=== PATIENT | female | born 1955 | race Caucasian/White ===

== ENCOUNTER → 2016-06-04 09:55 | Outpatient (CLI) | payer MEDICARE ==
[~2016-06-04 09:55] MED LIST: BROVANA15 MCG/2 M INH; CYMBALTA30 MG PO; DULERA 100 MCG8.8 GM INH; ELIQUIS5 MG PO; K-DUR20 MEQ PO; METOPROLOL-HCTZ1 TA3 PO; NEXIUM20 MG PO; NITROQUICK0.4 MG SL; PLAVIX75 MG PO; SYNTHROID125 MCG PO; VYTORIN 10-20 M1 TAB PO; XANAX1 MG PO
== END | disposition home or self-care (01) ==
LOC: D.CATH 09:55
DX: I48.91 Unspecified atrial fibrillation (principal); Z01.810 Encounter for preprocedural cardiovascular examination; Z01.811 Encounter for preprocedural respiratory examination; Z01.812 Encounter for preprocedural laboratory examination; Z53.9 Procedure and treatment not carried out, unspecified reason

== ENCOUNTER → 2016-11-18 18:52 | Outpatient (CLI) | payer MEDICARE | END | disposition home or self-care (01) | LOC: D.MAMMO 13:30 | DX: Z12.31 Encounter for screening mammogram for malignant neoplasm of breast (principal) ==

== ENCOUNTER 2017-07-10 09:06 | Emergency (ER) | payer MEDICARE ==
[2017-07-10 09:38] LABS: APPEARANCE HAZY (CLEAR); COLOR YELLOW (YELLOW)
[2017-07-10 09:39] LABS: BILIRUBIN NEGATIVE (NEGATIVE); GLUCOSE NEGATIVE (NEGATIVE); KETONE NEGATIVE (NEGATIVE); NITRITE NEGATIVE (NEGATIVE); PROTEIN NEGATIVE (NEGATIVE); UROBILINOGEN NORMAL (NORMAL)
[2017-07-10 09:43] LABS: BASOPHILS 0.6 % (0-2); EOSINOPHILS 1.2 % (0-7); HEMATOCRIT 49.1 % (36.0-48.0); HEMOGLOBIN 16.9 g/dL (12-16); IMMATURE GRANULOCYTES 0.2 % (0-5); MCH 31.2 pg (26.0-34.0); MCHC 34.4 g/dL (31.0-37.0); MCV 90.8 fL (80.0-100.0); MEAN PLATELET VOLUME 9.7 fL (7.4-10.4); MONOCYTES 8.6 % (2-11); NEUTROPHILS 64.4 % (40-80); PLATELET COUNT 282 10x3/uL (130-400); RBC 5.41 10x6/uL (4.00-5.40); RDW 13.4 % (11.5-14.5); WBC 6.6 10x3/uL (4.8-10.8)
[2017-07-10 09:56] LABS: ALBUMIN 3.2 g/dL (3.4-5.0); ANION GAP 14.2 mmol/L (8-16); BILIRUBIN - TOTAL 0.83 mg/dL (0.2-1.3); CALCIUM 9.2 mg/dL (8.5-10.1); CARBON DIOXIDE 25.9 mmol/L (21.0-32.0); CREATININE - SERUM 0.9 mg/dL (0.6-1.3); POTASSIUM - SERUM 4.1 mmol/L (3.5-5.1); PROTEIN - SERUM 7.1 g/dL (6.4-8.2)
== END 2017-07-10 13:50 | disposition home or self-care (01) ==
LOC: D.ER 09:06
PROVIDERS: Emergency Medicine
DX: R10.9 Unspecified abdominal pain (principal); N39.0 Urinary tract infection, site not specified; K43.9 Ventral hernia without obstruction or gangrene; I10 Essential (primary) hypertension

== ENCOUNTER → 2017-11-11 16:19 | Outpatient (CLI) | payer MEDICARE | END | disposition home or self-care (01) | LOC: D.MAMMO 09:00 | DX: Z12.31 Encounter for screening mammogram for malignant neoplasm of breast (principal) ==

== ENCOUNTER 2018-06-03 09:49 | Outpatient (CLI) | payer MEDICARE ==
[2018-06-03] MEDS ORDERED: LINZESS145 MCG PO (10:08)
[2018-06-03] MEDS ORDERED: BETAPACE 120 M120 MG PO (10:09)
[2018-06-03] MEDS ORDERED: PROTONIX40 MG PO (10:11)
[2018-06-03] MEDS ORDERED: LISINOPRIL20 MG PO (10:12)
[2018-06-03] MEDS ORDERED: DETROL LA4 MG PO (10:13)
[2018-06-03] MEDS ORDERED: KLONOPIN0.5 MG PO (10:14)
[2018-06-03] MEDS ORDERED: ZOFRAN ODT4 MG/UDTAB PO (10:15)
[2018-06-03] MEDS ORDERED: DOXEPIN HCL10 MG PO (10:16)
[2018-06-03] MEDS ORDERED: NEURONTIN 300300 MG PO (10:18)
--- NOTE | 2018-06-03 10:44 | NUR ---
PT ARRIVES FOR SCHEDULED CARDIOVERSION. EKG DONE AND PT WAS IN [facility]. DR JIMENEZ NOTIFIED AND DISCHARGE ORDERS GIVEN.
--- NOTE | 2018-06-03 10:44 | NUR ---
PROCEDURE CANCELLED DUE TO NORMAL EKG. PT LEFT AMBULATORY.
== END 2018-06-03 10:30 | disposition home or self-care (01) ==
LOC: D.CATH 09:49
PROVIDERS: ATTEND Internal Medicine Interventional Cardiology
DX: I48.91 Unspecified atrial fibrillation (principal); Z53.8 Procedure and treatment not carried out for other reasons

== ENCOUNTER → 2018-11-25 09:00 | Outpatient (CLI) | payer MEDICARE ==
[~2018-11-25 09:00] MED LIST changes: +BETAPACE 120 M120 MG PO; +DETROL LA4 MG PO; +DOXEPIN HCL10 MG PO; +KLONOPIN0.5 MG PO; +LINZESS145 MCG PO; +LISINOPRIL20 MG PO; +NEURONTIN 300300 MG PO; +PROTONIX40 MG PO; +ZOFRAN ODT4 MG/UDTAB PO
== END | disposition home or self-care (01) ==
LOC: D.MAMMO 10-28 13:00
PROVIDERS: ATTEND Family Medicine
DX: Z12.31 Encounter for screening mammogram for malignant neoplasm of breast (principal)

== ENCOUNTER → 2019-08-04 08:49 | Outpatient (CLI) | payer MEDICARE | END | disposition home or self-care (01) | LOC: D.HCCARDIO 08:49 | PROVIDERS: ATTEND Internal Medicine Cardiovascular Disease | DX: I25.10 Atherosclerotic heart disease of native coronary artery without angina pectoris (principal) ==

== ENCOUNTER 2019-08-17 11:29 | Outpatient (CLI) | payer MEDICARE ==
[~2019-08-17] VITALS: Ht 157.5 cm; Wt 131.8 kg
--- NOTE | ~2019-08-17 | HEMODYNAMI ---
PATIENT:KAYLEE MORRISSEY MEDICAL RECORD: [id number] : 51 LOCATION:[facility] ADMISSION DATE: 08/17/19 Generatedon:08/17/201914:23 Patient name: KAYLEE MORRISSEY Patient #: [id number] SSN: [id number] : 1955 Date of study: 08/17/2019 Page: Of Hemodynamic Procedure Report Patient Data Patient Demographics Procedure consent was obtained First Name: KAYLEE Gender: Female Last Name: YUNI : 1955 Middle Initial: VANDANA Age: 63 year(s) Patient #: [id number] Race: SSN: [id number] Additional ID: [id number] Contact details [address]: [address] [place] [address] State: [place] City: [place] Zip code: [address] Past Medical History Allergies Allergen Reaction Date Comments Reported Other allergy 08/17/2019 SEE CHART Admission Admission Data Admission Date: 08/17/2019 Admission Time: 11:29 Arrival Date: 08/17/2019 Arrival Time: 0:00 Admit Source: Other Insurance Payor: Medicare [facility] #: [id number] Height (in.): 63 BSA: 2.23 (m2) Height (cm.): 160.02 BMI: 49.6 (kg/m2) Weight (lbs.): 280 Weight (kg.): 127.01 Lab Results Lab Result Date: 08/17/2019 Lab Result Time: 0:00 Biochemistry Name Units Result Min Max BUN mg/dl 14 --(--*-)-- 7 18 Creatinine mg/dl 0.9 --(-*--)-- 0.6 1.3 eGFR ml/min 67.09499 *-(----)-- 90 120 NONAFRICAN CBC Name Units Result Min Max Hemoglobin g/dl 12.6 -*(----)-- 13.5 17.5 Procedure Procedure Types Cath Procedure Diagnostic Procedure [facility] w/Coronaries Sedation Charges Moderate Sedation up to 15 minutes Procedure Description Procedure Date Procedure Date: 08/17/2019 Procedure Start Time: 14:03 Procedure End Time: 14:20 Procedure Staff Name Function Zak Brown MD Performing Physician Alexa Ortega RT Monitor Gabriele Todd RN Nurse Aimee Syed RT Scrub Indication Abnormal stress perfusion Procedure Data Cath Procedure Fluoroscopy Diagnostic fluoroscopy Total fluoroscopy Time: 2 time: 2 min min Diagnostic fluoroscopy Total fluoroscopy dose: dose: 1125 mGy 1125 mGy Contrast Material Contrast Material Type Amount (ml) Isovue 300 98 Entry Location Entry Primary Successful Side Size Upsize Upsize Entry Closure Succes sful Closure Location (Fr) 1 (Fr) 2 (Fr) Remarks Device Remarks Femoral Right 5 Fr Exoseal artery Estimated blood loss: 10 ml Diagnostic catheters Device Type Used For End Catheter Placement MULTIPACK JL 4.0 5Fr Procedure catheter MULTIPACK 3DRC 5Fr Procedure catheter MULTIPACK Pigtail 5 Fr Ventriculography catheter Procedure Complications No complications Procedure Medications Medication Administration Route Dosage Oxygen etCO2 Nasal cannula 4 l/min Lidocaine 2% 20 Heparin Flush Bag added to field 2 bags (1000units/500ml NS) 0.9% NaCl I.V. 100 ml/hr Versed I.V. 1 mg Fentanyl I.V. 50 mcg Versed I.V. 1 mg Fentanyl I.V. 50 mcg Versed I.V. 1 mg Versed I.V. 1 mg Hemodynamics Rest BSA: 2.23 (m2) O2 Consumption: Estimated: 199.6 (ml/min) O2 Consumption indexed: Estimated:89.51 (ml/min/m) Heart Rate: 60 (bpm) Pressure Samples Time Site Value (mmHg) Purpose Heart Use Rate(bpm) 14:13 LV 175/9,25 Snapshot 60 14:13 AO 172/32(80) Pullback 58 14:14 AO 175/74(111) Pullback 47 Gradients Valve Time Site Site 2 Mean SEP/DFP Peak To Heart Use 1 (mmHg) (sec/min) Peak Rate (mmHg) (bpm) Aortic 14:13 LV AO 6 30 58 172/32(80) Aortic 14:14 LV AO 23 34 47 175/74(111) Calculations Valve P-P Mean Valve Index Valve Source Name Gradient Area Flow (cm2) Aortic 23 23 Snapshots Pre Cath Intra NCS Post Cath Vital Signs Time Heart Resp SPO2 etCO2 NIBP (mmHg) Rhythm Pain Sedation Rate (ipm) (%) (mmHg) Status Level (bpm) 13:50:04 52 14 98 1.4 163/86(146) NSR 0 (11) 10(A) , No pain 13:56:08 49 21 93 0 157/78(118) NSR 0 (11) 10(A) , No pain 14:01:50 53 25 92 0 138/75(111) NSR 0 (11) 10(A) , No pain 14:07:22 54 32 94 33.6 160/67(116) NSR 0 (11) 9(A) , No pain 14:11:57 56 23 93 32.8 150/79(113) NSR 0 (11) 9(A) , No pain 14:16:27 58 23 92 48.5 151/77(106) NSR 0 (11) 9(A) , No pain 14:21:03 57 28 94 43.3 159/71(106) NSR 0 (11) 10(A) , No pain Medications Time Medication Route Dose Verified Delivered Reason Notes Ef fectiveness by by 13:50:49 Oxygen etCO2 4l/min Zak Buffie used for Nasal Kevin Todd RN procedure cannula 13:50:56 Lidocaine 2% 20ml Zak Zak for local vial Kevin Brown MD anesthetic 13:51:02 Heparin Flush added 2 bags Zak Zak used for Bag to Kevin Brown MD procedure (1000units/500ml field NS) 13:51:12 0.9% NaCl I.V. 100 Zak Buffie Per ml/hr Kevin Todd RN physician 13:53:05 Versed I.V. 1 mg Zak Buffie for Kevin Todd RN sedation 13:53:11 Fentanyl I.V. 50 mcg Zak Buffie for Kevin Todd RN sedation 14:04:32 Versed I.V. 1 mg Zak Buffie for Kevin Todd RN sedation 14:04:35 Fentanyl I.V. 50 mcg Zak Buffie for Kevin Todd RN sedation 14:08:39 Versed I.V. 1 mg Zak Buffie for Kevin Todd RN sedation 14:12:51 Versed I.V. 1 mg Zak Buffie for Brown MD Todd RN sedation Procedure Log Time Note 13:28:32 Informed consent obtained and on chart 13:33:20 Admit Source: Other 13:33:22 Arrival Date: 08/17/2019 12:00:00 AM 13:33:43 Insurance Payor : Medicare 13:33:56 Patient Height : 63 inches 13:34:00 Patient Weight : 280 lbs 13:34:43 Lab Result : BUN 14 mg/dl 13:34:43 Lab Result : eGFR NONAFRICAN 67.19015 ml/min 13:34:43 Lab Result : Hemoglobin 12.6 g/dl 13:34:43 Lab Result : Creatinine 0.9 mg/dl 13:34:48 Diagnostic Cath Status : Elective 13:35:14 Indication : Abnormal stress perfusion 13:35:26 Procedure Status Elective Heart Cath (OP). 13:35:28 Aimee Syed RT(R) sent for patient. Start room use. 13:35:36 Time tracking: Regular hours (M-F 7:00 - 5:00) 13:35:42 Plan of Care:Hemodynamics will remain stable., Cardiac rhythm will remain stable., Comfort level will be maintained., Respiratory function will remain adequate., Patient/ family verbilizes understanding of procedure., Procedure tolerated without complication., Recovers from procedure without complications.. 13:35:48 Patient received from Pre/Post Procedure Room to CCL 1 Alert and oriented. Tansferred to table in Supine position. 13:35:52 Warm blankets applied, and jaren hugger turned on for patient comfort. 13:35:54 Correct patient and procedure confirmed by team. 13:36:04 H&P Date Dictated: 07/27/2019 Within 30 days and on chart., H&P Addendum completed by physician on day of procedure. (MUST COMPLETE FOR ALL OUTPATIENTS). 13:36:06 Pre-procedure instructions explained to patient. 13:36:11 Family in patients room. 13:36:13 Patient NPO since Midnight. 13:36:28 Patient allergic to Other allergySEE CHART 13:36:36 Is the patient allergic to Iodine/contrast media? Yes. 13:36:44 Was the patient premedicated? Yes 13:36:46 Is patient on blood thinner?Yes 13:36:51 ACC The patient was administered the following blood thiners within the last 24 hours: ACCPlavix 13:36:54 Patient diabetic? No. 13:37:02 Snore? Yes 13:37:15 Sleep apnea? Yes 13:37:22 Patient pain scale 0/10 ?. 13:37:27 IV patent on arrival in left forearm with 0.9% NaCl at [facility]. 13:37:31 Lab results completed and on chart. 13:47:30 Stress Test: yes; abnormal ? 13:47:34 Right groin area was prepped with chlora-prep and draped in sterile fashion 13:47:36 Alarms reviewed by R. N. 13:47:36 Sharps counted by scrub and verified by R.N. 13:47:37 Physician paged 13:47:49 Use device set Femoral Dx 13:47:51 ACIST Syringe (67151) opened to sterile field. 13:47:51 Bag Decanter (2002S) opened to sterile field. 13:47:52 Medline Cath Pack ([id number]) opened to sterile field. 13:47:53 ACIST Hand Control (04463) opened to sterile field. 13:47:53 ACIST Manifold (04072) opened to sterile field. 13:47:54 DIAGNOSTIC Multipack 5Fr catheter set (SI8710) opened to sterile field. 13:47:54 Tegaderm 4 x 4 (1626W) opened to sterile field. 13:47:57 SHEATH 5FR Bastian (CUB058) opened to sterile field. 13:47:57 EMERALD Guide Wire (121-141) opened to sterile field. 13:50:38 Vital chart was started 13:50:49 Oxygen 4l/min etCO2 Nasal cannula was administered by Gabriele Todd RN; used for procedure; Verbal order read back and verified. 13:50:56 Lidocaine 2% 20ml vial was administered by Zak Brown MD; for local anesthetic; Verbal order read back and verified. 13:51:02 Heparin Flush Bag (1000units/500ml NS) 2 bags added to field was administered by Zak Brown MD; used for procedure; Verbal order read back and verified. 13:51:12 0.9% NaCl 100 ml/hr I.V. was administered by Gabriele Todd RN; Per physician; Verbal order read back and verified. 13:51:55 Physician arrived 13:51:56 --------ALL STOP TIME OUT------ 13:51:57 Final Timeout: patient, procedure, and site verified with staff and physician. All members of the team are in agreement. 13:51:58 Right groin site verified by team. 13:52:02 Fire Safety Assessment: A--An alcohol-based skin anteseptic being used preoperatively., C--Open oxygen or nitrous oxide is being used., D--An ESU, laser, or fiber-optic light is being used. 13:52:13 Physical assessment completed. ASA score P 2 - A patient with mild systemic disease as per Zak Brown MD. 13:52:16 2) 60-89 Mildly reduced kidney function, and other findings (as for stage 1) point to kidney disease. 13:52:20 Maximum allowable contrast dose (3.7 X eGFR X 0.75)186 ml. 13:52:24 Sedation plan: IV Moderate Sedation Medication:Versed, Fentanyl 13:53:05 Versed 1 mg I.V. was administered by Gabriele Todd RN; for sedation; Verbal order read back and verified. 13:53:11 Fentanyl 50 mcg I.V. was administered by Gabriele Todd RN; for sedation; Verbal order read back and verified. 13:56:57 Zero performed for pressure channel P1 14:02:55 Procedure started. 14:02:55 Full Disclosure recording started 14:03:26 Local anesthetic to right femoral artery with Lidocaine 2% by Zak Brown MD.INITIAL ACCESS ONLY 14:04:32 Versed 1 mg I.V. was administered by Gabriele Todd RN; for sedation; Verbal order read back and verified. 14:04:35 Fentanyl 50 mcg I.V. was administered by Gabriele Todd RN; for sedation; Verbal order read back and verified. 14:07:20 A 5 Fr sheath was inserted into the Right Femoral artery 14:07:31 A MULTIPACK JL 4.0 5Fr catheter was advanced over the wire and used for Procedure. 14:07:44 LCA angiography performed. 14:08:39 Versed 1 mg I.V. was administered by Gabriele Todd RN; for sedation; Verbal order read back and verified. 14:09:28 Catheter removed. 14:09:35 A MULTIPACK 3DRC 5Fr catheter was advanced over the wire and used for Procedure. 14:09:41 RCA angiography performed. 14:11:21 Catheter removed. 14:11:32 A MULTIPACK Pigtail 5 Fr catheter was advanced over the wire and used for Ventriculography. 14:11:43 LV gram done using HARTMAN 14:12:51 Versed 1 mg I.V. was administered by Gabriele Todd RN; for sedation; Verbal order read back and verified. 14:13:39 EF : 50 % 14:17:04 EXOSEAL 5Fr (EX500) opened to sterile field. 14:17:39 Catheter removed. 14:17:50 Sheath removed intact; hemostasis achieved with Exoseal to the Right Femoral artery. 14:18:20 Procedure ended.(Physican Out) 14:18:30 Fluoroscopy time 02.00 minutes. 14:18:36 Flurop Dose total: 1125 14:18:36 Fluoroscopy dose: 1125 mGy 14:18:42 Dose Area Product 02210 mGy/cm. 14:18:53 Contrast amount:Isovue 300 98ml. 14:18:55 Maximum allowable dose exceeded? No. 14:19:00 Insertion/operative site no bleeding no hematoma. 14:19:35 Post-op/insertion site Right Femoral artery dressed using a 4 x 4 and Tegaderm. 14:19:44 Post-procedure physical assessment completed. ASA score P 2 - A patient with mild systemic disease as per Zak Brown MD. 14:19:56 Post procedure rhythm: sinus rhythm , atrial fibrillation 14:20:00 Estimated blood loss: 10 ml 14:20:01 Post procedure instruction explained to patient.Patient verbalizes understanding. 14:20:14 Procedure type changed to Cath procedure, Diagnostic procedure, LHC, [facility] w/Coronaries, Sedation Charges, Moderate Sedation up to 15 minutes 14:20:15 Procedure and supply charges have been captured, reviewed, submitted and are correct. 14:20:40 Procedure Complication : No complications 14:20:43 Vital chart was stopped 14:20:45 [facility] Findings: MVD- CABG consult 14:20:52 See physician's report for complete and final results. 14:20:54 Report given to Pre/Post Procedure Room. 14:20:56 Patient transfered to Pre/Post Procedure Room with Stretcher. 14:20:58 Procedure ended. 14:20:58 Full Disclosure recording stopped 14:21:02 End room use (Document Last) 14:22:17 End room use (Document Last) 14:22:44 End room use (Document Last) Device Usage Item Name Manufacture Quantity Catalog Hospital Part Current Minimal L ot# / Number Charge Number Stock Stock Serial# Code ACIST Acist 1 46642 [id number] 239814 204708 20 Syringe Medical (62025) Systems Inc Bag Microtek 1 2001S 746753 81972 054678 5 Decanter Medical Inc. () Medline Medline 1 [id number] 543213 69989 722400 5 Cath Pack ([id number]) ACIST Hand Acist 1 49865 386622 859099 003683 5 Control Medical (31987) Systems Inc ACIST Acist 1 38236 021291 468212 224412 5 Manifold Medical (27701) Systems Inc DIAGNOSTIC Cardinal 1 [id number] 175335 46211 434425 30 Multipack Health 5Fr catheter set (KE0186) Tegaderm 4 3M 1 1626W 758146 931510 798458 5 x 4 (1626W) SHEATH 5FR Terumo 1 AHG902 840920 327900 767718 5 Bastian (NRK023) EMERALD Cardinal 1 502-455 489500 972722 002639 5 Guide Wire Health (502-455) MULTIPACK Cardinal 1 191781 5 JL 4.0 5Fr Health catheter MULTIPACK Cardinal 1 900689 5 3DRC 5Fr Health catheter MULTIPACK Cardinal 1 247953 5 Pigtail 5 Health Fr catheter EXOSEAL 5Fr Cardinal 1 EX500 123777 082327 860809 10 (EX500) Health Signature Audit Cuthbert Stage Time Signature Unsigned Intra-Procedure 08/17/2019 Alexa Ortega 2:22:17 PM RT(R) Intra-Procedure 08/17/2019 Gabriele Todd RN 2:22:44 PM Intra-Procedure 08/17/2019 Zak Brown MD 2:23:[address] [address]
[2019-08-17] MEDS ORDERED: AMBIEN5 MG PO (12:03)
[2019-08-17] MEDS ORDERED: PROVENTIL/2.5 MG/3 M INH (12:03)
[2019-08-17 12:13] VITALS: BP 148/71; Ht 157.5 cm; Wt 131.8 kg
[2019-08-17 12:32] LABS: CALCIUM 8.6 mg/dL (8.5-10.1); CARBON DIOXIDE 35.7 mmol/L (21.0-32.0); CHOL - HDL RATIO 3.4 ratio (2.3-4.1); CREATININE - SERUM 0.9 mg/dL (0.6-1.3); POTASSIUM - SERUM 4.7 mmol/L (3.5-5.1)
[2019-08-17 12:35] LABS: BASOPHILS 0.1 % (0-2); EOSINOPHILS 0.1 % (0-7); HEMATOCRIT 41.8 % (36.0-48.0); HEMOGLOBIN 12.6 g/dL (12-16); IMMATURE GRANULOCYTES 0.2 % (0-5); LYMPHOCYTES 13.7 % (15-50); MCH 26.7 pg (26.0-34.0); MCHC 30.1 g/dL (31.0-37.0); MCV 88.6 fL (80.0-100.0); MEAN PLATELET VOLUME 9.1 fL (7.4-10.4); MONOCYTES 8.4 % (2-11); NEUTROPHILS 77.5 % (40-80); RBC 4.72 10x6/uL (4.00-5.40); RDW 17.2 % (11.5-14.5); WBC 11.4 10x3/uL (4.8-10.8)
[2019-08-17 12:55] LABS: PLATELET COUNT 389 10x3/uL (130-400)
--- NOTE | 2019-08-17 14:25 | NUR ---
PT RECEIVED VIA STRETCHER FROM WRITER PRODUCER FOR RECOVERY. PT DROWSY, VERBALLY AROUSABLE. PT DENIES PAIN OR DISCOMFORT. IV PATENT INFUSING VIA ORDERS. R GROIN W 5FR EXOCELE, DRESSING CDI NO S/S HEMATOMA NOTED. LEG PINK AND WARM, PEDAL PULSES PALPABLE. PT PLACED ON CARDIAC MONITORS, HR 53, BP 140/63, RR 9, SAT 91 ON ROOM AIR. PT INSTRUCTED TO KEEP HEAD ON PILLOW AND R LEG STRAIGHT SHE VERBALIZED UNDERSTANDING. CALL LIGHT IN REACH, BROTHER AT BS
--- NOTE | 2019-08-17 14:45 | NUR ---
PT RESTING COMFORTABLY. GROIN SOFT, NO S/S HEMATOMA NOTED. VSS. CALL LIGHT IN REACH
--- NOTE | 2019-08-17 15:30 | NUR ---
R GROIN SOFT, DRESSING REMAINS CDI. HOB ELEVATED SLIGHTLY. VSS. CALL LIGHT IN REACH, BROTHER REMAINS AT BS
--- NOTE | 2019-08-17 15:56 | NUR ---
DR. BIRD AT , NO NEW ORDERS. HE DISCUSSED THE PROCEDURE RESULTS AND PLAN OF CARE. R GROIN SOFT, NO S/S HEMATOMA. DRESSING CDI. PT TOLERATED LUNCH W/O DIFFICULITY. VSS. CALL LIGHT IN REACH
--- NOTE | 2019-08-17 16:16 | NUR ---
DISCHARGE INSTRUCTIONS REVIEWED W PT, SHE VERBALIZED UNDERSTANDING. IV REMOVED W CATH INTACT, MONITORS AND O2 REMOVED. R GROIN SOFT, DRESSING CDI NO S/S HEMATOMA. PT UP TO DRESS FOR DISCHARGE
--- NOTE | 2019-08-17 16:33 | NUR ---
PT AMBULATED TO BR, VOIDING W/O DIFFICULITY. PT THEN DISCHARGED VIA WC TO BROTHER WAITING IN PRIVATE VEHICLE. PT HAD ALL BELONGINGS AND DISCHARGE PAPERWORK
== END 2019-08-17 16:30 | disposition home or self-care (01) ==
LOC: D.CATH 11:29
PROVIDERS: ATTEND Internal Medicine Cardiovascular Disease
DX: I25.119 Atherosclerotic heart disease of native coronary artery with unspecified angina pectoris (principal); R94.39 Abnormal result of other cardiovascular function study; E78.5 Hyperlipidemia, unspecified; I10 Essential (primary) hypertension; K21.9 Gastro-esophageal reflux disease without esophagitis

== ENCOUNTER 2019-09-07 11:08 | Inpatient (IN) | payer MEDICARE ==
[~2019-09-07] VITALS: Ht 157.5 cm; Wt 143.3 kg
[2019-09-07] VITALS (31 sets, daily range): BP systolic 58–156; BP diastolic 31–613; BMI 52.8
--- NOTE | ~2019-09-07 | HEMODYNAMI ---
PATIENT:KAYLEE MORRISSEY MEDICAL RECORD: [id number] : 51 LOCATION:[facility] ADMISSION DATE: 09/07/19 Generatedon:09/07/201913:48 Patient name: KAYLEE MORRISSEY Patient #: [id number] SSN: [id number] : 1955 Date of study: 09/07/2019 Page: Of Hemodynamic Procedure Report Patient Data Patient Demographics Procedure consent was obtained First Name: KAYLEE Gender: Female Last Name: YUNI : 1955 [facility] Initial: VANDANA Age: 63 year(s) Patient #: [id number] Race: SSN: [id number] Additional ID: [id number] Contact details [address]: [address] [place] [address] State: [place] City: [place] Zip code: [address] Past Medical History Allergies Allergen Reaction Date Comments Reported Other allergy 08/17/2019 SEE CHART Admission Admission Data Admission Date: 09/07/2019 Admission Time: 11:08 Height (in.): 62 BSA: 2.25 (m2) Height (cm.): 157.48 BMI: 53.41 (kg/m2) Weight (lbs.): 292 Weight (kg.): 132.45 Lab Results Lab Result Date: 09/07/2019 Lab Result Time: 0:00 Biochemistry Name Units Result Min Max BUN mg/dl 12 --(-*--)-- 7 18 Creatinine mg/dl 0.9 --(-*--)-- 0.6 1.3 eGFR ml/min 67.71738 *-(----)-- 90 120 NONAFRICAN CBC Name Units Result Min Max Hemoglobin g/dl 12.9 -*(----)-- 13.5 17.5 Procedure Procedure Types Cath Procedure Diagnostic Procedure Sedation Charges Moderate Sedation up to 15 minutes Moderate Sedation up to 45 minutes PCI Procedure Coronary Stent Coronary Stent Initial x2 Hemochron ACT Test Procedure Description Procedure Date Procedure Date: 09/07/2019 Procedure Start Time: 13:00 Procedure End Time: 13:44 Procedure Staff Name Function Zak Iverson MD Performing Physician Sada Henriquez RT Monitor Gabriele Todd RN Nurse Russ Kaba RT Scrub Procedure Data Cath Procedure Fluoroscopy Diagnostic fluoroscopy Total fluoroscopy Time: 7.2 time: 7.2 min min Diagnostic fluoroscopy Total fluoroscopy dose: dose: 1951 mGy 1951 mGy Contrast Material Contrast Material Type Amount (ml) Isovue 300 109 Entry Location Entry Primary Successful Side Size Upsize Upsize Entry Closure Succes sful Closure Location (Fr) 1 (Fr) 2 (Fr) Remarks Device Remarks Femoral Right 5 Fr vein Femoral Right 6 Fr Exoseal artery Short Estimated blood loss: 5 ml Procedure Complications No complications Procedure Medications Medication Administration Route Dosage Oxygen etCO2 Nasal cannula 2 l/min Lidocaine 2% added to field 20 Heparin Flush Bag added to field 2 bags (1000units/500ml NS) 0.9% NaCl I.V. 100 ml/hr Versed I.V. 1 mg Fentanyl I.V. 50 mcg Versed I.V. 1 mg Fentanyl I.V. 50 mcg Versed I.V. 1 mg Heparin Bolus I.V. 61259 units Versed I.V. 1 mg Hemodynamics Rest BSA: 2.25 (m2) HGB: 12.9 (g/dl) O2 Consumption: Estimated: 226.24 (ml/min) O2 Co nsumption indexed: Estimated:100.55 (ml/min/m) Heart Rate: 89 (bpm) Snapshots Pre Cath Intra NCS Post Cath Vital Signs Time Heart Resp SPO2 etCO2 NIBP (mmHg) Rhythm Pain Sedation Rate (ipm) (%) (mmHg) Status Level (bpm) 12:51:09 99 11 95 0 156/83(136) A-Fib 0 (11) 10(A) , No pain 12:55:29 88 12 100 0 153/115(140) A-Fib 0 (11) 10(A) , No pain 13:00:57 105 27 92 0 160/101(138) A-Fib 0 (11) 10(A) , No pain 13:05:19 115 31 96 0 154/103(123) A-Fib 0 (11) 9(A) , No pain 13:10:46 117 26 93 0 158/102(129) A-Fib 0 (11) 9(A) , No pain 13:15:09 107 37 94 0 161/100(135) A-Fib 0 (11) 9(A) , No pain 13:19:35 123 26 94 0 164/93(138) A-Fib 0 (11) 9(A) , No pain 13:23:59 103 33 94 0 153/92(132) A-Fib 0 (11) 9(A) , No pain 13:29:20 96 28 93 0 146/94(128) A-Fib 0 (11) 9(A) , No pain 13:34:34 104 20 95 0 168/102(125) A-Fib 0 (11) 10(A) , No pain 13:40:08 103 36 98 0 171/92(120) A-Fib 0 (11) 10(A) , No pain 13:44:18 85 13 96 0 Aborted A-Fib 0 (11) 10(A) , No pain Medications Time Medication Route Dose Verified Delivered Reason Note s Effectiveness by by 12:53:55 Oxygen etCO2 2 Zak Buffie used for Nasal l/min Kevin Todd pole climber cannula 12:54:03 Lidocaine 2% added 20ml Zak Zak for local to vial Kevin Iverson MD anesthetic field 12:54:10 Heparin Flush added 2 bags Zak Zak used for Bag to Kevin Iverson MD procedure (1000units/500ml field NS) 12:54:19 0.9% NaCl I.V. 100 Zak Buffie Per physician ml/hr Kevin Todd RN 12:54:35 Versed I.V. 1 mg Zka Buffie for sedation Kevin Todd RN 12:54:41 Fentanyl I.V. 50 mcg Zak Buffie for sedation Kevin Todd RN 13:02:49 Versed I.V. 1 mg Zak Buffie for sedation Kevin Todd RN 13:02:52 Fentanyl I.V. 50 mcg Zak Buffie for sedation Kevin Todd RN 13:12:50 Versed I.V. 1 mg Zak Buffie for sedation Kevin Todd RN 13:15:04 Heparin Bolus I.V. 10,000 Zak Buffie for veri fied units Kevin Todd RN anticoagulation with dr iverson 13:21:02 Versed I.V. 1 mg Zak Buffie for sedation Kevin Todd RN Procedure Log Time Note 12:40:04 Gabriele Todd RN sent for patient. Start room use. 12:40:47 Informed consent obtained and on chart 12:40:56 PCI Cath Status : Elective 12:41:34 Patient Height : 62 inches 12:42:16 Patient Weight : 292 lbs 12:49:52 Vital chart was started 12:51:02 Procedure Status PCI. 12:51:11 Time tracking: Regular hours (M-F 7:00 - 5:00) 12:51:16 Plan of Care:Hemodynamics will remain stable., Cardiac rhythm will remain stable., Comfort level will be maintained., Respiratory function will remain adequate., Patient/ family verbilizes understanding of procedure., Procedure tolerated without complication., Recovers from procedure without complications.. 12:51:21 Patient received from Pre/Post Procedure Room to CCL 2 Alert and oriented. Tansferred to table in Supine position. 12:51:22 Warm blankets applied, and jaren hugger turned on for patient comfort. 12:51:23 Correct patient and procedure confirmed by team. 12:51:23 ECG and BP/O2 sat monitors applied to patient. 12:51:24 Baseline sample Acquired. 12:51:29 Rhythm: atrial fibrillation 12:51:31 Full Disclosure recording started 12:51:35 H&P Date Dictated: 09/07/2019 Within 30 days and on chart., H&P Addendum completed by physician on day of procedure. (MUST COMPLETE FOR ALL OUTPATIENTS). 12:51:37 Pre-procedure instructions explained to patient. 12:51:39 Pre-op teaching completed and patient verbalized understanding. 12:51:40 Family in patients room. 12:51:42 Patient NPO since Midnight. 12:51:44 Is the patient allergic to Iodine/contrast media? Yes. 12:51:45 Was the patient premedicated? Yes 12:51:46 Is patient on blood thinner?Yes 12:51:48 ACC The patient was administered the following blood thiners within the last 24 hours: ACCPlavix 12:52:25 Patient diabetic? No. 12:52:27 Previous problem with sedation/anesthesia? No ? 12:52:29 Snore? Yes 12:52:31 Sleep apnea? Yes 12:52:45 Deviated septum? No 12:52:46 Opens mouth fully? Yes 12:52:47 Sticks out tongue? Yes 12:52:52 Airway obstruction? No ? 12:52:56 Dentures? No ? 12:52:59 Pre procedure: right dorsailis pedis pulse 1+ Palpable, but thready & weak; easily obliterated 12:53:01 Pre procedure: left dorsailis pedis pulse 1+ Palpable, but thready & weak; easily obliterated 12:53:03 Patient pain scale 0/10 ?. 12:53:09 IV patent on arrival in left forearm with 0.9% NaCl at [facility]. 12:53:17 Lab results completed and on chart. 12:53:22 Right groin area was prepped with chlora-prep and draped in sterile fashion 12:53:23 Alarms reviewed by R. N. 12:53:23 Sharps counted by scrub and verified by R.N. 12:53:25 Physician arrived 12:53:25 --------ALL STOP TIME OUT------ 12:53:26 Final Timeout: patient, procedure, and site verified with staff and physician. All members of the team are in agreement. 12:53:28 Right groin site verified by team. 12:53:32 Fire Safety Assessment: A--An alcohol-based skin anteseptic being used preoperatively., C--Open oxygen or nitrous oxide is being used., D--An ESU, laser, or fiber-optic light is being used. 12:53:35 Physical assessment completed. ASA score P 2 - A patient with mild systemic disease as per Zak Iverson MD. 12:53:41 Sedation plan: IV Moderate Sedation Medication:Versed, Fentanyl 12:53:55 Oxygen 2 l/min etCO2 Nasal cannula was administered by Gabriele Todd RN; used for procedure; Verbal order read back and verified. 12:54:03 Lidocaine 2% 20ml vial added to field was administered by Zak Iverson MD; for local anesthetic; Verbal order read back and verified. 12:54:10 Heparin Flush Bag (1000units/500ml NS) 2 bags added to field was administered by Zak Iverson MD; used for procedure; Verbal order read back and verified. 12:54:19 0.9% NaCl 100 ml/hr I.V. was administered by Gabriele Todd RN; Per physician; Verbal order read back and verified. 12:54:35 Versed 1 mg I.V. was administered by Gabriele Todd RN; for sedation; Verbal order read back and verified. 12:54:41 Fentanyl 50 mcg I.V. was administered by Gabriele Todd RN; for sedation; Verbal order read back and verified. 12:58:16 Use device set CATH PACK 12:58:18 ACIST Syringe (25964) opened to sterile field. 12:58:18 ACIST Hand Control (98833) opened to sterile field. 12:58:19 ACIST Manifold (45721) opened to sterile field. 12:58:19 Medline Cath Pack ([id number]) opened to sterile field. 12:58:19 Bag Decanter (2002S) opened to sterile field. 12:58:20 EMERALD Guide Wire (502-979) opened to sterile field. 12:58:36 SHEATH 6FR Congress (HBJ665) opened to sterile field. 12:58:39 BMW 300cm Norris 2 J wire ([id number]) opened to sterile field. 12:58:40 INFLATOR Merit BasixCompak (ZO7944) opened to sterile field. 13:00:42 Procedure started. 13:00:49 Local anesthetic to right femoral artery with Lidocaine 2% by Zak Iverson MD.INITIAL ACCESS ONLY 13:02:11 Zero performed for pressure channel P1 13:02:42 GUIDE 6FR XBLAD 3.5 catheter ([id number]) opened to sterile field. 13:02:49 Versed 1 mg I.V. was administered by Gabriele Todd RN; for sedation; Verbal order read back and verified. 13:02:52 Fentanyl 50 mcg I.V. was administered by Gabriele Todd RN; for sedation; Verbal order read back and verified. 13:05:44 A 5 Fr sheath was inserted into the Right Femoral vein 13:09:34 NEEDLE Merit 18G 9cm Percutaneous Entry ([id number]) opened to sterile field. 13:12:43 A 6 Fr Short sheath was inserted into the Right Femoral artery 13:12:50 Versed 1 mg I.V. was administered by Gabriele Todd RN; for sedation; Verbal order read back and verified. 13:14:00 GUIDE 6FR XBLAD 3.5 catheter ([id number]) opened to sterile field. 13:14:44 6 Fr xblad 3.5 guide catheter was inserted over the wire 13:14:46 ACC Pre-intervention EARL Flow is 3. 13:15:04 Heparin Bolus 10,000 units I.V. was administered by Gabriele Todd RN; for anticoagulation; verified with dr iverson Verbal order read back and verified. 13:20:53 bmw wire advanced. 13:21:02 Versed 1 mg I.V. was administered by Gabriele Todd RN; for sedation; Verbal order read back and verified. 13:24:01 Place stent Inflation Number: 1 A PAULO OTW 3.0 x 12 stent ([id number]) was prepped and advanced across the Prox LAD 80. The stent was deployed at 12 [place] for 0:10 (min:sec) 0. 13:25:54 Wire redirected to LCX. 13:26:35 Stent catheter was removed intact over wire. 13:33:01 Place stent Inflation Number: 1 A PAULO OTW 3.0 x 22 stent ([id number]) was prepped and advanced across the Prox CX 80. The stent was deployed at 12 [place] for 0:10 (min:sec) 0. 13:33:26 Stent catheter was removed intact over wire. 13:33:26 Wire removed. 13:33:27 Guide catheter removed. 13:33:33 EXOSEAL 6Fr (EX600) opened to sterile field. 13:33:43 Sheath removed intact; hemostasis achieved with Exoseal to the Right Femoral artery. 13:33:45 Procedure ended.(Physican Out) 13:34:06 Fluoroscopy time 07.20 minutes. 13:34:11 Flurop Dose total: 1950 13:34:11 Fluoroscopy dose: 1951 mGy 13:34:17 Dose Area Product 78248 mGy/cm. 13:34:21 Contrast amount:Isovue 300 109ml. 13:37:09 Maximum allowable dose exceeded? No. 13:37:10 Sharps counted by scrub and verified by R.N. 13:37:12 Insertion/operative site no bleeding no hematoma. 13:37:14 Post-op/insertion site Right Femoral artery dressed using a 4 x 4 and Tegaderm. 13:41:55 Femstop placed over the right femoral artery at 150 mmHg. Hemostasis achieved. 13:41:56 Post Procedure Pulses reassessed and unchanged 13:41:59 Post procedure rhythm: unchanged. 13:42:01 Estimated blood loss: 5 ml 13:42:02 Post procedure instruction explained to patient.Patient verbalizes understanding. 13:42:03 Patient needs reinforcement of post procedure teaching. 13:42:19 Procedure type changed to Cath procedure, Diagnostic procedure, Sedation Charges, Moderate Sedation up to 15 minutes, Moderate Sedation up to 45 minutes, PCI procedure, Coronary Stent, Coronary Stent Initial x2, Hemochron ACT Test 13:43:09 ACT drawn and resulted at 275 seconds. (normal therapeutic range 180-240 seconds). 13:43:33 Procedure and supply charges have been captured, reviewed, submitted and are correct. 13:43:37 Procedure Complication : No complications 13:43:59 SHEATH 5FR Congress (LPY964) opened to sterile field. 13:44:19 2) 60-89 Mildly reduced kidney function, and other findings (as for stage 1) point to kidney disease. 13:44:22 Maximum allowable contrast dose (3.7 X eGFR X 0.75)187 ml. 13:44:32 Operative report dictated upon procedure completion. 13:44:33 See physician's report for complete and final results. 13:44:34 Report given to Pre/Post Procedure Room. 13:44:37 Procedure ended. 13:44:37 Full Disclosure recording stopped 13:44:45 ACC-PCI Only Patient was given prescriptions, or instructed by Zak Iverson MD to start/continue the following medications upon discharge: Plavix 13:44:47 End room use (Document Last) 13:45:38 TUBING High Pressure Extension Tubing (Kevin) ([id number]) opened to sterile field. 13:47:12 Lab Result : BUN 12 mg/dl 13:47:12 Lab Result : Creatinine 0.9 mg/dl 13:47:12 Lab Result : eGFR NONAFRICAN 67.42214 ml/min 13:47:12 Lab Result : Hemoglobin 12.9 g/dl 13:48:21 Vital chart was stopped Intervention Summary Intervention Notes Time ActionType Lesion and Equipment Action# Pressure Duration Attributes Used 13:24:01 Place stent Prox LAD PAULO OTW 3.0 1 12 00:10 x 12 stent ([id number]) 13:33:01 Place stent Prox CX PAULO OTW 3.0 1 12 00:10 x 22 stent ([id number]) Device Usage Item Name Manufacture Quantity Catalog Hospital Part Current Mini mal Lot# / Number Charge Number Stock Stock Serial# Code ACIST Syringe Acist 1 45785 057302 899379 256460 20 (98882) Medical Systems Inc ACIST Hand Acist 1 09424 480298 139788 378096 5 Control Medical (78413) Systems Inc ACIST Acist 1 56902 561822 283503 851193 5 Manifold Medical (97954) Systems Inc Medline Cath Medline 1 [id number] 985206 33771 470051 5 Pack ([id number]) Bag Decanter Microtek 1 2001S 499203 71899 870160 5 (2001S) Medical Inc. EMERALD Guide Cardinal 1 502-455 412269 766617 953197 5 Wire Health (502-455) SHEATH 6FR Terumo 1 NHL654 343617 859476 402174 40 Congress (LHF220) BMW 300cm Biswas 1 [id number] 583551 458661 705207 5 Norris 2 J Vascular wire (2083916I) INFLATOR Merit 1 QV7263 782569 326922 529786 15 [facility] Medical BasixCompak (OF9861) GUIDE 6FR Cardinal 2 61003300 681691 261402 973408 10 XBLAD 3.5 Health catheter (30781858) NEEDLE Merit Merit 1 [id number] 126557 929141 137694 5 18G 9cm Medical Percutaneous Entry (YS71R79Q) PAULO OTW 3.0 Medtronic 1 [id number] 044235 5922184 172880 5 [id number] x 12 stent ([id number]) PAULO OTW 3.0 Medtronic 1 [id number] 764152 7373656 753132 5 [id number] x 22 stent ([id number]) EXOSEAL 6Fr Cardinal 1 EX600 792363 104190 122167 10 (EX600) Health SHEATH 5FR Terumo 1 NYF305 940690 101592 617445 5 Congress (OLY265) TUBING High Merit 1 [id number] 326315 32058 280350 10 Pressure Medical Extension Tubing (Kevin) (DS0100O) Signature Audit [place]elle Stage Time Signature Unsigned Intra-Procedure 09/07/2019 Sada Henriquez 1:46:32 PM RT(R) Intra-Procedure 09/07/2019 Gabriele Todd RN 1:47:30 PM Intra-Procedure 09/07/2019 Zka Iverson MD 1:48:19 PM Signatures Performing Physician : Signature : Zak Iverosn MD Date : Time : Monitor : Sada Henriquez RT Signature : Date : Time : Nurse : Gabriele Todd RN Signature : Date : Time : [address] [address]
[~2019-09-07 11:08] MED LIST changes: +AMBIEN5 MG PO; +PROVENTIL/2.5 MG/3 M INH
[2019-09-07 12:49] LABS: BASOPHILS 0.1 % (0-2); EOSINOPHILS 0 % (0-7); HEMATOCRIT 43.4 % (36.0-48.0); HEMOGLOBIN 12.9 g/dL (12-16); IMMATURE GRANULOCYTES 0.2 % (0-5); LYMPHOCYTES 9.3 % (15-50); MCHC 29.7 g/dL (31.0-37.0); MCV 90.8 fL (80.0-100.0); MEAN PLATELET VOLUME 9.3 fL (7.4-10.4); MONOCYTES 6.7 % (2-11); NEUTROPHILS 83.7 % (40-80); PLATELET COUNT 340 10x3/uL (130-400); RBC 4.78 10x6/uL (4.00-5.40); RDW 17.4 % (11.5-14.5); WBC 8.6 10x3/uL (4.8-10.8)
[2019-09-07 13:02] LABS: CALCIUM 9.2 mg/dL (8.5-10.1); CARBON DIOXIDE 34.5 mmol/L (21.0-32.0); CHOL - HDL RATIO 3.5 ratio (2.3-4.1); CREATININE - SERUM 0.9 mg/dL (0.6-1.3); LDL-HDL RATIO 2.1 ratio (1.5-3.5); POTASSIUM - SERUM 4.5 mmol/L (3.5-5.1)
--- NOTE | 2019-09-07 14:00 | NUR ---
PT ARRIVED BY STRETCHER. PLACED ON MONITORS. ASSESSMENT COMPLETED. FAMILY AT BEDSIDE. CALL LIGHT WITHIN REACH.
--- NOTE | 2019-09-07 14:15 | NUR ---
PT RESTING COMFORTABLY. VSS. RIGHT GROIN WITH FEMSTOP IN PLACE. HEMATOMA STABLE AND HAS NOT INCREASED IN SIZE. CALL LIGHT WITHIN REACH. RIGHT PEDAL PULSE PALPABLE.
--- NOTE | 2019-09-07 14:50 | NUR ---
PT REPORTS THAT HER PAIN IS IMPROVED. RATES IT A 6/10 AT THIS TIME. FEMSTOP STABLE AT THIS TIME. VSS. CALL LIGHT WITHIN REACH. FAMILY AT BEDSIDE.
--- NOTE | 2019-09-07 15:26 | NUR ---
RIGHT GROIN HEMATOMA STABLE. FEMSTOP WEANED TO 110mmHg. TOLERATING WELL. VSS. RIGHT PEDAL PULSE PALPABLE. CALL LIGHT WITHIN REACH. FAMILY AT BEDSIDE.
--- NOTE | 2019-09-07 15:40 | NUR ---
PT C/O INC PAIN. RAN VALADEZ AND SADIA SANDS AT BEDSIDE. FEMSTOP REMOVED AND MANUAL PRESSURE HELD. HEMATOMA IS SLIGHTLY LARGER AT THIS TIME.
--- NOTE | 2019-09-07 15:50 | NUR ---
FEMSTOP REPOSITIONED AT THIS TIME. PRESSURE INC TO 66mmGh. PT'S BP DROPPED TO 82/49. PT REPORTS FEELING "NOT GOOD". PALE. PT PLACED IN [place]. IV FLUIDS OPENED. DR. BIRD CALLED.
--- NOTE | 2019-09-07 15:55 | NUR ---
DR. BIRD AT BEDSIDE. PT STILL ALERT AND ORIENTED. RIGHT PEDAL PULSE WITH DOPPLER. DR. BIRD WILL SPEAK WITH DR. MOSQUEDA TO ASSESS GROIN. PRESSURE TO RIGHT GROIN STILL BEING HELD.
--- NOTE | 2019-09-07 16:05 | NUR ---
BP 87/48. PT ALERT AND ORIENTED. STILL COMPLAINING OF PAIN TO RIGHT GROIN. FEMSTOP IN PLACE. MONITORING GROIN SITE. RIGHT PEDAL PULSE WITH DOPPLER.
--- NOTE | 2019-09-07 16:07 | NUR ---
BP 93/58. HR 82. O2 SAT 94% ON 2LNC.
--- NOTE | 2019-09-07 16:15 | NUR ---
DR. MOSQUEDA AT BEDSIDE AND ORDERS RECEIVED. JAYLIN REMOVED FEMSTOP AT THIS TIME. BP 107/59. HR 95. O2 SAT 97% ON 2LNC. PT ALERT AND ORIENTED. RIGHT POST TIB PULSE FOUND WITH DOPPLER. RIGHT LEG WARM TO TOUCH AND PINK. HEMATOMA TO RIGHT GROIN HAS ENLARGED. WILL KEEP FEMSTOP OFF AT THIS TIME. ULTRASOUND CALLED FOR STAT BEDSIDE PER JAYLIN.
--- NOTE | 2019-09-07 16:30 | NUR ---
JAYLIN AT BEDSIDE WITH BRANCH OR DEPARTMENT CHIEF LIBRARIAN. PT GIVEN MORPHINE 4MG IV PER PAIN TO RIGHT LEG. SHE REPORTS 10/10 PAIN AND BURNING. MORPHINE 4MG IV GIVEN PER MD ORDER.
--- NOTE | 2019-09-07 16:50 | NUR ---
DR. MOSQUEDA SPOKE WITH PT'S BROTHER AND UPDATED HIM ON PT'S STATUS AND PLAN OF CARE. PT'S BP 101/62. HR 92. PT STILL C/O PAIN. CT ORDERED STAT.
--- NOTE | 2019-09-07 16:57 | NUR ---
PT TO CT BY STRETCHER.
--- NOTE | 2019-09-07 17:10 | NUR ---
REPORT GIVEN TO ILIA GRAHAM IN CVICU.
[2019-09-07 18:02] LABS: BASOPHILS 0 % (0-2); EOSINOPHILS 0 % (0-7); HEMATOCRIT 35.5 % (36.0-48.0); HEMOGLOBIN 10.5 g/dL (12-16); IMMATURE GRANULOCYTES 0.1 % (0-5); LYMPHOCYTES 8.3 % (15-50); MCH 27.1 pg (26.0-34.0); MCHC 29.6 g/dL (31.0-37.0); MCV 91.7 fL (80.0-100.0); MEAN PLATELET VOLUME 9.4 fL (7.4-10.4); MONOCYTES 2.2 % (2-11); NEUTROPHILS 89.4 % (40-80); PLATELET COUNT 316 10x3/uL (130-400); RBC 3.87 10x6/uL (4.00-5.40); RDW 17.6 % (11.5-14.5); WBC 8.7 10x3/uL (4.8-10.8)
[2019-09-07 18:06] LABS: INR 1.27 (0.85-1.17); PROTIME 15.8 SECONDS (11.6-15.0)
[2019-09-07 18:07] LABS: APTT 47.6 SECONDS (22.8-39.4)
--- NOTE | 2019-09-07 18:10 | NUR ---
PT TAKEN TO OR AT THIS TIME BY DR MOSQUEDA, AND STAFF NURSES
[2019-09-07 18:22] LABS: ALBUMIN 2.1 g/dL (3.4-5.0); ALKALINE PHOSPHATASE 55 U/L (30-120); ALT (SGPT) 14 U/L (10-68); BILIRUBIN - TOTAL 0.61 mg/dL (0.2-1.3); CALC OSMOLALITY 278 mosm/kg (275-300); CALCIUM 7.8 mg/dL (8.5-10.1); CARBON DIOXIDE 28.7 mmol/L (21.0-32.0); CHLORIDE - SERUM 105 mmol/L (98-107); CREATININE - SERUM 0.8 mg/dL (0.6-1.3); GLUCOSE 189 mg/dL (74-106); POTASSIUM - SERUM 5.1 mmol/L (3.5-5.1); PROTEIN - SERUM 4.7 g/dL (6.4-8.2); SODIUM 137 mmol/L (136-145); UREA NITROGEN 13 mg/dL (7-18); eGFR NON AFRICAN AMERICAN 76 mL/min (90-120)
--- NOTE | 2019-09-07 20:34 | NUR ---
PT RECEIVED FROM OR INTUBATED. PT CONNECTED TO MONITORS AND PLACED ON VENT SUPPORT
--- NOTE | 2019-09-07 20:34 | NUR ---
PT HAS DRESSINGS TO RIGHT UPPER THIGH AND GROIN, TWO J/P DRAINS, F/C INPLACE
--- NOTE | 2019-09-07 21:37 | NUR ---
ATTEMPTED TO CALL DR. MOSQUEDA ABOUT ELEVATED GLUCOSE, NO ANSWER
--- NOTE | 2019-09-07 22:44 | NUR ---
ATTEMPTED TO CALL DR. MOSQUEDA ABOUT PATIENTS ELEVATED GLUCOSE LEVELS, NO ANSWER
[2019-09-07 22:56] LABS: PLT FUNCT.(P2Y12) PLAVIX 258 PRU (194-418)
--- NOTE | 2019-09-07 23:00 | NUR ---
PT REASSESSMENT COMPLETED AT THIS TIME, PT SEDATED ON VENT SUPPORT, TITRATING MEDS TO MAINTAIN B/P. PT WILL OPEN EYES TO VOICE, WILL MONITOR FOR CHANGES
[2019-09-08] VITALS (97 sets, daily range): BP systolic 65–137; BP diastolic 43–71; Ht 157.5 cm; Wt 143.3 kg
--- NOTE | 2019-09-08 01:00 | NUR ---
REPORT REC'D FROM ILIA GRAHAM. CONT TO MONITOR.
--- NOTE | 2019-09-08 02:00 | NUR ---
TITRATED LEVOPHED TO 0.04MCG FOR SBP> 90, MAP >65. CONT TO MONITOR.
--- NOTE | 2019-09-08 03:00 | NUR ---
REASSESSMENT COMPLETED. SEE FLOWSHEET FOR ALL FINDINGS. NO ACUTE CHANGES NOTED IN PT'S CONDITION. CONT TO MONITOR,
[2019-09-08 06:48] LABS: ALBUMIN 2.2 g/dL (3.4-5.0); BILIRUBIN - TOTAL 0.67 mg/dL (0.2-1.3); CALCIUM 7.9 mg/dL (8.5-10.1); CARBON DIOXIDE 29.5 mmol/L (21.0-32.0); CREATININE - SERUM 0.9 mg/dL (0.6-1.3); PROTEIN - SERUM 4.9 g/dL (6.4-8.2)
[2019-09-08 06:52] LABS: ANION GAP 8.8 mmol/L (8-16); POTASSIUM - SERUM 4.3 mmol/L (3.5-5.1)
[2019-09-08 07:01] LABS: HEMATOCRIT 30.8 % (36.0-48.0); HEMOGLOBIN 9.7 g/dL (12-16); MCH 27.9 pg (26.0-34.0); MCHC 31.5 g/dL (31.0-37.0); MCV 88.5 fL (80.0-100.0); MEAN PLATELET VOLUME 10.2 fL (7.4-10.4); PLATELET COUNT 457 10x3/uL (130-400); RBC 3.48 10x6/uL (4.00-5.40); RDW 16.7 % (11.5-14.5); WBC 25.7 10x3/uL (4.8-10.8)
[2019-09-08 07:23] LABS: LYMPHOCYTES 8 % (15-50); MONOCYTES 3 % (2-11); NEUTROPHILS 85 % (40-80)
[2019-09-08 07:24] LABS: PLATELET ESTIMATE INCREASED
--- NOTE | 2019-09-08 07:50 | NUR ---
DR MOSQUEDA ROUNDED ON PT. ORDERS RECIECED TO GIVE 500ML NS BOLUS AND 1 U PRBC. PT WAKES UP ON VENT, FOLLOWS COMMANDS. RT GROIN SITE NOTED WITH BRUISING, NO BLEEDING TO SITE, YADIEL DRAINS X 2 WITH BLOODY DRAINAGE, SEE IV FLOWSHEET. VSS. PT NOTED TO HAVE BLOOD PRESSURE DROP AT TIMES TO STIMULATION, DR MOSQUEDA NOTIFIED OF THIS. ALSO PHYSICIAN ORDERED PULMONARY CONSULT. WILL CONTNIUE PLAN OF CARE.
--- NOTE | 2019-09-08 08:35 | NUR ---
1 U PRBC INITIATED AT THIS TIME. VSS. NO ACUTE DISTRESS NOTED. ALSO PT RECIEPT OF 500ML BOLUS COMPLETE. SEE IV FLOWSHEET
--- NOTE | 2019-09-08 12:13 | NUR ---
SPOKE WITH PTS DAUGHTER WHO REQUESTS FOR PT TO HAVE INPATIENT REHAB BEFORE SHE IS DISCHARGED HOME. WILL NOTIFY CASE MANAGEMENT OF THIS AND WILL NOTIFY PHYSICIAN.
--- NOTE | 2019-09-08 12:46 | OP ---
PATIENT NAME: KAYLEE MORRISSEY MEDICAL RECORD: [id number] :51 LOCATION:D.CVI D.CV07 ADMISSION DATE:09/07/19 SURGEON: GUILLERMINA MOSQUEDA MD DATE OF OPERATION: 09/07/2019 SURGEON: Guillermina Mosqueda MD PROCEDURE PERFORMED: Emergency repair of right femoral pseudoaneurysm and evacuation of hematoma. PREOPERATIVE DIAGNOSIS: Right femoral pseudoaneurysm and hematoma status post cardiac catheterization with anticoagulation, hypovolemic shock. POSTOPERATIVE DIAGNOSIS: Right femoral pseudoaneurysm and hematoma status post cardiac catheterization with anticoagulation. ANESTHESIA: General endotracheal anesthesia. ESTIMATED BLOOD LOSS: 200 cc active blood loss and there was another 1 liter of partially clotted hematoma. COMPLICATIONS: None. SPECIMENS: None. CONDITION: Critical. DISPOSITION: ICU. OPERATIVE FINDINGS: Large hematoma extending laterally under arterial pressure with pseudoaneurysm at the medial base. There was dense scar tissue above the arteries. The femoral cannulation site was mid common femoral, slightly medial, repaired primarily. Good distal flow after repair. Drains placed. Retention sutures used due to the large amount of subcutaneous destruction by the hematoma formation. INDICATION: Pseudoaneurysm bleeding with hypovolemic shock. DESCRIPTION OF PROCEDURE: The patient was brought emergently to the operating suite. General anesthesia was obtained. Groin was prepped and incised over the hematoma, which was drained and direct pressure was held over the common femoral artery. The common femoral artery was dissected out. The site of cannulation was identified. The profunda and superficial femoral were dissected out, encircled with vessel loops. Inflow was controlled with direct pressure. The arterial stick site was repaired primarily. Pressure was relieved. There was no bleeding. An additional suture over this was placed as well as one thin site which was oversewn with a pursestring type suture. Thorough antibiotic irrigation was undertaken. Drains were placed, one in the hematoma cavity and one over the artery. The subcutaneous tissue was extensively destroyed. The old laminated thrombus was removed. Interrupted subcutaneous tissues were closed. Large nylon horizontal mattress retention sutures were used and skin clips were placed. There is a possibility this wound will later require a wound VAC. The patient critical to ICU. TRANSINT:[id number] Voice Confirmation ID: [id number] DOCUMENT ID: [id number] OPERATIVE REPORT [id number] KAYLEE MORRISSEY GUILLERMINA MOSQUEDA MD at 1246 CC: NATALEE BIRD M.D. [id number] DICTATION DATE: 09/07/192011 PLATFORM POWER TECHNICIAN: 09/08/19 0507 ADM IN [facility] [address] [id number]
[2019-09-08 13:59] LABS: BASOPHILS 0.2 % (0-2); EOSINOPHILS 0 % (0-7); HEMATOCRIT 32.5 % (36.0-48.0); HEMOGLOBIN 10.4 g/dL (12-16); IMMATURE GRANULOCYTES 0.6 % (0-5); LYMPHOCYTES 13.2 % (15-50); MCH 28.2 pg (26.0-34.0); MCV 88.1 fL (80.0-100.0); MEAN PLATELET VOLUME 9.5 fL (7.4-10.4); MONOCYTES 15.1 % (2-11); NEUTROPHILS 70.9 % (40-80); PLATELET COUNT 336 10x3/uL (130-400); RBC 3.69 10x6/uL (4.00-5.40); RDW 16.3 % (11.5-14.5); WBC 19.7 10x3/uL (4.8-10.8)
[2019-09-08 17:38] LABS: HEMATOCRIT 32.1 % (36.0-48.0); HEMOGLOBIN 10.2 g/dL (12-16); MCH 27.9 pg (26.0-34.0); MCHC 31.8 g/dL (31.0-37.0); MCV 87.9 fL (80.0-100.0); MEAN PLATELET VOLUME 9.4 fL (7.4-10.4); RBC 3.65 10x6/uL (4.00-5.40); RDW 16.2 % (11.5-14.5)
--- NOTE | 2019-09-08 19:00 | NUR ---
REPORT RECEIVED. RECEIVED PATIENT IN BED. SEDATED/INTUBATED. ETT INTACT/SECURE PATENT CONNECTED TO MECHANICAL VENT AT ORDERED SETTINGS. ASSESSMENT COMPLETED PER FLOW SHEET WITH NO ACUTE DISTRESS OBSERVED. MONITORS CONNECTED TO PATIENT WITH ALARMS SET. VSS. YADIEL X 2 TO RT THIGH/DRSG INTACT. YADIEL 1 AND 2 COMPRESSED WITH SMALL AMOUNT OF SEROSANG FLUID IN BULBS. WILL CONTINUE CURRENT POC
--- NOTE | 2019-09-08 21:00 | NUR ---
SON AT BEDSIDE. UPDATE GIVEN. VSS
--- NOTE | 2019-09-08 23:00 | NUR ---
REASSESSMENT COMPLETED PER FLOW SHEET WITH NO ACUTE DISTRESS OBSERVED. VSS. WILL CONTINUE CURRENT POC
[2019-09-09] VITALS (96 sets, daily range): BP systolic 82–119; BP diastolic 41–81
--- NOTE | 2019-09-09 01:00 | NUR ---
SEDATED/INTUBATED. VSS. 0300 REASSESSMENT COMPLETED PER FLOW SHEET WITH NO ACUTE DISTRESS OBSERVED 0500 CHG BATH GIVEN. LETICIA WELL.VSS
[2019-09-09 06:25] LABS: HEMATOCRIT 29.2 % (36.0-48.0); HEMOGLOBIN 9.3 g/dL (12-16); MCH 28.4 pg (26.0-34.0); MCHC 31.8 g/dL (31.0-37.0); MEAN PLATELET VOLUME 9.6 fL (7.4-10.4); RBC 3.28 10x6/uL (4.00-5.40); RDW 16.6 % (11.5-14.5); WBC 16.9 10x3/uL (4.8-10.8)
[2019-09-09 06:43] LABS: CALC OSMOLALITY 284 mosm/kg (275-300); CALCIUM 7.4 mg/dL (8.5-10.1); CARBON DIOXIDE 31.7 mmol/L (21.0-32.0); CHLORIDE - SERUM 107 mmol/L (98-107); CREATININE - SERUM 0.7 mg/dL (0.6-1.3); GLUCOSE 147 mg/dL (74-106); POTASSIUM - SERUM 3.8 mmol/L (3.5-5.1); SODIUM 141 mmol/L (136-145); UREA NITROGEN 14 mg/dL (7-18); eGFR NON AFRICAN AMERICAN 89 mL/min (90-120)
--- NOTE | 2019-09-09 07:10 | NUR ---
SPOKE WITH . INFORMED OF PATIENT'S RHYTHM CHANGE TO AFIB RVR INSTRUCTED TO CALL CARDIOLOGY
--- NOTE | 2019-09-09 07:20 | NUR ---
DR. BIRD PAGED PER ANSWERING SERVICE
--- NOTE | 2019-09-09 07:50 | NUR ---
SPOKE WITH DR. BIRD. UPDATED ON PATIENT. NEW ORDERS RECEIEVED FOR AMIODARONE GTT. INSTRUCTED TO USE LEVOPHED GTT TO AID IN DOPAMINE REMOVAL. PASSED ON INSTRUCTION TO JACK MORRISSEY
--- NOTE | 2019-09-09 11:06 | NUR ---
OKAY TO WEAN OFF VENT PER DR. KAPADIA.
--- NOTE | 2019-09-09 12:01 | NUR ---
PRESSURE SUPPORT TRIAL STARTED AT 1200HR 11/[address] GARCÍA
--- NOTE | 2019-09-09 13:18 | NUR ---
EXTUBATE TO BIPAP PER DR. GARCÍA.
--- NOTE | 2019-09-09 13:52 | NUR ---
EXTUBATED AT [address] GARCÍA'S ORDER. PLACED ON BIPAP 14/5 AT 35% FIO2.
--- NOTE | 2019-09-09 17:00 | NUR ---
AMIODARONE INCREASED BACK TO 1MG/HR PER DR. BIRD. WANTS AMIODARONED AT 1MG/HR UNTIL PT CONVERTS TO SINUS RHYTHM. ONCE IN SINUS RHYTHM DECREASE TO 0.5MG/HR.
--- NOTE | 2019-09-09 19:00 | NUR ---
REPORT RECEIVED. RECEIVED PATIENT IN BED. AWAKE ALERT AND ORIENTED X 4. ON BIPAP. ASSESSMENT COMPLETED PER FLOW SHEET WITH NO ACUTE DISTRESS OBSERVED. MONITORS CONNECTED TO PATIENT WITH ALARMS SET. VSS. CONTINUES AFIB WITH CONTROLLED RATE ON MONITOR. YADIEL X 2 TO RT THIGH INTACT/SECURE/PATENT AND COMPRESSED WITH SMALL AMOUNT OF SEROSANG FLUID IN BULBS. DRSG TO RT THIGH CDI. WILL CONTINUE CURRENT POC
--- NOTE | 2019-09-09 20:00 | NUR ---
BIPAP REMOVED. PT PLACED ON 02@3.5L/MIN PER NC. GIVEN ICE CHIPS. SWALLOWING WELL WITH NO COUGHING OBSERVED. RESP EVEN AND UNLABORED. WILL CONTINUE TO MONITOR
--- NOTE | 2019-09-09 23:00 | NUR ---
REASSESSMENT COMPLETED PER FLOW SHEET WITH NO ACUTE DISTRESS OBSERVED. VSS. CALL LIGHT IN REACH AND ABLE TO UTILIZE TO MAKE NEEDS KNOWN. BIPAP POSITIONED ON PATIENT AND SECURED.
[2019-09-10] VITALS (70 sets, daily range): BP systolic 93–155; BP diastolic 45–74
--- NOTE | 2019-09-10 01:00 | NUR ---
AWAKE AND ALERT. VSS. CALL LIGHT IN REACH. 0300 AWAKE AND ALERT. BIPAP PLACED ON PATIENT AND SECURED. REASESSMENT COMPLETED PER FLOW SHEET WITH NO ACUTE DISTRESS OBSERVED. VSS . WILL CONTINUE CURRENT POC 0500 RESTING WITH EYES CLOSED, EASILY ROUSED AND ALERT. VSS. REQUESTS BIPAP BE REMOVED. REMOVED AT THIS TIME AND PLACED ON NC 3.5L/MIN. LETICIA WELL
--- NOTE | 2019-09-10 07:10 | NUR ---
SHIFT REPORT RECEIVED. PT AA&OX 4. ON 3L O2 VIA NC. DENIES PAIN AT THIS TIME. DRESSING TO RIGHT GROIN INTACT. YADIEL X [address] WITH SEROSANG DRAINAGE NOTED. RIGHT PEDAL PULSE AUDIBLE WITH DOPPLER. MIRANDA CATH IN PLACE WITH ABOUT 20ML OF CONCENTRATED YELLOW URINE. LEFT IJ WITH PLASMOLYTE INFUSING AT 30ML/HR AND SANDEEP AT 0.8MCG/KG/MIN. WILL CONTINUE TO WEAN OFF TOLERATED. SCD TO LEFT LE IN PLACE. LEFT RADIAL SHAKIRA SECURED WITH WRIST PROTECTOR. SAFETY MEASURES IN PLACE. WILL CONTINUE TO MONITOR.
[2019-09-10 07:28] LABS: HEMATOCRIT 25.3 % (36.0-48.0); HEMOGLOBIN 7.9 g/dL (12-16); MCH 28.2 pg (26.0-34.0); MCHC 31.2 g/dL (31.0-37.0); MCV 90.4 fL (80.0-100.0); MEAN PLATELET VOLUME 9.8 fL (7.4-10.4); RBC 2.8 10x6/uL (4.00-5.40); RDW 16.9 % (11.5-14.5)
[2019-09-10 07:30] LABS: WBC 12.5 10x3/uL (4.8-10.8)
[2019-09-10 07:43] LABS: CALC OSMOLALITY 276 mosm/kg (275-300); CALCIUM 7.5 mg/dL (8.5-10.1); CARBON DIOXIDE 31.6 mmol/L (21.0-32.0); CHLORIDE - SERUM 105 mmol/L (98-107); CREATININE - SERUM 0.6 mg/dL (0.6-1.3); GLUCOSE 106 mg/dL (74-106); POTASSIUM - SERUM 3.6 mmol/L (3.5-5.1); SODIUM 139 mmol/L (136-145); UREA NITROGEN 11 mg/dL (7-18); eGFR NON AFRICAN AMERICAN > 90 mL/min (90-120)
--- NOTE | 2019-09-10 13:35 | NUR ---
ST [facility] IN UNIT. ORDERED 200MG AMIODARONE PO BID.
--- NOTE | 2019-09-10 13:45 | NUR ---
DANGLED ON SIDE BED WITH PHYSICAL THERAPY. TOLERATED WELL. WILL CONTINUE TO MONITOR.
[2019-09-11] VITALS (14 sets, daily range): BP systolic 100–162; BP diastolic 45–67
[2019-09-11 06:41] LABS: HEMATOCRIT 25.8 % (36.0-48.0); HEMOGLOBIN 7.9 g/dL (12-16); MCH 27.5 pg (26.0-34.0); MCHC 30.6 g/dL (31.0-37.0); MCV 89.9 fL (80.0-100.0); MEAN PLATELET VOLUME 9.4 fL (7.4-10.4); RBC 2.87 10x6/uL (4.00-5.40); RDW 16.6 % (11.5-14.5); WBC 9.8 10x3/uL (4.8-10.8)
[2019-09-11 07:04] LABS: CALC OSMOLALITY 279 mosm/kg (275-300); CALCIUM 7.7 mg/dL (8.5-10.1); CARBON DIOXIDE 32.8 mmol/L (21.0-32.0); CHLORIDE - SERUM 105 mmol/L (98-107); CREATININE - SERUM 0.6 mg/dL (0.6-1.3); GLUCOSE 108 mg/dL (74-106); POTASSIUM - SERUM 3.3 mmol/L (3.5-5.1); SODIUM 140 mmol/L (136-145); UREA NITROGEN 12 mg/dL (7-18); eGFR NON AFRICAN AMERICAN > 90 mL/min (90-120)
--- NOTE | 2019-09-11 08:14 | NUR ---
PT POSITIONED IN BED FOR BREAKFAST. PT FEEDING SELF AFTER MEAL TRAY SET UP.
--- NOTE | 2019-09-11 10:25 | NUR ---
PT INTUBATED BY ANESTHESIA 7.5ETT AT 0958. DR IVY. PHELAN TITRATING FOR SEDATION.VENT SETTING BY RT. PT AWARE.
--- NOTE | 2019-09-11 13:49 | NUR ---
back to bed with pt.
--- NOTE | 2019-09-11 15:08 | NUR ---
DCD F/C PURWICK PLACED.
--- NOTE | 2019-09-11 20:15 | NUR ---
REC'D AWAKE, ALERT, WATCHING TV AFTER RECEIVING REPORT FROM OFF-GOING NURSE. INITIAL ASSESSMENT COMPLETED AND RECORDED PER FLOW SHEET. L JUGULAR CVL PATENT, SALINE LOCKED, SITE CLEAR OF REDNESS OR EDEMA. LUNGS RELATIVELY CLEAR BUT S/W DIMINISHED. GROIN DSG C/D/I WITH YADIEL DRAINS X 2, BULBS COMPRESSED. PUREWICK IN PLACE, TO SUCTION, NO URINE NOTED OF YET. WILL MONITOR
--- NOTE | 2019-09-11 22:45 | NUR ---
PLACED ON BIPAP @ 35% BY RT. LYING QUIETLY, O2 SATS UPPER 90S. WILL CONT TO MONITOR.. NO SIGNS OF DISTRESS.
[2019-09-12] VITALS (21 sets, daily range): BP systolic 98–152; BP diastolic 35–82
--- NOTE | 2019-09-12 02:30 | NUR ---
LYING QUIETLY ON BIPAP, O2 SATS UPPER 90S. HR CURRENTLY 90 BUT OCCASIONALLY JUMPS UP TO 130S. WILL CONT WITH CURRENT PLAN OF CARE
[2019-09-12 07:46] LABS: BASOPHILS 0.3 % (0-2); EOSINOPHILS 2.8 % (0-7); HEMATOCRIT 25.5 % (36.0-48.0); HEMOGLOBIN 7.8 g/dL (12-16); IMMATURE GRANULOCYTES 0.8 % (0-5); LYMPHOCYTES 15.2 % (15-50); MCH 27.5 pg (26.0-34.0); MCHC 30.6 g/dL (31.0-37.0); MCV 89.8 fL (80.0-100.0); MONOCYTES 13.7 % (2-11); NEUTROPHILS 67.2 % (40-80); RBC 2.84 10x6/uL (4.00-5.40); RDW 16.5 % (11.5-14.5); WBC 9.5 10x3/uL (4.8-10.8)
[2019-09-12 07:48] LABS: PLATELET COUNT 281 10x3/uL (130-400)
[2019-09-12 07:56] LABS: CALC OSMOLALITY 268 mosm/kg (275-300); CALCIUM 7.9 mg/dL (8.5-10.1); CARBON DIOXIDE 30.5 mmol/L (21.0-32.0); CHLORIDE - SERUM 102 mmol/L (98-107); CREATININE - SERUM 0.7 mg/dL (0.6-1.3); GLUCOSE 105 mg/dL (74-106); POTASSIUM - SERUM 3.1 mmol/L (3.5-5.1); SODIUM 135 mmol/L (136-145); UREA NITROGEN 11 mg/dL (7-18); eGFR NON AFRICAN AMERICAN 89 mL/min (90-120)
[2019-09-12 08:02] LABS: ALKALINE PHOSPHATASE 52 U/L (30-120); ALT (SGPT) 14 U/L (10-68); BILIRUBIN - TOTAL 1.37 mg/dL (0.2-1.3); PROTEIN - SERUM 5.1 g/dL (6.4-8.2)
--- NOTE | 2019-09-12 09:41 | NUR ---
0700 PT RECIEVED ALERT AND ORIENTED VSS DENIES PAIN AND ALL NEEDS, L IJ CVLDRESSING CDI, IN AFIB, R GROIN BRUISING, DRESSING CDI, YADIEL DRAINX2 COMPRESSED, SEE SHIFT ASSESSMENT FOR DETAILS 0900 TOOK AM MEDS AND ATE BREAKFAST WITHOUT DIFFICULTY
--- NOTE | 2019-09-12 10:01 | NUR ---
Rehab Note- Acute Inpatient Rehab prescreen order received. The patient has [employer] insurance and will require a PreAuth- has an OT & ST order from 09/08. Currently we have no bed avaliable @ [facility] Acute Inpatient Rehab, will follow at this time and submit PreAuth when bed avaliable and Evals avaliable. Thank you for this referral! Tracy Heard RN Clinical Liaison, [facility] Rehab
--- NOTE | 2019-09-12 12:16 | NUR ---
Nutrition Follow-up: Extubated 09/08. Pt reports good appetite but does not want to eat 2/2 not wanting to have a BM in bed. Diet: Regular Wt: 315.2# (09/08) Last BM: 09/10 Labs noted: K+ 3.3, Glu 108, Ca 7.7 Meds noted: Pepcid -Encourage PO intake and honor food preferences within diet restrictions. -Monitor wt. -RD following.
--- NOTE | 2019-09-12 15:45 | NUR ---
OT NOTE: PT COMPLETED BED MOB TASKS WITH MAX A X 2. PT COMPLETED SIT TO STAND WITH MIN A X2. PT COMPLETED BED TO CHAIR TSF WITH MIN A. PT COMPLETED EOB SITTING BALANCE WITH CGA/SBA. PT REQUIRED SET UP FOR UB HYGIENE TASKS. [phone] THANK YOU,CORNELIO ORELLANA
--- NOTE | 2019-09-12 17:02 | NUR ---
1200 ATE 1000% LUNCH TRAY 1300 ASSISTED OOB WITH THERAPY 1500 ASSISTED BACK TO BED WITH THERAPY 1700 DINNER TRAY SERVED
--- NOTE | 2019-09-12 19:00 | NUR ---
SHIFT ASSESSMENT COMPLETED. PT CARE ASSUMED,MONITORS ON AND WORKING, VSS. CALL LIGHT WITHIN REACH, SEE FLOW SHEET FOR FURTHER DETAILS. WILL CONTINUE TO OBSERVE.
--- NOTE | 2019-09-12 21:00 | NUR ---
PT TURNED AND REPOSITIONED FOR COMFORT. LINEN CHANGE AND PUREWICK REPLACED AT THIS TIME, CALL LIGHT WITHIN REACH. WILL CONTINUE TO OBSERVE.
--- NOTE | 2019-09-12 23:00 | NUR ---
NO CHANGES, SEE FLOW SHEET FOR FURTHER DETAILS CALL LIGHT WITHIN REACH. WILL CONTINUE TO OBSERVE.
[2019-09-13] VITALS (19 sets, daily range): BP systolic 84–134; BP diastolic 45–73
--- NOTE | 2019-09-13 01:00 | NUR ---
PT TURNED AND REPOSITIONED AT THIS TIME. LINEN CHANGE AND CHG BATH DONE WELLL. MONITORS ON AND WORKING, VSS. CALL LIGHT WITHIN REACH, WILL CONTINUE TO OBSERVE.
--- NOTE | 2019-09-13 03:00 | NUR ---
PT TURNED AND REPOSTIONED FOR COMFORT. MONITORS ON AND WORKING, VSS. SEE FLOW SHEET FOR FURTHER DETAILS. WILL CONTINUE TO OBSERVE.
--- NOTE | 2019-09-13 05:00 | NUR ---
LINEN CHANGE DONE AT THIS TIME, MONITORS ON AND WORKING VSS. CALL LIGHT WITHIN REACH, WILL CONINTUE TO OBSERVE.
[2019-09-13 05:56] LABS: BASOPHILS 0.3 % (0-2); EOSINOPHILS 3.1 % (0-7); HEMATOCRIT 29.4 % (36.0-48.0); IMMATURE GRANULOCYTES 1.1 % (0-5); LYMPHOCYTES 13.8 % (15-50); MCH 27.4 pg (26.0-34.0); MCHC 30.6 g/dL (31.0-37.0); MCV 89.4 fL (80.0-100.0); NEUTROPHILS 64.7 % (40-80); PLATELET COUNT 323 10x3/uL (130-400); RBC 3.29 10x6/uL (4.00-5.40); RDW 16.4 % (11.5-14.5); WBC 10.5 10x3/uL (4.8-10.8)
[2019-09-13 06:22] LABS: ALBUMIN 2.2 g/dL (3.4-5.0); ALKALINE PHOSPHATASE 56 U/L (30-120); BILIRUBIN - TOTAL 1.22 mg/dL (0.2-1.3); CALC OSMOLALITY 275 mosm/kg (275-300); CALCIUM 8.2 mg/dL (8.5-10.1); CARBON DIOXIDE 33.7 mmol/L (21.0-32.0); CHLORIDE - SERUM 100 mmol/L (98-107); CREATININE - SERUM 0.8 mg/dL (0.6-1.3); GLUCOSE 113 mg/dL (74-106); MAGNESIUM - SERUM 1.8 mg/dL (1.8-2.4); PHOSPHOROUS 2.8 mg/dL (2.5-4.9); POTASSIUM - SERUM 3.5 mmol/L (3.5-5.1); PROTEIN - SERUM 5.7 g/dL (6.4-8.2); SODIUM 138 mmol/L (136-145); UREA NITROGEN 9 mg/dL (7-18); eGFR NON AFRICAN AMERICAN 76 mL/min (90-120)
[2019-09-13 06:23] LABS: ALT (SGPT) 19 U/L (10-68)
--- NOTE | 2019-09-13 10:55 | NUR ---
0700 REPORT RECCIEVED AND CARE ASSUMED OF THE PATIENT.. SEE FOW SHEET FOR SHIFT ASSESMENT FINDINGS.. 0800 PT IS VERY VOCAL ABOUT HER DISLIKE OF THE PUREWICK STATES THAT IT DOESNT WORK AND SHE IS GETTING LASIX THAT IS CAUSING HER TO VOID ALL THE TIME.. STATES SHE IS UNABLE TO AMBULATE TO THE BSC OR BATHROOM 0830 BREAKFAST SERVED HOB ELEVATED AND PATIENT IS FEEDING SELF.. 0900 MEDS GIVEN.. 1030 PHYSICAL THERAPY IN TO ASSIST PATIENT TO CHAIR AT THE BEDSIDE.. PUREWICK REMOVED AND PARIAL BATH DOWN PATIENTS BACKSIDE BUTT BALM IS APPLIED FOR C/O BURNING IN PERINEAL AREA.. ASSISTED TO CHAIR AND A NEW PUREWICK IS POSITIONED AND PLACED TO SUCTION..
--- NOTE | 2019-09-13 12:26 | NUR ---
OT NOTE: PT UPSET THIS AM. REPORTS THAT SHE HAS NOT SLEPT ALL NIGHT AND THAT SHE HAS BEEN WET ALL NIGHT DUE TO PUREWICK NOT WORKING CORRECTLY. ATTEMPTED TO REDIRECT PT AND EXPLAINED THAT WE WOULD GET HER CLEANED UP.. NURSING ASSISTED WITH THIS. BED MOB WITH MAX ASSIST; EOB SITTING WITH GOOD BALANCE. PT ABLE TO WASH FACE, HANDS, AND UPPER BODY WITH CLOTH. MAX ASSIST WITH BACK AND PERINEAL AREA.. NURSING APPLIED MOISTURE BARRIER CREAM TO BUTTOCKS. PT ABLE TO STAND FOR APPROX 1 MIN WITH USE OF WALKER; AMB A FEW FT WITH ASSIST OF OT, PT, AND WALKER. TRANSFER TO CHAIR WITH MIN/MOD ASSIST; MAX ASSIST TO REPOSITION IN CHAIR. PT AGREEABLE TO SIT UP FOR AT LEAST 4 HRS JIMBO LEE, OTR/L [phone]
--- NOTE | 2019-09-13 14:04 | NUR ---
1200 CONTINUES OOB IN THE CHAIR.. C/O PAIN IN HER BACK .. CHAIR IS LAID FLAT TO HELP ALLEVIATE THE PAIN 1330 PHYSICAL THERAPY CALLED TO ASSIST PATIENT BACK INTO THE BED.. 1345 PHYSICAL THERAPY HERE AND PT ASSISTED BACK INTO THE BED.. PERINEAL CLEANING DONE.. AND BUTT PASTE APPLIED.. FRESH PUREWICK PUT TO PATIENT TO SUCTION.. 1415 DR GUZMAN IN TO SEE PATIENT..
--- NOTE | 2019-09-13 16:00 | NUR ---
Rehab Note- Spoke daksha/ Nallely @[phone] with [facility] and stated that the patient has a "Private Fee for service insurance plan', therefore she will not require a PreAuth prior to an acute inpatient rehab stay. When medically stable and bed avaliable if the patient is in agreeance, will accept the patient to [facility] Acute Inpatient REhab. Thank you for this referral! Tracy Heard RN CLinical Liaison, [facility] Rehab
--- NOTE | 2019-09-13 17:50 | NUR ---
OT NOTE: PT COMPLETED CHAIR TO BED TSF WITH MIN A. PT COMPLETED SIT TO SUPINE WITH MOD A. PT COMPLETED UE AXS WITH FUNCTIONAL RW MANAGEMENT. [id number] THANK YOU,CORNELIO ORELLANA
--- NOTE | 2019-09-13 19:00 | NUR ---
SHIFT ASSESSMENT COMPLETED. PT CARE ASSUMED, MONITORS ON AND WORKING. VSS, PT AWAKE AND ALERT, CALL LIGHT WITHIN REACH, SEE FLOW SHEET FOR FURTHER DETIALS. WILL CONTINUE TO OBSERVE.
--- NOTE | 2019-09-13 21:00 | NUR ---
PT LYING IN BED RESTING. MONITORS ON AND WORKING, VSS, CALL LIGHT WITHIN REACH, PT DENIES ANY COMPLAINT OF PAIN OR DISCOMFORT AT THIS TIME, TAKES MEDS PO WITHOUT DIFFICULTY, CALL LIGHT WITHIN REACH, WILL CONTINUE TO OBSERVE.
--- NOTE | 2019-09-13 22:43 | MORECARE ---
CASE MANAGEMENT DISCHARGE SUMMARY PATIENT: KAYLEE MORRISSEY UNIT: [id number] ADM DATE: 09/07/19 AGE: 63 : 51 SEX: F ROOM/BED: [facility] AUTHOR: WANDA POND PHYSICIAN: REFERRING PHYSICIAN: NATALEE BIRD M.D. DATE OF SERVICE: 09/13/19 Discharge Plan Patient Name: KAYLEE MORRISSEY Facility: [facility]:[place] : 1955 Planned Disposition: Inpatient Rehab Anticipated Discharge Date: Discharge Date: Expected LOS: Initial Reviewer: [email or web address] Initial Review Date: 09/08/2019 Generated: 09/13/19 11:43 pm DCPIA - Discharge Planning Initial Assessment Updated by [email or web address]: Frances Aguila on 09/13/19 10:41 pm * Is the patient Alert and Oriented? Yes * How many steps to enter\exit or inside your home? * PCP ARIZMENDI * Pharmacy [facility] [address] * Preadmission Environment Home Alone * ADLs Independent * Equipment Oxygen * Other Equipment HOME 02 CONCENTRATOR - [facility] * List name and contact numbers for known caregivers / representatives who currently or will assist patient after discharge: ELDA CALDERÓN [facility] [phone] * Verbal permission to speak to the caregivers and representatives has been obtained from the patient. Yes * Community resources currently utilized None * Additional services required to return to the preadmission environment? No * Can the patient safely return to the preadmission environment? Yes * Has this patient been hospitalized within the prior 30 days at any hospital? No Patient Name: KAYLEE MORRISSEY Page [phone] at 2243 All edits/amendments must be made on the electronic document DICTATION DATE: 09/13/192242 ESOL TEACHER ASSISTANT: WILLIAM 09/13/192242 RPT#: [id number] DC DATE: STATUS: ADM IN [facility] [address] [place] [address] END OF REPORT
--- NOTE | 2019-09-13 22:56 | MORECARE ---
CASE MANAGEMENT DISCHARGE SUMMARY PATIENT: KAYLEE MORRISSEY UNIT: [id number] ADM DATE: 09/07/19 AGE: 63 : [birth year] SEX: F ROOM/BED: [facility] AUTHOR: SALTY,DOC PHYSICIAN: REFERRING PHYSICIAN: NATALEE BIRD M.D. DATE OF SERVICE: 09/13/19 Discharge Plan Patient Name: KAYLEE MORRISSEY Facility: [facility]:[place] : 1955 Planned Disposition: Inpatient Rehab Anticipated Discharge Date: Discharge Date: Expected LOS: Initial Reviewer: [email or web address] Initial Review Date: 09/08/2019 Generated: 09/13/19 11:55 pm Comments DCP- Discharge Planning Updated by [email or web address]: Frances Aguila on 09/13/19 9:[address] Patient Name: KAYLEE MORRISSEY Admission Status: Elective Accout number: [id number] Admission Date: 09-07-2019 : 1955 Admission Diagnosis:ATHSCL HEART DISEASE OF [place] COR ART W UNSP ANG PCTRS Attending: NATALEE BIRD Current LOS: 6 Anticipated DC Date: Planned Disposition: Inpatient Rehab Primary Insurance: [employer] [facility] Discharge Planning Comments: CM met with patient to complete initial dc planning assessment. CM educated patient on the CM role and verbal consent given by patient to complete assessment. Patient lives at home alone. Patient is independent. At discharge patient plans to return home and feels this is a safe discharge. CM discussed availability of home health, rehab services, and medical equipment. Patient has home 02 concentrator with [facility]. Patient has agreed to Inpatient Rehab@ [facility]. DIONICIO signed Patient will have family to transport home. Patient denied known discharge needs at this time. CM will continue to follow and will assist as needed with dc plans/needs. Professional Organizer: Frances Aguila DCPIA - Discharge Planning Initial Assessment Updated by [email or web address]: Frances Aguila on 09/13/19 10:41 pm * Is the patient Alert and Oriented? Yes * How many steps to enter\exit or inside your home? * PCP ARIZMENDI * Pharmacy [facility] [address] * Preadmission Environment Home Alone * ADLs Independent * Equipment Oxygen * Other Equipment HOME 02 CONCENTRATOR - [facility] * List name and contact numbers for known caregivers / representatives who currently or will assist patient after discharge: ELDA CALDERÓN - - [phone] * Verbal permission to speak to the caregivers and representatives has been obtained from the patient. Yes * Community resources currently utilized None * Additional services required to return to the preadmission environment? No * Can the patient safely return to the preadmission environment? Yes * Has this patient been hospitalized within the prior 30 days at any hospital? No Last DP export: 09/13/19 9:44 pm Patient Name: KAYLEE MORRISSEY Page [phone] at 2952 All edits/amendments must be made on the electronic document DICTATION DATE: 09/13/192255 [employer]OR [employer]: WLILIAM 09/13/192255 RPT#: [id number] DC DATE: STATUS: ADM IN [facility] [address] [place] [address] END OF REPORT
--- NOTE | 2019-09-13 23:00 | NUR ---
NO CHANGES, SEE FLOW SHEET FOR FURTHER DETIALS. WILL CONTINUE TO OBSERVE. CALL LIGHT WITHIN REACH.
[2019-09-14] VITALS (7 sets, daily range): BP systolic 80–112; BP diastolic 42–74
--- NOTE | 2019-09-14 01:00 | NUR ---
PT LYING IN BED RESTING MONITORS ON AND WORKING, VSS. CALL LIGHT WITHIN REACH, WILL CONTINUE TO OBSERVE.
--- NOTE | 2019-09-14 03:00 | NUR ---
NO CHANGES, MONITORS ON AND WORKING, VSS. CALL LIGHT WITHIN REACH, SEE FLOW SHEET FOR FURTHER DETAILS. WILL CONTINUE TO OBSERVE.
--- NOTE | 2019-09-14 05:00 | NUR ---
PT RESTING, MONITORS ON AND WORKING, VSS. CALL LIGHT WITHIN REACH, WILL CONTINUE TO OBSERVE.
--- NOTE | 2019-09-14 07:50 | NUR ---
SHIFT ASSESSMENT COMPLETED. NO C/O AT THIS TIME.
--- NOTE | 2019-09-14 09:25 | NUR ---
UP TO WALK WITH ASSISTANCE OF PT. WALKED THE LENGTH OF THE BARNETT AND REQUIRED CHAIR TRANSPORT BACK TO ROOM. REMAINS UP IN CHAIR.
--- NOTE | 2019-09-14 11:00 | NUR ---
DR. MOSQUEDA HERE. STATES PATIENT MAY TRANSFER TO REHAB TODAY. PATIENT C/O SEVERE BACK PAIN AND RIGHT GROIN PAIN FROM LYING IN RECLINER CHAIR. PT ASSISTS BACK TO BED. RIGHT GROIN EXAMINED BY DR. MOSQUEDA. DRESSING CHANGED TO ADAPTIC WITH 4X4 COVERING. TAPED IN PLACE. YAIDEL DRAIN #2 REMOVED BY NURSE. STERILE 4X4 AND TEGADERM DRESSING APPLIED. BLOOD DRAWN FOR LAB FROM CVL. FLUSHES EASILY.
[2019-09-14 11:58] LABS: HEMATOCRIT 29.5 % (36.0-48.0); MCH 27.4 pg (26.0-34.0); MCHC 30.5 g/dL (31.0-37.0); MCV 89.7 fL (80.0-100.0); MEAN PLATELET VOLUME 9.3 fL (7.4-10.4); RBC 3.29 10x6/uL (4.00-5.40); RDW 16.4 % (11.5-14.5); WBC 11.4 10x3/uL (4.8-10.8)
[2019-09-14 12:13] LABS: CALC OSMOLALITY 272 mosm/kg (275-300); CALCIUM 8.5 mg/dL (8.5-10.1); CHLORIDE - SERUM 99 mmol/L (98-107); CREATININE - SERUM 0.8 mg/dL (0.6-1.3); GLUCOSE 105 mg/dL (74-106); POTASSIUM - SERUM 3.6 mmol/L (3.5-5.1); SODIUM 137 mmol/L (136-145); UREA NITROGEN 11 mg/dL (7-18); eGFR NON AFRICAN AMERICAN 76 mL/min (90-120)
--- NOTE | 2019-09-14 12:26 | NUR ---
Nutrition Follow-up: Pt reports not eating this AM 2/2 typically feeling sick with ambulation. ST signed off. Possible d/c to rehab. Diet: Regular PO intake: 80-100% yesterday No new wt; last wt: 315.2# (09/08) Last BM: 09/10 Labs reviewed Meds noted: Protonix, Lasix, KDur -Encourage PO intake and honor food preferences. -Monitor wt. -RD following.
--- NOTE | 2019-09-14 12:52 | NUR ---
TYLENOL 650MG GIVEN FOR CONTINUED LOWER BACK PAIN.
--- NOTE | 2019-09-14 13:17 | NUR ---
OT NOTES: PT SEEN BY OT AND PT.. PT EXHIBITING INCREASED ACTIVE MOVEMENT IN R LE. PT WAS ABLE TO BRING BOTH LEGS OFF OF EOB WITHOUT ASSIST, BUT REQUIRED MAX ASSIST FOR REMAINDER OF SUPINE TO SIT. EOB SITTING WITH GOOD BALANCE. DONNED GOWN WITH MIN ASSIST; MAX ASSIST WITH SOCKS AND ANYTHING THAT REQUIRES FORWARD TRUNK FLEX. SIT TO STAND WITH MOD ASSIST X 2; ABLE TO AMB WITH MIN ASSIST X 2, 02, IV, RW, AND GAIT BELT X 100 FT. FOLLOWED BEHIND WITH CHAIR AND PT WAS VERY FATIGUED FOLLOWING AMBULAITON. CONTINUED C/O PAIN IN BOTTOM AND BACK (BACK PAIN REPORTED MOSTLY ON R SIDE AROUND HEMATOMA)..EXTENSIVE ASSIST TO GET PT COMFORATABLE IN CHAIR. PT TOLERATED SITTING UP IN CHAIR CLOSE TO 2 HRS..THERAPY PAIGED TO ASSIST PT BACK TO BED DUE TO PAIN IN BACK AND BOTTOM. SIT TO STAND WITH MOD ASSIST X 2; AMB A FEW FT WITH WALKER AND MIN ASSIST; TRANSFERRED BACK TO BED WITH MAX ASSIST X 2.. EDUCATED PT ON USE OF L LE TO PUSH DOWN ON BED IN ORDER TO LIFT BOTTOM AND SCOOT TOWARDS THE R SIDE OF BED. EXPLAINED THAT SHE WAS ABLE TO DO THIS AND SHOULD DO THIS TO PREVENT LIEING IMMOBILE IN ONE POSITION ALL DAY. JIMBO LEE, OTR/L [phone]; [phone]
--- NOTE | 2019-09-14 14:15 | NUR ---
DR. GUZMAN HERE. 02 OFF AT THIS TIME. SATS 92 TO 95. LEAVE OFF O2 PER DR. GUZMAN.
--- NOTE | 2019-09-14 14:30 | NUR ---
CHG BATH GIVEN. LINENS CHANGED. WET WITH URINE. FOUND SUCTION TO PURWICK TURNED OFF. RESUMED AND FUNCTIONING WELL.
--- NOTE | 2019-09-14 15:30 | NUR ---
PIV SITED TO LEFT HAND WITH 20GA CATHETER X 1 ATTEMPT. SALINE LOCKED. CVL REMOVED USING STANDARD PROTOCOL. HEMOSTASIS ACHIEVED AFTER 5 MINS OF PRESSURE. STERILE 4X4 AND TEGADERM OCCLUSIVE DRESSING APPLIED.
--- NOTE | 2019-09-14 16:00 | NUR ---
BED ASSIGNMENT MADE FOR REHAB. DR. MOSQUEDA'S NURSE NORA HERE. STATES TO CONTACT DR. ARIZMENDI'S GROUP FOR TRANSFER ORDER.
--- NOTE | 2019-09-14 16:40 | NUR ---
HARI PORTILLO APRN, [facility] CALLED. TELEPHONE ORDER RECEIVED TO DISCHARGE TO REHAB.
--- NOTE | 2019-09-14 17:50 | NUR ---
REPORT GIVEN TO DESMOND, REHAB UNIT.
--- NOTE | 2019-09-14 18:10 | NUR ---
TRANSFERRED TO REHAB UNIT VIA BED.
--- NOTE | 2019-09-16 17:42 | MORECARE ---
CASE MANAGEMENT DISCHARGE SUMMARY PATIENT: KAYLEE MORRISSEY UNIT: [id number] ADM DATE: 09/07/19 AGE: 63 : 51 SEX: F [facility] AUTHOR: SALTY,DOC PHYSICIAN: REFERRING PHYSICIAN: NATALEE BIRD M.D. 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 CM educated patient on the CM role and verbal consent given by patient to complete assessment. Patient lives at home alone. Patient is independent. At discharge patient plans to return home and feels this is a safe discharge. CM discussed availability of home health, rehab services, and medical equipment. Patient has home 02 concentrator with [facility]. Patient has agreed to Inpatient Rehab@ [facility]. DIONICIO signed Patient will have family to transport home. Patient denied known discharge needs at this time. CM will continue to follow and will assist as needed with dc plans/needs. Bufferer: Frances Aguila DCPIA - Discharge Planning Initial Assessment Updated by [email or web address]: Frances Aguila on 09/13/19 10:41 pm * Is the patient Alert and Oriented? Yes * How many steps to enter\exit or inside your home? * PCP ARIZMENDI * Pharmacy [facility] - [address] * Preadmission Environment Home Alone * ADLs Independent * Equipment Oxygen * Other Equipment HOME 02 CONCENTRATOR - [facility] * List name and contact numbers for known caregivers / representatives who currently or will assist patient after discharge: ELDA DURANT - [phone] * Verbal permission to speak to the caregivers and representatives has been obtained from the patient. Yes * Community resources currently utilized None * Additional services required to return to the preadmission environment? No * Can the patient safely return to the preadmission environment? Yes * Has this patient been hospitalized within the prior 30 days at any hospital? No Coverage Notice Reviewer: [email or web address] Denia Aguila Notice Issued Date-Time: 09/13/2019 19:00 Notice Type: Patient Choice Letter Notice Delivered To: Patient Relationship to Patient: Food Runner Name: Delivery Method: HAND - Hand Delivered Melanie Days: Prior Verbal Notification: Recipient Understood Notice: Yes Recipient Signature: Yes Med Rec Note Co-signed by Attending: Coverage Notice Comment: [facility] INPT REHAB Reviewer: [id number] Denia Brandon Notice Issued Date-Time: 09/14/2019 17:31 Notice Type: IM Discharge Notice Notice Delivered To: Patient Relationship to Patient: Self Food Runner Name: Delivery Method: HAND - Hand Delivered Melanie Days: Prior Verbal Notification: Recipient Understood Notice: Yes Recipient Signature: Yes Med Rec Note Co-signed by Attending: Coverage Notice Comment: DISCHARGE IMM EXPLAINED. PATIENT HAD NO QUESTIONS OR CONCERNS. DISCHARGE IMM SERVED Last DP export: 09/13/19 9:56 pm Patient Name: KAYLEE MORRISSEY Page 23615 at 1742 All edits/amendments must be made on the electronic document DICTATION DATE: 09/16/191740 COMMUNICATION AND OUTREACH MANAGER: WILLIAM 09/16/191740 RPT#: [id number] DC DATE:09/14/19 STATUS: DIS IN [facility] [address] [place] [address] END OF REPORT
== END 2019-09-14 20:06 | DRG 246 ==
LOC: D.CATH 11:08 → D.CVICU 17:10 → D.CATH 17:14 → D.CVICU 09-14 20:06
PROVIDERS: Internal Medicine Pulmonary Disease; Thoracic Surgery (Cardiothoracic Vascular Surgery); ADMIT Internal Medicine Cardiovascular Disease; ATTEND Internal Medicine Cardiovascular Disease
PROC: 027135Z Dilation of Coronary Artery, Two Arteries with Two Drug-eluting Intraluminal Devices, Percutaneous Approach (ICD-10-PCS; principal; 2019-09-07 13:00)
PROC: 04QK0ZZ Repair Right Femoral Artery, Open Approach (ICD-10-PCS; 2019-09-07 18:21)
DX: T81.718A Complication of other artery following a procedure, not elsewhere classified, initial encounter (principal); J95.821 Acute postprocedural respiratory failure; R57.1 Hypovolemic shock; Z68.43 Body mass index [BMI] 50.0-59.9, adult; J96.10 Chronic respiratory failure, unspecified whether with hypoxia or hypercapnia; D62 Acute posthemorrhagic anemia; I25.118 Atherosclerotic heart disease of native coronary artery with other forms of angina pectoris; E66.01 Morbid (severe) obesity due to excess calories; I10 Essential (primary) hypertension; K21.9 Gastro-esophageal reflux disease without esophagitis; G47.33 Obstructive sleep apnea (adult) (pediatric); Z91.19 Patient's noncompliance with other medical treatment and regimen; I25.119 Atherosclerotic heart disease of native coronary artery with unspecified angina pectoris

== ENCOUNTER 2019-09-14 18:51 | Inpatient (IN) | payer BC ==
[~2019-09-14] VITALS: Ht 157.5 cm; Wt 143.3 kg
--- NOTE | ~2019-09-14 | RHP ---
PATIENT: KAYLEE MORRISSEY MEDICAL RECORD: [id number] ACCOUNT: [id number] [facility] [place] : [birth year] ADMISSION DATE: 09/14/19 REHABILITATION HISTORY AND PHYSICAL EXAMINATION POST ADMISSION PHYSICIAN EXAMINATION ADMITTING DIAGNOSIS: Critical illness myopathy. HISTORY OF PRESENT ILLNESS: The patient is a 63-year-old female patient who was admitted to the CV ICU status post cardiac catheterization for complications due to a femoral artery pseudoaneurysm. She underwent a cardiac catheterization on 09/05 with no complications, returned on 09/06 for further stenting of LAD and circumflex. The patient had some bleeding complications to right femoral area after this. Dr. Medina was consulted for a right femoral pseudoaneurysm and hematoma status post cardiac catheterization with anticoagulation. She had blood loss anemia, required 4 units of packed red blood cells. Postop, she did require some mechanical ventilation, was extubated on 09/08 on 35% BiPAP. She remained in CV ICU during her acute stay and had been followed by CV surgery. She has been participating in physical and occupational therapy during her stay. Continues to have YADIEL drains to her groin. She has got supplemental O2 needs, she has been monitored for pain control, watching her I's and O's. She is on electrolyte protocol. She has got proximal muscle weakness, balance deficits, decreased activity tolerance, impaired mobility. She is at risk for falls. She fatigues easily. Lives at home alone and was independent with ADLs and mobility prior to this. Currently she is set up for max assist for ADLs and mod to max assist for her mobility. She would like to return home at her prior level of function. COMORBIDITIES: In this patient include weakness, morbid obesity, hypovolemic shock, femoral artery pseudoaneurysm, acute cough, hypothyroidism, edema, asthma, allergic rhinitis, leukocytosis, status post need for packed red blood cells, atrial fib, and debility. PAST MEDICAL HISTORY: Significant for thyroid problems, stents and angioplasty, atrial fib, coronary artery disease, pneumonia, home O2 use, hernia, acid reflux, chronic back pain, menopause, depression, anxiety, urinary frequency, UTI. PAST SURGICAL HISTORY: Includes gallbladder and hernia repair. ALLERGIES: SULFA, TRAMADOL, IODINE, ASPIRIN, ACETAMINOPHEN, LEVAQUIN, AND IBUPROFEN. CURRENT MEDICATIONS: Include Synthroid 175 mcg 4 times a week, simvastatin 20 mg daily, Zetia 10 mg daily, Detrol 4 mg daily, potassium 20 mEq daily, Plavix 75 mg daily, Synthroid 87.5 mcg on Tuesdays, and Thursday. She is on Protonix 40 mg b.i.d., acetaminophen 650 mg q.4 hours, zolpidem 5 mg daily, clonazepam 0.5 mg daily, sotalol 120 b.i.d., gabapentin 300 mg b.i.d., Eliquis 5 mg b.i.d., Nitrostat p.r.n., and [facility]. HABITS: No alcohol or tobacco use. FAMILY HISTORY: Noncontributory. SOCIAL HISTORY: The patient hopes to return back home and get back to her prior HISTORY AND PHYSICAL [id number] KAYLEE MORRISSEY level of functioning. REVIEW OF SYSTEMS: GENERAL: Does complain of weakness and fatigue. HEENT: Denies cold, cough, or congestion. CARDIOVASCULAR: Denies any chest pain. PHYSICAL EXAMINATION: VITAL SIGNS: Stable, afebrile. GENERAL: A severely morbidly obese female, in no distress upon exam. HEENT: Normocephalic and atraumatic. Mucosa moist. NECK: Supple. No lymphadenopathy. LUNGS: Clear in upper wong, but good breath sounds are delineated in the bases secondary to physical habitus. CARDIOVASCULAR: Irregular rate and rhythm. ABDOMEN: Soft, benign, and nondistended. Positive bowel sounds times 4. EXTREMITIES: No clubbing, cyanosis or edema. NEUROLOGIC: She does have proximal muscle weakness. LABORATORY DATA: Her white count is 12.9, H&H 8.7 and 28.2, platelet count is 428. Sodium 135, potassium 3.5, BUN and creatinine of 13 and 0.8. Blood sugar is noted to be 107. ASSESSMENT: A 63-year-old female patient admitted to rehab with a working diagnosis of critical illness myopathy complicated by morbid obesity. The patient has potential to make improvement. We instituted the following multiple disciplinary therapies including, but not limited to physical, occupational, respiratory, speech, nutritional services, prosthetics and orthotics. Given her complex medical condition and risk for more complications, rehabilitation services cannot be provided at a low level of care such as skilled nurse facility. PLAN: 1. Admit to [place] [facility] for intensive inpatient therapy to include the following disciplines: A. Physical therapy to improve gait, all transfer skills and bed mobility to a modified independent level. B. Occupational therapy to improve activities of daily living. C. Case management to help with discharge planning and placement options. D. Nutrition to assist with nutritional needs. E. Rehabilitation nursing to assist in monitoring the patient's underlying medical conditions and to assist with any type of bowel or bladder management. 2. The patient's current medication and medical care will be continued. 3. The patient will be placed on standard fall precautions. 4. I am going the to follow up her blood work in the a.m. and watch for any signs of blood loss. We will continue on home medications and watch her blood pressure closely. Continue on Eliquis for prophylaxis of her AFib and I will see her again in the morning. TRANSINT:[id number] Voice Confirmation ID: [id number] DOCUMENT ID: [id number] JIM notes whether there has been none or any medical/functional change since admission: - No change since prescreen. HISTORY AND PHYSICAL [id number] KAYLEE MORRISSEY attests patient continues to be appropriate for IRF: - Continues to be appropriate. GLADYS CORDERO MD CC: [id number] DICTATION DATE: 09/15/19 0739 SHAGGER: 09/15/19 1031 ADM IN [facility] [address] [place] [place] [id number]
--- NOTE | 2019-09-14 19:46 | NUR ---
ADMITTED FOR PHYSICAL REHAB AND SERVICES OF DR CORDERO. AWAKE AND ALERT. RESTING IN BED WITH RESPRIAITONS UNLABORED. DRESSING TO RIGHT GROIN DRY AND INTACT. NOTED LARGE AMOUNT OF BRUISING ARUND UPPER THIGH AND GROIN. RIGHT ARM SALINE LOCK INTACT WITH NO SIGNS OF INFILTRATION. YADIEL DRAIN INTACT WITH SEROUS DRAINAGE NOTED IN BULB. ON TELEMETRT IN CONTROLLED ATRIAL FIBRILLATION. NO DISTRESS NOTED. SEE ADMISSION ASSESSMENT.
[2019-09-14 21:15] VITALS: BP 106/50
[2019-09-14 23:01] VITALS: BP 106/50; BMI 57.9
--- NOTE | 2019-09-15 01:30 | NUR ---
RESTING QUIETLY. NO DISTRESS NOTED.
[2019-09-15 06:47] LABS: BASOPHILS 0.2 % (0-2); HEMATOCRIT 28.2 % (36.0-48.0); HEMOGLOBIN 8.7 g/dL (12-16); IMMATURE GRANULOCYTES 0.9 % (0-5); LYMPHOCYTES 9.5 % (15-50); MCH 27.9 pg (26.0-34.0); MCHC 30.9 g/dL (31.0-37.0); MCV 90.4 fL (80.0-100.0); MEAN PLATELET VOLUME 9.3 fL (7.4-10.4); MONOCYTES 14.1 % (2-11); NEUTROPHILS 74.3 % (40-80); PLATELET COUNT 428 10x3/uL (130-400); RBC 3.12 10x6/uL (4.00-5.40); RDW 16.7 % (11.5-14.5); WBC 12.9 10x3/uL (4.8-10.8)
--- NOTE | 2019-09-15 07:01 | NUR ---
QUIET HOURS. NO ACUTE CHANGES IN CONDITION THIS SHIFT. RESTING IN BED WITH NO DISTRESS NOTED.
[2019-09-15 07:11] LABS: CALC OSMOLALITY 269 mosm/kg (275-300); CHLORIDE - SERUM 95 mmol/L (98-107); CREATININE - SERUM 0.8 mg/dL (0.6-1.3); GLUCOSE 107 mg/dL (74-106); POTASSIUM - SERUM 3.5 mmol/L (3.5-5.1); SODIUM 135 mmol/L (136-145); UREA NITROGEN 13 mg/dL (7-18); eGFR NON AFRICAN AMERICAN 76 mL/min (90-120)
[2019-09-15 08:00] VITALS: BP 137/50
--- NOTE | 2019-09-15 12:13 | NUR ---
PATIENT ADMITTED TO REHAB FROM ACUTE FLOOR. HER PCP IS DR. ARIZMENDI. HE HAS HOME O2 FROM [facility]. PATIENT DC PLANS ARE TO RETURN TO HIS HOME. WILL CONTINUE TO FOLLOW WITH PATIENT.
--- NOTE | 2019-09-15 17:31 | NUR ---
PT RESTING IN BED WITH EYES OPEN CALL LIGHT IN REACH WILL MONITER
--- NOTE | 2019-09-15 17:35 | NUR ---
PT RESTING IN BED WITH EYES OPEN CALL LIGHT IN REACH WILL MONITER
[2019-09-15 17:52] VITALS: Ht 157.5 cm; Wt 143.3 kg
--- NOTE | 2019-09-15 20:02 | NUR ---
AWAKE AND ALERT. RESTING IN BED WITH RESPIRATIONS UNLABORED. DRESSING INTACT TO RIGHT GROIN/THIGH AREA. SIGNIFICANT BRUISING NOTED TO AREA. BP WAS 82/31 PER BP MACHINE. HEAD LOWERED AND LEGS ELEVATED. RECHECKED BLOOD PRESSURE MANNUALY AFTER 15 MINUTES AND BP IS NOW 98/50. DENIES PAIN OR SHORTNESS OF BREATH, OR DIZZINESS. WILL MONITOR CLOSELY.
[2019-09-15 21:07] VITALS: BP 98/50
[2019-09-16 00:17] VITALS: BP 124/60
--- NOTE | 2019-09-16 00:17 | NUR ---
BLOOD PRESSURE NOW 124/60. NO C/O DISCOMFORTS. NO DISTRESS NOTED.
--- NOTE | 2019-09-16 01:15 | NUR ---
YADIEL DRAIN SITE TO RIGHT LEG LEAKING SEROUSANQUINOUS FLUID THROUGH BANDAGE. OLD BANDAGE REMOVED AND SITE CLEANED AND NEW BANDAGE APPLIED. YADIEL BULB COMPRESSED. SMALL CLOT NOTED IN BULB.
--- NOTE | 2019-09-16 05:33 | NUR ---
HAD NOT VOIDED ALL NIGHT, ASSISTED TO BATHROOM AND VOIDED WITHOUT DIFFICULTY. YADIEL DRAIN INTACT WITH NO DRAINAGE NOTED THROUGH DRESSING AT THIS TIME. 110ML OF SEROUS DRAINAGE FROM YADIEL DRAIN THIS SHIFT. ASSISTED BACK TO BED. REPSOTITIONED FOR COMFORT.
[2019-09-16 06:27] LABS: ANION GAP 10.5 mmol/L (8-16); CALCIUM 7.8 mg/dL (8.5-10.1); CARBON DIOXIDE 36.8 mmol/L (21.0-32.0); POTASSIUM - SERUM 3.3 mmol/L (3.5-5.1)
[2019-09-16 07:21] LABS: BASOPHILS 0.1 % (0-2); EOSINOPHILS 0.2 % (0-7); HEMATOCRIT 28.4 % (36.0-48.0); HEMOGLOBIN 8.7 g/dL (12-16); IMMATURE GRANULOCYTES 0.8 % (0-5); LYMPHOCYTES 8.2 % (15-50); MCH 28.2 pg (26.0-34.0); MCHC 30.6 g/dL (31.0-37.0); MCV 92.2 fL (80.0-100.0); MEAN PLATELET VOLUME 9.5 fL (7.4-10.4); MONOCYTES 13.1 % (2-11); NEUTROPHILS 77.6 % (40-80); PLATELET COUNT 460 10x3/uL (130-400); RBC 3.08 10x6/uL (4.00-5.40); RDW 16.9 % (11.5-14.5)
[2019-09-16 07:23] LABS: WBC 18.4 10x3/uL (4.8-10.8)
[2019-09-16 08:28] VITALS: BP 123/53
--- NOTE | 2019-09-16 09:23 | NUR ---
PT RESTING IN BED WITH EYES OPEN CALL LIGHT IN REACH NO PROBLEMS WILL MONITER
--- NOTE | 2019-09-16 17:10 | NUR ---
PT RESTING IN BED WITH EYES OPEN CALL LIGHT IN REACH WILL MONITER
--- NOTE | 2019-09-17 01:38 | NUR ---
SLEEPING WITH RESPRIATIONS UNLABORED. NO DISTRESS NOTED.
--- NOTE | 2019-09-17 04:58 | NUR ---
QUIET HOURS. NO ACUTE DISTRESS NOTED. NO CHANGE IN CONDITION.
[2019-09-17 07:15] LABS: BASOPHILS 0.1 % (0-2); EOSINOPHILS 0.8 % (0-7); HEMATOCRIT 32.5 % (36.0-48.0); HEMOGLOBIN 9.9 g/dL (12-16); IMMATURE GRANULOCYTES 0.7 % (0-5); LYMPHOCYTES 7.6 % (15-50); MCH 29.4 pg (26.0-34.0); MCHC 30.5 g/dL (31.0-37.0); MCV 96.4 fL (80.0-100.0); MEAN PLATELET VOLUME 9.2 fL (7.4-10.4); MONOCYTES 12.9 % (2-11); NEUTROPHILS 77.9 % (40-80); PLATELET COUNT 419 10x3/uL (130-400); RBC 3.37 10x6/uL (4.00-5.40); RDW 17.2 % (11.5-14.5); WBC 17.5 10x3/uL (4.8-10.8)
[2019-09-17 07:16] LABS: ANION GAP 5.8 mmol/L (8-16); CALCIUM 7.4 mg/dL (8.5-10.1); CARBON DIOXIDE 37.8 mmol/L (21.0-32.0)
[2019-09-17 07:24] LABS: CREATININE - SERUM 2.3 mg/dL (0.6-1.3); POTASSIUM - SERUM 4.6 mmol/L (3.5-5.1)
--- NOTE | 2019-09-17 08:35 | NUR ---
RAPID RESPONSE CALLED AT 7:53AM, PATIENT B/P AT 76/31, PULSE AT 54
--- NOTE | 2019-09-17 08:45 | NUR ---
DC'D TO ICU/BED.TAKEN TO ROOM 2302
[2019-09-17] MEDS ORDERED: K-DUR20 MEQ PO (09:07)
[2019-09-17] MEDS ORDERED: SYNTHROID88 MCG PO (09:12)
[2019-09-17] MEDS ORDERED: SYNTHROID175 MCG PO (09:13)
[2019-09-17] MEDS ORDERED: ACETAMINOPHEN325 MG PO (09:15)
[2019-09-17] MEDS ORDERED: HEMOCYTE PLUS C1 CAP PO (09:17)
[2019-09-17] MEDS ORDERED: LASIX80 MG PO (09:18)
--- NOTE | 2019-09-21 10:57 | NUR ---
PATIENT DISCHARGED BACK TO THE ACUTE FLOOR ON 09/17/19 DUE TO CHANGE IN MEDICAL CONDITION.
== END 2019-09-17 08:54 | disposition short-term general hospital (02) | DRG 91 ==
LOC: UNDOADMIN 18:51 → D.REHAB 18:51 → D.ICU 09-17 08:40 → D.REHAB 09-17 08:40 → D.ICU 09-17 08:54
PROVIDERS: ADMIT Emergency Medicine; ATTEND Emergency Medicine
DX: G72.81 Critical illness myopathy (principal); R57.1 Hypovolemic shock; J96.11 Chronic respiratory failure with hypoxia; D62 Acute posthemorrhagic anemia; R53.1 Weakness; E66.01 Morbid (severe) obesity due to excess calories; E03.9 Hypothyroidism, unspecified; J45.909 Unspecified asthma, uncomplicated; I48.91 Unspecified atrial fibrillation; R53.81 Other malaise; D72.829 Elevated white blood cell count, unspecified; I72.4 Aneurysm of artery of lower extremity; R60.9 Edema, unspecified; R05 Cough; J30.9 Allergic rhinitis, unspecified; I25.10 Atherosclerotic heart disease of native coronary artery without angina pectoris; K21.9 Gastro-esophageal reflux disease without esophagitis; G47.33 Obstructive sleep apnea (adult) (pediatric)

== ENCOUNTER 2019-09-17 08:45 | Inpatient (IN) | payer MEDICARE ==
[~2019-09-17] VITALS: Ht 157.5 cm; Wt 132.4 kg
[2019-09-17] VITALS (61 sets, daily range): BP systolic 67–123; BP diastolic 21–86; BMI 53.5
--- NOTE | 2019-09-17 08:50 | NUR ---
RECEIVED PT FROM REHAB VIA BED TO ROOM 2304. PT A&OX4. PT VERY HYPOTENSIVE, BEDSIDE. NEW ORDERS RECEIVED. WILL CONT TO MONITOR.
[2019-09-17] MEDS ORDERED: K-DUR20 MEQ PO (09:07)
[2019-09-17] MEDS ORDERED: SYNTHROID88 MCG PO (09:12)
[2019-09-17] MEDS ORDERED: SYNTHROID175 MCG PO (09:13)
[2019-09-17] MEDS ORDERED: ACETAMINOPHEN325 MG PO (09:15)
[2019-09-17] MEDS ORDERED: HEMOCYTE PLUS C1 CAP PO (09:17)
[2019-09-17] MEDS ORDERED: LASIX80 MG PO (09:18)
--- NOTE | 2019-09-17 11:36 | NUR ---
PT VERBALIZED TO ME AND BOAZ MORILLO THAT SHE WANTS TO BE A DNR, THEN PT IS ON THE PHONE YELLING TO DAUGHTER ABOUT CODE STATUS. PT IS NOW SAYING SHE WANTS TO BE A FULL CODE JUST NOT DO THE COMPRESSIONS SO HARD. EXPLAINED TO PT THAT WE HAVE TO BREAK RIBS TO GET THE HEART STARTED AGAIN. PT THEN STARTS YELLING AT DAUGHTER ON THE PHONE ABOUT HER CODE STATUS. WILL CONT TO MONITOR.
[2019-09-17 12:15] LABS: BILIRUBIN 2+ (NEGATIVE); GLUCOSE NEGATIVE (NEGATIVE); KETONE NEGATIVE (NEGATIVE); NITRITE NEGATIVE (NEGATIVE); UROBILINOGEN 4 mg/dL (NORMAL)
[2019-09-17 12:16] LABS: BACTERIA MANY /hpf (NEGATIVE); RED CELLS - URINE 0-5 /hpf (0-5)
[2019-09-18] VITALS (89 sets, daily range): BP systolic 87–155; BP diastolic 43–96
[2019-09-18 07:31] LABS: BASOPHILS 0.2 % (0-2); EOSINOPHILS 1.5 % (0-7); HEMATOCRIT 29.1 % (36.0-48.0); HEMOGLOBIN 8.5 g/dL (12-16); IMMATURE GRANULOCYTES 0.7 % (0-5); LYMPHOCYTES 6.1 % (15-50); MCH 27.6 pg (26.0-34.0); MCHC 29.2 g/dL (31.0-37.0); MCV 94.5 fL (80.0-100.0); MEAN PLATELET VOLUME 9.1 fL (7.4-10.4); MONOCYTES 13.1 % (2-11); NEUTROPHILS 78.4 % (40-80); RBC 3.08 10x6/uL (4.00-5.40); RDW 16.9 % (11.5-14.5); WBC 17.1 10x3/uL (4.8-10.8)
[2019-09-18 07:34] LABS: PLATELET COUNT 505 10x3/uL (130-400)
[2019-09-18 07:45] LABS: ALBUMIN 1.8 g/dL (3.4-5.0); ANION GAP 4.4 mmol/L (8-16); BILIRUBIN - TOTAL 0.86 mg/dL (0.2-1.3); CARBON DIOXIDE 37.5 mmol/L (21.0-32.0); MAGNESIUM - SERUM 1.9 mg/dL (1.8-2.4); PHOSPHOROUS 3.3 mg/dL (2.5-4.9); PROTEIN - SERUM 5.8 g/dL (6.4-8.2)
[2019-09-18 07:51] LABS: CREATININE - SERUM 1.2 mg/dL (0.6-1.3); POTASSIUM - SERUM 3.9 mmol/L (3.5-5.1)
--- NOTE | 2019-09-18 12:15 | NUR ---
DR THOMAS JAIME ON PT. TYLENOL ORDERED FOR PAIN. PT ALLERGIC TO MOST PAIN MEDICATIONS.
--- NOTE | 2019-09-18 18:31 | NUR ---
DR BIRD UPDATED ON PT'S STATUS/HR. STATED WE COULD RESTART PT'S BETAPACE BID.
--- NOTE | 2019-09-18 21:04 | NUR ---
patient requested ice chips. stated after she ate some we had to put bipap on because of orders. she said she did not like my attitude and she was not going to put it on right now and would do it at 10. educated on why she has to wear bipap when sleeping. stated she was well aware.
--- NOTE | 2019-09-18 22:32 | NUR ---
PATIENT REPORT GIVEN TO SUNITHA MORILLO.
[2019-09-19] VITALS (46 sets, daily range): BP systolic 89–128; BP diastolic 43–82; Ht 157.5 cm; Wt 132.4 kg
--- NOTE | 2019-09-19 07:25 | NUR ---
PT RESTING IN BED. O2 @ 2L NC IN PLACE. DENIES PAIN AT THIS TIME. IV TO RIGHT AC WITH NS @ 50ML/HR INFUSING VIA PUMP. SITE WITHOUT REDNESS OR EDEMA. F/C PATENT TO GRAVITY. DENIES FURTHER NEEDS AT THIS TIME. CL WITHIN REACH. ENCOURAGED TO CALL WITH NEEDS. CONTINUE POC
--- NOTE | 2019-09-19 10:50 | NUR ---
DRESSING CHANGE TO RIGHT GROIN PERFORMED. DRESSING THAT IS INTACT TO AREA IS SATURATED WITH SEROSANGUINEOUS DRAINAGE AND MOIST TO SKIN. GERARD INTACT TO INCISION, DRAINAGE NOTED TO BE COMING FROM MIDDLE PORTION OF INCISION. BRUISING AND REDNESS NOTED TO RIGHT GROIN AREA. ALLOWED AREA TO DRAIN, THEN CLEANSED AREA WITH SALINE, APPLIED 4X4'S AND COVERED WITH ABD PAD AND TAPED IN PLACE. PT LETICIA WELL
[2019-09-19 16:09] LABS: BASOPHILS 0.3 % (0-2); EOSINOPHILS 1.1 % (0-7); HEMATOCRIT 29.3 % (36.0-48.0); HEMOGLOBIN 8.7 g/dL (12-16); IMMATURE GRANULOCYTES 0.6 % (0-5); LYMPHOCYTES 9.1 % (15-50); MCH 27.9 pg (26.0-34.0); MCHC 29.7 g/dL (31.0-37.0); MCV 93.9 fL (80.0-100.0); MEAN PLATELET VOLUME 9.4 fL (7.4-10.4); MONOCYTES 12.5 % (2-11); NEUTROPHILS 76.4 % (40-80); PLATELET COUNT 433 10x3/uL (130-400); RBC 3.12 10x6/uL (4.00-5.40); RDW 17.3 % (11.5-14.5)
--- NOTE | 2019-09-19 16:20 | NUR ---
REPORT CALLED TO GERARDO ON MED 2 FOR TRANSFER TO FLOOR.
--- NOTE | 2019-09-19 18:20 | NUR ---
TALKED WITH IRA PALACIO REGARDING PT'S IODINE ALLERGY AND CT WITH CONTRAST ORDER. GOING TO GIVE TWO DOSES OF PREDNISONE [address] IN MORNING AT 0800. TALKED WITH JOSEPHINE MORILLO IN CT WITH PLANS.
--- NOTE | 2019-09-19 22:45 | NUR ---
OT NOTE: PT COMPLETED FACE/HAND HYGIENE WITH SETUP. PT COMPLETED UE AROM TOLERATED WITH FUNCTIONAL TASKS. PT STATED SHE IS SORE. [id number] SHELTON FERNANDO COTA
[2019-09-20] VITALS: BP 107/60
--- NOTE | 2019-09-20 02:08 | NUR ---
I have reviewed this patient and I concur with the Shift Assessment completed by the Licensed Practical Nurse today this shift.
[2019-09-20 04:00] VITALS: BP 135/76
--- NOTE | 2019-09-20 04:57 | NUR ---
PT VOICES NO C/O OR CONCERNS DURING THE NIGHT. RESTING QUIETLY. WILL CTM.
[2019-09-20 06:21] LABS: CALC OSMOLALITY 274 mosm/kg (275-300); CALCIUM 7.7 mg/dL (8.5-10.1); CARBON DIOXIDE 30.7 mmol/L (21.0-32.0); CHLORIDE - SERUM 99 mmol/L (98-107); CREATININE - SERUM 0.8 mg/dL (0.6-1.3); GLUCOSE 143 mg/dL (74-106); POTASSIUM - SERUM 4.3 mmol/L (3.5-5.1); SODIUM 136 mmol/L (136-145); eGFR NON AFRICAN AMERICAN 76 mL/min (90-120)
[2019-09-20 06:27] LABS: UREA NITROGEN 15 mg/dL (7-18)
[2019-09-20 06:33] LABS: BASOPHILS 0.2 % (0-2); EOSINOPHILS 0.1 % (0-7); HEMATOCRIT 29.7 % (36.0-48.0); HEMOGLOBIN 9.2 g/dL (12-16); LYMPHOCYTES 4.1 % (15-50); MCH 28.8 pg (26.0-34.0); MCV 93.1 fL (80.0-100.0); MEAN PLATELET VOLUME 9.2 fL (7.4-10.4); MONOCYTES 4.7 % (2-11); NEUTROPHILS 89.9 % (40-80); PLATELET COUNT 446 10x3/uL (130-400); RBC 3.19 10x6/uL (4.00-5.40); RDW 17.3 % (11.5-14.5); WBC 12.5 10x3/uL (4.8-10.8)
--- NOTE | 2019-09-20 08:08 | NUR ---
PT OFF UNIT FOR CT.
[2019-09-20 12:00] VITALS: BP 126/68
--- NOTE | 2019-09-20 12:14 | NUR ---
OT NOTE: PT REQUESTING TO USE TOILET.. STATED THAT SHE COULD NOT USE BED PISANO AND HASNT HAD A BM IN OVER 4 DAYS. MOD ASSIST X 2 FOR BED MOB AND SUPINE TO SIT.. SEVERE PAIN REPORTED IN GROIN AREA. SITTING BALANCE ON EOB WAS GOOD. PT TRANSFERRED FROM BED TO BS COMMODE WITH WALKER AND MIN/MOD ASSIST. INCREASED ASSIST REQUIRED FOR MANAGEMENT OF TUBES,DRAINS, O2, ETC.. PT REQUIRED MAX ASSIST FOR TOILET HYGIENE DUE TO PAIN REPORTED WITH ATTEMPTS TO WIPE HERSELF. TRANSFERRED BACK TO EOB. PT ABLE TO WASH FACE, HANDS, CHEST, AND ARMS WITH SET UP; DONNED CLEAN GOWN WITH MIN ASSIST. BACK TO BED WITH MOD ASSIST; REPOSITIONED BACK TO BED WITH MOD ASSIST X 2. INFORMED NURSING THAT PTS BANDAGE FOR DRAIN TUBE WAS SOAKED. JIMBO LEE, OTR/L [phone]
--- NOTE | 2019-09-20 15:40 | NUR ---
Rehab Note- Acute Inpatient Rehab prescreen order received. The patient was recently in our acute inpatient rehab unit prior to being transferred to ICU. Discussed with GEETA Gomez. WIll follow the patient at this time. She does have BC insurance but [place] not require a PreAuth prior to an acute inpatient rehab stay. She is currently receiving OT, ST, & PT. Thank you for this referral! Tracy Heard RN Clinical Liaison, [facility] Re[facility]
[2019-09-20 16:00] VITALS: BP 130/77
--- NOTE | 2019-09-20 16:30 | NUR ---
OT NOTE: PT COMPLETED BED MOB TASKS WITH MIN/MOD A. PT COMPLETED UB HYGIENE TASKS WITH SETUP. PT EXHIBITED INCREASED AX TOLERANCE. [phone] THANK YOU,CORNELIO ORELLANA
[2019-09-20 20:00] VITALS: BP 122/60
[2019-09-21] VITALS: BP 140/61
[2019-09-21 04:00] VITALS: BP 114/67
[2019-09-21 06:59] LABS: BASOPHILS 0.1 % (0-2); EOSINOPHILS 0 % (0-7); HEMATOCRIT 30.3 % (36.0-48.0); HEMOGLOBIN 8.8 g/dL (12-16); IMMATURE GRANULOCYTES 0.9 % (0-5); LYMPHOCYTES 11.7 % (15-50); MCH 27.9 pg (26.0-34.0); MEAN PLATELET VOLUME 9.2 fL (7.4-10.4); MONOCYTES 12.6 % (2-11); NEUTROPHILS 74.7 % (40-80); RBC 3.15 10x6/uL (4.00-5.40); RDW 17.4 % (11.5-14.5); WBC 12.2 10x3/uL (4.8-10.8)
[2019-09-21 07:07] LABS: MCV 96.2 fL (80.0-100.0); PLATELET COUNT 559 10x3/uL (130-400)
[2019-09-21 07:28] LABS: CALC OSMOLALITY 286 mosm/kg (275-300); CALCIUM 7.9 mg/dL (8.5-10.1); CARBON DIOXIDE 36.1 mmol/L (21.0-32.0); CHLORIDE - SERUM 104 mmol/L (98-107); CREATININE - SERUM 0.7 mg/dL (0.6-1.3); GLUCOSE 106 mg/dL (74-106); POTASSIUM - SERUM 4.8 mmol/L (3.5-5.1); SODIUM 143 mmol/L (136-145); UREA NITROGEN 17 mg/dL (7-18); eGFR NON AFRICAN AMERICAN 89 mL/min (90-120)
[2019-09-21 08:50] VITALS: BP 122/65
--- NOTE | 2019-09-21 09:02 | NUR ---
28ML OF SEROSANGENOUS DRAINAGE EMPTIED FROM YADIEL DRAIN. PT ALERT AND ORIENTED. LAYING IN BED. TALKING ON THE PHONE. BED LOW. CL IN REACH. WILL CONTINUE WITH POC.
--- NOTE | 2019-09-21 11:20 | NUR ---
CEFEPIME ANTIBIOTIC WAS CHARTED GIVEN YESTERDAY BUT ANTIBITOIC IS STILL HANGING IN ROOM AND DID NOT INFUSED D/T TUBING BEING LOCKED OFF. CALLED AND SPOKE WITH PHARMACIST AND SHE STATES THIS NURSE NOR PHAMRACY CAN CHANGE IT AND TO LET MY NURSE BOILING HOUSE OILER KNOW TO HAVE THOMAS COOPER CHANGE IT IN THE COMPUTER THE NEXT TIME SHE IS HERE. I VERBALIZED UNDERSTANDING. STATED MY CONVERSATION WITH TO VAIBHAV NURSE BOILING HOUSE OILER AND SHE VERBALIZED UNDERSTANDING.
[2019-09-21 11:27] VITALS: BP 117/51
--- NOTE | 2019-09-21 11:27 | NUR ---
SPOKE WITH MICHAEL MOSQUEDA'S NURSE AND SHE STATES DON'T HOLD LOVENOX AND THEY ARE AWARE OF DRESSINGS GETTING SATURATED FROM GROIN DRAINAGE. SHE ALSO STATES IS OK FOR PT TO DC TO REHAB. I VERBALIZED UNDERSTANDING.
--- NOTE | 2019-09-21 13:25 | MORECARE ---
CASE MANAGEMENT DISCHARGE SUMMARY PATIENT: KAYLEE MORRISSEY UNIT: [id number] ADM DATE: 09/17/19 AGE: 63 : 51 SEX: F ROOM/BED: D.4507 AUTHOR: WANDA POND PHYSICIAN: REFERRING PHYSICIAN: FRANCK HANEY MD DATE OF SERVICE: 09/21/19 Discharge Plan Patient Name: KAYLEE MORRISSEY Facility: [facility]:[place] : 1955 Planned Disposition: Anticipated Discharge Date: Discharge Date: Expected LOS: Initial Reviewer: [email or web address] Initial Review Date: 09/17/2019 Generated: 09/21/19 2:25 pm Comments DCP- Discharge Planning Updated by [email or web address]: Betsy Angulo on 09/21/19 12:[address] Patient Name: KAYLEE MORRISSEY Admission Status: Elective Accout number: [id number] Admission Date: 09-17-2019 : 1955 Admission Diagnosis:HYPOTENSION, UNSPECIFIED Attending: GOLDEN Current LOS: 4 Anticipated DC Date: Planned Disposition: Primary Insurance: [employer] [facility] Discharge Planning Comments: CM met with patient to complete initial dc planning assessment. CM educated patient on the CM role and verbal consent given by patient to complete assessment. CM verified patient's address, phone number, and emergency contact phone numbers. Patient lives at home alone, Pt reports she has been independent with her needs prior to admission She reports she has a shower chair, nebulizer, and home oxygen. The oxygen is supplied with [facility], and pt wishes to resume services with [facility]. Pt states she would like to return to IP rehab at [facility]. DIONICIO signed for IP rehab. Patient denies other known discharge needs at this time. Transportation provider at discharge will be her Brother Anderson at [phone]. CM spoke with Tracy at IP rehab at [facility] who has agreed to accept her. CM called IP rehab for bed assignment. Pt will admit into be 1114 A. Construction Consultant: Betsy Angulo Patient Name: KAYLEE MORRISSEY Page [phone] at 1325 All edits/amendments must be made on the electronic document DICTATION DATE: 09/21/19 1325 PLANT CONTROLLER: WILLIAM 09/21/19 1325 RPT#: [id number] DC DATE: STATUS: ADM IN [facility] [address] [place] [address] END OF REPORT
--- NOTE | 2019-09-21 13:59 | NUR ---
OT NOTE: PT VERY LETHARGIC THIS PM. STATES THAT HER SLEEP MED WAS GIVEN TOO LATE AND ITS BEEN LASTING ALL DAY. BED MOB WITH MOD ASSIST; SITTING BALANCE ON EOB WITH SPV; UE AROM EXS WITH FREQ CUES TO STAY AWAKE. SIT TO STAND WITH MIN ASSIST WITH USE OF WALKER; ABLE TO TAKE A FEW SIDE STEPS WITH MIN ASSIST; ABLE TO WASH FACE WITH SET UP; MAX ASSIST WITH TOILET HYGIENE. CONTINUES TO C/O PAIN OF 8/10 IN GROIN AREA. JIMBO LEE, OTR/L [phone]
--- NOTE | 2019-09-21 16:06 | NUR ---
SPOKE WITH ANN-MARIE FAIR AND HE STATES CONTINUE CEFEPIME IV DOWN IN REHAB FOR PT TO GET 7 DAYS TOTAL AND TO ADD IT TO THE DISCHARGE MEDS. I VERBALIZED UNDERSTANDING.
[2019-09-21] MEDS ORDERED: MAXIPIME 1 GM/D51 G1 IV (16:10)
--- NOTE | 2019-09-21 16:18 | NUR ---
SPOKE WITH ANN-MARIE FAIR AND HE STATES TO LEAVE IN MIRANDA CATHETER. I VERBALIZED UNDERSTANDING.
--- NOTE | 2019-09-21 16:25 | NUR ---
CALLED REPORT TO JENNY MORILLO IN REHAB.
--- NOTE | 2019-09-21 16:43 | NUR ---
I have reviewed this patient and I concur with the Shift Assessment completed by the Licensed Practical Nurse today this shift.
--- NOTE | 2019-09-21 16:47 | NUR ---
DISCHARGE INSTRUCTIONS GIVEN AND EXPLAINED TO PT. CHART COPY SIGNED.
--- NOTE | 2019-09-21 17:00 | NUR ---
PT TAKEN DOWN REHAB VIA BED.
--- NOTE | 2019-09-21 21:18 | MORECARE ---
CASE MANAGEMENT DISCHARGE SUMMARY PATIENT: KAYLEE MORRISSEY UNIT: [id number] ADM DATE: 09/17/19 AGE: 63 : 53 SEX: F ROOM/BED: D.3149 AUTHOR: SALTY,DOC PHYSICIAN: REFERRING PHYSICIAN: FARNCK HANEY MD DATE OF SERVICE: 09/21/19 Discharge Plan Patient Name: KAYLEE MORRISSEY Facility: [facility]:[place] : 1955 Planned Disposition: Anticipated Discharge Date: Discharge Date: 09/21/2019 Expected LOS: Initial Reviewer: [email or web address] Initial Review Date: 09/17/2019 Generated: 09/21/19 10:17 pm Comments DCP- Discharge Planning Updated by [email or web address]: Betsy Angulo on 09/21/19 12:[address] Patient Name: KAYLEE MORRISSEY Admission Status: Elective Accout number: [id number] Admission Date: 09-17-2019 : 1955 Admission Diagnosis:HYPOTENSION, UNSPECIFIED Attending: GOLDEN Current LOS: 4 Anticipated DC Date: Planned Disposition: Primary Insurance: [employer] [facility] Discharge Planning Comments: CM met with patient to complete initial dc planning assessment. CM educated patient on the CM role and verbal consent given by patient to complete assessment. CM verified patient's address, phone number, and emergency contact phone numbers. Patient lives at home alone, Pt reports she has been independent with her needs prior to admission She reports she has a shower chair, nebulizer, and home oxygen. The oxygen is supplied with [facility], and pt wishes to resume services with [facility]. Pt states she would like to return to IP rehab at [facility]. DIONICIO signed for IP rehab. Patient denies other known discharge needs at this time. Transportation provider at discharge will be her Brother Anderson at [phone]. CM spoke with Tracy at IP rehab at [facility] who has agreed to accept her. CM called IP rehab for bed assignment. Pt will admit into be 1114 A. Bun Icer: Betsy Angulo Last DP export: 09/21/19 12:25 p Patient Name: KAYLEE MORRISSEY Page [phone] at 2118 All edits/amendments must be made on the electronic document DICTATION DATE: 09/21/192116 [employer] SALES: WILLIAM 09/21/192116 RPT#: [id number] DC DATE:09/21/19 STATUS: DIS IN [facility] [address] [place] [address] END OF REPORT
== END 2019-09-21 17:03 | DRG 871 ==
LOC: D.ICU 08:45 → D.M2 08:45
PROVIDERS: Family Medicine; Internal Medicine Pulmonary Disease; Thoracic Surgery (Cardiothoracic Vascular Surgery); ADMIT Family Medicine; ATTEND Family Medicine
DX: A41.9 Sepsis, unspecified organism (principal); I50.23 Acute on chronic systolic (congestive) heart failure; N39.0 Urinary tract infection, site not specified; N17.9 Acute kidney failure, unspecified; J96.11 Chronic respiratory failure with hypoxia; Z68.43 Body mass index [BMI] 50.0-59.9, adult; I95.9 Hypotension, unspecified; R00.1 Bradycardia, unspecified; M62.50 Muscle wasting and atrophy, not elsewhere classified, unspecified site; E66.01 Morbid (severe) obesity due to excess calories; E03.9 Hypothyroidism, unspecified; K21.9 Gastro-esophageal reflux disease without esophagitis; I48.91 Unspecified atrial fibrillation; I25.10 Atherosclerotic heart disease of native coronary artery without angina pectoris; G47.33 Obstructive sleep apnea (adult) (pediatric)

== ENCOUNTER 2019-09-21 17:00 | Inpatient (IN) | payer MEDICARE ==
[~2019-09-21] VITALS: Ht 157.5 cm; Wt 131.1 kg
[~2019-09-21 17:00] MED LIST changes: +ACETAMINOPHEN325 MG PO; +HEMOCYTE PLUS C1 CAP PO; +LASIX80 MG PO; +MAXIPIME 1 GM/D51 G1 IV; +SYNTHROID175 MCG PO; +SYNTHROID88 MCG PO
[2019-09-21 18:31] VITALS: BP 111/62
--- NOTE | 2019-09-21 20:50 | NUR ---
PT IN BED, FALL PRECAUTIONS IN PLACE, RESPIRATIONS EASY AND EVEN, BED IN LOWEST POSITION, FLUIDS/CALL LIGHT WITHIN REACH, PT NEEDS: ICE PACK, YADIEL DRAIN DRAINED, PILLOW FOR LEFT SIDE, CONSENT PAPERS SIGNED, CHART COMPLETED, MISSING ORDERS PUT IN FOR PHARMACY.
--- NOTE | 2019-09-21 22:20 | NUR ---
EMPTIED YADIEL DRAIN, PT INST ON AND VERBALIZES UNDERSTANDING OF DRAIN NEEDING TO BE COMPRESSED, YADIEL DRAIN COMPRESSED
--- NOTE | 2019-09-22 01:35 | NUR ---
WHILE IN ROOM WITH ROOMMATE, PT REQUESTED AND PROVIDED ICE PACK, DENIES FURTHER NEEDS
--- NOTE | 2019-09-22 06:00 | NUR ---
PT DRSG TO RT GROIN SATURATED, ORDERS TO CHANGE DAILY/PRN, OVERALL INCISION LOOKS GOOD EXCEPT FOR AREA AT TOP OF THE THIGH WHICH LIES UNDER ABDOMINAL FOLD, OPEN AREA WITH SEROSANGINEOUS FLUIDS DRAINING RATE GIVES CONCERN, DR. CORDERO AND DR. MOSQUEDA NOTIFIED AND WILL CONSULT ON THIS ISSUE, VS ARE T-98.5, BP-117/52, P-91, R-18, O2-97% RA, RBC-3.23HGB-9.1, HCT-31.0, PLT-484, BUN-19, CA-7.8,GFR-76
[2019-09-22 07:10] LABS: HEMOGLOBIN 9.1 g/dL (12-16); LYMPHOCYTES 15.1 % (15-50); MCH 28.2 pg (26.0-34.0); MCHC 29.4 g/dL (31.0-37.0); MEAN PLATELET VOLUME 8.6 fL (7.4-10.4); NEUTROPHILS 72.1 % (40-80); PLATELET COUNT 484 10x3/uL (130-400); RBC 3.23 10x6/uL (4.00-5.40); RDW 16.7 % (11.5-14.5)
[2019-09-22 07:13] LABS: WBC 8.5 10x3/uL (4.8-10.8)
[2019-09-22 07:22] LABS: CALC OSMOLALITY 282 mosm/kg (275-300); CALCIUM 7.8 mg/dL (8.5-10.1); CARBON DIOXIDE 32.4 mmol/L (21.0-32.0); CHLORIDE - SERUM 104 mmol/L (98-107); CREATININE - SERUM 0.8 mg/dL (0.6-1.3); GLUCOSE 105 mg/dL (74-106); POTASSIUM - SERUM 4.6 mmol/L (3.5-5.1); SODIUM 141 mmol/L (136-145); UREA NITROGEN 19 mg/dL (7-18); eGFR NON AFRICAN AMERICAN 76 mL/min (90-120)
[2019-09-22 08:00] VITALS: BP 117/52
--- NOTE | 2019-09-22 08:00 | NUR ---
PT IS HAVING EXCESSIVE BLOODY DRAINAGE FROM OPENING IN INCISION IN RT GROIN AREA. WHEN ABD FOLD IS LIFTED UP AND DSG LIFTED UP, AREA STARTS GUSHING BLOODY DRAINAGE. LONG PRESSURE IS APPLIED (ABD FOLD), DRAINAGE IS LESS. DR. MOSQUEDA'S NURSE CAME BY TO SEE PT. PER MICHAEL, RN- PT WILL NEED TO GO TO ER FOR WOUND VAC PLACEMENT. F/C IS DRAINING STRAW COLORED URINE. RT THIGH YADIEL DRAIN HAS MOSTLY YELLOWISH DRAINAGE (75 MLS). SHE IS STILL ON OXYGEN 3LNC.
--- NOTE | 2019-09-22 12:00 | NUR ---
STILL NPO. SHE IS NOT HAPPY ABOUT NOT HAVING ANYTHING TO EAT OR DRINK. MEDS HELD. SCD PLACED ON BLE. SHE HAS NOT TRIED TO MOVE SELF AT ALL TO CHANGE POSITIONS OR SIT UP MORE IN BED.
[2019-09-22 13:04] VITALS: Ht 157.5 cm; Wt 131.1 kg
--- NOTE | 2019-09-22 15:23 | NUR ---
BLAKE QUIETLY IN BED. STILL WAITING ON INSTRUCTIONS FROM DR MOSQUEDA OR HIS NURSE. NO ROOM HAS BEEN ASSIGNED SO FAR.
[2019-09-22 19:32] VITALS: BP 126/43
--- NOTE | 2019-09-22 21:24 | NUR ---
TAKING OVER PATIENT CARE. REPORT RECEIVED AND ROUNDING COMPLETE. PATIENT LAYING IN BED IN LOW FOWLERS, OTHER RN JUST REPOSITIONED. NO NEEDS VOICED AT THIS TIME. NO DISTRESS NOTED. PATIENT HAS A YADIEL DRAIN TO RIGHT THIGH AND DRESSING INTACT. RIGHT AC PIV THAT IS SALINE LOCKED. MIRANDA IN PLACE AND SCANT AMOUNT OF CLEAR YELLOW URINE IN MIRANDA BAG. SCD'S ON AND WORKING AT THIS TIME. CALL LIGHT WITHIN REACH AND BED IN LOWEST LOCKED POSITION.
--- NOTE | 2019-09-22 23:35 | NUR ---
CHANGED DRESSING TO RIGHT GROIN AREA. DRESSING C/D/I.
== END 2019-09-22 23:38 | disposition short-term general hospital (02) | DRG 92 ==
LOC: D.REHAB 17:00
PROVIDERS: ADMIT Emergency Medicine; ATTEND Emergency Medicine
DX: G72.81 Critical illness myopathy (principal); N39.0 Urinary tract infection, site not specified; N17.9 Acute kidney failure, unspecified; J96.11 Chronic respiratory failure with hypoxia; Z68.43 Body mass index [BMI] 50.0-59.9, adult; I95.9 Hypotension, unspecified; R00.1 Bradycardia, unspecified; M62.81 Muscle weakness (generalized); I48.91 Unspecified atrial fibrillation; I25.10 Atherosclerotic heart disease of native coronary artery without angina pectoris; G47.33 Obstructive sleep apnea (adult) (pediatric); Z91.19 Patient's noncompliance with other medical treatment and regimen; J45.909 Unspecified asthma, uncomplicated; E03.9 Hypothyroidism, unspecified; E66.01 Morbid (severe) obesity due to excess calories; K21.9 Gastro-esophageal reflux disease without esophagitis; I50.9 Heart failure, unspecified; E11.9 Type 2 diabetes mellitus without complications; J30.9 Allergic rhinitis, unspecified; I72.9 Aneurysm of unspecified site

== ENCOUNTER 2019-09-22 22:06 | Inpatient (IN) | payer MEDICARE ==
[~2019-09-22] VITALS: Ht 157.5 cm; Wt 157.7 kg
--- NOTE | ~2019-09-22 | EC ---
PATIENT:KAYLEE MORRISSEY DATE OF SERVICE: 09/22/19 SEX: F MEDICAL RECORD: [id number] DATE OF : [birth year] LOCATION:D.M2 D.212 AGE OF PATIENT: 63 ADMISSION DATE: 09/22/19 REFERRING PHYSICIAN: INTERPRETING PHYSICIAN: ELOISE WILSON MD ECHOCARDIOGRAM REPORT ECHO CHARGES 4 ECHO COMPLETE Date: 10/01/19 CLINICAL DIAGNOSIS: LVH ECHOCARDIOGRAPHIC MEASUREMENTS (adult normal given) AC root (d.<3.7cm) 2.6 cm LV Septum d (<1.2 cm> 2.0 cm Valve Excursion 1.3 cm LV Septum (systole) 2.3 cm Left Atria (s.<4.0cm> 3.9 cm LVPW d(<1.2cm) 1.2 cm RV (d.<2.3cm) 3.4 cm LVPW (sytole) 1.7 cm LV diastole(<5.6CM) 6.0 cm MV E-F(>70mm/sec) cm LV systole 4.6 cm LVOT Diameter 1.4 cm MV exc.(>10mm) cm Est.ejection fraction (50-75%) % DOPPLER: LVIT cm/sec A 46 cm/sec E 111 cm/sec LA cm/sec RVSP 25.2 mmHg LVOT 146 cm/sec AOP1/2T m/s Asc. Ao 335 cm/sec RVOT 62 cm/sec RA cm/sec PA 145 cm/sec AV Gradient Peak 44.8 mmHg AV Mean 19.2 mmHg AV Area 0.7 cm MV Gradient Peak 7.1 mmHg MV Mean 1.8 mmHg MV Area cm COMMENTS: Latin American Studies Director: Chet MORAN Ornamental Iron Erector: Alejandra Wilson TAPE# PACS Pericardial Effusion N DATE OF SERVICE: PROCEDURE: Transthoracic echocardiogram. FINDINGS: 1. The left ventricle shows mild left ventricular hypertrophy with diastolic dysfunction. The patient has ejection fraction of 55% to 60%. 2. Left atrium is normal size, shape, structure, and function. 3. The aortic valve has moderate calcification in the leaflets with a peak gradient across the valve of 44 mmHg, although by planimetry, the valve area is ECHOCARDIOGRAM REPORT [id number] KAYLEE MORRISSEY fairly well preserved. 4. The mitral valve has mild mitral annular calcification. Normal valvular function. Trace to mild mitral regurgitation. 5. Tricuspid valve has normal tricuspid structure and function. 6. The right ventricle was mildly enlarged. 7. Right atrium is normal size; shape, structure, and function. 8. Pulmonic valve is normal. 9. There is no pericardial effusion. IMPRESSION: The patient has at least mild aortic stenosis. By pressure gradient, it was more severe and depending on clinical situation, a transesophageal echocardiogram may be helpful. As the pressure gradient across that may have been a mixed signal, direct planimetry would give us an ideal measured valve area. TRANSINT:[id number] Voice Confirmation ID: [id number] DOCUMENT ID: [id number] ELOISE WILSON MD CC: [id number] DICTATION DATE: 10/02/19 105 GENERATOR MECHANIC: 10/02/19 1503 [facility] IN [place] [id number] [place] [address]
[2019-09-23 00:25] VITALS: BP 119/76
--- NOTE | 2019-09-23 00:25 | NUR ---
PT ARIVES VIA BED FROM REHAB NURSE GIVES ME REPORT AT THIS TIME BY BEDSIDE CLAIMS PT IS LETHARGIC PT HAS HAD AYESHA PA LCTA 95% ON 2 LITERS PT ANSWERS QUESTIONS BUT SLOWLY MIRANDA NOTED YADIEL DRAIN CHARGED AND DRSG TO RT THIGH GROIN AREA WITH HEMOTOMIA ABOVE NURSE GIVING ME REPORT HAS CALLED ICU RAPID NURSE OVER TO EXAMINE PT AND SHE OBTAINS A EKG....GLUCOSE IS 155 PT IS SLIGHTLY DIAPHORETIC....SINUS RYTHME WITH FIRST DEGREE AV BLOCK
[2019-09-23 01:00] VITALS: BP 109/69
--- NOTE | 2019-09-23 01:29 | NUR ---
PT AROUSABLE AND SQUEEZES MY HANDS ON COMAND
--- NOTE | 2019-09-23 01:51 | NUR ---
ENTERED HT AND WT AND WAITING ON PHARMACY VERIFICATION OF ORDERS TO START ANTIBIOTIC
--- NOTE | 2019-09-23 02:35 | NUR ---
MAXIPIME NOT VERIFIED BY PHARMACY
--- NOTE | 2019-09-23 08:03 | NUR ---
REPORT RECEIVED. WILL CONTINUE WITH POC. PT CURRENTLY LYING SEMI FOWLERS. CALL LIGHT W/I REACH. PT RESPONDS TO DEEP STIMULI. PT CURRENTLY ON BIPAP. RR EVEN AND TACHYPNIC. PT ON BIPAP AT 35% AND MAINTAINING SPO2 OF 96% ON BIPAP AND 91% OFF BIPAP. AM MEDS HELD R/T PT DECOMPENSATING WHEN OFF BIPAP AND R/T NPO STATUS. WILL CTM.
[2019-09-23 08:49] VITALS: BP 124/74
[2019-09-23 12:00] VITALS: BP 96/40
--- NOTE | 2019-09-23 12:45 | NUR ---
OT NOTE: ATTEMPTED TO EVAL PT THIS AM. PT IS ON BIPAP; BARELY AROUSES TO VOICE; KEEPS EYES OPEN FOR SECONDS AND RETURNS TO SLEEP. NURSING REPORTS PT IS SCHEDULED FOR PROCEDURE THIS AFTERNOON. WILL RE ATTEMPT EVAL. JIMBO LEE, OTR/L
[2019-09-23 13:13] VITALS: BMI 52.9
[2019-09-23 14:56] LABS: BILIRUBIN NEGATIVE (NEGATIVE); KETONE NEGATIVE (NEGATIVE); NITRITE NEGATIVE (NEGATIVE); UROBILINOGEN NORMAL (NORMAL)
[2019-09-23 15:06] LABS: BASOPHILS 0.1 % (0-2); EOSINOPHILS 1.7 % (0-7); HEMATOCRIT 30.5 % (36.0-48.0); HEMOGLOBIN 8.7 g/dL (12-16); IMMATURE GRANULOCYTES 0.6 % (0-5); LYMPHOCYTES 16.8 % (15-50); MCH 27.6 pg (26.0-34.0); MCHC 28.5 g/dL (31.0-37.0); MCV 96.8 fL (80.0-100.0); MEAN PLATELET VOLUME 8.8 fL (7.4-10.4); MONOCYTES 13.2 % (2-11); NEUTROPHILS 67.6 % (40-80); PLATELET COUNT 445 10x3/uL (130-400); RBC 3.15 10x6/uL (4.00-5.40); RDW 17.4 % (11.5-14.5); WBC 6.9 10x3/uL (4.8-10.8)
[2019-09-23 15:25] LABS: APTT 30.6 SECONDS (22.8-39.4); INR 1.11 (0.85-1.17); PROTIME 14.3 SECONDS (11.6-15.0)
[2019-09-23 15:29] LABS: CALC OSMOLALITY 282 mosm/kg (275-300); CALCIUM 8.2 mg/dL (8.5-10.1); CARBON DIOXIDE 37.3 mmol/L (21.0-32.0); CHLORIDE - SERUM 105 mmol/L (98-107); CREATININE - SERUM 0.6 mg/dL (0.6-1.3); GLUCOSE 91 mg/dL (74-106); MAGNESIUM - SERUM 1.8 mg/dL (1.8-2.4); PHOSPHOROUS 3.2 mg/dL (2.5-4.9); POTASSIUM - SERUM 4.5 mmol/L (3.5-5.1); SODIUM 142 mmol/L (136-145); eGFR NON AFRICAN AMERICAN > 90 mL/min (90-120)
[2019-09-23 15:32] LABS: UREA NITROGEN 12 mg/dL (7-18)
--- NOTE | 2019-09-23 15:58 | NUR ---
PREOP MEDICATIONS SCANNED AND SENT WITH PT TO OR. WILL CTM.
--- NOTE | 2019-09-23 17:14 | NUR ---
YADIEL REMOVED FROM RIGHT GROIN/THIGH, GERARD REMOVED BY DR MOSQUEDA
--- NOTE | 2019-09-23 17:36 | NUR ---
PT RETURN TO ROOM. VSS AND WNL. PT IS AAO. WOUNDVAC TO THE RIGHT GROIN IN PLACE AND WORKING PROPERLY. NO S/S OF DISTRESS NOTED. WILL CTM.
[2019-09-23 17:40] VITALS: BP 119/71
--- NOTE | 2019-09-23 20:00 | NUR ---
RECEIVED UP IN BED WITH EYES CLOSED. AROUSES TO VERBAL STIMULI. VERY LETHARGIC AT THIS TIME. DOES NOT ANSWER QUESTIONS AND FALLS BACK TO SLEEP. IV TO RT AC SL. WOUND VAC TO RT GROIN. FUNCTIONING PROPERLY. REMAINS ON BIPAP. F/C INTACT WITH STRAW COLOR URINE TO BEDSIDE DRAINAGE BAG. TELEMETRY IN PLACE. NO S/S OF DISTRESS OBSERVED.
[2019-09-23 20:45] VITALS: BP 111/69
[2019-09-24 01:23] VITALS: BP 118/55
[2019-09-24 01:38] VITALS: BP 118/55
[2019-09-24 05:44] VITALS: BP 139/62
--- NOTE | 2019-09-24 07:00 | NUR ---
RECEIVED REPORT. ASSUMED CARE OF PATIENT. CALL LIGHT WITHIN REACH. PATIENT BIPAP PATENT. EASILY AROUSED. WOUND VAC TO RIGHT GROIN. BEDSIDE SHIFT REPORT COMPLETE. WHITE BOARD UPDATED. DENIES NEEDS. NO DISTRESS.
[2019-09-24 07:40] LABS: BASOPHILS 0.3 % (0-2); EOSINOPHILS 1.7 % (0-7); HEMATOCRIT 28.7 % (36.0-48.0); HEMOGLOBIN 8.4 g/dL (12-16); IMMATURE GRANULOCYTES 0.7 % (0-5); LYMPHOCYTES 16.5 % (15-50); MCH 28.1 pg (26.0-34.0); MCHC 29.3 g/dL (31.0-37.0); MONOCYTES 12.3 % (2-11); NEUTROPHILS 68.5 % (40-80); PLATELET COUNT 423 10x3/uL (130-400); RBC 2.99 10x6/uL (4.00-5.40); RDW 17.7 % (11.5-14.5); WBC 7.5 10x3/uL (4.8-10.8)
[2019-09-24 08:11] LABS: CALC OSMOLALITY 273 mosm/kg (275-300); CALCIUM 8.1 mg/dL (8.5-10.1); CARBON DIOXIDE 33.6 mmol/L (21.0-32.0); CHLORIDE - SERUM 101 mmol/L (98-107); CREATININE - SERUM 0.7 mg/dL (0.6-1.3); GLUCOSE 92 mg/dL (74-106); MAGNESIUM - SERUM 1.8 mg/dL (1.8-2.4); PHOSPHOROUS 3.3 mg/dL (2.5-4.9); POTASSIUM - SERUM 4.2 mmol/L (3.5-5.1); SODIUM 137 mmol/L (136-145); UREA NITROGEN 12 mg/dL (7-18); eGFR NON AFRICAN AMERICAN 89 mL/min (90-120)
--- NOTE | 2019-09-24 08:45 | NUR ---
PER DR.MC HERNANDEZ NURSE, NEW ORDERS RECEIVED FOR VASCULAR NURSE TO PLACE PICC LINE TODAY. CALLED [employer] [facility] AND THERE IS NO VASCULAR NURSE TO CALL IN TO PLACE A PICC LINE, PER POWER [employer]OD SAWYER A CENTRAL LINE WILL HAVE TO BE PLACED. WILL NOTIFY DR YO AND SEE IF HE WANTS CENTRAL LINE PLACED.
--- NOTE | 2019-09-24 08:53 | NUR ---
CALLED EXT [phone] AND SPOKE TO /JEREMIAH, NOTIFED OF NO VASCUALR NURSE TO PLACE A STAT PICC LINE AND PER THE CALCINE FURNACE TENDER, THE PATIENT WOULD HAVE TO HAVE A CENTRAL LINE PLACED. DR. DANIELS STATED HE WOULD LET DR.MC WATSON KNOW AND SEE WHAT HE WANTS DONE. THANKED .
[2019-09-24 09:00] VITALS: BP 125/64
--- NOTE | 2019-09-24 11:04 | NUR ---
HERE FOR ROUNDS. IF PT NEEDS IV ACCESS, PRIMARY CAN MAKE THE DECISION IN ORDER TO PLACE A CENTRAL LINE, HE HAS ASKED THAT ALL MEDS BE ADMINISTERED PO. WOUND VAC CLARIFIED WITH DR.MC WATSON, THE SUCTION OF THE WOUND VAC IS NOT SITTING ON RAW SKIN, WHITE FOAM IS IN THE WOUND BED.
--- NOTE | 2019-09-24 11:26 | OP ---
PATIENT NAME: KAYLEE MORRISSEY MEDICAL RECORD: [id number] :51 LOCATION:D.M2 D.2124 ADMISSION DATE:09/22/19 SURGEON: DEMETRIS MOSQUEDA MD DATE OF OPERATION: 09/23/2019 SURGEON: Demetris Mosqueda MD PROCEDURE PERFORMED: Wound debridement and Pulsavac with placement of wound VAC. ANESTHESIA: General and local 1% Xylocaine, 20 cc. COMPLICATIONS: None. SPECIMENS REMOVED: Debrided tissue. FINDINGS: Necrotic skin between the retention sutures, but no abscess cavity or purulence. The old hematoma cavity remained laterally, but the skin over this area was viable. The debrided skin resulted in an area of approximately 12 x 3 x 5 and thorough Pulsavac was performed prior to placing the wound VAC . INDICATION: Necrotic skin and drainage. DESCRIPTION OF PROCEDURE: The patient was taken to the operating suite. IV access was difficult but placed by anesthesia. The area was debrided of the necrotic skin, and the retention sutures and nini were removed. No subcutaneous sutures were identified. The old hematoma cavity was irrigated, but no purulent debris was noted. The soft tissue was closed over the femoral vessels, which were not exposed. The fat necrosis was debrided. There was no purulence. Pulsavac was performed. Wound VAC was cut to the appropriate size, but due to the patient's multiple layers and rolls of fat, it was difficult to get good seal in the edges, so a portion of Ioban was also used. The patient is stable to recovery. TRANSINT:[id number] Voice Confirmation ID: [id number] DOCUMENT ID: [id number] DEMETRIS MOSQUEDA MD at 1126 CC: NATALEE BIRD M.D. [id number] DICTATION DATE: 09/23/19 1800 CRM DYNAMICS DEVELOPER: 09/24/19 0156 ADM IN [facility] [id number] [place] [address]
--- NOTE | 2019-09-24 11:41 | NUR ---
ANESTHESIA AT BEDSIDE TO PLACE SECOND PERIPHERAL LINE SINCE NO VASCULAR ACCESS NURSE IS AVAILABLE.
--- NOTE | 2019-09-24 13:00 | NUR ---
LEONEL PLACED CATHETER TO LEFT UPPER ARM VIA ULTRASOUND. ABLE TO DRAW LABS FROM CATHETER PER DR.HASS LEONEL.
--- NOTE | 2019-09-24 16:00 | NUR ---
PATIENT IS BEING LYNETTE TO 2122 DUE TO NON WORKING CALL LIGHT SYSTEM IN 2123.
--- NOTE | 2019-09-24 19:40 | NUR ---
RECIEVED UP IN BED WIT EYES OPEN. ALERT AND ORIENTED X4. REMAINS BEDFAST. WOUND VAC IN PLACE AND FUNCTIONING PROPERLY. DSG TO MID THIGH CDI. O2@ 3 LITERS PER N/C.
[2019-09-24 22:30] VITALS: BP 103/61
[2019-09-25 02:00] VITALS: BP 137/75
[2019-09-25 05:34] LABS: BASOPHILS 0.4 % (0-2); EOSINOPHILS 1.3 % (0-7); HEMATOCRIT 29.9 % (36.0-48.0); HEMOGLOBIN 8.7 g/dL (12-16); IMMATURE GRANULOCYTES 1.1 % (0-5); LYMPHOCYTES 13.8 % (15-50); MCH 27.4 pg (26.0-34.0); MCHC 29.1 g/dL (31.0-37.0); MCV 94.3 fL (80.0-100.0); MEAN PLATELET VOLUME 8.9 fL (7.4-10.4); MONOCYTES 13.2 % (2-11); NEUTROPHILS 70.2 % (40-80); PLATELET COUNT 375 10x3/uL (130-400); RBC 3.17 10x6/uL (4.00-5.40); RDW 17.8 % (11.5-14.5); WBC 8.5 10x3/uL (4.8-10.8)
[2019-09-25 06:02] LABS: CALC OSMOLALITY 283 mosm/kg (275-300); CALCIUM 7.8 mg/dL (8.5-10.1); CHLORIDE - SERUM 104 mmol/L (98-107); CREATININE - SERUM 0.8 mg/dL (0.6-1.3); GLUCOSE 119 mg/dL (74-106); MAGNESIUM - SERUM 1.8 mg/dL (1.8-2.4); PHOSPHOROUS 3.6 mg/dL (2.5-4.9); POTASSIUM - SERUM 3.8 mmol/L (3.5-5.1); SODIUM 142 mmol/L (136-145); UREA NITROGEN 13 mg/dL (7-18); eGFR NON AFRICAN AMERICAN 76 mL/min (90-120)
[2019-09-25 09:00] VITALS: BP 109/74
[2019-09-25 16:00] VITALS: BP 132/70
--- NOTE | 2019-09-25 19:46 | NUR ---
RECIEVED UP IN BED WITH EYES OPENALERT AND ORIENTED X4. REMAINS BEDFAST. O2@ 3 LITERS PER N/C. F/C INTACT WITH STRAW COLOR URINE DRAINING TO BEDSIDE DRAINAGE BAG. WOUND VAC TO RT GROIN. IV TO LT BREAST SL. MIDLINE TO LT AC. DENIES ANY NEEDS AT THIS TIME. REMAINS ON SPECIALITY MATTRESS.
[2019-09-25 20:30] VITALS: BP 128/59
[2019-09-26 00:30] VITALS: BP 134/65
[2019-09-26 04:30] VITALS: BP 142/67
[2019-09-26 07:58] LABS: CALC OSMOLALITY 281 mosm/kg (275-300); CARBON DIOXIDE 37.6 mmol/L (21.0-32.0); CHLORIDE - SERUM 102 mmol/L (98-107); CREATININE - SERUM 0.6 mg/dL (0.6-1.3); GLUCOSE 114 mg/dL (74-106); MAGNESIUM - SERUM 1.9 mg/dL (1.8-2.4); PHOSPHOROUS 3.8 mg/dL (2.5-4.9); POTASSIUM - SERUM 3.7 mmol/L (3.5-5.1); SODIUM 142 mmol/L (136-145); eGFR NON AFRICAN AMERICAN > 90 mL/min (90-120)
[2019-09-26 08:02] LABS: BASOPHILS 0.2 % (0-2); EOSINOPHILS 2.5 % (0-7); HEMATOCRIT 31.2 % (36.0-48.0); HEMOGLOBIN 9.1 g/dL (12-16); LYMPHOCYTES 12.9 % (15-50); MCH 28.2 pg (26.0-34.0); MCHC 29.2 g/dL (31.0-37.0); MONOCYTES 13.1 % (2-11); NEUTROPHILS 70.3 % (40-80); PLATELET COUNT 331 10x3/uL (130-400); RBC 3.23 10x6/uL (4.00-5.40); RDW 18.4 % (11.5-14.5); UREA NITROGEN 8 mg/dL (7-18); WBC 8.4 10x3/uL (4.8-10.8)
[2019-09-26 08:09] LABS: MCV 96.6 fL (80.0-100.0)
[2019-09-26 10:22] VITALS: BP 110/62
--- NOTE | 2019-09-26 12:45 | NUR ---
OT NOTE: PT DOING BETTER TODAY. PERFORMED BED MOB IWTH MIN/MOD ASSIST WITH EXT TIME TO ALLOW PT TO PERFORM INDEP POSSIBLE. MOD ASSIST WITH SUPINE TO SIT; SITTING BALANCE ON EOB WITH GOOD BALANCE. SIT TO STAND WITH MOD ASSIST X 2 AND USE OF WALKER. ATTEMPTED TO SIDE STEP AND PTS LEGS BECAME VERY WEAK AND HAD TO SIT DOWN. PT ABLE TO WASH FACE AND HANDS WITH CLOTH, MIN ASSIST TO TANVIR GOWN, MAX ASSIST FOR LE BATHING. EDUCATED ON UE EXS WHILE IN BED. JIMBO LEE, OTR/L [phone]
--- NOTE | 2019-09-26 13:05 | NUR ---
Nutrition Follow-up: Good appetite/PO intake. Pt stated that she would be going back to rehab. Diet: Cardiac PO intake: 75-100% Wt: 289# (09/22) Last BM: 09/21 Labs noted: Ca 8.0 Meds noted: Protonix, electrolyte protocol -Monitor wt; noted daily wts ordered. -RD following.
[2019-09-26 13:06] VITALS: BP 121/86
--- NOTE | 2019-09-26 14:49 | NUR ---
Rehab Prescreening Consult recieved and the chart has been reviewed. She has been to the ARU twice and both times within 24 to 48 hours she had to be returned back to the ICU. She continues to be unstable, in and out of UCAF with rates varing from 130 to 45. She has not been able to participate with therapy and is max assist to sit on the side of the bed. She will need to be medically stable, and able and willing to participate in 3 hrs of therapy 5 days a week to be considered for readmission to the acute rehab unit. Martha Myrick RN Clinical Liaison, Rehab
[2019-09-26 18:28] VITALS: BP 108/53
--- NOTE | 2019-09-26 19:34 | NUR ---
REPORT RECEIVED AND ROUNDING COMPLETE. PATIENT LAYING IN BED IN HIGH FOWLERS WEARING BIPAP AND RECEIVING A BREATHING TREATMENT. THERE IS A RIGHT GROIN WOUND VAC IN PLACE, LEFT BREAST PIV THAT IS SALINE LOCKED AND ALSO LEFT AC MIDLINE THAT WE HAVE PERMISSION TO DRAW FROM ACCORDING TO THE DAY NURSE. PATIENT IS ON BED REST AT THIS TIME. NO DISTRESS NOTED AND NO NEEDS VOICED AT THIS TIME. CALL LIGHT WITHIN REACH AND BED IN LOWEST LOCKED POSITION.
[2019-09-26 20:00] VITALS: BP 134/62
--- NOTE | 2019-09-26 20:15 | NUR ---
WOUND VAC DRSG CHANGE DONE PER ORDERS WOUND BED RED BEEFY TISSUE NO ESCAR NOTED PINK TINGED DRAINAGE NOTED WOUND CULTURE OBTAINED DURING PROCESS PT TOLERATED WELL
[2019-09-27] VITALS: BP 127/68
[2019-09-27 04:00] VITALS: BP 105/64
[2019-09-27 06:11] LABS: BASOPHILS 0.2 % (0-2); EOSINOPHILS 2.7 % (0-7); HEMATOCRIT 29.2 % (36.0-48.0); HEMOGLOBIN 8.6 g/dL (12-16); IMMATURE GRANULOCYTES 0.6 % (0-5); LYMPHOCYTES 11.8 % (15-50); MCH 28.5 pg (26.0-34.0); MCHC 29.5 g/dL (31.0-37.0); MCV 96.7 fL (80.0-100.0); MEAN PLATELET VOLUME 9.4 fL (7.4-10.4); MONOCYTES 13.1 % (2-11); NEUTROPHILS 71.6 % (40-80); PLATELET COUNT 293 10x3/uL (130-400); RBC 3.02 10x6/uL (4.00-5.40); RDW 18.3 % (11.5-14.5); WBC 9.8 10x3/uL (4.8-10.8)
[2019-09-27 06:39] LABS: CALC OSMOLALITY 278 mosm/kg (275-300); CARBON DIOXIDE 38.6 mmol/L (21.0-32.0); CHLORIDE - SERUM 100 mmol/L (98-107); CREATININE - SERUM 0.7 mg/dL (0.6-1.3); GLUCOSE 138 mg/dL (74-106); MAGNESIUM - SERUM 2.1 mg/dL (1.8-2.4); PHOSPHOROUS 3.2 mg/dL (2.5-4.9); SODIUM 139 mmol/L (136-145); UREA NITROGEN 9 mg/dL (7-18); eGFR NON AFRICAN AMERICAN 89 mL/min (90-120)
--- NOTE | 2019-09-27 07:00 | NUR ---
RECEIVED REPORT. ASSUMED CARE OF PATIENT. CALL LIGHT WITHIN REACH. PATIENT RESTING WITH EYES CLOSED. PATIENT ON BIPAP AT THIS TIME. BEDSIDE SHIFT REPORT COMPLETE. WHITE BOARD UPDATED. NO DISTRESS.
[2019-09-27 09:04] VITALS: BP 114/59
--- NOTE | 2019-09-27 10:35 | NUR ---
OT NOTE: (DOS 09/26/19) PT COMPLETED BED MOB TASKS WITH MAX A. PT COMPLETED UB HYGIENE TASKS WITH SETUP. [phone] THANK YOU,CORNELIO ORELLANA
[2019-09-27 11:02] VITALS: BP 109/48
--- NOTE | 2019-09-27 14:25 | MORECARE ---
CASE MANAGEMENT DISCHARGE SUMMARY PATIENT: KAYLEE MORRISSEY UNIT: [id number] ADM DATE: 09/22/19 AGE: 63 : 53 SEX: F ROOM/BED: D.2123 AUTHOR: WANDA POND PHYSICIAN: REFERRING PHYSICIAN: MEETA HURTADO MD DATE OF SERVICE: 09/27/19 Discharge Plan Patient Name: KAYLEE MORRISSEY Facility: [facility]:[place] : 1955 Planned Disposition: Care Home Facility Anticipated Discharge Date: Discharge Date: Expected LOS: Initial Reviewer: [email or web address] Initial Review Date: 09/22/2019 Generated: 09/27/19 3:25 pm External Providers [facility] Next Contact Date: Service Request Date: Service Type: Resolution: Reviewer: Comments: Patient Name: KAYLEE MORRISSEY Page [phone] at 1425 All edits/amendments must be made on the electronic document DICTATION DATE: 09/27/19 1425 TRAIN ATTENDANT: WILLIAM 09/27/19 1425 RPT#: [id number] OK DATE: STATUS: ADM IN [facility] [address] [place] [address] END OF REPORT
--- NOTE | 2019-09-27 15:04 | NUR ---
Rehab Note- Spoke with Patricia Angulo CM concerning patient. Discussed at length the patient with Dr. Mckeon, Pocket Maker, the patient is not appropriate for [facility] Acute Inpatient Rehab. Thank you for this referral! Tracy Heard RN Clinical Liaison, [facility] Rehab
[2019-09-27 16:08] VITALS: BP 105/72
--- NOTE | 2019-09-27 16:28 | NUR ---
OT NOTE: PT SEEN IN AM. READY TO SIT UP ON EOB. EDUCATED IN SIDE LIEING TECH FOR SUPINE TO SIT; PT REQUIRED MOD ASSIST; GOOD SITTING BALANCE ON EOB; PERFORMED SIT TO STAND X 2 TRIALS WITH MOD ASSIST... PERFORMED BETTER THAN YESTERDAY. PT REQUIRED APPROX 3-5 FOLLOWING INITIAL RECORDS MANAGEMENT MANAGER ORDER TO RECOUP. PT WAS DIZZY FOR SEVERAL MIN , BUT IMPROVED AFTER REST. INCREASED DIZZINESS FOLLOWING SECOND ATTEMPT TO STAND. MAX ASSIST FOR SIT TO SUPINE. ONCE IN SUPINE PT FEELING BETTER. PT DEMONSTRATED UE/LE EXS THAT SHE HAS BEEN DOING. PERFORMING SIMPLE GROOMING ACT WITH SETUP.. WANTS TO IMPROVE IN ORDER TO RETURN HOME. PT VERY MOTIVATED. RECOMMEND IP REHAB JIMBO LEE, OTR/L [phone]
--- NOTE | 2019-09-27 18:05 | MORECARE ---
CASE MANAGEMENT DISCHARGE SUMMARY PATIENT: KAYLEE MORRISSEY UNIT: [id number] ADM DATE: 09/22/19 AGE: 63 : 51 SEX: F ROOM/BED: D.2123 AUTHOR: WANDA POND PHYSICIAN: REFERRING PHYSICIAN: MEETA HURTADO MD DATE OF SERVICE: 09/27/19 Discharge Plan Patient Name: KAYLEE MORRISSEY Facility: [facility]:[place] : 1955 Planned Disposition: Intermediate Facility Anticipated Discharge Date: Discharge Date: Expected LOS: Initial Reviewer: [email or web address] Initial Review Date: 09/22/2019 Generated: 09/27/19 7:04 pm External Providers External Provider: OTHER-OTHER Next Contact Date: Service Request Date: Service Type: Resolution: Reviewer: Comments: Last DP export: 09/27/19 1:25 p Patient Name: KAYLEE MORRISSEY Page [phone] at 1805 All edits/amendments must be made on the electronic document DICTATION DATE: 09/27/191804 MUSHROOM SPAWN MAKER: WILLIAM 09/27/191804 RPT#: [id number] [place] DATE: STATUS: ADM IN [facility] [address] [place] [address] END OF REPORT
--- NOTE | 2019-09-27 18:12 | MORECARE ---
CASE MANAGEMENT DISCHARGE SUMMARY PATIENT: KAYLEE MORRISSEY UNIT: [id number] ADM DATE: 09/22/19 AGE: 63 : 53 SEX: F ROOM/BED: D.2123 AUTHOR: WANDA POND PHYSICIAN: REFERRING PHYSICIAN: MEETA HURTADO MD DATE OF SERVICE: 09/27/19 Discharge Plan Patient Name: KAYLEE MORRISSEY [facility] [facility] 1955 Planned Disposition: Long Term Facility Anticipated Discharge Date: Discharge Date: Expected LOS: Initial Reviewer: [email or web address] Initial Review Date: 09/22/2019 Generated: 09/27/19 7:11 pm DCPIA - Discharge Planning Initial Assessment Updated by [email or web address]: Betsy Angulo on 09/27/19 6:10 pm * Is the patient Alert and Oriented? Yes * How many steps to enter\exit or inside your home? 0/0 * PCP Lyndsay * [facility] * Preadmission Environment Acute Inpatient Rehab * Facility Name [facility] IP Rehab * ADLs Partial Dependent * Partial ADLs (Assistance needed) Ambulation Bathing Dressing Medication Management Toileting Transfers * Equipment Oxygen * Other Equipment has 02 and concentrator from [facility] * List name and contact numbers for known caregivers / representatives who currently or will assist patient after discharge: Anderson Castellanos [phone] DTR Piterbulmaro [phone] * Verbal permission to speak to the caregivers and representatives has been obtained from the patient. Yes * Community resources currently utilized None * Additional services required to return to the preadmission environment? Yes * Can the patient safely return to the preadmission environment? Yes * Has this patient been hospitalized within the prior 30 days at any hospital? Yes Last DP export: 09/27/19 5:05 p Patient Name: KAYLEE MORRISSEY Page [phone] at 1812 All edits/amendments must be made on the electronic document DICTATION DATE: 09/27/191810 STAMPING MACHINE OPERATOR: WILLIAM 09/27/191810 RPT#: [id number] DC DATE: STATUS: ADM IN [facility] [address] [place] [address] END OF REPORT
--- NOTE | 2019-09-27 18:39 | MORECARE ---
CASE MANAGEMENT DISCHARGE SUMMARY PATIENT: KAYLEE MORRISSEY UNIT: [id number] ADM DATE: 09/22/19 AGE: 63 : 53 SEX: F ROOM/BED: D.1873 AUTHOR: SALTY,DOC PHYSICIAN: REFERRING PHYSICIAN: MEETA HURTADO MD DATE OF SERVICE: 09/27/19 Discharge Plan Patient Name: KAYLEE MORRISSEY Facility: [facility]:[place] : 1955 Planned Disposition: Intermediate Facility Anticipated Discharge Date: Discharge Date: Expected LOS: Initial Reviewer: [email or web address] Initial Review Date: 09/22/2019 Generated: 09/27/19 7:39 pm Comments DCP- Discharge Planning Updated by [email or web address]: Betsy Angulo on 09/27/19 5:[address] Patient Name: KAYLEE MORRISSEY Admission Status: Elective Accout number: [id number] Admission Date: 09-22-2019 : 1955 Admission Diagnosis:DISRUPTION OF WOUND, UNSPECIFIED, INITIAL ENCOUNTER Attending: BRYANT, Current LOS: 5 Anticipated DC Date: Planned Disposition: Intermediate Facility Primary Insurance: [employer] [facility] Discharge Planning Comments: CM met with patient to complete initial dc planning assessment. CM educated patient on the CM role and verbal consent given by patient to complete assessment. CM verified patient's address, phone number, and emergency contact phone numbers. Prior to admission she was at [facility] IP rehab. Since admissions pt states she is weak and unable to stand without assistance. CM spoke with [facility] and states they are unable to meet her needs. Cm spoke with the patient who became tearful. States she would like to go to rehab, but she will go to a SNF if that is her only option. DIONICIO verbalized for [facility] rehab, and [facility]. CM faxed referrals to Imani at [facility] rehab, and Dominique at [place]. CM will continue to follow and will assist as needed with dc plans/needs. Welt Edge Rounder: Betsy Angulo DCPIA - Discharge Planning Initial Assessment Updated by [email or web address]: Betsy Angulo on 09/27/19 6:10 pm * Is the patient Alert and Oriented? Yes * How many steps to enter\exit or inside your home? 0/0 * PCP Lyndsay * [facility] * Preadmission Environment Acute Inpatient Rehab * Facility Name [facility] IP Rehab * ADLs Partial Dependent * Partial ADLs (Assistance needed) Ambulation Bathing Dressing Medication Management Toileting Transfers * Equipment Oxygen * Other Equipment has 02 and concentrator from [facility] * List name and contact numbers for known caregivers / representatives who currently or will assist patient after discharge: Anderson Castellanos [phone] DTR Nandini [phone] * Verbal permission to speak to the caregivers and representatives has been obtained from the patient. Yes * Community resources currently utilized None * Additional services required to return to the preadmission environment? Yes * Can the patient safely return to the preadmission environment? Yes * Has this patient been hospitalized within the prior 30 days at any hospital? Yes Last DP export: 09/27/19 5:11 p Patient Name: KAYLEE MORRISSEY Page [phone] at 1839 All edits/amendments must be made on the electronic document DICTATION DATE: 09/27/191838 MELT HOUSE DRAG OPERATOR: WILLIAM 09/27/191838 RPT#: [id number] DC DATE: STATUS: ADM IN [facility] [address] [place] [address] END OF REPORT
[2019-09-27 20:00] VITALS: BP 111/58
[2019-09-28] VITALS: BP 106/61
[2019-09-28 04:00] VITALS: BP 115/53
[2019-09-28 06:09] LABS: BASOPHILS 0.2 % (0-2); EOSINOPHILS 3.1 % (0-7); HEMATOCRIT 28.1 % (36.0-48.0); HEMOGLOBIN 8.1 g/dL (12-16); LYMPHOCYTES 12.6 % (15-50); MCH 27.8 pg (26.0-34.0); MCHC 28.8 g/dL (31.0-37.0); MCV 96.6 fL (80.0-100.0); MEAN PLATELET VOLUME 9.4 fL (7.4-10.4); MONOCYTES 12.5 % (2-11); NEUTROPHILS 70.6 % (40-80); PLATELET COUNT 283 10x3/uL (130-400); RBC 2.91 10x6/uL (4.00-5.40); RDW 18.4 % (11.5-14.5); WBC 9.8 10x3/uL (4.8-10.8)
[2019-09-28 06:50] LABS: ALBUMIN 1.5 g/dL (3.4-5.0); ALKALINE PHOSPHATASE 66 U/L (30-120); ALT (SGPT) 30 U/L (10-68); BILIRUBIN - TOTAL 0.46 mg/dL (0.2-1.3); CALC OSMOLALITY 268 mosm/kg (275-300); CALCIUM 7.8 mg/dL (8.5-10.1); CARBON DIOXIDE 37.1 mmol/L (21.0-32.0); CHLORIDE - SERUM 98 mmol/L (98-107); CREATININE - SERUM 0.6 mg/dL (0.6-1.3); GLUCOSE 115 mg/dL (74-106); POTASSIUM - SERUM 4.1 mmol/L (3.5-5.1); PROTEIN - SERUM 5.4 g/dL (6.4-8.2); SODIUM 135 mmol/L (136-145); UREA NITROGEN 8 mg/dL (7-18); eGFR NON AFRICAN AMERICAN > 90 mL/min (90-120)
[2019-09-28 09:00] VITALS: BP 103/52
[2019-09-28 13:36] VITALS: BP 111/64
--- NOTE | 2019-09-28 14:01 | NUR ---
DENIES NEEDS AT THIS TIME WITH NURSE TO NURSE HANDOFF. RIGHT GROIN WOUND VAC INTACT WITH NO LEAKS NOTED. ON 3L PER NC. FAMILY MEMBER AT BEDSIDE. ASHUTOSH MARTINEZ PATENT. CALL LIGHT IN USE. WILL CHANGE WOUND VAC PER PROTOCOL.
--- NOTE | 2019-09-28 15:28 | MORECARE ---
CASE MANAGEMENT DISCHARGE SUMMARY PATIENT: KAYLEE MORRISSEY UNIT: [id number] ADM DATE: 09/22/19 AGE: 63 : 51 SEX: F ROOM/BED: D.2123 AUTHOR: SALTY,DOC PHYSICIAN: REFERRING PHYSICIAN: MEETA HURTADO MD DATE OF SERVICE: 09/28/19 Discharge Plan Patient Name: KAYLEE MORRISSEY Facility: [facility]:[place] : 1955 Planned Disposition: Fci Facility Anticipated Discharge Date: Discharge Date: Expected LOS: Initial Reviewer: [email or web address] Initial Review Date: 09/22/2019 Generated: 09/28/19 4:27 pm Comments DCP- Discharge Planning Updated by [email or web address]: Betsy Angulo on 09/27/19 5:[address] Patient Name: KAYLEE MORRISSEY Admission Status: Elective Accout number: [id number] Admission Date: 09-22-2019 : 1955 Admission Diagnosis:DISRUPTION OF WOUND, UNSPECIFIED, INITIAL ENCOUNTER Attending: BRYANT, Current LOS: 5 Anticipated DC Date: Planned Disposition: Fci Facility Primary Insurance: [employer] [facility] Discharge Planning Comments: CM met with patient to complete initial dc planning assessment. CM educated patient on the CM role and verbal consent given by patient to complete assessment. CM verified patient's address, phone number, and emergency contact phone numbers. Prior to admission she was at [facility] IP rehab. Since admissions pt states she is weak and unable to stand without assistance. CM spoke with [facility] and states they are unable to meet her needs. Cm spoke with the patient who became tearful. States she would like to go to rehab, but she will go to a SNF if that is her only option. DIONICIO verbalized for [facility] rehab, and [facility]. CM faxed referrals to Imani at [facility] rehab, and Dominique at [place]. CM will continue to follow and will assist as needed with dc plans/needs. Heavy Machinery Assembler: Betsy Angulo DCPIA - Discharge Planning Initial Assessment Updated by [email or web address]: Betsy Angulo on 09/27/19 6:10 pm * Is the patient Alert and Oriented? Yes * How many steps to enter\exit or inside your home? 0/0 * PCP Lyndsay * [facility] * Preadmission Environment Acute Inpatient Rehab * Facility Name [facility] IP Rehab * ADLs Partial Dependent * Partial ADLs (Assistance needed) Ambulation Bathing Dressing Medication Management Toileting Transfers * Equipment Oxygen * Other Equipment has 02 and concentrator from [facility] * List name and contact numbers for known caregivers / representatives who currently or will assist patient after discharge: Anderson Castellanos [phone] DTR Piterforresttitoanjali [phone] * Verbal permission to speak to the caregivers and representatives has been obtained from the patient. Yes * Community resources currently utilized None * Additional services required to return to the preadmission environment? Yes * Can the patient safely return to the preadmission environment? Yes * Has this patient been hospitalized within the prior 30 days at any hospital? Yes External Providers External Provider: OTHER-OTHER Next Contact Date: Service Request Date: Service Type: Resolution: Reviewer: Comments: Last DP export: 09/27/19 5:39 p Patient Name: KAYLEE MORRISSEY Page [phone] at 1528 All edits/amendments must be made on the electronic document DICTATION DATE: 09/28/191526 TOOL AND DIE ASSEMBLER: WILLIAM 09/28/191526 RPT#: [id number] DC DATE: STATUS: ADM IN [facility] [address] [place] [address] END OF REPORT
--- NOTE | 2019-09-28 15:37 | MORECARE ---
CASE MANAGEMENT DISCHARGE SUMMARY PATIENT: KAYLEE MORRISSEY UNIT: [id number] ADM DATE: 09/22/19 AGE: 63 : 53 SEX: F ROOM/BED: D.2123 AUTHOR: SALTY,DOC PHYSICIAN: REFERRING PHYSICIAN: MEETA HURTADO MD DATE OF SERVICE: 09/28/19 Discharge Plan Patient Name: KAYLEE MORRISSEY Facility: [facility]:[place] : 1955 Planned Disposition: Residential Facility Anticipated Discharge Date: Discharge Date: Expected LOS: Initial Reviewer: [email or web address] Initial Review Date: 09/22/2019 Generated: 09/28/19 4:36 pm Comments DCP- Discharge Planning Updated by [email or web address]: Adeola Hummel on 09/28/19 2:[address] CM faxed requested information for [facility] along with the order. DCP- Discharge Planning Updated by [email or web address]: Betsy Angulo on 09/27/19 5:[address] Patient Name: KAYLEE MORRISSEY Admission Status: Elective Accout number: [id number] Admission Date: 09-22-2019 : 1955 Admission Diagnosis:DISRUPTION OF WOUND, UNSPECIFIED, INITIAL ENCOUNTER Attending: BRYANT, Current LOS: 5 Anticipated DC Date: Planned Disposition: Residential Facility Primary Insurance: [email or web address] [facility] Discharge Planning Comments: CM met with patient to complete initial dc planning assessment. CM educated patient on the CM role and verbal consent given by patient to complete assessment. CM verified patient's address, phone number, and emergency contact phone numbers. Prior to admission she was at [facility] IP rehab. Since admissions pt states she is weak and unable to stand without assistance. CM spoke with [facility] and states they are unable to meet her needs. Cm spoke with the patient who became tearful. States she would like to go to rehab, but she will go to a SNF if that is her only option. DIONICIO verbalized for [facility] IP rehab, and [place]. CM faxed referrals to Imani at [facility] rehab, and Dominique at [place]. CM will continue to follow and will assist as needed with dc plans/needs. Street Sprinkler: Betsy Angulo DCPIA - Discharge Planning Initial Assessment Updated by [email or web address]: Betsy Angulo on 09/27/19 6:10 pm * Is the patient Alert and Oriented? Yes * How many steps to enter\exit or inside your home? 0/0 * PCP Lyndsay * [facility] * Preadmission Environment Acute Inpatient Rehab * Facility Name [facility] IP Rehab * ADLs Partial Dependent * Partial ADLs (Assistance needed) Ambulation Bathing Dressing Medication Management Toileting Transfers * Equipment Oxygen * Other Equipment has 02 and concentrator from [facility] * List name and contact numbers for known caregivers / representatives who currently or will assist patient after discharge: Anderson Castellanos [phone] DTR Nandini [phone] * Verbal permission to speak to the caregivers and representatives has been obtained from the patient. Yes * Community resources currently utilized None * Additional services required to return to the preadmission environment? Yes * Can the patient safely return to the preadmission environment? Yes * Has this patient been hospitalized within the prior 30 days at any hospital? Yes Last DP export: 09/28/19 2:28 p Patient Name: KAYLEE MORRISSEY Page 35723 at 1537 All edits/amendments must be made on the electronic document DICTATION DATE: 09/28/191535 WELDER MANUFACTURE: WILLIAM 09/28/191535 RPT#: [id number] DC DATE: STATUS: ADM IN [facility] [address] [place] [address] END OF REPORT
--- NOTE | 2019-09-28 18:42 | NUR ---
WOUND VAC TO RIGHT GROIN CHANGED PER PROTOCOL. WOUND BED IS RED AND BEEFY WITH SERIOSANGIOUS DRAINAGE. 3 PC OF WHITE FOAM PLACED INTO WOUND BED. SET AT 125 ON WOUND VAC. NO LEAKS NOTED. DATED. WOUND IS 12 CM X 5 CM X2 CM WITH TUNNELING NOTED AT 9 O'CLOCK POSTION AND 7 CM DEPTH.
[2019-09-28 19:11] VITALS: BP 127/63
[2019-09-28 20:00] VITALS: BP 113/44
--- NOTE | 2019-09-28 21:44 | NUR ---
OT NOTE: PT COMPLETED SUPINE TO SIT WITH MOD A. PT COMPLETED EOB SITTING WITH SBA. PT COMPLETED SIT TO STAND WITH MOD/MAX A. PT REQUIRED TOTAL A WITH LB HYGIENE TASKS. [phone] THANK YOU,CORNELIO ORELLANA
[2019-09-29 04:00] VITALS: BP 101/65
[2019-09-29 04:27] LABS: BASOPHILS 0.2 % (0-2); EOSINOPHILS 2.4 % (0-7); HEMATOCRIT 28.5 % (36.0-48.0); HEMOGLOBIN 8.4 g/dL (12-16); IMMATURE GRANULOCYTES 1.3 % (0-5); LYMPHOCYTES 13.2 % (15-50); MCH 28.1 pg (26.0-34.0); MCHC 29.5 g/dL (31.0-37.0); MCV 95.3 fL (80.0-100.0); MEAN PLATELET VOLUME 8.8 fL (7.4-10.4); MONOCYTES 13.1 % (2-11); NEUTROPHILS 69.8 % (40-80); PLATELET COUNT 253 10x3/uL (130-400); RBC 2.99 10x6/uL (4.00-5.40); RDW 18.7 % (11.5-14.5); WBC 10.3 10x3/uL (4.8-10.8)
[2019-09-29 04:59] LABS: ALBUMIN 1.5 g/dL (3.4-5.0); ALKALINE PHOSPHATASE 65 U/L (30-120); ALT (SGPT) 31 U/L (10-68); BILIRUBIN - TOTAL 0.54 mg/dL (0.2-1.3); CALCIUM 7.9 mg/dL (8.5-10.1); CARBON DIOXIDE 37.1 mmol/L (21.0-32.0); CHLORIDE - SERUM 100 mmol/L (98-107); GLUCOSE 124 mg/dL (74-106); POTASSIUM - SERUM 4.5 mmol/L (3.5-5.1); PROTEIN - SERUM 5.4 g/dL (6.4-8.2); SODIUM 135 mmol/L (136-145); eGFR NON AFRICAN AMERICAN 76 mL/min (90-120)
[2019-09-29 05:11] LABS: CALC OSMOLALITY 269 mosm/kg (275-300); CREATININE - SERUM 0.8 mg/dL (0.6-1.3); UREA NITROGEN 11 mg/dL (7-18)
--- NOTE | 2019-09-29 13:55 | NUR ---
OT NOTE: PT APPEARED TIRED AND SAD.. PT STATED THAT SHE JUST WANTED TO GO HOME.. PT FRUSTRATED WITH SITUATION. ASSISTED PT TO EOB WTIH MAX ASSIST. INCREASED EDEMA NOTED IN L LEG TODAY. TOLERATED SITTING ON EOB AND WAS ABLE TO PERFORM SEVERAL LE EXS. SIT TO STAND WITH MOD ASSIST X 2.. PT WAS ABLE TO TAKE SEVERAL SIDE STEPS TODAY AND ALSO ABLE TO TAKE SEVERAL STEPS BACKWARDS TODAY.. DID NOT REQUIRE REST BREAK BETWEEN TASKS. PT DID HAVE TO IMMEDIATELY LIE BACK DOWN ONCE SHE RETURNED TO SITTING POSITION...MAX ASSIST WITH LE MGMT FOR SIT TO SUPINE. PT ABLE TO DEMONSTRATED UE/LE EXS THAT SHE HAS BEEN DOING IN BED. INSTRUCTED TO CONTINUE OFTEN POSSIBLE. JIMBO LEE, OTR/L [phone]
--- NOTE | 2019-09-29 13:58 | MORECARE ---
CASE MANAGEMENT DISCHARGE SUMMARY PATIENT: KAYLEE MORRISSEY UNIT: [id number] ADM DATE: 09/22/19 AGE: 63 : 53 SEX: F ROOM/BED: D.2123 AUTHOR: SALTY,DOC PHYSICIAN: REFERRING PHYSICIAN: MEETA HURTADO MD DATE OF SERVICE: 09/29/19 Discharge Plan Patient Name: KAYLEE MORRISSEY Facility: [facility]:[place] : 1955 Planned Disposition: Halfway Facility Anticipated Discharge Date: Discharge Date: Expected LOS: Initial Reviewer: [email or web address] Initial Review Date: 09/22/2019 Generated: 09/29/19 2:57 pm Comments DCP- Discharge Planning Updated by [email or web address]: Adeola Hummel on 09/28/19 2:[address] CM faxed requested information for [facility] along with the order. DCP- Discharge Planning Updated by [email or web address]: Betsy Angulo on 09/27/19 5:[address] Patient Name: KAYLEE MORRISSEY Admission Status: Elective Accout number: [id number] Admission Date: 09-22-2019 : 1955 Admission Diagnosis:DISRUPTION OF WOUND, UNSPECIFIED, INITIAL ENCOUNTER Attending: BRYANT, Current LOS: 5 Anticipated DC Date: Planned Disposition: Halfway Facility Primary Insurance: [employer] [facility] Discharge Planning Comments: CM met with patient to complete initial dc planning assessment. CM educated patient on the CM role and verbal consent given by patient to complete assessment. CM verified patient's address, phone number, and emergency contact phone numbers. Prior to admission she was at [facility] IP rehab. Since admissions pt states she is weak and unable to stand without assistance. CM spoke with [facility] and states they are unable to meet her needs. Cm spoke with the patient who became tearful. States she would like to go to rehab, but she will go to a SNF if that is her only option. DIONICIO verbalized for [facility] IP rehab, and [place]. CM faxed referrals to Imani at [facility] rehab, and Dominique at [place]. CM will continue to follow and will assist as needed with dc plans/needs. Party Supply Specialist: Betsy Angulo DCPIA - Discharge Planning Initial Assessment Updated by [email or web address]: Betsy Angulo on 09/27/19 6:10 pm * Is the patient Alert and Oriented? Yes * How many steps to enter\exit or inside your home? 0/0 * PCP Lyndsay * [facility] * Preadmission Environment Acute Inpatient Rehab * Facility Name [facility] IP Rehab * ADLs Partial Dependent * Partial ADLs (Assistance needed) Ambulation Bathing Dressing Medication Management Toileting Transfers * Equipment Oxygen * Other Equipment has 02 and concentrator from [facility] * List name and contact numbers for known caregivers / representatives who currently or will assist patient after discharge: Anderson Castellanos [phone] DTR Nandini [phone] * Verbal permission to speak to the caregivers and representatives has been obtained from the patient. Yes * Community resources currently utilized None * Additional services required to return to the preadmission environment? Yes * Can the patient safely return to the preadmission environment? Yes * Has this patient been hospitalized within the prior 30 days at any hospital? Yes Last DP export: 09/28/19 2:37 p Patient Name: KAYLEE MORRISSEY Page 24356 at 1358 All edits/amendments must be made on the electronic document DICTATION DATE: 09/29/19 135 DETECTIVE [place]: WILLIAM 09/29/19 1357 RPT#: [id number] DC DATE: STATUS: ADM IN [facility] [address] [place] [address] END OF REPORT
[2019-09-29 18:20] VITALS: BP 110/65
--- NOTE | 2019-09-29 19:15 | NUR ---
ASSESSMENT COMPLETE, PT A&O. RESPERATIONS NON LABORED. PT DENIES PAIN OR NEEDS, BED LOW, CL IN REACH.
[2019-09-29 20:00] VITALS: BP 98/41
[2019-09-30] VITALS: BP 111/47
[2019-09-30 04:00] VITALS: BP 110/44
[2019-09-30 06:49] LABS: ALBUMIN 1.6 g/dL (3.4-5.0); ALKALINE PHOSPHATASE 74 U/L (30-120); BILIRUBIN - TOTAL 0.64 mg/dL (0.2-1.3); CALC OSMOLALITY 266 mosm/kg (275-300); CARBON DIOXIDE 35.8 mmol/L (21.0-32.0); CHLORIDE - SERUM 98 mmol/L (98-107); CREATININE - SERUM 0.7 mg/dL (0.6-1.3); GLUCOSE 123 mg/dL (74-106); POTASSIUM - SERUM 4.6 mmol/L (3.5-5.1); PROTEIN - SERUM 5.8 g/dL (6.4-8.2); SODIUM 133 mmol/L (136-145); UREA NITROGEN 13 mg/dL (7-18); eGFR NON AFRICAN AMERICAN 89 mL/min (90-120)
[2019-09-30 06:52] LABS: ALT (SGPT) 41 U/L (10-68)
[2019-09-30 07:49] LABS: BASOPHILS 0.4 % (0-2); EOSINOPHILS 2.1 % (0-7); HEMATOCRIT 28.6 % (36.0-48.0); HEMOGLOBIN 8.4 g/dL (12-16); IMMATURE GRANULOCYTES 1.4 % (0-5); MCH 28.5 pg (26.0-34.0); MCHC 29.4 g/dL (31.0-37.0); MCV 96.9 fL (80.0-100.0); MEAN PLATELET VOLUME 9.5 fL (7.4-10.4); MONOCYTES 12.3 % (2-11); NEUTROPHILS 72.8 % (40-80); RBC 2.95 10x6/uL (4.00-5.40); WBC 12.6 10x3/uL (4.8-10.8)
[2019-09-30 07:50] LABS: PLATELET COUNT 321 10x3/uL (130-400)
[2019-09-30 08:01] VITALS: BP 108/44
--- NOTE | 2019-09-30 10:28 | MORECARE ---
CASE MANAGEMENT DISCHARGE SUMMARY PATIENT: KAYLEE MORRISSEY UNIT: [id number] ADM DATE: 09/22/19 AGE: 63 : 51 SEX: F ROOM/BED: D.2123 AUTHOR: SALTY,DOC PHYSICIAN: REFERRING PHYSICIAN: MEETA HURTADO MD DATE OF SERVICE: 09/30/19 Discharge Plan Patient Name: KAYLEE MORRISSEY Facility: [facility]:[place] : 1955 Planned Disposition: Fdc Facility Anticipated Discharge Date: Discharge Date: Expected LOS: Initial Reviewer: [email or web address] Initial Review Date: 09/22/2019 Generated: 09/30/19 11:27 am Comments DCP- Discharge Planning Updated by [email or web address]: Adeola Hummle on 09/28/19 2:[address] CM faxed requested information for [facility] along with the order. DCP- Discharge Planning Updated by [email or web address]: Betsy Angulo on 09/27/19 5:[address] Patient Name: KAYLEE MORRISSEY Admission Status: Elective Accout number: [id number] Admission Date: 09-22-2019 : 1955 Admission Diagnosis:DISRUPTION OF WOUND, UNSPECIFIED, INITIAL ENCOUNTER Attending: BRYANT, Current LOS: 5 Anticipated DC Date: Planned Disposition: Fdc Facility Primary Insurance: [employer] [facility] Discharge Planning Comments: CM met with patient to complete initial dc planning assessment. CM educated patient on the CM role and verbal consent given by patient to complete assessment. CM verified patient's address, phone number, and emergency contact phone numbers. Prior to admission she was at [facility] IP rehab. Since admissions pt states she is weak and unable to stand without assistance. CM spoke with [facility] and states they are unable to meet her needs. Cm spoke with the patient who became tearful. States she would like to go to rehab, but she will go to a SNF if that is her only option. DIONICIO verbalized for [facility] IP rehab, and [place]. CM faxed referrals to Imani at [facility] rehab, and Dominique at [place]. CM will continue to follow and will assist as needed with dc plans/needs. Welding Operator: Betsy Angulo DCPIA - Discharge Planning Initial Assessment Updated by [email or web address]: Betsy Angulo on 09/27/19 6:10 pm * Is the patient Alert and Oriented? Yes * How many steps to enter\exit or inside your home? 0/0 * PCP Lyndsay * [facility] * Preadmission Environment Acute Inpatient Rehab * Facility Name [facility] IP Rehab * ADLs Partial Dependent * Partial ADLs (Assistance needed) Ambulation Bathing Dressing Medication Management Toileting Transfers * Equipment Oxygen * Other Equipment has 02 and concentrator from [facility] * List name and contact numbers for known caregivers / representatives who currently or will assist patient after discharge: Anderson Castellanos [phone] DTR Nandini [phone] * Verbal permission to speak to the caregivers and representatives has been obtained from the patient. Yes * Community resources currently utilized None * Additional services required to return to the preadmission environment? Yes * Can the patient safely return to the preadmission environment? Yes * Has this patient been hospitalized within the prior 30 days at any hospital? Yes External Providers External Provider: [facility] [employer] Next Contact Date: Service Request Date: Service Type: Resolution: Reviewer: Comments: Last DP export: 09/29/19 12:58 p Patient Name: KAYLEE MORRISSEY Page 27160 at 1028 All edits/amendments must be made on the electronic document DICTATION DATE: 09/30/19 1027 CERTIFIED HYPERBARIC TECHNICIAN: WILLIAM 09/30/19 1027 RPT#: [id number] DC DATE: STATUS: ADM IN [facility] [address] [place] [address] END OF REPORT
--- NOTE | 2019-09-30 11:39 | NUR ---
Nutrition Follow-up: Incision to right groin with wound VAC. Diet: Cardiac PO intake: 100% x 3 meals recorded 09/27/19. Patient ate 50% of breakfast meal. She states that her appetite "comes and goes." Wt: 289# (09/23/19) Meds reviewed. Labs noted: Na 133(L), Glu 123(H) Recommend continue current diet. RD following.
[2019-09-30 12:30] VITALS: BP 122/29
[2019-09-30 16:05] VITALS: BP 110/43
--- NOTE | 2019-09-30 19:00 | NUR ---
REPORT RECEIVED, PT CARE ASSUMED. PT LYING IN BED WITH EYES CLOSED, RR EVEN AND NONLABORED, NO S/S OF DISTRESS, AROUSES EASILY TO VOICE, ORIENTED X4. INTRODUCED SELF AND WROTE NAME ON BOARD. DENIES ANY NEEDS AT THIS TIME. BED IN LOWEST, SRX2, CALL LIGHT WITHIN REACH. WILL CTM.
[2019-09-30 19:49] LABS: BILIRUBIN NEGATIVE (NEGATIVE); KETONE NEGATIVE (NEGATIVE); NITRITE NEGATIVE (NEGATIVE); UROBILINOGEN NORMAL (NORMAL)
[2019-09-30 20:00] VITALS: BP 116/46
[2019-10-01 04:00] VITALS: BP 105/49
[2019-10-01 06:46] LABS: BASOPHILS 0.4 % (0-2); EOSINOPHILS 1.1 % (0-7); HEMATOCRIT 28.2 % (36.0-48.0); LYMPHOCYTES 9.8 % (15-50); MCH 27.6 pg (26.0-34.0); MCHC 28.4 g/dL (31.0-37.0); MCV 97.2 fL (80.0-100.0); MEAN PLATELET VOLUME 9.3 fL (7.4-10.4); MONOCYTES 11.5 % (2-11); NEUTROPHILS 76.2 % (40-80); RDW 19.1 % (11.5-14.5); WBC 11.3 10x3/uL (4.8-10.8)
[2019-10-01 06:51] LABS: PLATELET COUNT 253 10x3/uL (130-400)
--- NOTE | 2019-10-01 07:43 | NUR ---
SLEEPING AT PRESENT. WILL CONTINUE TO MONITOR.
[2019-10-01 08:13] VITALS: BP 139/43
[2019-10-01 09:17] LABS: ALBUMIN 1.6 g/dL (3.4-5.0); ANION GAP 9.3 mmol/L (8-16); BILIRUBIN - TOTAL 0.72 mg/dL (0.2-1.3); CARBON DIOXIDE 31.9 mmol/L (21.0-32.0); POTASSIUM - SERUM 5.2 mmol/L (3.5-5.1); PROTEIN - SERUM 5.6 g/dL (6.4-8.2)
[2019-10-01 09:18] LABS: CREATININE - SERUM 0.9 mg/dL (0.6-1.3)
[2019-10-01 12:00] VITALS: BP 131/51
--- NOTE | 2019-10-01 12:31 | NUR ---
MIRANDA CARE GIVEN . WOUND VAC FUNCTIONING WELL . EXTREMTIES ARE EDEMATEOUS. NO DISTRESS. WILL CONTINUE TO MONITOR.
--- NOTE | 2019-10-01 13:27 | NUR ---
UP ON SIDE OF BED BY PTNeelima FREGOSO. STAND BUT VERY WEAK AND QUICKLY FATIGUED.
[2019-10-01 16:00] VITALS: BP 111/40
[2019-10-01 20:00] VITALS: BP 103/41
[2019-10-02] VITALS: BP 110/44
[2019-10-02 04:00] VITALS: BP 108/51
[2019-10-02 06:41] LABS: BASOPHILS 0.2 % (0-2); EOSINOPHILS 1.7 % (0-7); HEMOGLOBIN 7.8 g/dL (12-16); IMMATURE GRANULOCYTES 1.2 % (0-5); LYMPHOCYTES 10.8 % (15-50); MCH 28.2 pg (26.0-34.0); MCHC 28.9 g/dL (31.0-37.0); MCV 97.5 fL (80.0-100.0); MEAN PLATELET VOLUME 9.5 fL (7.4-10.4); MONOCYTES 12.3 % (2-11); NEUTROPHILS 73.8 % (40-80); RBC 2.77 10x6/uL (4.00-5.40); RDW 19.1 % (11.5-14.5); WBC 11.2 10x3/uL (4.8-10.8)
[2019-10-02 06:46] LABS: PLATELET COUNT 310 10x3/uL (130-400)
[2019-10-02 06:59] LABS: ALBUMIN 1.4 g/dL (3.4-5.0); ANION GAP 6.2 mmol/L (8-16); BILIRUBIN - TOTAL 0.66 mg/dL (0.2-1.3); CALCIUM 8.1 mg/dL (8.5-10.1); CARBON DIOXIDE 37.1 mmol/L (21.0-32.0); POTASSIUM - SERUM 4.3 mmol/L (3.5-5.1); PROTEIN - SERUM 5.5 g/dL (6.4-8.2)
--- NOTE | 2019-10-02 07:20 | NUR ---
RECIEVE PE[place]. RESTING IN BED WITH EYES CLOSED. WOUND VAC TO RT GROIN C/D/I FREE FROM AIR LEAKS. NO SIGNS OF DISTRESS. CONTINUE PLAN OF CARE AND SAFETY PRECAUTIONS.
[2019-10-02 08:00] VITALS: BP 119/39
[2019-10-02 16:00] VITALS: BP 97/44
--- NOTE | 2019-10-02 16:51 | NUR ---
ALERT AND ORIENTED X4. BED BATH AND LINEN CHANGE COMPLETE. RED EDEMATOUS, WARM TO TOUCH RT HIP. ELDA AREA. DAUGHTER AT BEDSIDE. REPOSITION IN BED WITH WEDGES. DENIES ANY NEEDS AT THIS TIME. CONTINUE PLAN OF CARE AND SAFETY PRECAUTIONS.
--- NOTE | 2019-10-02 19:00 | NUR ---
REPORT RECEIVED, PT CARE ASSUMED. WROTE NAME ON BOARD. PT SITTING UP IN BED, WATCHING TV, AAOX4. REQUESTING CUP OF ICE, PROVIDED. DENIES ANY OTHER NEEDS AT THIS TIME. BED IN LOWEST, SRX2, CALL LIGHT WITHIN REACH. WILL CTM.
[2019-10-02 20:00] VITALS: BP 107/51
[2019-10-03] VITALS: BP 98/50
[2019-10-03 04:00] VITALS: BP 105/53
--- NOTE | 2019-10-03 07:20 | NUR ---
RECIEVE REPORT. ALERT AND ORIENTED X4. SITTING UP IN BED. UNCONTROLLED AFIB 120 ON TELEMETRY. MIRANDA DRAINING BY GRAVITY. DENIES ANY NEEDS. CONTINUE PLAN OF CARE AND SAFETY PRECAUTIONS.
[2019-10-03 08:00] LABS: BASOPHILS 0.2 % (0-2); EOSINOPHILS 1.5 % (0-7); HEMATOCRIT 27.5 % (36.0-48.0); IMMATURE GRANULOCYTES 0.8 % (0-5); LYMPHOCYTES 7.7 % (15-50); MCH 27.9 pg (26.0-34.0); MCHC 29.1 g/dL (31.0-37.0); MCV 95.8 fL (80.0-100.0); MEAN PLATELET VOLUME 9.3 fL (7.4-10.4); MONOCYTES 12.1 % (2-11); NEUTROPHILS 77.7 % (40-80); PLATELET COUNT 336 10x3/uL (130-400); RBC 2.87 10x6/uL (4.00-5.40); RDW 18.8 % (11.5-14.5); WBC 12.4 10x3/uL (4.8-10.8)
[2019-10-03 09:00] VITALS: BP 140/70
[2019-10-03 09:03] LABS: ALBUMIN 1.4 g/dL (3.4-5.0); ANION GAP 5.3 mmol/L (8-16); BILIRUBIN - TOTAL 0.65 mg/dL (0.2-1.3); CALCIUM 7.5 mg/dL (8.5-10.1); CARBON DIOXIDE 36.4 mmol/L (21.0-32.0); CREATININE - SERUM 0.9 mg/dL (0.6-1.3); POTASSIUM - SERUM 3.7 mmol/L (3.5-5.1); PROTEIN - SERUM 5.5 g/dL (6.4-8.2)
--- NOTE | 2019-10-03 11:29 | MORECARE ---
CASE MANAGEMENT DISCHARGE SUMMARY PATIENT: KAYLEE MORRISSEY UNIT: [id number] ADM DATE: 09/22/19 AGE: 63 : 53 SEX: F ROOM/BED: D.4893 AUTHOR: SALTY,DOC PHYSICIAN: REFERRING PHYSICIAN: MEETA HURTADO MD DATE OF SERVICE: 10/03/19 Discharge Plan Patient Name: KAYLEE MORRISSEY Facility: [facility]:[place] : 1955 Planned Disposition: Long Term Facility Anticipated Discharge Date: Discharge Date: Expected LOS: Initial Reviewer: [email or web address] Initial Review Date: 09/22/2019 Generated: 10/03/19 12:29 pm Comments DCP- Discharge Planning Updated by [email or web address]: Betsy Angulo on 10/03/19 10:[address] Pt daughter called CM to inquire about status of placement. CM provided update of SNF unable to accept. Received verbal permission to reach out to [facility]. CM called [facility] at [phone] about referral. CM faxed referral with a request of acceptance or denial within 24 hours. CM will continue assisting in DC planning. Betsy Angulo MSN,RN,CM DCP- Discharge Planning Updated by [email or web address]: Adeola Hummel on 09/28/19 2:[address] CM faxed requested information for [facility] along with the order. DCP- Discharge Planning Updated by [id number]: Betsy Angulo on 09/27/19 5:[address] Patient Name: KAYLEE MORRISSEY Admission Status: Elective Accout number: [id number] Admission Date: 09-22-2019 : 1955 Admission Diagnosis:DISRUPTION OF WOUND, UNSPECIFIED, INITIAL ENCOUNTER Attending: BRYANT, Current LOS: 5 Anticipated DC Date: Planned Disposition: Long Term Facility Primary Insurance: [employer] [facility] Discharge Planning Comments: CM met with patient to complete initial dc planning assessment. CM educated patient on the CM role and verbal consent given by patient to complete assessment. CM verified patient's address, phone number, and emergency contact phone numbers. Prior to admission she was at [facility] IP rehab. Since admissions pt states she is weak and unable to stand without assistance. CM spoke with [facility] and states they are unable to meet her needs. Cm spoke with the patient who became tearful. States she would like to go to rehab, but she will go to a SNF if that is her only option. DIONICIO verbalized for [facility] IP rehab, and [place]. CM faxed referrals to Imani at [facility] rehab, and Dominique at [place]. CM will continue to follow and will assist as needed with dc plans/needs. Mysql Dba: Betsy Angulo DCPIA - Discharge Planning Initial Assessment Updated by [email or web address]: Betsy Angulo on 09/27/19 6:10 pm * Is the patient Alert and Oriented? Yes * How many steps to enter\exit or inside your home? 0/0 * PCP Lyndsay * [facility] * Preadmission Environment Acute Inpatient Rehab * Facility Name [facility] IP Rehab * ADLs Partial Dependent * Partial ADLs (Assistance needed) Ambulation Bathing Dressing Medication Management Toileting Transfers * Equipment Oxygen * Other Equipment has 02 and concentrator from [facility] * List name and contact numbers for known caregivers / representatives who currently or will assist patient after discharge: Anderson Castellanos [phone] DTR Nandini [phone] * Verbal permission to speak to the caregivers and representatives has been obtained from the patient. Yes * Community resources currently utilized None * Additional services required to return to the preadmission environment? Yes * Can the patient safely return to the preadmission environment? Yes * Has this patient been hospitalized within the prior 30 days at any hospital? Yes Last DP export: 09/30/19 9:28 a Patient Name: KAYLEE MORRISSEY Page [phone] at 1129 All edits/amendments must be made on the electronic document DICTATION DATE: 10/03/191128 DATA ENTRY ANALYST: WILLIAM 10/03/191128 RPT#: [id number] DC DATE: STATUS: ADM IN [facility] [address] [place] [address] END OF REPORT
--- NOTE | 2019-10-03 11:36 | MORECARE ---
CASE MANAGEMENT DISCHARGE SUMMARY PATIENT: KAYLEE MORRISSEY UNIT: [id number] ADM DATE: 09/22/19 AGE: 63 : 53 SEX: F ROOM/BED: D.2143 AUTHOR: SALTY,DOC PHYSICIAN: REFERRING PHYSICIAN: MEETA HURTADO MD DATE OF SERVICE: 10/03/19 Discharge Plan Patient Name: KAYLEE MORRISSEY Facility: [facility]:[place] : 1955 Planned Disposition: Longterm Facility Anticipated Discharge Date: Discharge Date: Expected LOS: Initial Reviewer: [email or web address] Initial Review Date: 09/22/2019 Generated: 10/03/19 12:36 pm Comments DCP- Discharge Planning Updated by [email or web address]: Betsy Angulo on 10/03/19 10:[address] Pt daughter called CM to inquire about status of placement. CM provided update of SNF unable to accept. Received verbal permission to reach out to [facility]. CM called [facility] at [phone] about referral. CM faxed referral with a request of acceptance or denial within 24 hours. CM will continue assisting in DC planning. Betsy Angulo MSN,RN,CM DCP- Discharge Planning Updated by [id number]: Adeola Hummel on 09/28/19 2:[address] CM faxed requested information for [facility] along with the order. DCP- Discharge Planning Updated by [email or web address]: Betsy Angulo on 09/27/19 5:[address] Patient Name: KAYLEE MORRISSEY Admission Status: Elective Accout number: [id number] Admission Date: 09-22-2019 : 1955 Admission Diagnosis:DISRUPTION OF WOUND, UNSPECIFIED, INITIAL ENCOUNTER Attending: BRYANT, Current LOS: 5 Anticipated DC Date: Planned Disposition: Longterm Facility Primary Insurance: [employer] [facility] Discharge Planning Comments: CM met with patient to complete initial dc planning assessment. CM educated patient on the CM role and verbal consent given by patient to complete assessment. CM verified patient's address, phone number, and emergency contact phone numbers. Prior to admission she was at [facility] IP rehab. Since admissions pt states she is weak and unable to stand without assistance. CM spoke with [facility] and states they are unable to meet her needs. Cm spoke with the patient who became tearful. States she would like to go to rehab, but she will go to a SNF if that is her only option. DIONICIO verbalized for [facility] IP rehab, and [facility]. CM faxed referrals to Imani at [facility] rehab, and Dominique at [place]. CM will continue to follow and will assist as needed with dc plans/needs. Failure Analysis Engineer: Betsy Angulo DCPIA - Discharge Planning Initial Assessment Updated by [email or web address]: Betsy Angulo on 09/27/19 6:10 pm * Is the patient Alert and Oriented? Yes * How many steps to enter\exit or inside your home? 0/0 * PCP Lyndsay * [facility] * Preadmission Environment Acute Inpatient Rehab * Facility Name [facility] IP Rehab * ADLs Partial Dependent * Partial ADLs (Assistance needed) Ambulation Bathing Dressing Medication Management Toileting Transfers * Equipment Oxygen * Other Equipment has 02 and concentrator from [facility] * List name and contact numbers for known caregivers / representatives who currently or will assist patient after discharge: Anderson Castellanos [phone] DTR Piterforrestjonelle [phone] * Verbal permission to speak to the caregivers and representatives has been obtained from the patient. Yes * Community resources currently utilized None * Additional services required to return to the preadmission environment? Yes * Can the patient safely return to the preadmission environment? Yes * Has this patient been hospitalized within the prior 30 days at any hospital? Yes External Providers External Provider: Dylan Sarmiento [facility] Next Contact Date: Service Request Date: Service Type: Resolution: Reviewer: Comments: Last DP export: 10/03/19 10:29 a Patient Name: KAYLEE MORRISSEY Page [phone] at 1136 All edits/amendments must be made on the electronic document DICTATION DATE: 10/03/19 1136 AUTOMOTIVE PRODUCTION WORKER: WILLIAM 10/03/19 1136 RPT#: [id number] DC DATE: STATUS: ADM IN [facility] [address] [place] [address] END OF REPORT
[2019-10-03 12:49] VITALS: BP 107/57
--- NOTE | 2019-10-03 13:24 | NUR ---
ALERT AND ORIENTED X4. RESTING IN BED. COVID TEST COLLECTED AND TAKEN TO LAB. REQUESTING TO SEE . NOTIFY TATIANNA JACOBSEN OF PATIENT REQUEST.
--- NOTE | 2019-10-03 14:40 | NUR ---
WOUND VAC CHANGE INITIATED TO RIGHT GROIN. BEGINS BLEEDING. ILIA MARION APPLIES PRESSURE TO RIGHT GROIN. [facility]PONSE CALLED. 'S NURSE NOTIFIED. PATIENT VITALS STABLE. ALERT AND ORIENTED. REFER TO [facility]APID RESPONSE PAPERS ON CHART.
--- NOTE | 2019-10-03 15:50 | NUR ---
TAKEN TO PROCEDURE FOR BLEED DURING WOUND VAC CHANGE.
--- NOTE | 2019-10-03 16:23 | NUR ---
ALERT AND ORIENTED X4. SITTING UP IN BED. DISCHARGE INSTRUCTIONS GIVEN VERBALLY AND WRITTEN. DISCHARGE PAPERS SIGNED ON CHART. DC LT UPPER ARM IV TIP INTACT. ESCORT TO RIDE VIA WHEELCHAIR. REMAINS FREE FROM INJURY.
[2019-10-03 16:53] VITALS: BP 112/63
--- NOTE | 2019-10-03 17:00 | NUR ---
ARRIVE BACK TO ROOM VIA BED FROM PROCEDURE. ALERT AND ORIENTED X4 RT GROIN PRESSURE DRESSING C/D/I. PATIENT INFORMS FAMILY OF UPDATE PER PATIENT REQUEST. BP-112/63, HR-128 UNCONTROLLED AFIB, O2-96% WITH 3L NC. CONTINUE PLAN OF CARE AND SAFETY PRECAUTIONS.
[2019-10-03 20:00] VITALS: BP 108/63
[2019-10-04] VITALS: BP 109/61
[2019-10-04 04:00] VITALS: BP 104/64
--- NOTE | 2019-10-04 07:20 | NUR ---
RECIEVE REPORT. ALERT AND ORIENTED X4. RESTING IN BED. 106 UNCONTROLLED AFIB ON TELEMETRY. DENIES ANY NEEDS. CONTINUE PLAN OF CARE AND SAFETY PRECAUTIONS.
--- NOTE | 2019-10-04 08:59 | NUR ---
OT NOTE: (DOS 10/03/19) PT COMPLETED BED MOB TASKS WITH MAX A X2. PT COMPLETED EOB SITTING BALANCE WITH CGA. PT COMPLETED SIT TO STAND WITH MOD A. PT COMPLETED UB HYGIENE TASKS WITH SETUP. [phone] THANK YOU,CORNELIO ORELLANA
--- NOTE | 2019-10-04 09:15 | MORECARE ---
CASE MANAGEMENT DISCHARGE SUMMARY PATIENT: KAYLEE MORRISSEY UNIT: [id number] ADM DATE: 09/22/19 AGE: 63 : 53 SEX: F ROOM/BED: D.4183 AUTHOR: SALTY,DOC PHYSICIAN: REFERRING PHYSICIAN: MEETA HURTADO MD DATE OF SERVICE: 10/04/19 Discharge Plan Patient Name: KAYLEE MORRISSEY Facility: [facility]:[place] : 1955 Planned Disposition: Supervisor Nurse Acute Care Facility Anticipated Discharge Date: Discharge Date: Expected LOS: Initial Reviewer: [email or web address] Initial Review Date: 09/22/2019 Generated: 10/04/19 10:14 am Comments DCP- Discharge Planning Updated by [email or web address]: Betsy Angulo on 10/03/19 10:[address] Pt daughter called CM to inquire about status of placement. CM provided update of SNF unable to accept. Received verbal permission to reach out to [facility]. CM called [facility] at [phone] about referral. CM faxed referral with a request of acceptance or denial within 24 hours. CM will continue assisting in DC planning. Betsy Angulo MSN,RN, DCP- Discharge Planning Updated by [email or web address]: Adeola Hummel on 09/28/19 2:[address] CM faxed requested information for [facility] along with the order. DCP- Discharge Planning Updated by [email or web address]: Betsy Angulo on 09/27/19 5:[address] Patient Name: KAYLEE MORRISSEY Admission Status: Elective Accout number: [id number] Admission Date: 09-22-2019 : 1955 Admission Diagnosis:DISRUPTION OF WOUND, UNSPECIFIED, INITIAL ENCOUNTER Attending: BRYANT, Current LOS: 5 Anticipated DC Date: Planned Disposition: Prison Facility Primary Insurance: [facility] Discharge Planning Comments: CM met with patient to complete initial dc planning assessment. CM educated patient on the CM role and verbal consent given by patient to complete assessment. CM verified patient's address, phone number, and emergency contact phone numbers. Prior to admission she was at [facility] IP rehab. Since admissions pt states she is weak and unable to stand without assistance. CM spoke with [facility] and states they are unable to meet her needs. Cm spoke with the patient who became tearful. States she would like to go to rehab, but she will go to a SNF if that is her only option. DIONICIO verbalized for IP rehab, and [place]. CM faxed referrals to Imani at [facility] rehab, and Dominique at [place]. CM will continue to follow and will assist as needed with dc plans/needs. Personal Insurance Advisor: Betsy Angulo DCPIA - Discharge Planning Initial Assessment Updated by [email or web address]: Betsy Angulo on 09/27/19 6:10 pm * Is the patient Alert and Oriented? Yes * How many steps to enter\exit or inside your home? 0/0 * PCP Lyndsay * [facility] * Preadmission Environment Acute Inpatient Rehab * Facility Name [facility] IP Rehab * ADLs Partial Dependent * Partial ADLs (Assistance needed) Ambulation Bathing Dressing Medication Management Toileting Transfers * Equipment Oxygen * Other Equipment has 02 and concentrator from [facility] * List name and contact numbers for known caregivers / representatives who currently or will assist patient after discharge: Anderson Castellanos [phone] DTR Nandini [phone] * Verbal permission to speak to the caregivers and representatives has been obtained from the patient. Yes * Community resources currently utilized None * Additional services required to return to the preadmission environment? Yes * Can the patient safely return to the preadmission environment? Yes * Has this patient been hospitalized within the prior 30 days at any hospital? Yes Last DP export: 10/03/19 10:36 a Patient Name: KAYLEE MORRISSEY Page 53385 at 0915 All edits/amendments must be made on the electronic document DICTATION DATE: 10/04/19913 VOCATIONAL PLACEMENT SPECIALIST: WILLIAM 10/04/19913 RPT#: [id number] DC DATE: STATUS: ADM IN [facility] [address] [place] [address] END OF REPORT
[2019-10-04 09:36] VITALS: BP 134/47
--- NOTE | 2019-10-04 09:56 | NUR ---
MARY GRACE FROM LAB TO CALL ASKING ABOUT GROIN CULTURE. I TOLD HER THIS SHOULD OF BEEN COLLECTED FROM THE OR YESTERDAY. THERE IS NO ORDER FOR A CBC THIS AM TO CHECK ON COUNTS. THIS IS ORDERED THE ONE FROM YESTERDAY DID NOT GET ORDERED DURING THE RAPID. BLOOD WAS DRAWN BUT NO ORDER.
--- NOTE | 2019-10-04 11:11 | OP ---
PATIENT NAME: KAYLEE MORRISSEY MEDICAL RECORD: [id number] :51 LOCATION:D.M2 D.2123 ADMISSION DATE:09/22/19 SURGEON: GUILLERMINA MOSQUEDA MD DATE OF OPERATION: 10/03/2019 SURGEON: Guillermina Mosqueda MD PROCEDURE PERFORMED: Right groin wound exploration and packing. PREOPERATIVE DIAGNOSIS: Venous oozing and open right groin wound with wound VAC change. POSTOPERATIVE DIAGNOSIS: venous oozing and open right groin wound with wound VAC change. ANESTHESIA: MAC. COMPLICATIONS: None. SPECIMENS: Debrided subcutaneous necrotic fat for culture. FINDINGS: There were a few venous bleeders along the right lateral edge. The hematoma cavity had shrunk significantly after several days of wound VAC packing and the removal of the packing from this area earlier by the nurse may well have been the location of oozing as the patient is on full Plavix anticoagulation. The wound was irrigated. Hemostasis made with electrocautery and Surgicel was used along the edges of the wound and the wound was packed with Kerlix, ABD on top and bandage intact with plans for wound change tomorrow. PROCEDURE IN DETAIL: The patient was brought to the operating suite, remainder of the packing removed, irrigation performed, lightly debrided. Most of the granulation tissue looked quite healthy and there was clearly no arterial bleeding as the arterial structures were completely covered at the previous operation. Hematoma cavity had shrunk, area was packed. Hemostasis was ensured. Surgicel was used. Packing was placed with Kerlix and ABD. The patient to recovery stable. TRANSINT:[id number] Voice Confirmation ID: [id number] DOCUMENT ID: [id number] GUILLERMINA MOSQUEDA MD at 1111 CC: [id number] DICTATION DATE: 10/03/19 1641 AUTO AIR CONDITIONING INSTALLER: 10/04/19 0126 ADM IN [id number] [place] [address]
--- NOTE | 2019-10-04 11:42 | NUR ---
OT NOTE: (LATE ENTRY FROM 10/02) PT NOT FEELING WELL; SON AT BEDSIDE; PT REPORTS THAT HER SODIUM IS LOW AND MAYBE THATS WHY SHE ISNT FEELING WELL. BED MOB INCLUDING ROLLING AND SUPINE TO SIT WITH MAX ASSIST X 2; ABLE TO STAND ONLY ONCE TIME WITH MAX ASSIST X 2 AND ONLY FOR A FEW SECONDS..PT CONTINUED TO REPORT THAT SHE JUST FELT REALLY BAD. PT NORMALLY PARTICIPATES VERY WELL. ABLE TO PERFORM UE TASKS WITH SET UP. JIMBO LEE, OTR/L [phone]
--- NOTE | 2019-10-04 12:51 | NUR ---
Nutrition Follow-up: Pt reports eating well. Ate 100% of breakfast this AM. C/o constipation. Noted pt had wound exploration and packing yesterday. Awaiting placement. Diet: Cardiac No new wt; last wt: 289# (09/22) Labs reviewed Meds noted: Lasix, Miralax, Protonix, electrolyte protocol -Need new wt; noted daily wts ordered. -RD following.
[2019-10-04 14:21] LABS: BASOPHILS 0.4 % (0-2); EOSINOPHILS 2.7 % (0-7); HEMOGLOBIN 8.7 g/dL (12-16); IMMATURE GRANULOCYTES 0.6 % (0-5); LYMPHOCYTES 10.4 % (15-50); MCH 27.7 pg (26.0-34.0); MCV 95.5 fL (80.0-100.0); MONOCYTES 10.1 % (2-11); NEUTROPHILS 75.8 % (40-80); PLATELET COUNT 377 10x3/uL (130-400); RBC 3.14 10x6/uL (4.00-5.40); RDW 18.6 % (11.5-14.5); WBC 9.4 10x3/uL (4.8-10.8)
--- NOTE | 2019-10-04 16:20 | MORECARE ---
CASE MANAGEMENT DISCHARGE SUMMARY PATIENT: KAYLEE MORRISSEY UNIT: [id number] ADM DATE: 09/22/19 AGE: 63 : 51 SEX: F ROOM/BED: D.2673 AUTHOR: SALTY,DOC PHYSICIAN: REFERRING PHYSICIAN: MEETA HURTADO MD DATE OF SERVICE: 10/04/19 Discharge Plan Patient Name: KAYLEE MORRISSEY Facility: [facility]:[place] : 1955 Planned Disposition: [facility] Acute Care Facility Anticipated Discharge Date: Discharge Date: Expected LOS: Initial Reviewer: [email or web address] Initial Review Date: 09/22/2019 Generated: 10/04/19 5:19 pm Comments DCP- Discharge Planning Updated by [email or web address]: Betsy Angulo on 10/03/19 10:[address] Pt daughter called CM to inquire about status of placement. CM provided update of SNF unable to accept. Received verbal permission to reach out to [facility]. CM called Iram at [phone] about referral. CM faxed referral with a request of acceptance or denial within 24 hours. CM will continue assisting in DC planning. Betsy Angulo MSN,RN, DCP- Discharge Planning Updated by [email or web address]: Adeola Hummel on 09/28/19 2:[address] CM faxed requested information for [facility] along with the order. DCP- Discharge Planning Updated by [email or web address]: Betsy Angulo on 09/27/19 5:[address] Patient Name: KAYLEE MORRISSEY Admission Status: Elective Accout number: [id number] Admission Date: 09-22-2019 : 1955 Admission Diagnosis:DISRUPTION OF WOUND, UNSPECIFIED, INITIAL ENCOUNTER Attending: BRYANT, Current LOS: 5 Anticipated DC Date: Planned Disposition: [facility] Facility Primary Insurance: [facility] Discharge Planning Comments: CM met with patient to complete initial dc planning assessment. CM educated patient on the CM role and verbal consent given by patient to complete assessment. CM verified patient's address, phone number, and emergency contact phone numbers. Prior to admission she was at [facility] rehab. Since admissions pt states she is weak and unable to stand without assistance. CM spoke with [facility] and states they are unable to meet her needs. Cm spoke with the patient who became tearful. States she would like to go to rehab, but she will go to a SNF if that is her only option. DIONICIO verbalized for [facility] rehab, and [facility]. CM faxed referrals to Imani at [facility], and Dominique at [facility]. CM will continue to follow and will assist as needed with dc plans/needs. Miller Head Assistant Wet Process: Betsy Angulo DCPIA - Discharge Planning Initial Assessment Updated by [email or web address]: Betsy Angulo on 09/27/19 6:10 pm * Is the patient Alert and Oriented? Yes * How many steps to enter\exit or inside your home? 0/0 * PCP Lyndsay * [facility] * Preadmission Environment Acute Inpatient Rehab * Facility Name [facility] * ADLs Partial Dependent * Partial ADLs (Assistance needed) Ambulation Bathing Dressing Medication Management Toileting Transfers * Equipment Oxygen * Other Equipment has 02 and concentrator from [facility] * List name and contact numbers for known caregivers / representatives who currently or will assist patient after discharge: Anderson Castellanos [phone] DTR Nandini [phone] * Verbal permission to speak to the caregivers and representatives has been obtained from the patient. Yes * Community resources currently utilized None * Additional services required to return to the preadmission environment? Yes * Can the patient safely return to the preadmission environment? Yes * Has this patient been hospitalized within the prior 30 days at any hospital? Yes Last DP export: 10/04/19 8:15 a Patient Name: KAYLEE MORRISSEY Page [id number] at 1620 All edits/amendments must be made on the electronic document DICTATION DATE: 10/04/191619 VARNISH REMOVER: WILLIAM 10/04/191619 RPT#: [id number] DC DATE: STATUS: ADM IN [facility] [address] [place] [address] END OF REPORT
--- NOTE | 2019-10-04 18:24 | NUR ---
ALERT AND ORIENTED X4. SITTING UP IN BED. SON AT BEDSIDE. CONSENTS FOR PROCEDURE SIGNED ON CHART. DENIES ANY NEEDS AT THIS TIME. CONTINUE PLAN OF CARE AND SAFETY PRECAUTIONS.
[2019-10-04 20:00] VITALS: BP 103/47
--- NOTE | 2019-10-04 22:15 | NUR ---
REPOSITIONED IN BED FOR COMFORT, ASSISTED PT WITH PLACING TRILOGY, PT DENIES OTHER NEEDS.
[2019-10-05] VITALS: BP 92/57
[2019-10-05 04:00] VITALS: BP 102/59
[2019-10-05 08:12] VITALS: BP 112/57
--- NOTE | 2019-10-05 09:35 | NUR ---
REPORT RECEIVED. WILL CONTINUE WITH POC. PT CURRENTLY LYING SEMI FOWLERS. CALL LIGHT W/I REACH. FALL PRECAUTIONS IN PLACE. PT IS AAO AND BEDFAST. RR EVEN AND UNLABORED ON 3L 02. L.AC PIV SALINE LOCKED. MIRANDA IN PLACE AND DRAINING URINE. PT NPO FOR SURGERY. 12 LEAD EKG PERFORMED. PREOP MEDS ADMININSTERED. PT DENIES ANY NEEDS AT THIS TIME. NO S/S OF DISTRESS NOTED. WILL CTM.
--- NOTE | 2019-10-05 14:18 | MORECARE ---
CASE MANAGEMENT DISCHARGE SUMMARY PATIENT: KAYLEE MORRISSEY UNIT: [id number] ADM DATE: 09/22/19 AGE: 63 : 51 SEX: F ROOM/BED: D.6043 AUTHOR: SALTY,DOC PHYSICIAN: REFERRING PHYSICIAN: MEETA HURTADO MD DATE OF SERVICE: 10/05/19 Discharge Plan Patient Name: KAYLEE MORRISSEY Facility: [facility]:[place] : 1955 Planned Disposition: Resident Care Associate Acute Care Facility Anticipated Discharge Date: Discharge Date: Expected LOS: Initial Reviewer: [email or web address] Initial Review Date: 09/22/2019 Generated: 10/05/19 3:17 pm Comments DCP- Discharge Planning Updated by [email or web address]: Adeola Hummel on 10/05/19 1:[address] CM contacted Iram with [facility], regarding a delay in transferring patient today. The patient is going to surgery for an exploration of the groin hematoma area. If the patient requires a wound vac, per Iram, the VAC dressings have to be changed by a nurse, as the MD at [facility] will not accept the patient, if the dressing has to be changed by the MD. CM will contact again 10/05 for update. DCP- Discharge Planning Updated by [email or web address]: Betsy Angulo on 10/03/19 10:[address] Pt daughter called CM to inquire about status of placement. CM provided update of SNF unable to accept. Received verbal permission to reach out to [facility]. CM called Iram at [phone] about referral. CM faxed referral with a request of acceptance or denial within 24 hours. CM will continue assisting in DC planning. Betsy Angulo MSN,RN,CM DCP- Discharge Planning Updated by [email or web address]: Adeola Hummel on 09/28/19 2:[address] CM faxed requested information for [facility] along with the order. DCP- Discharge Planning Updated by [email or web address]: Betsy Angulo on 09/27/19 5:[address] Patient Name: KAYLEE MORRISSEY Admission Status: Elective Accout number: [id number] Admission Date: 09-22-2019 : 1955 Admission Diagnosis:DISRUPTION OF WOUND, UNSPECIFIED, INITIAL ENCOUNTER Attending: BRYANT, Current LOS: 5 Anticipated DC Date: Planned Disposition: Fdc Facility Primary Insurance: [facility] Discharge Planning Comments: CM met with patient to complete initial dc planning assessment. CM educated patient on the CM role and verbal consent given by patient to complete assessment. CM verified patient's address, phone number, and emergency contact phone numbers. Prior to admission she was at [facility] IP rehab. Since admissions pt states she is weak and unable to stand without assistance. CM spoke with [facility] re[facility] and states they are unable to meet her needs. Cm spoke with the patient who became tearful. States she would like to go to rehab, but she will go to a SNF if that is her only option. DIONICIO verbalized for [facility] rehab, and [facility]. CM faxed referrals to Imani at [facility], and Dominique at [facility]. CM will continue to follow and will assist as needed with dc plans/needs. Latin Professor: Betsy Angulo DCPIA - Discharge Planning Initial Assessment Updated by [id number]: Betsy Angulo on 09/27/19 6:10 pm * Is the patient Alert and Oriented? Yes * How many steps to enter\exit or inside your home? 0/0 * PCP Lyndsay * [facility] * Preadmission Environment Acute Inpatient Rehab * Facility Name [facility] Rehab * ADLs Partial Dependent * Partial ADLs (Assistance needed) Ambulation Bathing Dressing Medication Management Toileting Transfers * Equipment Oxygen * Other Equipment has 02 and concentrator from [facility] * List name and contact numbers for known caregivers / representatives who currently or will assist patient after discharge: Anderson Castellanos [phone] DTR Nandini [phone] * Verbal permission to speak to the caregivers and representatives has been obtained from the patient. Yes * Community resources currently utilized None * Additional services required to return to the preadmission environment? Yes * Can the patient safely return to the preadmission environment? Yes * Has this patient been hospitalized within the prior 30 days at any hospital? Yes Last DP export: 10/04/19 3:20 p Patient Name: KAYLEE MORRISSEY Page [id number] at 1418 All edits/amendments must be made on the electronic document DICTATION DATE: 10/05/191416 PIPE PROCESSOR: WILLIAM 10/05/191416 RPT#: [id number] DC DATE: STATUS: ADM IN [facility] [address] [place] [address] END OF REPORT
[2019-10-05 14:31] VITALS: BP 118/59
[2019-10-05 16:51] VITALS: BP 112/57
[2019-10-05 23:20] VITALS: BP 114/53
[2019-10-06] VITALS (14 sets, daily range): BP systolic 90–116; BP diastolic 53–86
[2019-10-06 06:03] LABS: BASOPHILS 0.3 % (0-2); EOSINOPHILS 1.9 % (0-7); HEMOGLOBIN 8.8 g/dL (12-16); IMMATURE GRANULOCYTES 0.9 % (0-5); LYMPHOCYTES 14.6 % (15-50); MCH 27.8 pg (26.0-34.0); MCHC 29.3 g/dL (31.0-37.0); MCV 94.6 fL (80.0-100.0); MEAN PLATELET VOLUME 8.9 fL (7.4-10.4); MONOCYTES 13.3 % (2-11); PLATELET COUNT 399 10x3/uL (130-400); RBC 3.17 10x6/uL (4.00-5.40); RDW 18.5 % (11.5-14.5); WBC 8.6 10x3/uL (4.8-10.8)
[2019-10-06 06:35] LABS: CALC OSMOLALITY 271 mosm/kg (275-300); CALCIUM 7.5 mg/dL (8.5-10.1); CHLORIDE - SERUM 94 mmol/L (98-107); CREATININE - SERUM 0.8 mg/dL (0.6-1.3); GLUCOSE 103 mg/dL (74-106); MAGNESIUM - SERUM 1.8 mg/dL (1.8-2.4); PHOSPHOROUS 3.6 mg/dL (2.5-4.9); POTASSIUM - SERUM 3.6 mmol/L (3.5-5.1); SODIUM 136 mmol/L (136-145); UREA NITROGEN 12 mg/dL (7-18); eGFR NON AFRICAN AMERICAN 76 mL/min (90-120)
[2019-10-07] VITALS (28 sets, daily range): BP systolic 93–128; BP diastolic 52–78
[2019-10-07 05:15] LABS: CALC OSMOLALITY 266 mosm/kg (275-300); CALCIUM 7.5 mg/dL (8.5-10.1); CARBON DIOXIDE 38.8 mmol/L (21.0-32.0); CHLORIDE - SERUM 93 mmol/L (98-107); CREATININE - SERUM 0.8 mg/dL (0.6-1.3); GLUCOSE 109 mg/dL (74-106); MAGNESIUM - SERUM 1.9 mg/dL (1.8-2.4); PHOSPHOROUS 3.7 mg/dL (2.5-4.9); POTASSIUM - SERUM 3.1 mmol/L (3.5-5.1); SODIUM 133 mmol/L (136-145); UREA NITROGEN 13 mg/dL (7-18); eGFR NON AFRICAN AMERICAN 76 mL/min (90-120)
[2019-10-07 05:59] LABS: BASOPHILS 0.2 % (0-2); EOSINOPHILS 0.9 % (0-7); HEMATOCRIT 31.6 % (36.0-48.0); HEMOGLOBIN 9.7 g/dL (12-16); IMMATURE GRANULOCYTES 1.3 % (0-5); LYMPHOCYTES 9.2 % (15-50); MCHC 30.7 g/dL (31.0-37.0); MCV 94.3 fL (80.0-100.0); MONOCYTES 11.4 % (2-11); PLATELET COUNT 365 10x3/uL (130-400); RBC 3.35 10x6/uL (4.00-5.40); RDW 17.7 % (11.5-14.5); WBC 11.4 10x3/uL (4.8-10.8)
--- NOTE | 2019-10-07 08:16 | NUR ---
PT STATES HER LEFT BACK LEG ITCHES. CL IN REACH. STATES PAIN IS A 3 OUT OF 10 ON THE PAIN SCALE. NO FURTHER NEEDS AT THIS TIME. WCTM
--- NOTE | 2019-10-07 10:10 | NUR ---
EKG COMPLETED AND SCANNED INTO DOCUMENTATION. PT REQUESTED A BREAK FROM THE SCD'S SINCE IT IS CAUSING HER LEFT LEG TO ITCH. CL IN REACH. REQUESTED LIGHT TURNED OFF. NO FURTHER NEEDS AT THIS TIME. WCTM
--- NOTE | 2019-10-07 10:45 | OP ---
PATIENT NAME: KAYLEE MORRISSEY MEDICAL RECORD: [id number] :[birth year] LOCATION:.[facility] D.2301 ADMISSION DATE:09/22/19 SURGEON: GUILLERMINA MOSQUEDA MD DATE OF OPERATION: 10/06/2019 SURGEON: Guillermina Mosqueda MD PROCEDURE PERFORMED: Right groin excisional debridement and placement of wound VAC. PREOPERATIVE DIAGNOSIS: Right groin wound, status post emergent repair of arterial bleed following cardiac catheterization and evacuation of hematoma. POSTOPERATIVE DIAGNOSIS: Right groin wound, status post emergent repair of arterial bleed following cardiac catheterization and evacuation of hematoma. ANESTHESIA: General endotracheal anesthesia. ESTIMATED BLOOD LOSS: 100 cc. TRANSFUSION: 2 packed red blood cell, 1 platelet. COMPLICATIONS: None. SPECIMENS: Debrided tissue. CONDITION: Stable. DISPOSITION: ICU. OPERATIVE FINDINGS: Coagulopathy consistent with Plavix anticoagulation required electrocautery. The area to the right where the hematoma had undermined the skin continued to have a pocket that would contain fluid, although there was no active bleeding and it was unroofed so that it could be carefully packed with a wound VAC after Pulsavac 3 liters with vancomycin. Indication is continued oozing from the open wound. PROCEDURE IN DETAIL: The patient was brought to the operative suite. General anesthesia was obtained. The patient was prepped. The wound was then unroofed. Pulsavac was performed. The hemostasis was ensured. Wound VAC was placed. The patient to ICU, stable. TRANSINT:[id number] Voice Confirmation ID: [id number] DOCUMENT ID: [id number] GUILLERMINA MOSQUEDA MD at 1045 CC: [id number] DICTATION DATE: 10/06/191707 TRUCKMAN: 10/06/192053 ADM IN [id number] [place] [address]
--- NOTE | 2019-10-07 12:21 | NUR ---
Nutrition Follow-up: Diet: (Cardiac) NPO for exploratory surgery of hematoma site today. Had wound debridement and wound VAC placed as well. PO intake: ~67% x last 9 meals Last BM: 09/15/19 per I/Os flowsheet. Patient previously complained of constipation to RD. Wt: 289# (09/23/19), no new weight Meds noted: reglan, lasix, miralax, pulmicort Labs noted: Na 133(L), K 3.1(L), Glu 109(H) Consider increase in bowel regimen to promote BM regularity if patient is still constipated to prevent decreased appetite. Recommend resume PO diet as soon as medically feasible. Needs new weight. RD following.
--- NOTE | 2019-10-07 12:25 | NUR ---
PT BACK FROM SURGERY. NEW WOUND VAC TO RIGHT GROIN AREA. ICE CHIPS PROVIDED. ORANGE SHERBERT PROVIDED. NO FURTHER NEEDS AT THIS TIME. CL IN REACH. BED REMOTE IN REACH. BED ALARM ON. WCTM
--- NOTE | 2019-10-07 16:25 | NUR ---
PT CO OF GAS PAINS. PROVIDED PER EMAR. CL IN REACH. NO FURTHER NEEDS AT THIS TIME. WCTM
[2019-10-08] VITALS (22 sets, daily range): BP systolic 105–133; BP diastolic 54–81
[2019-10-08 06:17] LABS: CALC OSMOLALITY 273 mosm/kg (275-300); CALCIUM 8.3 mg/dL (8.5-10.1); CARBON DIOXIDE 39.2 mmol/L (21.0-32.0); CHLORIDE - SERUM 94 mmol/L (98-107); CREATININE - SERUM 0.8 mg/dL (0.6-1.3); GLUCOSE 139 mg/dL (74-106); MAGNESIUM - SERUM 2.1 mg/dL (1.8-2.4); POTASSIUM - SERUM 3.9 mmol/L (3.5-5.1); SODIUM 135 mmol/L (136-145); eGFR NON AFRICAN AMERICAN 76 mL/min (90-120)
[2019-10-08 06:21] LABS: UREA NITROGEN 17 mg/dL (7-18)
[2019-10-08 06:26] LABS: BASOPHILS 0.1 % (0-2); EOSINOPHILS 0 % (0-7); HEMATOCRIT 31.7 % (36.0-48.0); HEMOGLOBIN 9.7 g/dL (12-16); IMMATURE GRANULOCYTES 1.2 % (0-5); LYMPHOCYTES 8.4 % (15-50); MCH 28.9 pg (26.0-34.0); MCHC 30.6 g/dL (31.0-37.0); MCV 94.3 fL (80.0-100.0); MEAN PLATELET VOLUME 9.3 fL (7.4-10.4); MONOCYTES 11.7 % (2-11); NEUTROPHILS 78.6 % (40-80); PLATELET COUNT 465 10x3/uL (130-400); RBC 3.36 10x6/uL (4.00-5.40); RDW 17.3 % (11.5-14.5)
--- NOTE | 2019-10-08 07:10 | NUR ---
REPORT RECEIVED FROMOFF GOING NURSE AND PATIENT CARE ASSUMED. PAIENT LAYING IN BED WITH HOB ELEVATED 20 DEGREES.PATIENT IS AWAKE , ALERT AND ORIENTED X 4. PATIENT IS STABLE AND VSS.PATIENT DENIES ANY NEEDS OR PAIN. WILL CONTINUE TO MONITOR. SR UP X 2 BED IN LOW POSITION AND CALL LIGHT IN REACH.
--- NOTE | 2019-10-08 09:50 | OP ---
PATIENT NAME: KAYLEE MORRISSEY MEDICAL RECORD: [id number] :[birth year] LOCATION:D.[facility] D.2301 ADMISSION DATE:09/22/19 SURGEON: GUILLERMINA MOSQUEDA MD DATE OF OPERATION: 10/07/2019 SURGEON: Guillermina Mosqueda MD PROCEDURE: Pulsavac and change of wound VAC. POSTOPERATIVE DIAGNOSIS: Open groin wound after hematoma following cardiac catheterization. DESCRIPTION OF PROCEDURE: With the patient in the operating suite, general anesthesia, the wound VAC was removed. It was cleaned. There was no evidence of bleeding. Pulsavac was performed. The wound VAC was changed. The patient returned to the ICU. TRANSINT:[id number] Voice Confirmation ID: [id number] DOCUMENT ID: [id number] GUILLERMINA MOSQUEDA MD at 0950 CC: [id number] DICTATION DATE: 10/07/19 1236 SLIP COVER SEWER: 10/07/19 2157 ADM IN [id number] [place] [address]
--- NOTE | 2019-10-08 19:00 | NUR ---
REPORT RECEIVED. PT REFUSES TELEMETRY AND REFUSING VITAL SIGNS JUST WANTS TO BE LEFT ALONE.
--- NOTE | 2019-10-08 19:30 | NUR ---
REPORT RECEIVED.INITIAL ASSESSMENT COMPLETE. PT READY FOR PAIN MED C/O PAIN IN BACK AND INCISIONAL. BED LOW POSITION CL IN REACH OTHER THAN BEDTIME MEDS PT DENIES NEEDS AT THIS TIME WILL MONITOR
--- NOTE | 2019-10-08 20:20 | NUR ---
PT REFUSING BATH TONIGHT JUST WANTS TO SLEEP SINCE SHE DIDNT REST WELL LAST PM. CL IN REACH PT DENIES NEEDS AT THIS TIME WILL CONTINUE TO MONITOR
[2019-10-09] VITALS (9 sets, daily range): BP systolic 109–138; BP diastolic 58–81
--- NOTE | 2019-10-09 | NUR ---
PT PLACED ON HOME TRILOGY.
--- NOTE | 2019-10-09 03:00 | NUR ---
ANSWERED PTS CALL LIGHT SHE IS READY TO REMOVE HOME TRILOGY. CATE RT PLACED ON NC WILL CONTINUE TO MONITOR
--- NOTE | 2019-10-09 05:50 | NUR ---
ANSWERED PTS CALL LIGHT ASSISTED WITH REPOSITIONING AND MEDICATED FOR PAIN PER EMAR
[2019-10-09 06:32] LABS: BASOPHILS 0.2 % (0-2); HEMATOCRIT 30.6 % (36.0-48.0); HEMOGLOBIN 9.2 g/dL (12-16); IMMATURE GRANULOCYTES 1.9 % (0-5); LYMPHOCYTES 15.1 % (15-50); MCHC 30.1 g/dL (31.0-37.0); MEAN PLATELET VOLUME 8.8 fL (7.4-10.4); MONOCYTES 12.7 % (2-11); NEUTROPHILS 69.1 % (40-80); PLATELET COUNT 451 10x3/uL (130-400); RBC 3.17 10x6/uL (4.00-5.40); RDW 17.4 % (11.5-14.5); WBC 10.3 10x3/uL (4.8-10.8)
[2019-10-09 06:41] LABS: MCV 96.5 fL (80.0-100.0)
[2019-10-09 06:43] LABS: CALC OSMOLALITY 272 mosm/kg (275-300); CALCIUM 8.2 mg/dL (8.5-10.1); CHLORIDE - SERUM 97 mmol/L (98-107); CREATININE - SERUM 0.8 mg/dL (0.6-1.3); GLUCOSE 94 mg/dL (74-106); PHOSPHOROUS 3.5 mg/dL (2.5-4.9); POTASSIUM - SERUM 3.7 mmol/L (3.5-5.1); SODIUM 136 mmol/L (136-145); UREA NITROGEN 14 mg/dL (7-18); eGFR NON AFRICAN AMERICAN 76 mL/min (90-120)
[2019-10-09 06:48] LABS: CARBON DIOXIDE 42.9 mmol/L (21.0-32.0)
--- NOTE | 2019-10-09 07:10 | NUR ---
REPORT RECEIVED FROM OFF GOING NURSE AND PATIENT CARE ASSUMED. PATIENT LAYING IN BED ON BACK WITH HOB ELEVATED 20 DEGREES. RESP EVEN AND NON LABORED. PATIENT IS AWAKE, ALERT AND ORIENTED X 4. MIRANDA CATHETER DRAINING CLEAR YELLOW URINE. WOUND VAC TO RT GROIN INTACT WORKING TO SUCTION. IV TO LSC INFUSING CARDIAZEM 10. PATIENT REMAINS IN NSR. WILL ATTEMPT TO TITRATE DOWN. TURNED DOWN TO 8. PATIENT CONVERTED TO AFIB. WILL ATTEMPT LATER. PATIENT DENIES ANY NEEDS OR PAIN. OFFERED BATH PATIENT STATES WANTS TO WAIT UNTIL LATER. SR UP X 2 BED IN LOW POSITION AND CALL LIGHT IN REACH.
--- NOTE | 2019-10-09 19:00 | NUR ---
REPORT RECEIVED INITIAL ASSESSMENT COMPLETE. PT ALERT AND ORIENTED. PT HAS TRANSFER ORDERS AWAITING BED ASSIGNMENT. RESP EVEN NONLABORED BUT DOES GET SOB WITH EXERTION. WOUND VAC IN PLACE INTACT. BED LOW POSITION CL IN REACH WILL CONTTNUE TO MONITOR
--- NOTE | 2019-10-09 22:00 | NUR ---
PARTIAL BED BATH AND COMPLETE LINEN CHANGE. PT READY FOR BED ASSISTED WITH HOME CPAP. WILL CONTINUE TO MONITOR
[2019-10-10] VITALS (14 sets, daily range): BP systolic 109–141; BP diastolic 52–94
--- NOTE | 2019-10-10 03:05 | NUR ---
LAB HERE FOR AM LABS
[2019-10-10 04:43] LABS: BASOPHILS 0.3 % (0-2); EOSINOPHILS 1.4 % (0-7); HEMATOCRIT 32.3 % (36.0-48.0); HEMOGLOBIN 9.6 g/dL (12-16); IMMATURE GRANULOCYTES 1.7 % (0-5); LYMPHOCYTES 15.3 % (15-50); MCH 28.7 pg (26.0-34.0); MCHC 29.7 g/dL (31.0-37.0); MCV 96.4 fL (80.0-100.0); MEAN PLATELET VOLUME 8.8 fL (7.4-10.4); MONOCYTES 13.7 % (2-11); NEUTROPHILS 67.6 % (40-80); PLATELET COUNT 463 10x3/uL (130-400); RBC 3.35 10x6/uL (4.00-5.40); RDW 17.5 % (11.5-14.5); WBC 9.4 10x3/uL (4.8-10.8)
[2019-10-10 05:18] LABS: CALC OSMOLALITY 275 mosm/kg (275-300); CALCIUM 7.7 mg/dL (8.5-10.1); CHLORIDE - SERUM 97 mmol/L (98-107); CREATININE - SERUM 0.8 mg/dL (0.6-1.3); GLUCOSE 94 mg/dL (74-106); MAGNESIUM - SERUM 1.8 mg/dL (1.8-2.4); PHOSPHOROUS 3.5 mg/dL (2.5-4.9); POTASSIUM - SERUM 3.2 mmol/L (3.5-5.1); SODIUM 138 mmol/L (136-145); UREA NITROGEN 13 mg/dL (7-18); eGFR NON AFRICAN AMERICAN 76 mL/min (90-120)
--- NOTE | 2019-10-10 10:49 | NUR ---
Nutrition follow-up: Pt receiving a low sodium diet with po intake 100% of last 6 meals. Pt SOB on exertion Labs reviewed Wt: 347# PO intake is good at this time RDN following.
--- NOTE | 2019-10-10 13:57 | NUR ---
MICHAEL AT BEDSIDE, RIGHT GROIN WV CHANGE, PT TOLERATED WELL
[2019-10-11 03:00] VITALS: BP 110/65
[2019-10-11 04:32] LABS: BASOPHILS 0.3 % (0-2); EOSINOPHILS 1.4 % (0-7); HEMATOCRIT 33.3 % (36.0-48.0); HEMOGLOBIN 9.8 g/dL (12-16); IMMATURE GRANULOCYTES 1.3 % (0-5); LYMPHOCYTES 13.3 % (15-50); MCH 28.3 pg (26.0-34.0); MCHC 29.4 g/dL (31.0-37.0); MCV 96.2 fL (80.0-100.0); MEAN PLATELET VOLUME 8.7 fL (7.4-10.4); NEUTROPHILS 72.7 % (40-80); PLATELET COUNT 509 10x3/uL (130-400); RBC 3.46 10x6/uL (4.00-5.40); RDW 17.7 % (11.5-14.5); WBC 10.2 10x3/uL (4.8-10.8)
[2019-10-11 05:14] LABS: CALC OSMOLALITY 274 mosm/kg (275-300); CALCIUM 8.1 mg/dL (8.5-10.1); CHLORIDE - SERUM 97 mmol/L (98-107); CREATININE - SERUM 0.8 mg/dL (0.6-1.3); GLUCOSE 105 mg/dL (74-106); POTASSIUM - SERUM 3.2 mmol/L (3.5-5.1); SODIUM 138 mmol/L (136-145); UREA NITROGEN 11 mg/dL (7-18); eGFR NON AFRICAN AMERICAN 76 mL/min (90-120)
[2019-10-11 05:19] LABS: CARBON DIOXIDE 43.4 mmol/L (21.0-32.0)
[2019-10-11 07:00] VITALS: BP 124/86
--- NOTE | 2019-10-11 07:45 | NUR ---
BEDSIDE SHIFT REPORTING REC'D. INTRODUCED MYSELF TO PT PRIMARY RN FOR TODAYS SHIFT. PT IS A&O SITTING UP IN BED RESTING QUIETLY. SHIFT ASSESSMENT COMPLETED. PT STATES SHE SLEPT "OKAY". WILL REVIEW CHART AND ORDERS AND BEGIN PLAN OF CARE.
--- NOTE | 2019-10-11 10:12 | NUR ---
CHANGED OUT PTS WOUND VAC DRAIN. 900CC OF DARK BLOODY DRAINAGE NOTED. UNSURE OVER AMOUNT OF TIME THIS HAS ACCRUED NOBODY HAS CHARTED THE OUTPUT. NOTIFIED AND HE CAME TO BEDSIDE AND ASSESSED SITE WITH ME. NEW CANISTER IN PLACE. WILL CTM. PT STATES SHE FEELS FINE AND IS NOT HYPOTENSIVE WILL JUST CONTINUE TO MONITER.
--- NOTE | 2019-10-11 10:56 | NUR ---
REPOSITIONED PT UP IN BED AND ELEVATED HER R.LEG INWARDS TO PROMOTE COMFORT. PT VOICED THANKS. PT TEARY EYED AND STATES SHES JUST GETTING DOWN FROM BEING IN HERE FOR SO LONG. HAD ABOUT A 10MIN TALK WITH HER AND UPDATED HER AND INCLUDED HER IN HER PLAN OF CARE. SHE IS MOTIVATED TO GET THERAPY AND HASNT GOTTEN OOB IN OVER A WEEK AND REALLY WOULD LIKE REHAB AND SOME THERAPY. I WILL DISCUSS WITH AND SEE ABOUT HER OPTIONS. PT VOICED THANKS AND IS NOW SMILING AND EATING HER ICE. CL IN REACH, BED IN LOWEST, SIDE RAILS X2. NO FURTHER NEEDS AT THIS TIME. WILL CPOC.
[2019-10-11 11:00] VITALS: BP 131/83
--- NOTE | 2019-10-11 14:54 | NUR ---
PT RESTING QUIETLY IN BED WITH EYES CLOSED. RR NONLABORED ON 2LNC. VSS AND BEING MONITERED. MIRANDA DRAINING TO GRAVITY OFF R.SIDE OF BED CLEAR YELLOW URINE. WOUND VAC ON CONT. WITH NO LEAK DETECTED. NO CURRENT NEEDS NOTED AT THIS TIME. CL IN REACH, BED IN LOWEST, SIDE RAILS X2 AND BUILT IN BED ALARM ON. WILL CPOC.
[2019-10-11 15:00] VITALS: BP 127/79
--- NOTE | 2019-10-11 15:47 | NUR ---
REPOSITIONED PT IN BED AND CHECKED TO SEE IF SHE WAS DIRTY. PT IS STILL CLEAN AND NO BM FOR TODAY. PROVIDED MOISTURIZER ON PTS LEGS AND FEET FOR DRY FLAKEY SKIN. ELEVATED BILAT FEET IN BED TO HELP REDUCE SWELLING. PT VOICED THANKS AND STATES SHE FEEL MUCH MORE COMFORTABLE NOW. EMPTIED MIRANDA BAG OF 2050CC CLEAR YELLOW URINE. BAG BACK HANGING TO GRAVITY OFF R.SIDE OF BED. NO FURTHER NEEDS AT THIS TIME. CL IN REACH, WILL CTM.
--- NOTE | 2019-10-11 17:00 | NUR ---
PT SITTING UP EATING DINNER. PT STATES SHE IS FEELING GREAT DENIES ANY CURRENT PAIN OR NEEDS AT THIS TIME. CL IN REACH. WILL CPOC.
[2019-10-11 19:00] VITALS: BP 123/63
[2019-10-11 23:00] VITALS: BP 113/63
[2019-10-12] VITALS (11 sets, daily range): BP systolic 107–133; BP diastolic 40–71
[2019-10-12 04:58] LABS: CALC OSMOLALITY 272 mosm/kg (275-300); CALCIUM 7.7 mg/dL (8.5-10.1); CHLORIDE - SERUM 95 mmol/L (98-107); CREATININE - SERUM 0.8 mg/dL (0.6-1.3); GLUCOSE 102 mg/dL (74-106); POTASSIUM - SERUM 3.1 mmol/L (3.5-5.1); SODIUM 137 mmol/L (136-145); UREA NITROGEN 10 mg/dL (7-18); eGFR NON AFRICAN AMERICAN 76 mL/min (90-120)
[2019-10-12 05:33] LABS: CARBON DIOXIDE 41.5 mmol/L (21.0-32.0)
[2019-10-12 05:43] LABS: BASOPHILS 0.4 % (0-2); HEMATOCRIT 31.9 % (36.0-48.0); HEMOGLOBIN 9.8 g/dL (12-16); IMMATURE GRANULOCYTES 1.2 % (0-5); LYMPHOCYTES 17.8 % (15-50); MCH 29.6 pg (26.0-34.0); MCHC 30.7 g/dL (31.0-37.0); MCV 96.4 fL (80.0-100.0); MEAN PLATELET VOLUME 8.6 fL (7.4-10.4); MONOCYTES 11.9 % (2-11); NEUTROPHILS 66.7 % (40-80); PLATELET COUNT 473 10x3/uL (130-400); RBC 3.31 10x6/uL (4.00-5.40); WBC 9.2 10x3/uL (4.8-10.8)
--- NOTE | 2019-10-12 07:18 | NUR ---
AM ROUNDS COMPLETED. INTRODUCED MYSELF TO PT PRIMARY RN FOR TODAYS SHIFT. SHIFT ASSESSMENT COMPLETED. NO CHANGES NOTED FROM YESTERDAYS ASSESSMENT. MIRANDA CATHETER STILL DRAINING TO GRAVITY OFF R.SIDE OF BED CLEAR YELLOW URINE. WOUND VAC INTACT WITH NO LEAK DETECTED. L.CHEST CVL DRSG CDI LINES PATENT AND SWAB CAPS IN USE. NC @2L IN PLACE. VSS AND BEING MONITERED. PT IS HOPING TO BE DISCHARGED TODAY TO [facility]. BILAT FEET STILL VERY SWOLLEN ELEVATED ON BILAT PILLOWS. NO IMMEDIATE NEEDS AT THIS TIME. CL IN REACH, BED IN LOWEST, SIDE RAILS X2. WILL CPOC.
--- NOTE | 2019-10-12 09:40 | NUR ---
ASSISTED PT WITH HAIR HYGIENE AND BRUSHING HER TEETH. PT CAN FORM TASK INDEPENDENTLY AND JUST NEEDS ASSISTANCE SETTING IT UP. PT ATE BREAKFAST AND IS SITTING UP IN BED RESTING QUIETLY TALKING ON HER CELL PHONE. PT IS INQUIRING ABOUT BEING DISCHARGED TODAY, STILL WAITING TO HEAR FROM CASE MANAGEMENT AND [facility]. PT SWALLOWED ALL HER MORNING MEDICATIONS WITHOUT ANY DIFFICULTIES. PROVIDED PT WITH POTASSIUM PER ELECTROLYTE PROTOCOL. PT DENIES ANY CURRENT PAIN OR NEEDS AT THIS TIME. CL IN REACH. WILL CPOC.
--- NOTE | 2019-10-12 10:55 | NUR ---
Nutrition follow-up: Pt eating breakfast at time of RDN visit Diet: Low sodium PO intake 100% of most meals Labs reviewed Wt: 347# PO intake remains good RDN following.
--- NOTE | 2019-10-12 11:40 | NUR ---
THERAPY AT BEDSIDE WORKING WITH PT. PT UP ON EDGE OF BED AND ATTEMPTING SIDE STEPS WITH WALKER. LINE DRAW FOR POTASSIUM REPEAT COMPLETED AND DONE PER PROTOCOL. SENT TO LAB. PT WAS INCONTINENT OF LOOSE STOOL AND COMPLETE LINEN CHANGE PROVIDED. NO FURTHER NEEDS AT THIS TIME. CL IN REACH. WILL CTM.
--- NOTE | 2019-10-12 13:17 | NUR ---
WOUND VAC CHANGE COMPLETED. MEASURED WOUND BEDDING LENGTH 20CM, WIDTH, 6.5CM AND DEPTH 5.5CM. WOUND BEDDING BEEFY RED WITH SCANT BLEEDING NOTED. DRSG SEALED AND CONNECTED TO WOUND VAC. NO LEAK DETECTED. PT C/O PAIN AFTER CHANGING IT AND AT BEDSIDE AND WILL ORDER PRN [facility]. PT HAD FECES IN HER WILMER AREA AND AROUND HER CATHETER, CLEANED CATHETER AREA THOROUGHLY WITH SOAP AND WATER. REPOSITIONED PT IN BED FOR COMFORT. NO FURTHER NEEDS AT THIS TIME. CL IN REACH. WILL CTM.
--- NOTE | 2019-10-12 13:53 | NUR ---
OT NOTE: PT COMPLETED SUPINE TO SIT WITH MOD/MAX A. PT COMPLETED SIT TO STAND WITH MOD/MAX A. PT REQUIRED TOTAL A WITH LB HYGIENE TASKS. PT COMPLETED EOB SITTING WITH CGA. THANK YOU,CORNELIO ORELLANA
[2019-10-13] VITALS (22 sets, daily range): BP systolic 96–156; BP diastolic 45–85
[2019-10-13 05:33] LABS: HEMOGLOBIN 9.7 g/dL (12-16); LYMPHOCYTES 16.1 % (15-50); MCH 29.4 pg (26.0-34.0); MCHC 30.3 g/dL (31.0-37.0); MEAN PLATELET VOLUME 8.1 fL (7.4-10.4); NEUTROPHILS 72.1 % (40-80); RDW 17.5 % (11.5-14.5); WBC 10.2 10x3/uL (4.8-10.8)
[2019-10-13 05:45] LABS: PLATELET COUNT 599 10x3/uL (130-400)
[2019-10-13 06:38] LABS: CALC OSMOLALITY 273 mosm/kg (275-300); CALCIUM 7.9 mg/dL (8.5-10.1); CHLORIDE - SERUM 98 mmol/L (98-107); CREATININE - SERUM 0.7 mg/dL (0.6-1.3); GLUCOSE 95 mg/dL (74-106); POTASSIUM - SERUM 3.6 mmol/L (3.5-5.1); SODIUM 137 mmol/L (136-145); UREA NITROGEN 12 mg/dL (7-18); eGFR NON AFRICAN AMERICAN 89 mL/min (90-120)
[2019-10-13 06:40] LABS: CARBON DIOXIDE 40.4 mmol/L (21.0-32.0)
--- NOTE | 2019-10-13 16:18 | NUR ---
OT NOTE: PT SEEN IN PM.. UPON ENTERING ROOM, IT WAS OBVIOUS PT HAD BEEN CRYING. WHEN ASKED WHAT WAS WRONG, SHE CONTINUALLY REPORTED THAT NOTHING WAS WRONG.. HOWEVER, AFTER SOME COAXING, SHE REPORTED FEELING VERY FRUSTRATED AND FEARFUL THAT SHE WOULD NEVER MAKE IT HOME. REMINDED PT OF HOW WELL SHE DID YESTERDAY DURING THERAPY AND SHE STATED THAT SHE DID NOT FEEL THOUGH SHE DID. PT ALSO REPORTING WORSENING PAIN IN R GROIN AREA. HAD PT ATTEMPT TO MOVE FEET OFF OF EOB WITH MOD ASSIST (B LES REMAIN VERY EDEMATOUS)..WHILE ATTEMPTING TO GET PT TO UPRIGHT POSITION WITH MAX ASSIST X 2, SHE BEGAN TO CRY OUT THAT SHE COULD NOT DO THIS BECAUSE OF THE PAIN (GROIN AREA) ... QUICKLY REPOSITIONED PT BACK ONTO BED AND SHE WAS VERY APPOLOGETIC.. EXPLAINED TO HER THAT WE WOUDL KEEP WORKING WITH HER AND NOT TO GIVE UP. MAX ASSIST TO GET PT REPOSITIONED AND LES ELEVATED. JIMBO LEE, OTR/L [phone]
--- NOTE | 2019-10-13 19:59 | MORECARE ---
CASE MANAGEMENT DISCHARGE SUMMARY PATIENT: KAYLEE MORRISSEY UNIT: [id number] ADM DATE: 09/22/19 AGE: 63 : 51 SEX: F ROOM/BED: D.2301 AUTHOR: SALTY,DOC PHYSICIAN: REFERRING PHYSICIAN: MEETA HURTADO MD DATE OF SERVICE: 10/13/19 Discharge Plan Patient Name: KAYLEE MORRISSEY Facility: [facility]:[place] : 1955 Planned Disposition: Senior Report Developer Acute Care Facility Anticipated Discharge Date: Discharge Date: Expected LOS: Initial Reviewer: [email or web address] Initial Review Date: 09/22/2019 Generated: 10/13/19 8:58 pm Comments DCP- Discharge Planning Updated by [id number]: Frances Aguila on 10/13/19 6:[address] LATE ENTRY 10/11/19 CM received notice that the patient had been cleared by Dr. Medina to have PT/OT eval and LTACH continuation of referral. CM called and left message with Iram @ [facility] and faxed updates. CM spoke with Patient's daughter Mrs. Ivy and updated on progress and plan. Discharge plan accepted from patient and daughter. Late Entry 10/12/19 - 10/13/19 CM spoke with Iram @ [facility] and she stated that patient was no longer LTACH appropriate. Iram stated since wound care had stabilized and that debility doesn't make her appropriate for LTACH. Iram suggested some type of rehab. GEETA then spoke with [facility] and she stated that Dr. Mckeon had denied patient earlier in her hospital stay because of multiple readmissions. GEETA spoke with Dr. Mckeon later this day and he stated that he would put rehab prescreen order. GEETA spoke with patient's daughter and she was in favor of rehab of any kind. She just stated that her mother can't go home. CM will continue to follow and assist as needed with discharge planning / needs. DCP- Discharge Planning Updated by [id number]: Adeola Hummel on 10/05/19 1:[address] CM contacted Iram with [facility], regarding a delay in transferring patient today. The patient is going to surgery for an exploration of the groin hematoma area. If the patient requires a wound vac, per Iram, the VAC dressings have to be changed by a nurse, as the MD at [facility] will not accept the patient, if the dressing has to be changed by the MD. CM will contact again 10/05 for update. DCP- Discharge Planning Updated by [id number]: Betsy Angulo on 10/03/19 10:[address] Pt daughter called CM to inquire about status of placement. CM provided update of SNF unable to accept. Received verbal permission to reach out to Lt. CM called Iram at [phone] about referral. CM faxed referral with a request of acceptance or denial within 24 hours. CM will continue assisting in DC planning. Betsy Angulo MSN,RN, DCP- Discharge Planning Updated by [id number]: Adeola Hummel on 09/28/19 2:[address] CM faxed requested information for [facility] along with the order. DCP- Discharge Planning Updated by [id number]: Betsy Angulo on 09/27/19 5:[address] Patient Name: KAYLEE MORRISSEY Admission Status: Elective Accout number: [id number] Admission Date: 09-22-2019 : 1955 Admission Diagnosis:DISRUPTION OF WOUND, UNSPECIFIED, INITIAL ENCOUNTER Attending: BRYANT, Current LOS: 5 Anticipated DC Date: Planned Disposition: Alf Facility Primary Insurance: [employer] [facility] Discharge Planning Comments: CM met with patient to complete initial dc planning assessment. CM educated patient on the CM role and verbal consent given by patient to complete assessment. CM verified patient's address, phone number, and emergency contact phone numbers. Prior to admission she was at [facility]. Since admissions pt states she is weak and unable to stand without assistance. CM spoke with [facility] rehab and states they are unable to meet her needs. Cm spoke with the patient who became tearful. States she would like to go to rehab, but she will go to a SNF if that is her only option. DIONICIO verbalized for [facility] rehab, and [facility]. CM faxed referrals to Imani at ab, and Dominique at [facility]. CM will continue to follow and will assist as needed with dc plans/needs. Barrel Turner: Betsy Angulo DCPIA - Discharge Planning Initial Assessment Updated by [id number]: Betsy Angulo on 09/27/19 6:10 pm * Is the patient Alert and Oriented? Yes * How many steps to enter\exit or inside your home? 0/0 * PCP Lyndsay * [facility] * Preadmission Environment Acute Inpatient Rehab * Facility Name [facility] * ADLs Partial Dependent * Partial ADLs (Assistance needed) Ambulation Bathing Dressing Medication Management Toileting Transfers * Equipment Oxygen * Other Equipment has 02 and concentrator from [facility] * List name and contact numbers for known caregivers / representatives who currently or will assist patient after discharge: Anderson Castellanos [phone] DTR Nandini [phone] * Verbal permission to speak to the caregivers and representatives has been obtained from the patient. Yes * Community resources currently utilized None * Additional services required to return to the preadmission environment? Yes * Can the patient safely return to the preadmission environment? Yes * Has this patient been hospitalized within the prior 30 days at any hospital? Yes Last DP export: 10/05/19 1:18 p Patient Name: KAYLEE MORRISSEY Page [id number] at 1960 All edits/amendments must be made on the electronic document DICTATION DATE: 10/13/191958 CONTINUOUS IMPROVEMENT ENGINEER: WILLIAM 10/13/191958 RPT#: [id number] DC DATE: STATUS: ADM IN [facility] [address] [place] [address] END OF REPORT
[2019-10-14] VITALS (11 sets, daily range): BP systolic 98–132; BP diastolic 41–57; Ht 157.5 cm; Wt 157.7 kg
--- NOTE | 2019-10-14 09:30 | NUR ---
RECIEVED REPORT FROM ICU. PT LAYING IN BED A&O X4. CVL LEFT SUBCLAV, S/L, PATENT, NO REDNESS OR SWELLING. 02 SAT 2L VIA NC. MIRANDA IN PLACE, PATENT AND DRAINING, STATLOCK IN PLACE. WOUND VAC R GROIN. TRIOLGY AT HS. PT UNABLE TO AMBULATE, TOTAL CARE. EDUCATED CL AND NEEDS. BED LOW, RAILS X2. CL IN REACH, WILL CONTINUE TO MONITOR.
--- NOTE | 2019-10-14 10:32 | NUR ---
FLUSHED 10 ML SALINE INTO L SUBCLAV CVL, DISCARDED 10ML BLOOD, WITHDREW 10ML BLOOD FOR LAB, FLUSHED 10ML SALINE, PT TOLERATED WELL.
[2019-10-14 10:38] LABS: BASOPHILS 0.4 % (0-2); EOSINOPHILS 2.3 % (0-7); HEMATOCRIT 31.9 % (36.0-48.0); HEMOGLOBIN 9.5 g/dL (12-16); IMMATURE GRANULOCYTES 0.7 % (0-5); LYMPHOCYTES 12.2 % (15-50); MCH 28.9 pg (26.0-34.0); MCHC 29.8 g/dL (31.0-37.0); MEAN PLATELET VOLUME 8.5 fL (7.4-10.4); MONOCYTES 10.6 % (2-11); NEUTROPHILS 73.8 % (40-80); RBC 3.29 10x6/uL (4.00-5.40); WBC 10.8 10x3/uL (4.8-10.8)
[2019-10-14 10:48] LABS: ALBUMIN 1.6 g/dL (3.4-5.0); ALKALINE PHOSPHATASE 79 U/L (30-120); ALT (SGPT) 51 U/L (10-68); BILIRUBIN - TOTAL 0.67 mg/dL (0.2-1.3); CALC OSMOLALITY 271 mosm/kg (275-300); CALCIUM 7.8 mg/dL (8.5-10.1); CARBON DIOXIDE 38.9 mmol/L (21.0-32.0); CHLORIDE - SERUM 97 mmol/L (98-107); CREATININE - SERUM 0.8 mg/dL (0.6-1.3); GLUCOSE 106 mg/dL (74-106); POTASSIUM - SERUM 3.8 mmol/L (3.5-5.1); PROTEIN - SERUM 5.4 g/dL (6.4-8.2); SODIUM 136 mmol/L (136-145); UREA NITROGEN 12 mg/dL (7-18); eGFR NON AFRICAN AMERICAN 76 mL/min (90-120)
--- NOTE | 2019-10-14 10:58 | NUR ---
ASSISTED PT AFTER BM, PASTEY GREEN, LARGE AMOUNT. PT TOLERATED WELL. BED LOW, RAILS X2. CL IN REACH.
[2019-10-14 11:02] LABS: PLATELET COUNT 451 10x3/uL (130-400)
--- NOTE | 2019-10-14 11:11 | NUR ---
Rehab Prescreening Consult recieved and the chart has been reviewed. She was max assist x 2 to attempt SOB, correction through she had to lie back down. Discussed this patient with Dr Mckeon the [facility] medical equipment repair technician. Dr Mckeon is the O/C hospitalist who has been seeing the patient this week. Dr Mckeon states he visited with the patient yesterday at length regarding acute rehab, and the criteria. He ask the patient if she could participate in 3 hours of therapy everyday 5 days a week. The patient became anxious and replied No I can't. She has been on the rehab unit twice before and was unable to participate and moved back to the acute floor within 24 to 48 hours. She is not appropriate for an intensive rehab program at this time. Discussed in the IDT meeting. Martha Myrick RN Clinical Liaison, Rehab .
--- NOTE | 2019-10-14 11:24 | NUR ---
OT NOTE: PT JUST ARRIVED TO FLOOR.. REPORTED THAT SHE GAVE HERSELF A "PEP TALK" LAST NIGHT AND KNOWS THAT SHE HAS TO WORK THROUGH THE PAIN IN ORDER TO GET BACK HOME. PERFORMED BED MOB WITH MOD ASSIST X 2, HOWEVER, PT WAS ABLE TO DO MORE THAN YESTERDAY. TOLERATED SITTING UP ON EOB X APPROX 10 MIN. SIT TO STAND WITH MOD ASSIST X 2.. TOLERATED STANDING FOR APPROX 2 MIN, FOLLOWED BY 5 MIN REST BREAK, THEN ABLE TO STAND AGAIN FOR ANOTHER MIN. MAX ASSIST X 2 FOR SIT TO SUPINE; EXT BED MOB INCLUDING ROLLING SIDE TO SIDE 5-6 TIMES IN ORDER TO CLEAN PT FROM LARGE BM..MOD/MAX ASSIST FOR ROLLING. MAX ASSIST X 2 FOR SCOOTING UP IN BED. ELEVATED FEET ON PILLOWS AND WITH BED. EDEMA IN FEET IS IMPROVED FROM YESTERDAY. ABLE TO PERFORM SIMPLE GROOMING TASKS FROM BED LEVEL. EDUCATED PT ON EXS TO BE PERFORMED IN BED. PT ABLE TO DEMONSTRATED BOTH UE AND LE EXS. JIMBO LEE, OTR/L [phone]
--- NOTE | 2019-10-14 20:00 | NUR ---
PATIENT RESTING IN BED WATCHING TV. NO S/S OF ACUTE DISTRESS. NO C/O AT THIS TIME. PATIENT IS ON 2L NASAL CANNULA AND A TRIOLOGY AT NIGHT. PATIENT HAS LEFT CENTRAL LINE, SALINE LOC. IV IS PATENT WITHOUT REDNESS, SWELLING, OR TENDERNESS. PATIENT HAS A WOUND VAC TO THE RIGHT GROIN. PATIENT HAS A MIRANDA. CALL LIGHT WITHIN REACH. WILL CONTINUE TO MONITOR.
[2019-10-15 03:09] VITALS: BP 123/61
[2019-10-15 04:00] VITALS: BP 112/58
--- NOTE | 2019-10-15 05:41 | NUR ---
I have reviewed this patient and I concur with the Shift Assessment completed by the Licensed Practical Nurse today this shift.
[2019-10-15 07:31] LABS: BASOPHILS 0.4 % (0-2); EOSINOPHILS 2.5 % (0-7); HEMATOCRIT 32.6 % (36.0-48.0); HEMOGLOBIN 9.8 g/dL (12-16); IMMATURE GRANULOCYTES 0.9 % (0-5); LYMPHOCYTES 12.1 % (15-50); MCH 29.1 pg (26.0-34.0); MCHC 30.1 g/dL (31.0-37.0); MCV 96.7 fL (80.0-100.0); MEAN PLATELET VOLUME 8.6 fL (7.4-10.4); MONOCYTES 11.9 % (2-11); NEUTROPHILS 72.2 % (40-80); PLATELET COUNT 440 10x3/uL (130-400); RBC 3.37 10x6/uL (4.00-5.40); WBC 11.4 10x3/uL (4.8-10.8)
[2019-10-15 07:50] LABS: ALBUMIN 1.6 g/dL (3.4-5.0); ALKALINE PHOSPHATASE 76 U/L (30-120); ALT (SGPT) 50 U/L (10-68); BILIRUBIN - TOTAL 0.65 mg/dL (0.2-1.3); CALC OSMOLALITY 272 mosm/kg (275-300); CALCIUM 7.7 mg/dL (8.5-10.1); CARBON DIOXIDE 36.9 mmol/L (21.0-32.0); CHLORIDE - SERUM 99 mmol/L (98-107); CREATININE - SERUM 0.8 mg/dL (0.6-1.3); GLUCOSE 99 mg/dL (74-106); POTASSIUM - SERUM 3.6 mmol/L (3.5-5.1); PROTEIN - SERUM 5.3 g/dL (6.4-8.2); SODIUM 137 mmol/L (136-145); UREA NITROGEN 10 mg/dL (7-18); eGFR NON AFRICAN AMERICAN 76 mL/min (90-120)
--- NOTE | 2019-10-15 10:09 | NUR ---
PT ALERT AND ORIENTED X4 UPON ENTERING. ADMINISTERED MEDICATION, NO DIFFICULTIES. ASSESSMENT PERFORMED AT THIS TIME. RESTING COMFORTABLY. DENIES ANY NEEDS. BED IN LOWEST POSITION, BED RAILS X2, CALL LIGHT WITHIN REACH. WILL CONTINUE TO MONITOR.
[2019-10-15 10:26] VITALS: BP 113/54
--- NOTE | 2019-10-15 13:11 | NUR ---
I have reviewed this patient and I concur with the Shift Assessment completed by the Licensed Practical Nurse today this shift.
--- NOTE | 2019-10-15 13:42 | NUR ---
ADMINISTERED MEDICATION, NO DIFFICULTIES. RESTING COMFORTABLY AND REQUESTING A SHOWER CAP, WILL PROVIDE PROMPTLY. DENIES ANY OTHER NEEDS. WILL CONTINUE TO MONITOR.
[2019-10-15 14:48] VITALS: BP 111/55
[2019-10-15 17:35] VITALS: BP 118/46
--- NOTE | 2019-10-15 19:00 | NUR ---
PATIENT ALERT AND ORIENTED WHEN ENTERING THE ROOM. PATIENT HAS WOUND VAC TO THE RIGHT GROIN THAT IS SEALED AND SUCTIONING AT 125 MMHQ. WOUND VAC CONTANISTER 3/4 FULL. REPLACED WITH NEW CANNISTER. ASSESSMENT PERFORMED. SEE CHART. MIRADNA CATHETER PATENT AND DRAINING YELLOW URINE. SUB CLAVIAN IN TACT, SALINE LOCKED AT THIS TIME. WEARING 2LNC. DENIES PAIN UPON ASSESSMENT. CALL LIGHT CLOSE. CPOC.
--- NOTE | 2019-10-15 21:07 | NUR ---
ADMINISTERING HS MEDICATIONS, PATIENT REQUESTS AYESHA. LOOKED AT AYESHA CHOI DC'D AT THIS TIME THROUGH PHARMACY. PATIENT STATES THATS NOT CORRECT. PAGED HARI GUPTA APRN FOR ADMITTING PHYSICIAN. RECEIVED ORDER TO RESTART AMBIEN PATIENT TAKES AT HOME.
[2019-10-15 22:21] VITALS: BP 109/49
[2019-10-16 01:07] VITALS: BP 133/50
[2019-10-16 06:49] VITALS: BP 113/58
[2019-10-16 07:11] LABS: BASOPHILS 0.4 % (0-2); EOSINOPHILS 1.8 % (0-7); HEMOGLOBIN 9.9 g/dL (12-16); IMMATURE GRANULOCYTES 0.7 % (0-5); LYMPHOCYTES 11.2 % (15-50); MCH 29.3 pg (26.0-34.0); MCV 97.6 fL (80.0-100.0); MEAN PLATELET VOLUME 9.3 fL (7.4-10.4); MONOCYTES 13.4 % (2-11); NEUTROPHILS 72.5 % (40-80); PLATELET COUNT 476 10x3/uL (130-400); RBC 3.38 10x6/uL (4.00-5.40); RDW 18.2 % (11.5-14.5); WBC 10.7 10x3/uL (4.8-10.8)
[2019-10-16 07:26] LABS: ALBUMIN 1.4 g/dL (3.4-5.0); ALKALINE PHOSPHATASE 69 U/L (30-120); ALT (SGPT) 45 U/L (10-68); BILIRUBIN - TOTAL 0.59 mg/dL (0.2-1.3); CALC OSMOLALITY 274 mosm/kg (275-300); CALCIUM 7.9 mg/dL (8.5-10.1); CARBON DIOXIDE 34.4 mmol/L (21.0-32.0); CHLORIDE - SERUM 102 mmol/L (98-107); CREATININE - SERUM 0.6 mg/dL (0.6-1.3); GLUCOSE 103 mg/dL (74-106); PROTEIN - SERUM 5.3 g/dL (6.4-8.2); SODIUM 138 mmol/L (136-145); UREA NITROGEN 11 mg/dL (7-18); eGFR NON AFRICAN AMERICAN > 90 mL/min (90-120)
[2019-10-16 07:32] LABS: POTASSIUM - SERUM 3.7 mmol/L (3.5-5.1)
--- NOTE | 2019-10-16 09:00 | NUR ---
PT LYING IN BED. WATCHING TV. ALERT AND ORIENTED. PT STATES SHE HAS NO FURTHER NEEDS AT THIS TIME. BED LOW. CL IN REACH. WILL CONTINUE WITH POC.
[2019-10-16 09:03] VITALS: BP 111/52
--- NOTE | 2019-10-16 11:40 | NUR ---
Essie. REMOVED BIPAP.
[2019-10-16 12:53] VITALS: BP 102/48
[2019-10-16 17:31] VITALS: BP 109/54
--- NOTE | 2019-10-16 17:40 | NUR ---
UNABLE TO START PIV. WILL CONSULT VASCULAR ACCESS.
--- NOTE | 2019-10-16 19:20 | NUR ---
REVIEWING ORDERS. SPOKE WITH PATIENT ABOUT ORDER TO DC CVL. DAY SHIFT UNABLE TO PLACE PERIPHERAL IV. VASCULAR ACCESS NURSE CONSULTED. BAND TIER LOOKED, PATIENT UPSET AND REFUSES MULTIPLE ATTEMPTS. PATIENT ASKS THAT CVL BE LEFT UNTIL VASCULAR ACCESS CAN PLACE PATENT PIV.
--- NOTE | 2019-10-16 22:30 | NUR ---
PATIENT INCONTINENT OF BOWEL. BED BATH PERFORMED. MIRANDA CARE PROVIDED.
--- NOTE | 2019-10-16 22:55 | NUR ---
PLACED ON TRIOLOGY. RESTING WHEN EXITING THE ROOM.
[2019-10-16 23:19] VITALS: BP 110/50
[2019-10-17 03:24] VITALS: BP 115/54
[2019-10-17 06:13] LABS: ALBUMIN 1.5 g/dL (3.4-5.0); ALKALINE PHOSPHATASE 74 U/L (30-120); ALT (SGPT) 46 U/L (10-68); BILIRUBIN - TOTAL 0.44 mg/dL (0.2-1.3); CALC OSMOLALITY 283 mosm/kg (275-300); CALCIUM 7.7 mg/dL (8.5-10.1); CARBON DIOXIDE 35.1 mmol/L (21.0-32.0); CHLORIDE - SERUM 103 mmol/L (98-107); CREATININE - SERUM 0.8 mg/dL (0.6-1.3); GLUCOSE 106 mg/dL (74-106); PROTEIN - SERUM 4.8 g/dL (6.4-8.2); SODIUM 143 mmol/L (136-145); UREA NITROGEN 11 mg/dL (7-18); VANCOMYCIN - TROUGH 19.6 ug/mL (10.0-20.0); eGFR NON AFRICAN AMERICAN 76 mL/min (90-120)
[2019-10-17 06:40] VITALS: BP 115/56
[2019-10-17 06:45] LABS: BASOPHILS 0.6 % (0-2); EOSINOPHILS 2.9 % (0-7); HEMATOCRIT 33.7 % (36.0-48.0); HEMOGLOBIN 9.9 g/dL (12-16); IMMATURE GRANULOCYTES 0.4 % (0-5); LYMPHOCYTES 11.9 % (15-50); MCH 28.8 pg (26.0-34.0); MCHC 29.4 g/dL (31.0-37.0); MEAN PLATELET VOLUME 8.6 fL (7.4-10.4); MONOCYTES 12.7 % (2-11); NEUTROPHILS 71.5 % (40-80); PLATELET COUNT 419 10x3/uL (130-400); RBC 3.44 10x6/uL (4.00-5.40); WBC 10.9 10x3/uL (4.8-10.8)
--- NOTE | 2019-10-17 07:05 | NUR ---
RECEIVED PATIENT FROM ILIA RODRIGUEZ. A&O RESTING IN BED WITH EYES OPEN. NO C/O PAIN. NO S/S OF ACUTE DISTRESS NOTED. CALL LIGHT IN REACH. WILL CONTINUE TO MONITOR.
[2019-10-17 09:22] VITALS: BP 118/69
[2019-10-17 13:05] VITALS: BP 115/56
--- NOTE | 2019-10-17 14:55 | NUR ---
I have reviewed this patient and I concur with the Shift Assessment completed by the Licensed Practical Nurse today this shift.
[2019-10-17 17:54] VITALS: BP 118/67
--- NOTE | 2019-10-17 18:28 | NUR ---
A&O RESTING IN BED WITH EYES OPEN. NO C/O PAIN. NO S/S OF ACUTE DISTRESS NOTED. DENIES ANY NEEDS AT THIS TIME. CALL LIGHT IN REACH. WILL CONTINUE TO MONITOR.
--- NOTE | 2019-10-17 18:49 | NUR ---
OT NOTE: PT COMPLETED SIDE ROLLING WITH MIN A. PT COMPLETED SUPINE TO SIT AT EOB WITH MOD A. PT COMPLETED SIT TO STAND WITH MOD A. PT COMPLETED LB HYGIENE TASKS WITH TOTAL A. PT COMPLETED UB HYGIENE TASKS WITH MIN A. PT HAD SEVERAL BM DURING SESSION. NURSING NOTIFIED. [phone] SHELTON FERNANDO COTA
--- NOTE | 2019-10-17 19:10 | NUR ---
PATIENT ALERT AND ORIENTED. STATES WOUND VAC WAS NOT CHANGED TODAY BUT SHES READY FOR IT TO BE CHANGED. WOUND VAC CHANGED PER POLICY PROTOCAL WITH ASSISTANCE OF ILIA GUADALUPE. PATIENT TOLERATED WELL. SUCTIONING AT 125MMHQ PER ORDER. DENIES NEEDS AT THIS TIME. ASSESSMENT PERFORMED. MIRANDA CATHETER PATENT AND DRAINING YELLOW URINE. CALL LIGHT CLOSE. CPOC.
[2019-10-17 20:00] VITALS: BP 111/61
--- NOTE | 2019-10-17 20:05 | NUR ---
ADMINISTERED HS MEDICATION. SOTALOL ADMINISTERED, HEART RATE CHECKED CURRENTLY 88.
[2019-10-18] VITALS: BP 103/61
--- NOTE | 2019-10-18 02:55 | NUR ---
OTHER HS MEDICATIONS ADMINISTERED. CARDIZEM ADMINISTERED. CHECKED PULSE RATE, CURRENTLY 79.
--- NOTE | 2019-10-18 03:06 | NUR ---
RESTING WITH NO SIGNS OR SYMPTOMS OF DISTRESS AT THIS TIME. CALL LIGHT REMAINS CLOSE. CPOC.
[2019-10-18 04:00] VITALS: BP 118/56
[2019-10-18 05:00] LABS: BASOPHILS 0.3 % (0-2); HEMATOCRIT 33.4 % (36.0-48.0); HEMOGLOBIN 9.9 g/dL (12-16); IMMATURE GRANULOCYTES 0.8 % (0-5); LYMPHOCYTES 12.8 % (15-50); MCH 28.9 pg (26.0-34.0); MCHC 29.6 g/dL (31.0-37.0); MCV 97.7 fL (80.0-100.0); MEAN PLATELET VOLUME 8.7 fL (7.4-10.4); MONOCYTES 12.4 % (2-11); NEUTROPHILS 70.7 % (40-80); PLATELET COUNT 384 10x3/uL (130-400); RBC 3.42 10x6/uL (4.00-5.40); RDW 17.7 % (11.5-14.5); WBC 9.2 10x3/uL (4.8-10.8)
[2019-10-18 05:27] LABS: ALBUMIN 1.4 g/dL (3.4-5.0); ALKALINE PHOSPHATASE 68 U/L (30-120); ALT (SGPT) 39 U/L (10-68); BILIRUBIN - TOTAL 0.56 mg/dL (0.2-1.3); CALC OSMOLALITY 277 mosm/kg (275-300); CALCIUM 7.9 mg/dL (8.5-10.1); CARBON DIOXIDE 35.2 mmol/L (21.0-32.0); CHLORIDE - SERUM 101 mmol/L (98-107); CREATININE - SERUM 0.8 mg/dL (0.6-1.3); GLUCOSE 98 mg/dL (74-106); POTASSIUM - SERUM 3.8 mmol/L (3.5-5.1); PROTEIN - SERUM 5.4 g/dL (6.4-8.2); SODIUM 140 mmol/L (136-145); UREA NITROGEN 10 mg/dL (7-18); eGFR NON AFRICAN AMERICAN 76 mL/min (90-120)
[2019-10-18 08:55] VITALS: BP 107/56
--- NOTE | 2019-10-18 12:32 | NUR ---
OT NOTE: PT WAS SEEN WITH OT AND GRIMES TODAY. PT REPORTED THAT SHE WANTED TO GET UP IN CHAIR. HAD PT PRACTICED BED MOB AND SHE DID MUCH BETTER WITH MOVING LES TO EOB.. EDEMA IN MUCH IMPROVED IN LEGS.. FEET WERE STILL VERY SWOLLEN BUT LEGS WERE MUCH BETTER. WITH EXTENDED TIME REQUIRE, PT WAS ABLE TO GET LEGS OFF OF EOB; MOD ASSIST X 2 FOR SUPINE TO SIT. SITTING ON EOB WITH GOOD BALANCE ONCE FEET WERE ON FLOOR. PERFORMED UE/LE EXS WHILE ON EOB.. PT UNABLE TO PERFORM HIP FLEX EXS DUE TO WEAKNESS.. SHE WAS ABLE TO PERFORM KNEE FLEX/EXT WHILE ON EOB WITH MIN ASSIST. PT ABLE TO PERFORM SIMPLE GROOMING TASKS AND TOLERATED SITTING UP ON EOB FOR EXT TIME TODAY. ATTEMPTED TO PERFORM SIT TO STAND WITH WALKER AND MOD ASSIST X 2, HOWEVER, PT REPORTED THAT THE PAIN WAS TOO MUCH IN THE HIP WHERE THE WOUND VAC HAD BEEN PLACED.. NOTICED THERE WAS A MUCH LARGER AREA COVERED WITH WOUND VAC TODAY. MADE SEVERAL ATTEMPTS TO STAND TODAY, BUT PT WAS UNABLE TO PERFORM. SHE WAS VERY FRUSTRATED WITH THE FACT THAT SHE WAS UNABLE TO GET UP TO CHAIR. INFORMED PT THAT WE WOULD GET THERE. INSTRUCTED HER TO CONT WITH LE EXS WHILE IN BED. JIMBO LEE, OTR/L [phone]
[2019-10-18 13:19] VITALS: BP 104/60
--- NOTE | 2019-10-18 14:36 | NUR ---
Nutrition Follow-up: Diet: Cardiac PO intake: ~51% average x last 8 meals. She states that her appetite is "okay" she states that she does not like the Cardiac diet. States that she likes breakfast meal foods. She does not want oral nutrition supplements. Last BM: 10/17/19 x 3 (Diarrhea). Wt: 347# (10/14/19) Encouraged PO intake and encouraged her to write-in menu request including breakfast foods for lunch and dinner meals if she so desires. Recommend continue current diet. RD following.
--- NOTE | 2019-10-18 14:42 | NUR ---
Nutrition follow-up: Diet: Low sodium PO intake 100% of most meals Labs reviewed Wt: 348# Wound vac in place PO intake continues to be good. Will continue to provide food choices and honor food preferences within diet restriction. RDN following.
--- NOTE | 2019-10-18 15:41 | NUR ---
OT NOTE: PT COMPLETED SUPINE TO SIT WITH MOD A X2 FOR LE MANAGEMENT. PT ATTEMPTED SIT TO TO STAND WITH MOD A. PT COMPLETED EOB SITTING WITH CGA. PT COMPLETED UE AROM TOLERATED. [phone] THANK YOU,CORNELIO ORELLANA
[2019-10-18 17:06] VITALS: BP 107/64
[2019-10-18 20:00] VITALS: BP 121/44
[2019-10-19] VITALS: BP 121/53
--- NOTE | 2019-10-19 03:59 | NUR ---
I have reviewed this patient and I concur with the Shift Assessment completed by the Licensed Practical Nurse today this shift.
[2019-10-19 04:00] VITALS: BP 115/58
[2019-10-19 06:43] LABS: BASOPHILS 0.5 % (0-2); EOSINOPHILS 2.4 % (0-7); HEMATOCRIT 32.9 % (36.0-48.0); HEMOGLOBIN 9.6 g/dL (12-16); IMMATURE GRANULOCYTES 0.5 % (0-5); MCH 28.5 pg (26.0-34.0); MCHC 29.2 g/dL (31.0-37.0); MCV 97.6 fL (80.0-100.0); MEAN PLATELET VOLUME 8.7 fL (7.4-10.4); MONOCYTES 12.6 % (2-11); PLATELET COUNT 404 10x3/uL (130-400); RBC 3.37 10x6/uL (4.00-5.40); RDW 17.7 % (11.5-14.5); WBC 8.7 10x3/uL (4.8-10.8)
--- NOTE | 2019-10-19 07:15 | NUR ---
RECEIVE BEDSIDE SHIFT REPORT. RESTING IN BED. DENIES ANY NEEDS AT THIS TIME. ASKS TO BE CHECKED ON REGULARLY. WILL CONTINUE PLAN OF CARE AND SAFETY PRECAUTIONS. PLAN TO CHANGE WOUND VAC TO R GROIN TODAY.
[2019-10-19 09:18] VITALS: BP 105/52
[2019-10-19 09:24] LABS: ALBUMIN 1.5 g/dL (3.4-5.0); ALKALINE PHOSPHATASE 65 U/L (30-120); ALT (SGPT) 32 U/L (10-68); BILIRUBIN - TOTAL 0.43 mg/dL (0.2-1.3); CALC OSMOLALITY 276 mosm/kg (275-300); CALCIUM 7.8 mg/dL (8.5-10.1); CARBON DIOXIDE 36.1 mmol/L (21.0-32.0); CHLORIDE - SERUM 101 mmol/L (98-107); CREATININE - SERUM 0.7 mg/dL (0.6-1.3); GLUCOSE 102 mg/dL (74-106); POTASSIUM - SERUM 3.3 mmol/L (3.5-5.1); PROTEIN - SERUM 5.3 g/dL (6.4-8.2); SODIUM 139 mmol/L (136-145); UREA NITROGEN 9 mg/dL (7-18); VANCOMYCIN - TROUGH 25.3 ug/mL (10.0-20.0); eGFR NON AFRICAN AMERICAN 89 mL/min (90-120)
[2019-10-19 12:27] VITALS: BP 106/50
--- NOTE | 2019-10-19 16:22 | NUR ---
OT NOTE: PT COMPLETED SUPINE TO SIT WITH MOD/MAX A X2. PT COMPLETED SIT TO STAND WITH MOD/MAX A X2. PT COMPLETED SIDE STEPS WITH MOD A X2. PT COMPLETED UE AROM WITH FUNCTIONAL BED MOB TASKS. PT DID WELL TODAY. 8-132 THANK YOU,CORNELIO ORELLANA
--- NOTE | 2019-10-19 16:42 | NUR ---
OT NOTE: PT DOING BETTER TODAY.. EASIER FOR PT TO GET LEGS TO EOB; MAX ASSIST FOR SUPINE TO SIT WITH INCREASED PAIN IN GROIN AREA. SITTING BALANCE ON EOB WAS GOOD. SIT TO STAND WITH WALKER AND MIN/MOD ASSIST X 2.. TOLERATED LONGER PERIOD OF STANDING AND ALSO ABLE TO TAKE 2-3 SHORT SIDE STEPS. PERFORMED TWICE WITH MODERATE REST BREAK IN BETWEEN.. PERFORMED LE/UE ROM EXS.. PT STILL VERY WEAK IN LES.. REUQIRED ASSIST FOR KNEE EXT AND HIP FLEX EXS. PT ABLE TO PERFORM FEEDING AND GROOMING TASKS FROM BED LEVEL. EXT ASSIST WITH LOWER BODY ADLS. WORKING IN CONJUNCTION WITH P.T. TO GET PT UP TO CHAIR TOMORROW IF SHE IS ABLE TO TOLERATE. JIMBO LEE, OTR/L [phone]
[2019-10-19 18:01] VITALS: BP 117/62
[2019-10-19 20:00] VITALS: BP 136/55
--- NOTE | 2019-10-19 22:30 | NUR ---
WOUND VAC CHANGED WITH COLLINS MORILLO AND ELVIE SCHULZ. FAHAD STEEL, SANDRA.
[2019-10-20] VITALS: BP 127/50
[2019-10-20 04:00] VITALS: BP 112/50
--- NOTE | 2019-10-20 04:18 | NUR ---
I have reviewed this patient and I concur with the Shift Assessment completed by the Licensed Practical Nurse today this shift.
[2019-10-20 06:15] LABS: BASOPHILS 0.4 % (0-2); EOSINOPHILS 2.5 % (0-7); HEMATOCRIT 31.8 % (36.0-48.0); HEMOGLOBIN 9.6 g/dL (12-16); IMMATURE GRANULOCYTES 0.5 % (0-5); LYMPHOCYTES 10.7 % (15-50); MCH 29.5 pg (26.0-34.0); MCHC 30.2 g/dL (31.0-37.0); MCV 97.8 fL (80.0-100.0); MEAN PLATELET VOLUME 8.9 fL (7.4-10.4); MONOCYTES 11.3 % (2-11); NEUTROPHILS 74.6 % (40-80); PLATELET COUNT 400 10x3/uL (130-400); RBC 3.25 10x6/uL (4.00-5.40); RDW 17.8 % (11.5-14.5); WBC 11.1 10x3/uL (4.8-10.8)
[2019-10-20 06:34] LABS: ALBUMIN 1.5 g/dL (3.4-5.0); ANION GAP 7.9 mmol/L (8-16); BILIRUBIN - TOTAL 0.29 mg/dL (0.2-1.3); CALCIUM 7.7 mg/dL (8.5-10.1); CARBON DIOXIDE 32.7 mmol/L (21.0-32.0); POTASSIUM - SERUM 3.6 mmol/L (3.5-5.1); PROTEIN - SERUM 5.4 g/dL (6.4-8.2)
[2019-10-20 06:35] LABS: CREATININE - SERUM 0.9 mg/dL (0.6-1.3)
--- NOTE | 2019-10-20 08:22 | NUR ---
PT LAYING IN BED. AWAKE AND ALERT. NO CO OF PAIN. NO NEEDS AT THIS TIME. WCTM
[2019-10-20 08:41] VITALS: BP 119/47
--- NOTE | 2019-10-20 11:41 | NUR ---
PT SITTING UP IN CHAIR. NO NEEDS AT THIS TIME. CL IN REACH. WCTM
[2019-10-20 12:27] VITALS: BP 125/62
--- NOTE | 2019-10-20 13:38 | NUR ---
OT NOTE: BED MOB WITH MAX ASSIST; EOB SITTING WITH SPV; SIT TO STAND WITH MOD ASSIST X 2; ABLE TO TAKE A FEW STEPS TO CHAIR WITH MOD ASSIST; TOLERATED SITTING UP IN CHAIR X APPROX 2 HRS.. ABLE TO PERFORM GROOMING FEEDING WITH SET UP; DEMONSTRATED UE EXS AND LE EXS WHILE IN CHAIR JIMBO LEE, OTR/L [phone]
--- NOTE | 2019-10-20 15:31 | NUR ---
PATIENT SLEEPING. NO NEEDS AT THIS TIME. CL IN REACH. WCTM
--- NOTE | 2019-10-20 16:53 | NUR ---
OT NOTE: PT COMPLETED SUPINE TO SIT WITH MOD A. PT COMPLETED SIT TO STAND WITH MOD A. PT COMPLETED BED TO CHAIR TSF WITH MOD A X2. PT COMPLETED UE AROM WITH FUNCTIONAL TASKS . PT COMPLETED FACE HYGIENE WITH SETUP. [phone] THANK YOU,CORNELIO ORELLANA
[2019-10-20 17:59] VITALS: BP 147/55
[2019-10-20 20:00] VITALS: BP 125/46
[2019-10-21 04:00] VITALS: BP 120/55
[2019-10-21 05:34] LABS: ALBUMIN 1.6 g/dL (3.4-5.0); ALKALINE PHOSPHATASE 67 U/L (30-120); ALT (SGPT) 31 U/L (10-68); BILIRUBIN - TOTAL 0.44 mg/dL (0.2-1.3); CALC OSMOLALITY 277 mosm/kg (275-300); CARBON DIOXIDE 32.4 mmol/L (21.0-32.0); CHLORIDE - SERUM 104 mmol/L (98-107); CREATININE - SERUM 0.7 mg/dL (0.6-1.3); GLUCOSE 111 mg/dL (74-106); MAGNESIUM - SERUM 1.9 mg/dL (1.8-2.4); SODIUM 139 mmol/L (136-145); UREA NITROGEN 11 mg/dL (7-18); eGFR NON AFRICAN AMERICAN 89 mL/min (90-120)
[2019-10-21 05:51] LABS: BASOPHILS 0.7 % (0-2); EOSINOPHILS 2.7 % (0-7); HEMATOCRIT 31.4 % (36.0-48.0); HEMOGLOBIN 9.3 g/dL (12-16); IMMATURE GRANULOCYTES 0.4 % (0-5); LYMPHOCYTES 10.9 % (15-50); MCHC 29.6 g/dL (31.0-37.0); MCV 97.8 fL (80.0-100.0); MEAN PLATELET VOLUME 8.7 fL (7.4-10.4); MONOCYTES 10.4 % (2-11); NEUTROPHILS 74.9 % (40-80); PLATELET COUNT 357 10x3/uL (130-400); RBC 3.21 10x6/uL (4.00-5.40); RDW 17.7 % (11.5-14.5); WBC 11.1 10x3/uL (4.8-10.8)
--- NOTE | 2019-10-21 07:42 | NUR ---
PT SLEEPING. TRILOGY ON. NO NEEDS AT THIS TIME. WCTM
[2019-10-21 09:07] VITALS: BP 127/59
--- NOTE | 2019-10-21 11:21 | NUR ---
PT IN BED. NO NEEDS AT THIS TIME. CL IN REACH. WCTM
[2019-10-21 12:31] VITALS: BP 130/53
--- NOTE | 2019-10-21 12:33 | NUR ---
OT NOTE: EXTENDED TIME SPENT WITH PT TODAY. PRACTICED BED MOB INCLUDING SUPINE TO SIT; TODAY PT WAS ABLE TO GET LES OFF BED WITHOUT ASSIST; STILL REQUIRED MAX ASSIST FOR SITTING. PERFORMED SIMPLE GROOMING TASKS WITH SET UP; EXT ASSSIST REQUIRED FOR LE DRESSING AND TOILETING. PT ABLE TO STAND WITH MOD ASSIST X 2; TOOK A FEW STEPS TO CHAIR, HOWEVER, UPON SITTING IN CHAIR, PT DID NOT SIT BACK FAR ENOUGH AND WAS ON EDGE OF CHAIR. ATTEMPTED SIT TO STAND AGAIN IN ORDER TO REPOSITION, HOWEVER, SHE WAS VERY FATIGUED. ALLOWED PT TO REST FOR APPROX 5 MIN. ON 3RD ATTEMPT, PT PERFORMED SIT TO STAND WITH MOD ASSIST X 2; TOLERATED STANDING FOR APPROX 30-45 SECONDS WHILE CUSHION AND PADS WERE RE ADJUSTED. PERFORMED NUMEROUS EXS FROM CHAIR POSITION INCLUDING CHAIR PUSHUPS TO STRENGTHEN TRICEPS; MODIFIED KNEE EXS EXS BY PLACING WASH CLOTHS UNDER FEET TO PREVENT RESISTANCE.. PT DOING WELL WITH ALL OF THE ABOVE. WILL ASSIST PT BACK TO BED AFTER LUNCH. JIMBO LEE, OTR/L [phone]
--- NOTE | 2019-10-21 13:15 | MORECARE ---
CASE MANAGEMENT DISCHARGE SUMMARY PATIENT: KAYLEE MORRISSEY UNIT: [id number] ADM DATE: 09/22/19 AGE: 63 : 51 SEX: F ROOM/BED: D.2212 AUTHOR: SALTY,DOC PHYSICIAN: REFERRING PHYSICIAN: MEETA HURTADO MD DATE OF SERVICE: 10/21/19 Discharge Plan Patient Name: KAYLEE MORRISSEY Facility: [facility]:[place] : 1955 Planned Disposition: Neon Sign Maker Acute Care Facility Anticipated Discharge Date: Discharge Date: Expected LOS: Initial Reviewer: [email or web address] Initial Review Date: 09/22/2019 Generated: 10/21/19 2:14 pm Comments DCP- Discharge Planning Updated by [id number]: Frances Aguila on 10/13/19 6:[address] LATE ENTRY 10/11/19 CM received notice that the patient had been cleared by Dr. Medina to have PT/OT eval and LTACH continuation of referral. CM called and left message with Iram @ [facility] and faxed updates. CM spoke with Patient's daughter Mrs. Ivy and updated on progress and plan. Discharge plan accepted from patient and daughter. Late Entry 10/12/19 - 10/13/19 CM spoke with Iram @ [facility] and she stated that patient was no longer LTACH appropriate. Iram stated since wound care had stabilized and that debility doesn't make her appropriate for LTACH. Iram suggested some type of rehab. GEETA then spoke with [facility] INPT REHAB and she stated that Dr. Mckeon had denied patient earlier in her hospital stay because of multiple readmissions. GEETA spoke with Dr. Mckeon later this day and he stated that he would put rehab prescreen order. GEETA spoke with patient's daughter and she was in favor of rehab of any kind. She just stated that her mother can't go home. CM will continue to follow and assist as needed with discharge planning / needs. DCP- Discharge Planning Updated by [email or web address]: Adeola Hummel on 10/05/19 1:[address] CM contacted Iram with [facility], regarding a delay in transferring patient today. The patient is going to surgery for an exploration of the groin hematoma area. If the patient requires a wound vac, per Iram, the VAC dressings have to be changed by a nurse, as the MD at [facility] will not accept the patient, if the dressing has to be changed by the MD. CM will contact again 10/05 for update. DCP- Discharge Planning Updated by [id number]: Betsy Angulo on 10/03/19 10:[address] Pt daughter called CM to inquire about status of placement. CM provided update of SNF unable to accept. Received verbal permission to reach out to Lt. CM called Iram at [phone] about referral. CM faxed referral with a request of acceptance or denial within 24 hours. CM will continue assisting in DC planning. Betsy Angulo MSN,RN, DCP- Discharge Planning Updated by [id number]: Adeola Hummel on 09/28/19 2:[address] CM faxed requested information for [facility] along with the order. DCP- Discharge Planning Updated by [id number]: Betsy Angulo on 09/27/19 5:[address] Patient Name: KAYELE MORRISSEY Admission Status: Elective Accout number: [id number] Admission Date: 09-22-2019 : 1955 Admission Diagnosis:DISRUPTION OF WOUND, UNSPECIFIED, INITIAL ENCOUNTER Attending: BRYANT, Current LOS: 5 Anticipated DC Date: Planned Disposition: Group Home Facility Primary Insurance: [employer] [facility] Discharge Planning Comments: CM met with patient to complete initial dc planning assessment. CM educated patient on the CM role and verbal consent given by patient to complete assessment. CM verified patient's address, phone number, and emergency contact phone numbers. Prior to admission she was at [facility] IP rehab. Since admissions pt states she is weak and unable to stand without assistance. CM spoke with [facility] rehab and states they are unable to meet her needs. Cm spoke with the patient who became tearful. States she would like to go to rehab, but she will go to a SNF if that is her only option. DIONICIO verbalized for [facility], [facility] rehab, and [place]. CM fax[facility], and Dominique at [place]. CM will continue to follow and will assist as needed with dc plans/needs. Animal Biologist: Betsy Angulo DCPIA - Discharge Planning Initial Assessment Updated by [id number]: Betsy Angulo on 09/27/19 6:10 pm * Is the patient Alert and Oriented? Yes * How many steps to enter\exit or inside your home? 0/0 * PCP Lyndsay * [facility] * Preadmission Environment Acute Inpatient Rehab * Facility Name [facility] IP Rehab * ADLs Partial Dependent * Partial ADLs (Assistance needed) Ambulation Bathing Dressing Medication Management Toileting Transfers * Equipment Oxygen * Other Equipment has 02 and concentrator from [facility] * List name and contact numbers for known caregivers / representatives who currently or will assist patient after discharge: Anderson Castellanos [phone] DTR Nandini [phone] * Verbal permission to speak to the caregivers and representatives has been obtained from the patient. Yes * Community resources currently utilized None * Additional services required to return to the preadmission environment? Yes * Can the patient safely return to the preadmission environment? Yes * Has this patient been hospitalized within the prior 30 days at any hospital? Yes External Providers [facility] Next Contact Date: Service Request Date: Service Type: Resolution: Reviewer: Comments: Last DP export: 10/13/19 6:59 pm Patient Name: KAYLEE MORRISSEY Page [id number] at 1315 All edits/amendments must be made on the electronic document DICTATION DATE: 10/21/19 1314 RETORT LOAD EXPEDITER: WILLIAM 10/21/19 1314 RPT#: [id number] DC DATE: STATUS: ADM IN [facility] [address] [place] [address] END OF REPORT
--- NOTE | 2019-10-21 14:15 | MORECARE ---
CASE MANAGEMENT DISCHARGE SUMMARY PATIENT: KAYLEE MORRISSEY UNIT: [id number] ADM DATE: 09/22/19 AGE: 63 : 51 SEX: F ROOM/BED: D.2212 AUTHOR: SALTY,DOC PHYSICIAN: REFERRING PHYSICIAN: MEETA HURTADO MD DATE OF SERVICE: 10/21/19 Discharge Plan Patient Name: KAYLEE MORRISSEY Facility: [facility]:[place] : 1955 Planned Disposition: Mechanical Engineering Specialist Acute Care Facility Anticipated Discharge Date: Discharge Date: Expected LOS: Initial Reviewer: [email or web address] Initial Review Date: 09/22/2019 Generated: 10/21/19 3:14 pm Comments DCP- Discharge Planning Updated by [email or web address]: Leah Sue on 10/21/19 1:[address] Spoke with patient, patient's daughter (Nandini) OT & PT Patient would like to go to rehab. I have contacted Svetlana with [facility] and resubmitted clinical for them to look at to see if she would be appropriate for inpatient rehab. DCP- Discharge Planning Updated by [id number]: Frances Aguila on 10/13/19 6:[address] LATE ENTRY 10/11/19 CM received notice that the patient had been cleared by Dr. Medina to have PT/OT eval and LTACH continuation of referral. CM called and left message with Iram Nael LAZ[facility]O and faxed updates. CM spoke with Patient's daughter Mrs. Ivy and updated on progress and plan. Discharge plan accepted from patient and daughter. Late Entry 10/12/19 - 10/13/19 CM spoke with Iram [facility] and she stated that patient was no longer LTACH appropriate. Iram stated since wound care had stabilized and that debility doesn't make her appropriate for LTACH. Iram suggested some type of rehab. GEETA then spoke with [facility] INPT REHAB and she stated that Dr. Mckeon had denied patient earlier in her hospital stay because of multiple readmissions. GEETA spoke with Dr. Mckeon later this day and he stated that he would put rehab prescreen order. CM spoke with patient's daughter and she was in favor of rehab of any kind. She just stated that her mother can't go home. CM will continue to follow and assist as needed with discharge planning / needs. DCP- Discharge Planning Updated by [id number]: Adeola Hummel on 10/05/19 1:[address] CM contacted Iram with [facility], regarding a delay in transferring patient today. The patient is going to surgery for an exploration of the groin hematoma area. If the patient requires a wound vac, per Iram, the VAC dressings have to be changed by a nurse, as the MD at [facility] will not accept the patient, if the dressing has to be changed by the MD. CM will contact again 10/05 for update. DCP- Discharge Planning Updated by [id number]: Betsy Angulo on 10/03/19 10:[address] Pt daughter called CM to inquire about status of placement. CM provided update of SNF unable to accept. Received verbal permission to reach out to [facility]. CM called Iram at [phone] about referral. CM faxed referral with a request of acceptance or denial within 24 hours. CM will continue assisting in DC planning. Betsy Angulo MSN,RN, DCP- Discharge Planning Updated by [id number]: Adeola Hummel on 09/28/19 2:[address] CM faxed requested information for [facility] along with the order. DCP- Discharge Planning Updated by [id number]: Betsy Angulo on 09/27/19 5:[address] Patient Name: KAYLEE MORRISSEY Admission Status: Elective Accout number: [id number] Admission Date: 09-22-2019 : 1955 Admission Diagnosis:DISRUPTION OF WOUND, UNSPECIFIED, INITIAL ENCOUNTER Attending: BRYANT Current LOS: 5 Anticipated DC Date: Planned Disposition: [facility] Facility Primary Insurance: [employer] [facility] Discharge Planning Comments: CM met with patient to complete initial dc planning assessment. CM educated patient on the CM role and verbal consent given by patient to complete assessment. CM verified patient's address, phone number, and emergency contact phone numbers. Prior to admission she was at [facility] IP rehab. Since admissions pt states she is weak and unable to stand without assistance. CM spoke with [facility] IP rehab and states they are unable to meet her needs. Cm spoke with the patient who became tearful. States she would like to go to rehab, but she will go to a SNF if that is her only option. DIONICIO verbalized for [facility] rehab, and [facility]. CM faxed referrals to Imani at [facility] rehab, and Dominique at [place]. CM will continue to follow and will assist as needed with dc plans/needs. Box Packer: Betsy Angulo DCPIA - Discharge Planning Initial Assessment Updated by [id number]: Betsy Angulo on 09/27/19 6:10 pm * Is the patient Alert and Oriented? Yes * How many steps to enter\exit or inside your home? 0/0 * PCP Lyndsay * [facility] * Preadmission Environment Acute Inpatient Rehab * Facility Name [facility] IP Rehab * ADLs Partial Dependent * Partial ADLs (Assistance needed) Ambulation Bathing Dressing Medication Management Toileting Transfers * Equipment Oxygen * Other Equipment has 02 and concentrator from [facility] * List name and contact numbers for known caregivers / representatives who currently or will assist patient after discharge: Anderson Castellanos [phone] DTR Nandini [phone] * Verbal permission to speak to the caregivers and representatives has been obtained from the patient. Yes * Community resources currently utilized None * Additional services required to return to the preadmission environment? Yes * Can the patient safely return to the preadmission environment? Yes * Has this patient been hospitalized within the prior 30 days at any hospital? Yes Last DP export: 10/21/19 12:15 p Patient Name: KAYLEE MORRISSEY Page [phone] at 1415 All edits/amendments must be made on the electronic document DICTATION DATE: 10/21/191413 LATRINE CLEANER: WILLIAM 10/21/191413 RPT#: [id number] DC DATE: STATUS: ADM IN [facility] [address] [place] [address] END OF REPORT
--- NOTE | 2019-10-21 14:48 | NUR ---
OT NOTE: PT SEEN IN PM.. PT VERY TEARFUL REGARDING POSSIBLE TRANSFER TO IP REHAB. EXPLAINED TO PT THAT SHE WOULD GET BETTER MUCH FASTER AT IP REHAB, BUT I THINK SHES FEARFUL THAT SHE WILL HAVE A SET BACK AND BE PLACED BACK IN ICU. PT IS DOING SOOOOO MUCH BETTER.. SHE IS PARTICIPATING WELL AND IMPROVING DAILY. PT ABLE TO DEMONSTRATE LE EXS WITH WASHCLOTHS AGAIN THIS PM.. ABLE TO PERFORM UE AROM EXS X 10 REPS X 2 SETS..PERFORMED SIT TO STAND WITH MAX ASSSIST X 2; INCREASED DIFFICULTY MOVING FEET DURING TRANSFERS.. SIT TO SUPINE WITH MAX ASSIST X 2.. PT PRACTICED POSITIONING AND ROLLING IN BED WITH LESS ASSIST TODAY.. JIMBO LEE, OTR/L [id number]
--- NOTE | 2019-10-21 15:14 | NUR ---
OT NOTE: PT COMPLETED SUPINE TO SIT WITH MOD A X2 . PT COMPLETED BED TO CHAIR TSF WITH MAX X2. PT COMPLETED UB HYGIENE WITH MIN A. PT COMPLETED UE AROM AXS. [id number] SHELTON FERNANDO COTA
--- NOTE | 2019-10-21 15:21 | MORECARE ---
CASE MANAGEMENT DISCHARGE SUMMARY PATIENT: KAYLEE MORRISSEY UNIT: [id number] ADM DATE: 09/22/19 AGE: 63 : 53 SEX: F ROOM/BED: D.2212 AUTHOR: SALTY,DOC PHYSICIAN: REFERRING PHYSICIAN: MEETA HURTADO MD DATE OF SERVICE: 10/21/19 Discharge Plan Patient Name: KAYLEE MORRISSEY Facility: [facility]:[place] : 1955 Planned Disposition: Cell Tuber Machine Acute Care Facility Anticipated Discharge Date: Discharge Date: Expected LOS: Initial Reviewer: [email or web address] Initial Review Date: 09/22/2019 Generated: 10/21/19 4:20 pm Comments DCP- Discharge Planning Updated by [id number]: Leah Sue on 10/21/19 2:[address] PER ACACIA WITH [facility], THEY WILL ACCEPT HER TOMORROW FOR INPATIENT REHAB AT [facility]. I HAVE CALLED PATIENT'S DAUGHTER NANDINI TO LET HER KNOW THE PLAN. I HAVE ALSO UPDATED THE PATIENT ON THE PLAN ALONG WITH HARI PALACIO DCP- Discharge Planning Updated by [id number]: Leah Linette on 10/21/19 1:[address] Spoke with patient, patient's daughter (Nandini) OT & PT Patient would like to go to rehab. I have contacted Acacia with [facility] and resubmitted clinical for them to look at to see if she would be appropriate for inpatient rehab. DCP- Discharge Planning Updated by [id number]: Frances Aguila on 10/13/19 6:[address] LATE ENTRY 10/11/19 CM received notice that the patient had been cleared by Dr. Medina to have PT/OT eval and LTACH continuation of referral. CM called and left message with Iram [facility] and faxed updates. CM spoke with Patient's daughter Mrs. Ivy and updated on progress and plan. Discharge plan accepted from patient and daughter. Late Entry 10/12/19 - 10/13/19 GEETA spoke with Iram [facility] and she stated that patient was no longer LTACH appropriate. Iram stated since wound care had stabilized and that debility doesn't make her appropriate for LTACH. Iram suggested some type of rehab. CM then spoke with [facility] INPT REH[facility] and she stated that Dr. Mckeon had denied patient earlier in her hospital stay because of multiple readmissions. CM spoke with Dr. Mckeon later this day and he stated that he would put rehab prescreen order. CM spoke with patient's daughter and she was in favor of rehab of any kind. She just stated that her mother can't go home. CM will continue to follow and assist as needed with discharge planning / needs. DCP- Discharge Planning Updated by [id number]: Adeola Hummel on 10/05/19 1:[address] CM contacted Iram with [facility], regarding a delay in transferring patient today. The patient is going to surgery for an exploration of the groin hematoma area. If the patient requires a wound vac, per Iram, the VAC dressings have to be changed by a nurse, as the MD at [facility] will not accept the patient, if the dressing has to be changed by the MD. CM will contact again 10/05 for update. DCP- Discharge Planning Updated by [id number]: Betsy Angulo on 10/03/19 10:[address] Pt daughter called CM to inquire about status of placement. CM provided update of SNF unable to accept. Received verbal permission to reach out to [facility]. CM called Iram at [phone] about referral. CM faxed referral with a request of acceptance or denial within 24 hours. CM will continue assisting in DC planning. Betsy ROSEN,RN,CM DCP- Discharge Planning Updated by [id number]: Adeola Hummel on 09/28/19 2:[address] CM faxed requested information for [facility] along with the order. DCP- Discharge Planning Updated by [id number]: Betsy Angulo on 09/27/19 5:[address] Patient Name: KAYLEE MORRISSEY Admission Status: Elective Accout number: [id number] Admission Date: 09-22-2019 : 1955 Admission Diagnosis:DISRUPTION OF WOUND, UNSPECIFIED, INITIAL ENCOUNTER Attending: BRYANT, Current LOS: 5 Anticipated DC Date: Planned Disposition: Detention Facility Primary Insurance: [facility] Discharge Planning Comments: CM met with patient to complete initial dc planning assessment. CM educated patient on the CM role and verbal consent given by patient to complete assessment. CM verified patient's address, phone number, and emergency contact phone numbers. Prior to admission she was at [facility] IP rehab. Since admissions pt states she is weak and unable to stand without assistance. CM spoke with [facility] rehab and states they are unable to meet her needs. Cm spoke with the patient who became tearful. States she would like to go to rehab, but she will go to a SNF if that is her only option. DIONICIO verbalized for [facility] rehab, and [facility]. CM faxed referrals to Imani at [facility], and Dominique at [place]. CM will continue to follow and will assist as needed with dc plans/needs. Manager Income Tax: Betsy Angulo DCPIA - Discharge Planning Initial Assessment Updated by [id number]: Betsy Angulo on 09/27/19 6:10 pm * Is the patient Alert and Oriented? Yes * How many steps to enter\exit or inside your home? 0/0 * PCP Lyndsay * [facility] * Preadmission Environment [facility]patient [facility]hab [facility] * ADLs Partial Dependent * Partial ADLs (Assistance needed) Ambulation Bathing Dressing Medication Management Toileting Transfers * Equipment Oxygen * Other Equipment has 02 and concentrator from [facility] * List name and contact numbers for known caregivers / representatives who currently or will assist patient after discharge: Anderson Castellanos [phone] DTR Piterbulmaro [phone] * Verbal permission to speak to the caregivers and representatives has been obtained from the patient. Yes * Community resources currently utilized None * Additional services required to return to the preadmission environment? Yes * Can the patient safely return to the preadmission environment? Yes * Has this patient been hospitalized within the prior 30 days at any hospital? Yes Last DP export: 10/21/19 1:15 p Patient Name: KAYLEE MORRISSEY Page [phone] at 1521 All edits/amendments must be made on the electronic document DICTATION DATE: 10/21/19 152 NEWS PRODUCTION ASSISTANT: WILLIAM 10/21/19 152 RPT#: [id number] DC DATE: STATUS: ADM IN [facility] [address] [place] [address] END OF REPORT
[2019-10-21 17:31] VITALS: BP 119/59
--- NOTE | 2019-10-21 17:35 | NUR ---
WOUND VAC DRESSING CHANGED BY MICHAEL RN WITH CARDIOVASCULAR SURGERY AND MYSELF. CENTRAL LINE DRESSING CHANGED. TOLERATED BOTH WELL. PT REQUESTED A PAIN PILL AFTERWARD. CL IN REACH. WCTM
[2019-10-21 22:24] VITALS: BP 120/63
[2019-10-22 01:13] VITALS: BP 124/68
--- NOTE | 2019-10-22 03:26 | NUR ---
ASSESSED AT THE BEGINNING OF THE SHIFT. PT IS ALERT AND ORIENTED, ABLE TO VERBALIZE NEEDS. SHE WAS STARTED ON [employer] POWER FOR A SKIN TEAR UNDER HER LEFT ARM WHICH IS GETTING RED. HER NIGHT MEDS WERE TAKEN WITHOUT A PROBLEM AND WE STRAIGHTEN HER UP IN BED SO THAT SHE FELT COMFORTABLE. SHE SLEEPS WITH HER TRILOGY AND IT WAS PUT ON. SCD'S WERE IN PLACE AND A NORCO HAD BEEN TAKEN FOR DISCOMFORT.
[2019-10-22 06:14] VITALS: BP 124/65
[2019-10-22 06:46] LABS: BASOPHILS 0.5 % (0-2); HEMATOCRIT 34.1 % (36.0-48.0); HEMOGLOBIN 10.2 g/dL (12-16); IMMATURE GRANULOCYTES 0.5 % (0-5); LYMPHOCYTES 9.6 % (15-50); MCH 29.3 pg (26.0-34.0); MCHC 29.9 g/dL (31.0-37.0); MEAN PLATELET VOLUME 8.5 fL (7.4-10.4); MONOCYTES 9.2 % (2-11); NEUTROPHILS 78.2 % (40-80); PLATELET COUNT 382 10x3/uL (130-400); RBC 3.48 10x6/uL (4.00-5.40); RDW 17.6 % (11.5-14.5); WBC 12.2 10x3/uL (4.8-10.8)
[2019-10-22 07:31] LABS: ALBUMIN 1.6 g/dL (3.4-5.0); ALKALINE PHOSPHATASE 74 U/L (30-120); ALT (SGPT) 26 U/L (10-68); BILIRUBIN - TOTAL 0.46 mg/dL (0.2-1.3); CALC OSMOLALITY 277 mosm/kg (275-300); CALCIUM 8.1 mg/dL (8.5-10.1); CHLORIDE - SERUM 99 mmol/L (98-107); CREATININE - SERUM 0.7 mg/dL (0.6-1.3); GLUCOSE 124 mg/dL (74-106); MAGNESIUM - SERUM 1.7 mg/dL (1.8-2.4); POTASSIUM - SERUM 3.4 mmol/L (3.5-5.1); PROTEIN - SERUM 5.7 g/dL (6.4-8.2); SODIUM 139 mmol/L (136-145); UREA NITROGEN 10 mg/dL (7-18); eGFR NON AFRICAN AMERICAN 89 mL/min (90-120)
[2019-10-22 09:50] VITALS: BP 122/57
[2019-10-22] MEDS ORDERED: BETAPACE 80 MG80 MG PO (10:53)
[2019-10-22] MEDS ORDERED: FUROSEMIDE20 MG PO (10:53)
[2019-10-22] MEDS ORDERED: PROTONIX40 MG PO (10:53)
[2019-10-22] MEDS ORDERED: CARDIZEM 90 MG90 MG PO (10:53)
[2019-10-22] MEDS ORDERED: MIRALAX17 GM PO (10:53)
[2019-10-22] MEDS ORDERED: NYSTATIN100000 UN4 PO (10:53)
--- NOTE | 2019-10-22 11:03 | NUR ---
RESTING IN BED, NO DISTRESS NOTED, IV PER L SUBCLAVIAN, NO S/S OF INFECTION, TURNED PER STAFF, MIRANDA TO GRAVITY
--- NOTE | 2019-10-22 13:37 | MORECARE ---
CASE MANAGEMENT DISCHARGE SUMMARY PATIENT: KAYLEE MORRISSEY UNIT: [id number] ADM DATE: 09/22/19 AGE: 63 : 51 SEX: F ROOM/BED: D.2212 AUTHOR: SALTY,DOC PHYSICIAN: REFERRING PHYSICIAN: MEETA HURTADO MD DATE OF SERVICE: 10/22/19 Discharge Plan Patient Name: KAYLEE MORRISSEY Facility: [facility]:[place] : 1955 Planned Disposition: Sodium Chlorite Operator Acute Care Facility Anticipated Discharge Date: Discharge Date: Expected LOS: Initial Reviewer: [email or web address] Initial Review Date: 09/22/2019 Generated: 10/22/19 2:36 pm Comments DCP- Discharge Planning Updated by [id number]: Betsy Angulo on 10/22/19 12:[address] Cm spoke with Mag with [facility] about pending dc. [facility] will accept pt upon dc clinicals. Mag states she will call CM back with room assignment upon availability. [facility] will roller picker pt for transport. Mag states transport will be ready for roller picker at 4 pm. Betsy Angulo MSN,RN,CM DCP- Discharge Planning Updated by [email or web address]: Leah Sue on 10/21/19 2:[address] PER ACACIA WITH [facility], THEY WILL ACCEPT HER TOMORROW FOR INPATIENT REHAB AT . I HAVE CALLED PATIENT'S DAUGHTER NANDINI TO LET HER KNOW THE PLAN. I HAVE ALSO UPDATED THE PATIENT ON THE PLAN ALONG WITH HARI PALACIO DCP- Discharge Planning Updated by [email or web address]: Leah Sue on 10/21/19 1:[address] Spoke with patient, patient's daughter (Nandini) OT & PT Patient would like to go to rehab. I have contacted Acacia with [facility] and resubmitted clinical for them to look at to see if she would be appropriate for inpatient rehab. DCP- Discharge Planning Updated by [email or web address]: Frances Aguila on 10/13/19 6:[address] LATE ENTRY 10/11/19 CM received notice that the patient had been cleared by Dr. Medina to have PT/OT eval and LTACH continuation of referral. CM called and [facility] message with [facility] and faxed updates. CM spoke with Patient's daughter Mrs. Ivy and updated on progress and plan. Discharge plan accepted from patient and daughter. Late Entry 10/12/19 - 10/13/19 CM spoke with Iram @ [facility] and she stated that patient was no longer LTACH appropriate. Iram stated since wound care had stabilized and that debility doesn't make her appropriate for LTACH. Iram suggested some type of rehab. CM then spoke with [facility] and she stated that Dr. Mckeon had denied patient earlier in her hospital stay because of multiple readmissions. CM spoke with Dr. Mckeon later this day and he stated that he would put rehab prescreen order. CM spoke with patient's daughter and she was in favor of rehab of any kind. She just stated that her mother can't go home. CM will continue to follow and assist as needed with discharge planning / needs. DCP- Discharge Planning Updated by [id number]: Adeola Hummel on 10/05/19 1:[address] CM contacted Iram with [facility], regarding a delay in transferring patient today. The patient is going to surgery for an exploration of the groin hematoma area. If the patient requires a wound vac, per Iram, the VAC dressings have to be changed by a nurse, as the MD at [facility] will not accept the patient, if the dressing has to be changed by the MD. CM will contact again 10/05 for update. DCP- Discharge Planning Updated by [id number]: Betsy Angulo on 10/03/19 10:[address] Pt daughter called CM to inquire about status of placement. CM provided update of SNF unable to accept. Received verbal permission to reach out to [facility]. CM called Iram at [phone] about referral. CM faxed referral with a request of acceptance or denial within 24 hours. CM will continue assisting in DC planning. Betsy Angulo MSN,RN, DCP- Discharge Planning Updated by [id number]: Adeola Hummel on 09/28/19 2:[address] CM faxed requested information for [facility] along with the order. DCP- Discharge Planning Updated by [email or web address]: Betsy Angulo on 09/27/19 5:[address] Patient Name: KAYLEE MORRISSEY Admission Status: Elective Accout number: [id number] Admission Date: 09-22-2019 : 1955 Admission Diagnosis:DISRUPTION OF WOUND, UNSPECIFIED, INITIAL ENCOUNTER Attending: BRYANT, Current LOS: 5 Anticipated DC Date: Planned Disposition: Fdc Facility Primary Insurance: [facility] PF Discharge Planning Comments: CM met with patient to complete initial dc planning assessment. CM educated patient on the CM role and verbal consent given by patient to complete assessment. CM verified patient's address, phone number, and emergency contact phone numbers. Prior to admission she was at [facility] rehab. Since admissions pt states she is weak and unable to stand without assistance. CM spoke with [facility] rehab and states they are unable to meet her needs. Cm spoke with the patient who became tearful. States she would like to go to rehab, but she will go to a SNF if that is her only option. DIONICIO verbalized for [facility] rehab, and [facility]. CM fax[facility], and Dominique at [place]. CM will continue to follow and will assist as needed with dc plans/needs. Elementary Supervisor: Betsy Angulo DCPIA - Discharge Planning Initial Assessment Updated by [email or web address]: Betsy Angulo on 09/27/19 6:10 pm * Is the patient Alert and Oriented? Yes * How many steps to enter\exit or inside your home? 0/0 * PCP Lyndsay * [facility] * Preadmission Environment Acute Inpatient Rehab * [facility] * ADLs Partial Dependent * Partial ADLs (Assistance needed) Ambulation Bathing Dressing Medication Management Toileting Transfers * Equipment Oxygen * Other Equipment has 02 and concentrator from [facility] * List name and contact numbers for known caregivers / representatives who currently or will assist patient after discharge: Anderson Castellanos [phone] DTR Nandini [phone] * Verbal permission to speak to the caregivers and representatives has been obtained from the patient. Yes * Community resources currently utilized None * Additional services required to return to the preadmission environment? Yes * Can the patient safely return to the preadmission environment? Yes * Has this patient been hospitalized within the prior 30 days at any hospital? Yes Last DP export: 10/21/19 2:21 p Patient Name: KAYLEE MORRISSEY Page [id number] at 1337 All edits/amendments must be made on the electronic document DICTATION DATE: 10/22/191335 GEOTHERMAL INSTALLER: WILLIAM 10/22/196 RPT#: [id number] DC DATE: STATUS: ADM IN [facility] [address] [place] [address] END OF REPORT
--- NOTE | 2019-10-22 15:30 | NUR ---
CALL PLACED TO [facility] FOR REPORT, SPOKE WITH ANKIT, CENTRAL LINE, MIRANDA AND WOUND VAC DRESSING TO BE SENT INTACT
--- NOTE | 2019-10-22 16:10 | NUR ---
REVIEWED DC ORDERS WITH PT, VOICED NO CONCERNS, RIDE HERE TO TRANSFER PT TO [facility]
--- NOTE | 2019-10-22 16:35 | NUR ---
PT TAKEN PER W/C TO [facility] VAN, MIRANDA, WOUND VAC DRESSING AND CENTRALINE INTACT, O2 PER NC AT 2L,LETICIA TRANSFER WELL
--- NOTE | 2019-10-24 08:19 | MORECARE ---
CASE MANAGEMENT DISCHARGE SUMMARY PATIENT: KAYLEE MORRISSEY UNIT: [id number] ADM DATE: 09/22/19 AGE: 63 : 51 SEX: F ROOM/BED: D.2212 AUTHOR: ASLTY,DOC PHYSICIAN: REFERRING PHYSICIAN: MEETA HURTADO MD DATE OF SERVICE: 10/24/19 Discharge Plan Patient Name: KAYLEE MORRISSEY Facility: [facility]:[place] : 1955 Planned Disposition: Manager Therapy Acute Care Facility Anticipated Discharge Date: Discharge Date: 10/22/2019 Expected LOS: Initial Reviewer: [id number] Initial Review Date: 09/22/2019 Generated: 10/24/19 9:18 am Comments DCP- Discharge Planning Updated by [id number]: Betsy Angulo on 10/22/19 12:[address] Cm spoke with Mag with [facility] about pending dc. [facility] will accept pt upon dc clinicals. Mag states she will call CM back with room assignment upon availability. [facility] will chart picker pt for transport. Mag states transport will be ready for chart picker at 4 pm. Betsy Angulo MSN,RN,CM DCP- Discharge Planning Updated by [email or web address]: Leah Sue on 10/21/19 2:[address] PER ACACIA WITH [facility], THEY WILL ACCEPT HER TOMORROW FOR INPATIENT REHAB AT [facility]. I HAVE CALLED PATIENT'S DAUGHTER NANDINI TO LET HER KNOW THE PLAN. I HAVE ALSO UPDATED THE PATIENT ON THE PLAN ALONG WITH HARI PALACIO DCP- Discharge Planning Updated by [email or web address]: Leah Sue on 10/21/19 1:[address] Spoke with patient, patient's daughter (Nandini) OT & PT Patient would like to go to rehab. I have contacted Acacia with [facility] and resubmitted clinical for them to look at to see if she would be appropriate for inpatient rehab. DCP- Discharge Planning Updated by [id number]: Frances Aguila on 10/13/19 6:[address] LATE ENTRY 10/11/19 GEETA received notice that the patient had been cleared by Dr. Medina to have PT/OT eval and LTACH continuation of referral. CM called and left message with Iram @ [facility] and faxed updates. CM spoke with Patient's daughter Mrs. Ivy and updated on progress and plan. Discharge plan accepted from patient and daughter. Late Entry 10/12/19 - 10/13/19 CM spoke with Iram @ [facility] and she stated that patient was no longer LTACH appropriate. Iram stated since wound care had stabilized and that debility doesn't make her appropriate for LTACH. Iram suggested some type of rehab. CM then spoke with [facility] and she stated that Dr. Mckeon had denied patient earlier in her hospital stay because of multiple readmissions. CM spoke with Dr. Mckeon later this day and he stated that he would put rehab prescreen order. CM spoke with patient's daughter and she was in favor of rehab of any kind. She just stated that her mother can't go home. CM will continue to follow and assist as needed with discharge planning / needs. DCP- Discharge Planning Updated by [id number]: Adeola Hummel on 10/05/19 1:[address] CM contacted Iram with [facility], regarding a delay in transferring patient today. The patient is going to surgery for an exploration of the groin hematoma area. If the patient requires a wound vac, per Iram, the VAC dressings have to be changed by a nurse, as the MD at [facility] will not accept the patient, if the dressing has to be changed by the MD. CM will contact again 10/05 for update. DCP- Discharge Planning Updated by [id number]: Betsy Angulo on 10/03/19 10:[address] Pt daughter called CM to inquire about status of placement. CM provided update of SNF unable to accept. Received verbal permission to reach out to [facility]. CM called Iram at [phone] about referral. CM faxed referral with a request of acceptance or denial within 24 hours. CM will continue assisting in DC planning. Betsy Angulo MSN,RN, DCP- Discharge Planning Updated by [id number]: Adeola Hummel on 09/28/19 2:[address] CM faxed requested information for [facility] along with the order. DCP- Discharge Planning Updated by [id number]: Betsy Angulo on 09/27/19 5:[address] Patient Name: KAYLEE MORRISSEY Admission Status: Elective Accout number: [id number] Admission Date: 09-22-2019 : 1955 Admission Diagnosis:DISRUPTION OF WOUND, UNSPECIFIED, INITIAL ENCOUNTER Attending: BRYANT, Current LOS: 5 Anticipated DC Date: Planned Disposition: Fpc Facility Primary Insurance: [facility] PF Discharge Planning Comments: CM met with patient to complete initial dc planning assessment. CM educated patient on the CM role and verbal consent given by patient to complete assessment. CM verified patient's address, phone number, and emergency contact phone numbers. Prior to admission she was at [facility] IP rehab. Since admissions pt states she is weak and unable to stand without assistance. CM spoke with [facility] rehab and states they are unable to meet her needs. Cm spoke with the patient who became tearful. States she would like to go to rehab, but she will go to a SNF if that is her only option. DIONICIO verbalized for [facility] rehab, and [facility]. CM [facility], and Dominique at [place]. CM will continue to follow and will assist as needed with dc plans/needs. Plug Cutting Machine Operator: Betsy Angulo DCPIA - Discharge Planning Initial Assessment Updated by [email or web address]: Betsy Angulo on 09/27/19 6:10 pm * Is the patient Alert and Oriented? Yes * How many steps to enter\exit or inside your home? 0/0 * PCP Lyndsay * [facility] * Preadmission Environment Acute Inpatient Rehab * Facility Name [facility] Rehab * ADLs Partial Dependent * Partial ADLs (Assistance needed) Ambulation Bathing Dressing Medication Management Toileting Transfers * Equipment Oxygen * Other Equipment has 02 and concentrator from [facility] * List name and contact numbers for known caregivers / representatives who currently or will assist patient after discharge: Anderson Catsellanos [phone] DTR Nandini [phone] * Verbal permission to speak to the caregivers and representatives has been obtained from the patient. Yes * Community resources currently utilized None * Additional services required to return to the preadmission environment? Yes * Can the patient safely return to the preadmission environment? Yes * Has this patient been hospitalized within the prior 30 days at any hospital? Yes Last DP export: 10/22/19 12:37 p Patient Name: KAYLEE MORRISSEY Page 64022 at 0819 All edits/amendments must be made on the electronic document DICTATION DATE: 10/24/19817 CIRCULAR KNIFE CUTTER MACHINE: WILLIAM 10/24/19817 RPT#: [id number] DC DATE:10/22/19 STATUS: DIS IN [facility] [address] [place] [address] END OF REPORT
== END 2019-10-22 16:45 | DRG 901 ==
LOC: D.OPS 22:06 → D.M2 22:13 → D.ICU 22:13 → D.M2 09-24 17:22 → D.ICU 10-06 16:45 → D.MS 10-14 08:55
PROVIDERS: Emergency Medicine; Family Medicine; Thoracic Surgery (Cardiothoracic Vascular Surgery); ADMIT Family Medicine; ATTEND Family Medicine
PROC: 0JBL0ZZ Excision of Right Upper Leg Subcutaneous Tissue and Fascia, Open Approach (ICD-10-PCS; principal; 2019-09-23 16:00)
PROC: 0JBL0ZZ Excision of Right Upper Leg Subcutaneous Tissue and Fascia, Open Approach (ICD-10-PCS; 2019-10-03)
PROC: 0HBHXZZ Excision of Right Upper Leg Skin, External Approach (ICD-10-PCS; 2019-10-06)
DX: T81.32XA Disruption of internal operation (surgical) wound, not elsewhere classified, initial encounter (principal); E43 Unspecified severe protein-calorie malnutrition; I96 Gangrene, not elsewhere classified; Z68.43 Body mass index [BMI] 50.0-59.9, adult; J96.12 Chronic respiratory failure with hypercapnia; J96.11 Chronic respiratory failure with hypoxia; L03.314 Cellulitis of groin; Y83.9 Surgical procedure, unspecified as the cause of abnormal reaction of the patient, or of later complication, without mention of misadventure at the time of the procedure; L76.82 Other postprocedural complications of skin and subcutaneous tissue; I10 Essential (primary) hypertension; E78.5 Hyperlipidemia, unspecified; G47.33 Obstructive sleep apnea (adult) (pediatric); K21.9 Gastro-esophageal reflux disease without esophagitis; F41.8 Other specified anxiety disorders; G47.00 Insomnia, unspecified; E66.01 Morbid (severe) obesity due to excess calories; I48.91 Unspecified atrial fibrillation; Z79.01 Long term (current) use of anticoagulants; J44.9 Chronic obstructive pulmonary disease, unspecified; I25.10 Atherosclerotic heart disease of native coronary artery without angina pectoris

== ENCOUNTER 2020-04-21 13:33 | Inpatient (IN) | payer MEDICARE ==
[~2020-04-21] VITALS: Ht 157.5 cm; Wt 145.8 kg
--- NOTE | ~2020-04-21 | HEMODYNAMI ---
PATIENT:KAYLEE MORRISSEY MEDICAL RECORD: [id number] : [birth year] [facility] AD[facility] DATE: 04/21/20 Generatedon:110:10 Patient name: KAYLEE MORRISSEY Patient #: [id number] SSN: [id number] : 1955 Date of study: 04/27/2020 Page: Of Hemodynamic Procedure Report Patient Data Patient Demographics Procedure consent was obtained First Name: KAYLEE Gender: Female Last Name: YUNI : 1955 [facility] Initial: VANDANA Age: 64 year(s) Patient #: [id number] Race: SSN: [id number] Additional ID: [id number] Contact details Address: [address] [place] [address] State: [place] City: [place] Zip code: [address] Past Medical History Allergies Allergen Reaction Date Comments Reported Other allergy 08/17/2019 SEE CHART Iodine 04/27/2020 Sulfa drugs 04/27/2020 Admission Admission Data Admission Date: 04/21/2020 Admission Time: 14:23 Room #: D.CV04 Procedure Procedure Types Cath Procedure Peripheral Cath Diagnostic Procedure PICC PICC Line Placement Procedure Description Procedure Date Procedure Date: 04/27/2020 Procedure Start Time: 9:58 Procedure Staff Name Function Nile Solorzano MD Performing Physician Nelly Cobian RT Promotions Intern Elizabeth Finn RN Nurse Makayla Begum RN Nurse Binh Ramos RT Scrub Procedure Data Cath Procedure Fluoroscopy Diagnostic fluoroscopy Total fluoroscopy Time: 0.6 time: 0.6 min min Diagnostic fluoroscopy Total fluoroscopy dose: 7 dose: 7 mGy mGy Hemodynamics Rest Pre Cath Intra NCS Post Cath Procedure Log Time Note 8:52:34 Use device set PICC 9:15:59 PowerPICC 5Fr double lumen catheter opened to sterile field. 9:16:00 SHIELD Sorbaview ([id number]) opened to sterile field. 9:16:01 Sterile Angiographic Pack opened to sterile field. 9:16:02 Bag Decanter () opened to sterile field. 9:16:08 Time tracking: Regular hours (M-F 7:00 - 5:00) 9:29:27 Patient received from CVICU to IR Alert and oriented. Tansferred to table in Supine position. 9:29:32 Signed procedure consent form obtained from verbally. 9:30:16 Patient allergic to Iodine 9:30:30 Patient allergic to Sulfa drugs 9:30:34 Is the patient allergic to Iodine/contrast media? Yes. 9:30:39 Was the patient premedicated? No, not using contrast 9:31:35 - 9:31:50 Left Arm area was prepped with chlora-prep and draped in sterile fashio n 9:56:08 Physician arrived 9:56:09 --------ALL STOP TIME OUT------ 9:56:10 Final Timeout: patient, procedure, and site verified with staff and physician. All members of the team are in agreement. 9:58:14 Procedure started. 9:58:14 Full Disclosure recording started 9:58:34 Local anesthetic to left arm with Lidocaine 1% by Nile Solorzano MD.INITIAL ACCESS ONLY 9:58:36 Venous access obtained using ultrasound guidance. 10:03:24 PICC line was trimmed to 50cm and advanced to the superior vena cava.Position verified under fluoroscopy. 10:06:01 Procedure ended.(Physican Out) 10:06:30 Fluoroscopy time 00.60 minutes. 10:06:36 Fluoroscopy dose: 7 mGy 10:06:36 Flurop Dose total: 7 10:06:41 Procedure and supply charges have been captured, reviewed, submitted an d are correct. 10:07:46 Report given to CVICU. 10:10:02 Patient transfered to CVICU with Bed. Device Usage Item Name Manufacture Quantity Catalog Hospital Part Current Minimal Lot# / Number Charge Number Stock Stock Serial# Code [facility] Bard 1 [id number] 5 5Fr double lumen catheter SHIELD Centurion 1 [id number] 5 Sorbaview ([id number]) Sterile Cardinal 1 [id number] 5 Angiographic Health Pack Bag Decanter Microtek 1 [id number] 5 () Eyeota. Signature Audit [place] Stage Time Signature Unsigned Intra-Procedure 04/27/2020 Nelly Cobian 10:10:16 AM RT(R) [facility] [address] [place] [address]
[~2020-04-21 13:33] MED LIST changes: +BETAPACE 80 MG80 MG PO; +CARDIZEM 90 MG90 MG PO; +DIFLUCAN100 MG PO; +ELIQUIS2.5 MG PO; +FUROSEMIDE20 MG PO; +MIRALAX17 GM PO; +NYSTATIN100000 UN4 PO; +SINEQUAN25 MG PO; +SYNTHROID100 MCG PO; -SYNTHROID88 MCG PO; +ZOCOR20 MG PO; +ZYVOX600 MG PO
[2020-04-21 14:22] LABS: CALC OSMOLALITY 272 mosm/kg (275-300); CALCIUM 8.9 mg/dL (8.5-10.1); CARBON DIOXIDE 38.2 mmol/L (21.0-32.0); CHLORIDE - SERUM 99 mmol/L (98-107); CREATININE - SERUM 0.8 mg/dL (0.6-1.3); GLUCOSE 114 mg/dL (74-106); POTASSIUM - SERUM 5.9 mmol/L (3.5-5.1); SODIUM 136 mmol/L (136-145); UREA NITROGEN 13 mg/dL (7-18); eGFR NON AFRICAN AMERICAN 76 mL/min (90-120)
[2020-04-21 14:27] LABS: BASOPHILS 0.3 % (0-2); EOSINOPHILS 0.7 % (0-7); HEMATOCRIT 40.6 % (36.0-48.0); HEMOGLOBIN 12.3 g/dL (12-16); IMMATURE GRANULOCYTES 0.6 % (0-5); LYMPHOCYTE ABS# 1.17 10x3/uL (1.18-3.74); LYMPHOCYTES 11.8 % (15-50); MCH 29.9 pg (26.0-34.0); MCHC 30.3 g/dL (31.0-37.0); MCV 98.8 fL (80.0-100.0); MEAN PLATELET VOLUME 9.8 fL (7.4-10.4); MONOCYTES 9.8 % (2-11); NEUTROPHIL ABS# 7.64 10x3/uL (1.56-6.13); NEUTROPHILS 76.8 % (40-80); PLATELET COUNT 341 10x3/uL (130-400); RBC 4.11 10x6/uL (4.00-5.40); RDW 17.5 % (11.5-14.5); WBC 9.9 10x3/uL (4.8-10.8)
[2020-04-21 14:39] LABS: ALBUMIN 2.7 g/dL (3.4-5.0); ALKALINE PHOSPHATASE 104 U/L (30-120); ALT (SGPT) 39 U/L (10-68); AMYLASE - SERUM 27 U/L (25-115); BILIRUBIN - TOTAL 0.59 mg/dL (0.2-1.3); CKMB 0.1 U/L (0.0-3.6); CREATINE KINASE 90 UL (21-215); LIPASE 78 U/L (73-393); PRO BNP 1614 pg/mL (0-125); PROTEIN - SERUM 7.8 g/dL (6.4-8.2); TROPONIN-I < 0.017 ng/mL (0.000-0.060)
--- NOTE | 2020-04-21 15:11 | NUR ---
, [facility],
--- NOTE | 2020-04-21 15:51 | NUR ---
PATIENT ASSISTED WITH BSC X 2. URINE SAMPLE SENT TO LAB.
[2020-04-21 16:50] VITALS: BP 136/62; BMI 53.2
--- NOTE | 2020-04-21 18:20 | NUR ---
REFUSES SCDS. STATES SHE HAS BLOOD CLOTTS. ON ELIQUIS. WILL CONT. PLAN OF CARE.
--- NOTE | 2020-04-21 19:47 | NUR ---
RECEIVED REPORT, WILL ASSUME CARE OF PT, VISITING WITH FAMILY, DENIES ANY NEEDS AT THIS TIME, BED IS LOW, SRX2, CALL LIGHT IN REACH, WILL CONTINUE PLAN OF CARE
[2020-04-21 21:54] VITALS: BP 137/69
[2020-04-22 01:00] VITALS: BP 126/60
[2020-04-22 04:34] VITALS: BP 152/70
--- NOTE | 2020-04-22 04:56 | NUR ---
I have reviewed this patient and I concur with the Shift Assessment completed by the Licensed Practical Nurse today this shift.
[2020-04-22 07:00] LABS: BASOPHILS 0 % (0-2); EOSINOPHILS 0 % (0-7); HEMATOCRIT 39.9 % (36.0-48.0); HEMOGLOBIN 12.2 g/dL (12-16); IMMATURE GRANULOCYTES 0.8 % (0-5); LYMPHOCYTE ABS# 0.61 10x3/uL (1.18-3.74); LYMPHOCYTES 6.8 % (15-50); MCH 29.8 pg (26.0-34.0); MCHC 30.6 g/dL (31.0-37.0); MCV 97.3 fL (80.0-100.0); MEAN PLATELET VOLUME 9.3 fL (7.4-10.4); MONOCYTES 1.3 % (2-11); NEUTROPHILS 91.1 % (40-80); PLATELET COUNT 314 10x3/uL (130-400); RDW 17.2 % (11.5-14.5)
[2020-04-22 07:18] LABS: ALBUMIN 2.8 g/dL (3.4-5.0); ALKALINE PHOSPHATASE 106 U/L (30-120); ALT (SGPT) 34 U/L (10-68); BILIRUBIN - TOTAL 0.41 mg/dL (0.2-1.3); CALC OSMOLALITY 280 mosm/kg (275-300); CALCIUM 8.7 mg/dL (8.5-10.1); CARBON DIOXIDE 33.5 mmol/L (21.0-32.0); CHLORIDE - SERUM 101 mmol/L (98-107); CREATININE - SERUM 0.8 mg/dL (0.6-1.3); GLUCOSE 150 mg/dL (74-106); MAGNESIUM - SERUM 2.1 mg/dL (1.8-2.4); PROTEIN - SERUM 7.1 g/dL (6.4-8.2); SODIUM 140 mmol/L (136-145); UREA NITROGEN 11 mg/dL (7-18); eGFR NON AFRICAN AMERICAN 76 mL/min (90-120)
[2020-04-22 08:51] VITALS: BP 142/70
[2020-04-22 12:25] VITALS: BP 160/86
[2020-04-22 16:45] VITALS: BP 128/71
[2020-04-22 19:00] VITALS: BP 150/74
--- NOTE | 2020-04-22 19:30 | NUR ---
RECEIVED REPORT, WILL ASSUME CARE OF PT, LOOM CHANGEOVER OPERATOR IN ROOM GETTING VITALS, DENIES ANY NEEDS AT THIS TIME, BED IS LOW, SRX2, CALL LIGHT IN REACH, WILL CONTINUE PLAN OF CARE
[2020-04-23] VITALS: BP 139/67
[2020-04-23 06:09] VITALS: BP 106/67
[2020-04-23 07:05] LABS: BASOPHILS 0 % (0-2); EOSINOPHILS 0 % (0-7); HEMATOCRIT 40.1 % (36.0-48.0); IMMATURE GRANULOCYTES 0.5 % (0-5); LYMPHOCYTE ABS# 0.63 10x3/uL (1.18-3.74); LYMPHOCYTES 5.6 % (15-50); MCH 29.3 pg (26.0-34.0); MCHC 29.9 g/dL (31.0-37.0); MCV 97.8 fL (80.0-100.0); MEAN PLATELET VOLUME 9.3 fL (7.4-10.4); MONOCYTES 7.2 % (2-11); NEUTROPHIL ABS# 9.73 10x3/uL (1.56-6.13); NEUTROPHILS 86.7 % (40-80); PLATELET COUNT 375 10x3/uL (130-400); WBC 11.2 10x3/uL (4.8-10.8)
[2020-04-23 07:13] LABS: ALBUMIN 2.7 g/dL (3.4-5.0); ALKALINE PHOSPHATASE 90 U/L (30-120); ALT (SGPT) 32 U/L (10-68); BILIRUBIN - TOTAL 0.33 mg/dL (0.2-1.3); CALC OSMOLALITY 281 mosm/kg (275-300); CALCIUM 8.9 mg/dL (8.5-10.1); CARBON DIOXIDE 33.8 mmol/L (21.0-32.0); CHLORIDE - SERUM 102 mmol/L (98-107); CREATININE - SERUM 0.7 mg/dL (0.6-1.3); GLUCOSE 150 mg/dL (74-106); MAGNESIUM - SERUM 2.3 mg/dL (1.8-2.4); POTASSIUM - SERUM 4.2 mmol/L (3.5-5.1); PROTEIN - SERUM 7.3 g/dL (6.4-8.2); SODIUM 139 mmol/L (136-145); UREA NITROGEN 16 mg/dL (7-18); eGFR NON AFRICAN AMERICAN 89 mL/min (90-120)
--- NOTE | 2020-04-23 07:30 | NUR ---
PT RECEIVED ASLEEP IN BED. TELEMETRY CALLED AND REPORTED BRADYCARDIC EPISODE. LEADS CHECKES, PT WITHOUT COMPLAINTS, JUST RESTING.
[2020-04-23 08:22] VITALS: BP 144/81
--- NOTE | 2020-04-23 09:00 | NUR ---
DR CLEMENTS NOTIFIED OF PT'S HR. CONSULT FOR CARDIO PLACED. BETAPACE AND CARDIZEM HELD AT PRESENT.
[2020-04-23 12:37] VITALS: Ht 157.5 cm; Wt 145.8 kg
[2020-04-23 15:00] VITALS: BP 124/72
--- NOTE | 2020-04-23 19:45 | NUR ---
RECIEVED UP IN BED WITH EYES OPEN AND TV ON. ALERT AND ORIENTED X4. UP WITH ASSIST. IV TO RT HAND SL. 02@ 5 LITERSS PER N/C. TELEMETRY IN PLACE. DENIES ANY NEEDS AT THIS TIME.
[2020-04-23 20:02] VITALS: BP 134/55
[2020-04-24 04:36] VITALS: BP 122/66
[2020-04-24 05:11] LABS: BASOPHILS 0 % (0-2); EOSINOPHILS 0 % (0-7); HEMATOCRIT 40.5 % (36.0-48.0); HEMOGLOBIN 12.1 g/dL (12-16); IMMATURE GRANULOCYTES 0.4 % (0-5); LYMPHOCYTE ABS# 0.38 10x3/uL (1.18-3.74); MCHC 29.9 g/dL (31.0-37.0); MEAN PLATELET VOLUME 9.3 fL (7.4-10.4); MONOCYTES 5.7 % (2-11); NEUTROPHIL ABS# 8.48 10x3/uL (1.56-6.13); NEUTROPHILS 89.9 % (40-80); PLATELET COUNT 386 10x3/uL (130-400); RBC 4.03 10x6/uL (4.00-5.40); RDW 18.2 % (11.5-14.5); WBC 9.4 10x3/uL (4.8-10.8)
[2020-04-24 05:15] LABS: MCV 100.5 fL (80.0-100.0)
[2020-04-24 05:36] LABS: ALBUMIN 2.7 g/dL (3.4-5.0); ANION GAP 3.6 mmol/L (8-16); BILIRUBIN - TOTAL 0.21 mg/dL (0.2-1.3); CALCIUM 8.4 mg/dL (8.5-10.1); CARBON DIOXIDE 37.4 mmol/L (21.0-32.0); MAGNESIUM - SERUM 2.5 mg/dL (1.8-2.4); PROTEIN - SERUM 7.1 g/dL (6.4-8.2)
[2020-04-24 05:38] LABS: CREATININE - SERUM 0.9 mg/dL (0.6-1.3)
[2020-04-24 08:59] VITALS: BP 139/78
[2020-04-24 10:54] LABS: BILIRUBIN NEGATIVE (NEGATIVE); KETONE NEGATIVE (NEGATIVE); NITRITE NEGATIVE (NEGATIVE); UROBILINOGEN NORMAL mg/dL (< 2)
[2020-04-24 11:05] LABS: BACTERIA FEW HPF (NONE SEEN); SQUAMOUS EPITHELIAL 0-5 HPF (0-4); WHITE CELLS - URINE NONE SEEN HPF (0-4)
[2020-04-24 12:19] VITALS: BP 126/61
[2020-04-24 17:41] VITALS: BP 146/93
--- NOTE | 2020-04-24 19:45 | NUR ---
RECIEVED LAYING IN BED WITH EYES OPEN. EATING DORITOS AND DRINKING ORANGE SODA.ORIENTED X4. UP TO BEDSIDE COMMODE WITH ASSIST. O2 AT 6 LITERS PER N/C. IV TO RT HAND SL. TELEMETRY IN PLACE.DENIES ANY NEED AT THIS TIME.
[2020-04-24 21:17] VITALS: BP 124/58
[2020-04-25 05:01] VITALS: BP 156/74
[2020-04-25 05:47] LABS: BASOPHILS 0 % (0-2); EOSINOPHILS 0 % (0-7); HEMATOCRIT 42.3 % (36.0-48.0); HEMOGLOBIN 12.1 g/dL (12-16); IMMATURE GRANULOCYTES 0.7 % (0-5); LYMPHOCYTE ABS# 0.42 10x3/uL (1.18-3.74); LYMPHOCYTES 4.9 % (15-50); MCH 29.6 pg (26.0-34.0); MCHC 28.6 g/dL (31.0-37.0); MEAN PLATELET VOLUME 9.2 fL (7.4-10.4); MONOCYTES 8.8 % (2-11); NEUTROPHIL ABS# 7.34 10x3/uL (1.56-6.13); NEUTROPHILS 85.6 % (40-80); PLATELET COUNT 356 10x3/uL (130-400); RBC 4.09 10x6/uL (4.00-5.40); RDW 17.5 % (11.5-14.5); WBC 8.6 10x3/uL (4.8-10.8)
[2020-04-25 05:57] LABS: APTT 21.3 SECONDS (22.8-39.4)
[2020-04-25 06:01] LABS: INR 1.14 (0.85-1.17); PROTIME 13.5 SECONDS (11.6-15.0)
[2020-04-25 06:10] LABS: MCV 103.4 fL (80.0-100.0)
[2020-04-25 06:30] LABS: ALBUMIN 2.7 g/dL (3.4-5.0); ANION GAP 4.7 mmol/L (8-16); BILIRUBIN - TOTAL 0.21 mg/dL (0.2-1.3); CALCIUM 8.4 mg/dL (8.5-10.1); CARBON DIOXIDE 38.3 mmol/L (21.0-32.0); CREATININE - SERUM 0.9 mg/dL (0.6-1.3); MAGNESIUM - SERUM 2.6 mg/dL (1.8-2.4); PROTEIN - SERUM 7.2 g/dL (6.4-8.2)
[2020-04-25 08:00] VITALS: BP 138/70
[2020-04-25 11:00] VITALS: BP 132/46
--- NOTE | 2020-04-25 13:00 | NUR ---
Nutrition Follow-up: Eating well; ate 100% of breakfast this AM. Noted plans for excision & closure of R groin wound & pacemaker placement 04/26. Diet: ADA/AHA No new wt; last wt: 290# (04/23) Labs noted: Glu 155, Ca 8.4, Mg 2.6, Alb 2.7 meds noted: KDur, Protonix, Solumedrol, Humulin, electrolyte protocol -RD will follow up within 7 days if pt still admitted.
[2020-04-25 15:00] VITALS: BP 135/62
--- NOTE | 2020-04-25 19:53 | NUR ---
RECIEVED BEDSIDE SHIFT REPORT. ALERT AND ORIETED X4. UP WIT ASSIST. REQUIRES EXTENISE ASSIVE X1 TO SIT UP IN BED. ASSISTED TO BEDSIDE COMMODE. DENIES ANY NEEDS AT THIS TIME.
[2020-04-25 22:31] VITALS: BP 138/54
[2020-04-26] VITALS (26 sets, daily range): BP systolic 99–178; BP diastolic 50–91
[2020-04-26 05:26] LABS: BASOPHILS 0 % (0-2); EOSINOPHILS 0 % (0-7); HEMATOCRIT 40.8 % (36.0-48.0); HEMOGLOBIN 11.9 g/dL (12-16); IMMATURE GRANULOCYTES 0.8 % (0-5); LYMPHOCYTE ABS# 0.22 10x3/uL (1.18-3.74); LYMPHOCYTES 2.8 % (15-50); MCH 29.5 pg (26.0-34.0); MCHC 29.2 g/dL (31.0-37.0); MEAN PLATELET VOLUME 9.1 fL (7.4-10.4); MONOCYTES 7.1 % (2-11); NEUTROPHIL ABS# 7.09 10x3/uL (1.56-6.13); NEUTROPHILS 89.3 % (40-80); PLATELET COUNT 316 10x3/uL (130-400); RBC 4.04 10x6/uL (4.00-5.40); RDW 16.9 % (11.5-14.5); WBC 7.9 10x3/uL (4.8-10.8)
[2020-04-26 05:42] LABS: CREATININE - SERUM 1.1 mg/dL (0.6-1.3); MAGNESIUM - SERUM 2.5 mg/dL (1.8-2.4)
[2020-04-26 05:43] LABS: ALBUMIN 2.7 g/dL (3.4-5.0); ANION GAP 5.2 mmol/L (8-16); BILIRUBIN - TOTAL 0.31 mg/dL (0.2-1.3); CALCIUM 8.5 mg/dL (8.5-10.1); CARBON DIOXIDE 37.9 mmol/L (21.0-32.0); POTASSIUM - SERUM 5.1 mmol/L (3.5-5.1); PROTEIN - SERUM 6.9 g/dL (6.4-8.2)
--- NOTE | 2020-04-26 19:00 | NUR ---
REPORT RECEIVED FROM OFF GOING NURSE. PT IS IN BED EXTREMELY DROWSY AND SITTING ON THE BEDPAN AT THIS TIME. MODERATE BM NOTED. SHIFT ASSESSMENT COMPLETED, SEE FLOWSHEET FOR DETAILS. PT DENIES PAIN OR DISCOMFORT AT THIS TIME. NO S/S OF DISTRESS NOTED. WILL CONTINUE TO MONITOR.
[2020-04-27] VITALS (31 sets, daily range): BP systolic 95–141; BP diastolic 40–69
[2020-04-27 05:00] LABS: BASOPHILS 0 % (0-2); EOSINOPHILS 0 % (0-7); HEMATOCRIT 36.3 % (36.0-48.0); HEMOGLOBIN 10.7 g/dL (12-16); IMMATURE GRANULOCYTES 0.4 % (0-5); LYMPHOCYTE ABS# 0.39 10x3/uL (1.18-3.74); LYMPHOCYTES 3.9 % (15-50); MCH 29.6 pg (26.0-34.0); MCHC 29.5 g/dL (31.0-37.0); MCV 100.6 fL (80.0-100.0); MONOCYTES 3.7 % (2-11); NEUTROPHIL ABS# 9.15 10x3/uL (1.56-6.13); PLATELET COUNT 257 10x3/uL (130-400); RBC 3.61 10x6/uL (4.00-5.40); RDW 16.9 % (11.5-14.5)
[2020-04-27 05:21] LABS: ALBUMIN 2.4 g/dL (3.4-5.0); ANION GAP 1.9 mmol/L (8-16); BILIRUBIN - TOTAL 0.45 mg/dL (0.2-1.3); CALCIUM 8.2 mg/dL (8.5-10.1); CARBON DIOXIDE 39.3 mmol/L (21.0-32.0); CREATININE - SERUM 0.9 mg/dL (0.6-1.3); MAGNESIUM - SERUM 2.4 mg/dL (1.8-2.4); PHOSPHOROUS 3.4 mg/dL (2.5-4.9); POTASSIUM - SERUM 5.2 mmol/L (3.5-5.1)
--- NOTE | 2020-04-27 07:41 | NUR ---
Nutrition follow-up: Diet advanced to consistent CHO after excision, closure of R groin wound and pacemaker placement 04/26/20. PO intake before surgery was 100% of some meals Labs reviewed Wt: 303# +BM Will provide food choices with selective menus and honor food preferences within diet restrictions. RDN will follow-up: 04/30/20
--- NOTE | 2020-04-27 09:05 | NUR ---
0830-SPOKE WITH PT REGARDING PICC LINE PLACEMENT-PT STATED I DO NOT NEED ONE-I AM GOING HOME -NOT TO DETENTION-PT AWARE OF CIRCUMSTANCES AND SERIES OF EVENTS-ASKED IF CHANGE IN PLANS REQUIRES STAY WITH SON-STATED NO -ABLE TO TAKE CARE OF HERSELF AT HOME-NO CONSENT OBTAINED AT THIS TIME 0900-PERL SOFTWARE ENGINEER AT BEDSIDE-SPOKE TO PT REGARDING PROCEDURE AND BENEFIT-CAN BE USED AT HOME WELL-PT NODDED HER CONSENT IN PRESENCE OF 3 WITNESS-NOT ABLE TO SIGN INDEPENTLY-R ARM IMMOBILIZED WITH NEW TEMPORARY PACEMAKER
--- NOTE | 2020-04-27 11:39 | OP ---
PATIENT NAME: KAYLEE MORRISSEY MEDICAL RECORD: [id number] :51 LOCATION:D.CVI D.CV04 ADMISSION DATE:04/21/20 SURGEON: DEMETRIS MOSQUEDA MD DATE OF OPERATION: 04/26/2020 SURGEON: Demetris Mosqueda MD PROCEDURE PERFORMED: 1. Insertion of single chamber pacemaker via right subclavian vein. 2. Left subclavian central venous line. 3. Excision and debridement, right groin. PREOPERATIVE DIAGNOSES: Sick sinus syndrome and chronic atrial fibrillation with bradycardia and chronic right groin wound. ANESTHESIA: General anesthesia. COMPLICATIONS: Hypotension. CONDITION: Stable. DISPOSITION: CV ICU. SPECIMENS: Debrided tissue, right groin. OPERATIVE FINDINGS: 1. Single ventricular lead, good pacing and sensing thresholds. 2. Hypotension during lead placement, right upper extremity IV access was lost and urgently a left subclavian central line was placed. The patient responded to pharmacologic intervention. 3. Some recurrent hypotension and MICHEL was performed revealing good contractility. No pericardial effusion, no evidence of tamponade, no evidence of perforation. 4. The right groin wound had two small 3 mm and 2 mm areas that only extended down about a mm even using the small end of the Q-tip with no expressible drainage and some firm tissue below. In order to close them, I made an elliptical excision down to some firm scar tissue that may have possibly been an old lymph node, but no purulence, no drainage, no evidence of infection. The excisional debridement size was 3 cm x 1 cm x 2 cm deep and it was closed primarily with nylon. INDICATION: Atrial fibrillation with pharmacologically introduced bradycardia and chronic right groin wound. PROCEDURE IN DETAIL: The patient was brought to the operating suite, anesthesia was obtained. The chest was prepped and draped. Right subclavian vein was cannulated and a subclavian wire was introduced, then a pocket was created along the chest wall. The introducer system was used. The lead was placed into the appropriate position with a screw in type lead. Good pacing sensing thresholds were noted. The suture sleeve was sutured in place. Thorough irrigation with antibiotic irrigation was performed, connected to the pacemaker generator. Pacemaker generator was placed within the pocket, sutured in place. Wound was thoroughly irrigated and closed in 3 layers. Left subclavian central catheter was placed. Position confirmed with fluoroscopy. Then, the patient was separately reprepped and draped. Elliptical incision of the right groin, OPERATIVE REPORT [id number] KAYLEE MORRISSEY hemostasis with electrocautery, interrupted nylon sutures. Marcaine was used at both surgical sites for anesthetic. The patient to ICU stable. TRANSINT:[id number] Voice Confirmation ID: [id number] DOCUMENT ID: [id number] DEMETRIS MOSQUEDA MD at 1139 CC: NATALEE BIRD M.D. [id number] DICTATION DATE: 04/26/20 1408 PREMIUM CANCELLATION CLERK: 04/26/20 1615 ADM IN [place] [id number] [place] [id number]
--- NOTE | 2020-04-27 14:05 | NUR ---
1000-RETURNED WITH PICC IN L ARM-NOT MAKING VERBAL EFFORT WITH ASSESSING STAFF MEMBER AND TRANSFERING RN-EYES CLOSED 1010-DR GUZMAN AT BEDSIDE-PT OPENED EYES-AND EASILY VERBALLY ENCGAGED WITH DR GUZMAN-AFIB ON MONITOR 1030-L CVL D/C ORDERED-PER PROTOCOL-ROCEDURE EXPLAINED TO PT WITH PT COOPERATION-IV NS AT 10ML/H STARTED IN L PICC 1045-ABP 177/68 CUFF 148 SYS-NTG STARTED AT 5 MCG 1100-DR MOSQUEDA AT BEDSIDE-STATUS REPORT GIVEN-ORDER RECIEVD-L RADIAL SHAKIRA D/C ORDERED-PER PROTOCOL
--- NOTE | 2020-04-27 15:07 | NUR ---
REFUSED PHYSICAL THERAPY TO CHAIR/AT SIDE OF BED X3 SEPERATE ATTEMPTS-STATED WILL DO TOMORROW
--- NOTE | 2020-04-27 16:50 | NUR ---
ASSISTED WITH DINNER TRAY BY CUTTING UP FOOD -PT ABLE TO FEED SELF WITH L ARM/HAND-KEEPING R ARM IMMOBILIZED-
--- NOTE | 2020-04-27 17:11 | NUR ---
SON AT BEDSIDE
--- NOTE | 2020-04-27 19:35 | NUR ---
REPORT REC'D AND CARE ASSUMED, PT DROWSEY BUT WILL OPEN EYES WHEN SPOKEN TO AND REPOSITIONED, O2 @ 3LITERS HF, LEFT UPPER ARM PICC LINE DRSG CDI WITH NS @ 10CC/HR, CM-SR, RIGHT GROIN DRSG CDI, SITE SOFT WITHOUT HEMATOMA, RIGHT UPPER CHEST INCISION TO PERM PACEMAKER SITE CDI, RIGHT ARM IN SLING ORDERED AND PT NOT USING RIGHT ARM, MIRANDA PATENT DRAINING YELLOW URINE, BILAT SCDS, PPP, SR UP X 2 ,CALL LIGHT IN REACH.
--- NOTE | 2020-04-27 21:20 | NUR ---
EVENING MEDS GIVEN, PT UNABLE TO ANSWER ORIENTATION QUESTIONS AT THIS TIME, VSS, FSBS 145, ON COVERAGE NEEDED, WILL MONITOR CLOSELY FOR CHANGES.
[2020-04-28] VITALS (12 sets, daily range): BP systolic 113–130; BP diastolic 44–67
--- NOTE | 2020-04-28 04:45 | NUR ---
RADIOLOGY AT BS FOR AM LAB
[2020-04-28 06:12] LABS: BASOPHILS 0 % (0-2); EOSINOPHILS 0 % (0-7); HEMATOCRIT 38.5 % (36.0-48.0); HEMOGLOBIN 11.5 g/dL (12-16); IMMATURE GRANULOCYTES 0.3 % (0-5); LYMPHOCYTE ABS# 0.86 10x3/uL (1.18-3.74); LYMPHOCYTES 9.5 % (15-50); MCH 29.8 pg (26.0-34.0); MCHC 29.9 g/dL (31.0-37.0); MCV 99.7 fL (80.0-100.0); MONOCYTES 1.3 % (2-11); NEUTROPHIL ABS# 8.07 10x3/uL (1.56-6.13); NEUTROPHILS 88.9 % (40-80); PLATELET COUNT 226 10x3/uL (130-400); RBC 3.86 10x6/uL (4.00-5.40); RDW 16.9 % (11.5-14.5); WBC 9.1 10x3/uL (4.8-10.8)
[2020-04-28 06:29] LABS: ALBUMIN 2.5 g/dL (3.4-5.0); ALKALINE PHOSPHATASE 85 U/L (30-120); ALT (SGPT) 55 U/L (10-68); BILIRUBIN - TOTAL 0.41 mg/dL (0.2-1.3); CALC OSMOLALITY 286 mosm/kg (275-300); CALCIUM 8.1 mg/dL (8.5-10.1); CHLORIDE - SERUM 101 mmol/L (98-107); CREATININE - SERUM 0.7 mg/dL (0.6-1.3); GLUCOSE 160 mg/dL (74-106); MAGNESIUM - SERUM 2.4 mg/dL (1.8-2.4); PHOSPHOROUS 3.7 mg/dL (2.5-4.9); POTASSIUM - SERUM 4.6 mmol/L (3.5-5.1); PROTEIN - SERUM 6.4 g/dL (6.4-8.2); SODIUM 138 mmol/L (136-145); UREA NITROGEN 34 mg/dL (7-18); eGFR NON AFRICAN AMERICAN 89 mL/min (90-120)
[2020-04-28 06:41] LABS: CARBON DIOXIDE 41.5 mmol/L (21.0-32.0)
--- NOTE | 2020-04-28 07:37 | NUR ---
RECIEVED PT ASLEEP-HR 90% PACED-HOB ELEVATED -O2 3L-
--- NOTE | 2020-04-28 17:47 | NUR ---
TRANSFERED VIA BED TO 2115
--- NOTE | 2020-04-28 17:47 | NUR ---
SON NOTIFIED OF TRANSFER
--- NOTE | 2020-04-28 19:45 | NUR ---
INITIAL ROUNDS AND ASSESSMENT COMPLETED. PT RESTING IN BED. ALERT/ORIENTED. DRESSING TO RIGHT CHEST WALL PACEMAKER SITE. MIRANDA PATENT TO BEDSIDE DRAIN BAG. PICC TO CAROLE THAT HAS LOTS OF BRUISING AROUND IT. RIGHT GROIN AREA WITH DRESSING C/D/I FOR AN I&D DONE THURSDAY. WEARING ARM SLING ON RIGHT SIDE WHERE THE PACEMAKER WAS PLACED AND ALSO HAS A FUNCTIONING PIV TO RIGHT HAND. CALL LIGHT IN REACH.
--- NOTE | 2020-04-28 23:18 | NUR ---
BEDTIME MEDS GIVEN. FSBS 198, NO INSULIN PER PATIENT REQUEST. PT CLEAN/DRY AND RESTING.
[2020-04-29 00:13] VITALS: BP 122/55
[2020-04-29 03:34] VITALS: BP 121/57
[2020-04-29 03:46] VITALS: BP 121/57
[2020-04-29 05:39] LABS: BASOPHILS 0 % (0-2); EOSINOPHILS 0.2 % (0-7); HEMATOCRIT 38.1 % (36.0-48.0); HEMOGLOBIN 11.4 g/dL (12-16); IMMATURE GRANULOCYTES 0.4 % (0-5); LYMPHOCYTE ABS# 0.62 10x3/uL (1.18-3.74); LYMPHOCYTES 5.4 % (15-50); MCH 29.2 pg (26.0-34.0); MCHC 29.9 g/dL (31.0-37.0); MCV 97.7 fL (80.0-100.0); MEAN PLATELET VOLUME 9.2 fL (7.4-10.4); MONOCYTES 13.8 % (2-11); NEUTROPHIL ABS# 9.21 10x3/uL (1.56-6.13); NEUTROPHILS 80.2 % (40-80); PLATELET COUNT 253 10x3/uL (130-400); RDW 16.6 % (11.5-14.5); WBC 11.5 10x3/uL (4.8-10.8)
--- NOTE | 2020-04-29 05:57 | NUR ---
PORTABLE CXR BEING DONE
[2020-04-29 06:47] LABS: ALBUMIN 2.4 g/dL (3.4-5.0); ALKALINE PHOSPHATASE 80 U/L (30-120); ALT (SGPT) 58 U/L (10-68); BILIRUBIN - TOTAL 0.43 mg/dL (0.2-1.3); CALC OSMOLALITY 285 mosm/kg (275-300); CALCIUM 8.3 mg/dL (8.5-10.1); CHLORIDE - SERUM 98 mmol/L (98-107); CREATININE - SERUM 0.7 mg/dL (0.6-1.3); GLUCOSE 130 mg/dL (74-106); POTASSIUM - SERUM 4.3 mmol/L (3.5-5.1); PROTEIN - SERUM 6.1 g/dL (6.4-8.2); SODIUM 138 mmol/L (136-145); UREA NITROGEN 35 mg/dL (7-18); eGFR NON AFRICAN AMERICAN 89 mL/min (90-120)
[2020-04-29 09:28] VITALS: BP 154/77
--- NOTE | 2020-04-29 10:06 | NUR ---
PT AWAKE AND ORIENTED, LYING IN BED WATCHING T/V. PT C/O PAIN THROUGHOUT HER VAGINA WHICH SHE BELIEVES IS RELATED TO THE MIRANDA CATHETER. UPON INSPECTION AFTER CLEANING PT FROM , I VISUALIZED PT URINATING AROUDN THE MIRANDA ONTO THE BED. AT THAT TIME, REMOVED MIRANDA CATHETER AND REPLACED WITH NEW 18F MIRANDA. URINE WAS CLEAR AND YELLOW COMPARED TO THE CLOUDY AND CHUNKY URINE IN THE PREVIOUS MIRANDA. I BELIEVE CATH WAS IN THE WRONG AREA. PT REPORTS PAIN IS MUCH BETTER AT THIS TIME AND IT WAS HELPED WITH TYLENOL. NO COMPALINTS OR CONCERNS AT THIS TIME. CL IN REACH, SRX2. PT CURRENTLY RESTING COMFORTABLY IN BED. EYES CLOSED, RESPIRATIONS EVEN/REGUALR AND UNLABORED, NO SIGNS OR SYMPTOMS OF ACUTE DISTRESS NOTED AT THIS TIME.
--- NOTE | 2020-04-29 11:44 | NUR ---
I have reviewed this patient and I concur with the Shift Assessment completed by the Licensed Practical Nurse today this shift.
[2020-04-29 16:32] VITALS: BP 128/62
--- NOTE | 2020-04-29 18:35 | NUR ---
PT AWAKE AND OREINTED, LYING IN BED WATCHING TV. CAHNGED LINNENS AND RETUCKED SLIDING PAD. MIRANDA CATHETER EMPTIED. CL IN REACH,SRX2.
[2020-04-29 19:53] VITALS: BP 111/53
--- NOTE | 2020-04-29 20:00 | NUR ---
INITIAL ROUNDS AND ASSESSMENT COMPLETED. PT RESTING IN BED. PLAN OF CARE REVIEWED. CALL LIGHT IN REACH.
--- NOTE | 2020-04-30 03:00 | NUR ---
PT HAS BEEN ON BIPAP SINCE 2199. NO DISTRESS. PACED ON TELEMETRY. MIRANDA PATENT TO BEDSIDE DRAIN BAG. CALL LIGHT IN REACH.
[2020-04-30 03:36] VITALS: BP 115/68
--- NOTE | 2020-04-30 05:45 | NUR ---
NO CHANGE FROM INITIAL SHIFT ASSESSMENT. ALL MEDICATIONS GIVEN PER MD ORDERS. PT RESTING WITH CALL LIGHT IN REACH.
[2020-04-30 06:09] LABS: BASOPHILS 0 % (0-2); HEMATOCRIT 37.5 % (36.0-48.0); HEMOGLOBIN 11.2 g/dL (12-16); IMMATURE GRANULOCYTES 0.7 % (0-5); LYMPHOCYTE ABS# 1.11 10x3/uL (1.18-3.74); LYMPHOCYTES 11.9 % (15-50); MCH 29.2 pg (26.0-34.0); MCHC 29.9 g/dL (31.0-37.0); MCV 97.7 fL (80.0-100.0); MEAN PLATELET VOLUME 9.6 fL (7.4-10.4); MONOCYTES 13.6 % (2-11); NEUTROPHIL ABS# 6.81 10x3/uL (1.56-6.13); NEUTROPHILS 72.8 % (40-80); PLATELET COUNT 261 10x3/uL (130-400); RBC 3.84 10x6/uL (4.00-5.40); RDW 16.8 % (11.5-14.5); WBC 9.4 10x3/uL (4.8-10.8)
[2020-04-30 06:27] LABS: ALBUMIN 2.2 g/dL (3.4-5.0); ALKALINE PHOSPHATASE 86 U/L (30-120); ALT (SGPT) 64 U/L (10-68); BILIRUBIN - TOTAL 0.43 mg/dL (0.2-1.3); CALC OSMOLALITY 281 mosm/kg (275-300); CALCIUM 8.1 mg/dL (8.5-10.1); CHLORIDE - SERUM 97 mmol/L (98-107); CREATININE - SERUM 0.7 mg/dL (0.6-1.3); GLUCOSE 123 mg/dL (74-106); POTASSIUM - SERUM 3.9 mmol/L (3.5-5.1); PROTEIN - SERUM 5.6 g/dL (6.4-8.2); SODIUM 137 mmol/L (136-145); UREA NITROGEN 31 mg/dL (7-18); eGFR NON AFRICAN AMERICAN 89 mL/min (90-120)
[2020-04-30 06:32] LABS: CARBON DIOXIDE 43.8 mmol/L (21.0-32.0)
[2020-04-30 08:00] VITALS: BP 102/65
--- NOTE | 2020-04-30 09:19 | NUR ---
PT AWAKE AND ORIENTED, LYING IN RESTING COMFORTABLY. WOKE EASILY WITH VERBAL STIMULI. TOOK ALL MEDICATIONS WITHOUT COMPLICATIONS. MIRANDA CATHETER WORKING APPROPRIATELY. NO COMPLAINTS OR CONCERNS STATED AT THIS TIME. CL IN REACH, SRX2.
[2020-04-30 12:08] VITALS: BP 107/67
--- NOTE | 2020-04-30 12:31 | NUR ---
I have reviewed this patient and I concur with the Shift Assessment completed by the Licensed Practical Nurse today this shift.
--- NOTE | 2020-04-30 12:59 | NUR ---
Nutrition Reassessment/Follow-up: Good/fair PO intake. Diet: Diabetic PO intake: 79% avg x 7 meals (04/27-04/29) Wt: 320.7# (04/28); 290# (04/21 - stated)Adj. BW: 162.7# Labs noted: Glu 123, Ca 8.1, Alb 2.2 Meds noted: Prednisone, Lasix, KDur, electrolyte protocol Est needs: 4153-9187 kcal/day (25-30 kcal/kg Adj BW) 75-90 g protein/day (1-1.2 g/kg Adj BW) -Encourage PO intake and honor food preferences within diet restrictions. -Need new wt. -RD will follow up within 7 days if pt still admitted.
[2020-04-30 15:00] VITALS: BP 116/65
--- NOTE | 2020-04-30 17:15 | NUR ---
OT NOTE: PT COMPLETED BED MOB WITH MOD A FOR LB MANAGEMENT. PT COMPLETED EOB SITTING WITH SBA-CGA. PT COMPLETED SIT TO STAND WITH MIN-MOD A. PT REQUIRED MAX A FOR LB HYGIENE TASKS. [phone] SHELTON FERNANDO COTA
--- NOTE | 2020-04-30 18:07 | NUR ---
PT AWAKE AND ORIENTED, LYING IN BED EATING SUPPER. NO COMPLAINTS OR CONCERNS AT IS ITME. PT WAS ABLE TO GET UP UNASSISTED WITH PHYSICAL THERAPY. TOOK SEVERAL SMALL SHUFFLING STEPS BEFORE NEEDING TO SIT DOWN. CL IN REACH, SRX2. 1200 OUT OF MIRANDA CATHETER.
[2020-04-30 20:05] VITALS: BP 106/49
--- NOTE | 2020-04-30 20:09 | NUR ---
RECIEVED UP IN BED WITH EYES OPEN AND TV ON. ALERT AND ORIENTED X4. DSG TO RT CHEST AND HAS SLING TO RT ARM. C/O FEELING LIKE SHE NEEDS AT URINATE. F/C INTACT WITH CLOUDY YELLOW URINE DRAINING TO BEDSIDE DRAINAGE BAG. DENIES ANY NEEDS AT THIS TIME.
[2020-04-30 20:14] VITALS: BP 106/49
--- NOTE | 2020-04-30 23:11 | NUR ---
CHECKED POSITION OF F/C. F/C IN PLACE. STILL COMPLAINING OF PAIN.
[2020-05-01] VITALS (7 sets, daily range): BP systolic 101–127; BP diastolic 57–67
[2020-05-01 06:14] LABS: BASOPHILS 0 % (0-2); EOSINOPHILS 2.1 % (0-7); HEMATOCRIT 37.3 % (36.0-48.0); HEMOGLOBIN 11.3 g/dL (12-16); IMMATURE GRANULOCYTES 0.9 % (0-5); LYMPHOCYTE ABS# 1.54 10x3/uL (1.18-3.74); LYMPHOCYTES 16.9 % (15-50); MCH 29.4 pg (26.0-34.0); MCHC 30.3 g/dL (31.0-37.0); MCV 96.9 fL (80.0-100.0); MEAN PLATELET VOLUME 9.6 fL (7.4-10.4); MONOCYTES 14.7 % (2-11); NEUTROPHIL ABS# 5.94 10x3/uL (1.56-6.13); NEUTROPHILS 65.4 % (40-80); PLATELET COUNT 260 10x3/uL (130-400); RBC 3.85 10x6/uL (4.00-5.40); RDW 17.2 % (11.5-14.5); WBC 9.1 10x3/uL (4.8-10.8)
[2020-05-01 06:28] LABS: ALBUMIN 2.1 g/dL (3.4-5.0); ALKALINE PHOSPHATASE 90 U/L (30-120); ALT (SGPT) 59 U/L (10-68); BILIRUBIN - TOTAL 0.29 mg/dL (0.2-1.3); CALC OSMOLALITY 285 mosm/kg (275-300); CALCIUM 8.1 mg/dL (8.5-10.1); CHLORIDE - SERUM 99 mmol/L (98-107); CREATININE - SERUM 0.8 mg/dL (0.6-1.3); GLUCOSE 125 mg/dL (74-106); POTASSIUM - SERUM 3.9 mmol/L (3.5-5.1); PROTEIN - SERUM 5.4 g/dL (6.4-8.2); SODIUM 140 mmol/L (136-145); UREA NITROGEN 28 mg/dL (7-18); eGFR NON AFRICAN AMERICAN 76 mL/min (90-120)
[2020-05-01 06:33] LABS: CARBON DIOXIDE 40.2 mmol/L (21.0-32.0)
--- NOTE | 2020-05-01 10:17 | NUR ---
UP AMBULATING TO CHAIR WITH PT ASSIST.
--- NOTE | 2020-05-01 16:01 | NUR ---
OT NOTE: PT COMPLETED BED MOBILITY TASKS WITH MIN-MOD A. PT COMPLETED SIT TO STAND WITH CGA-MIN A. PT COMPLETED ADL MOB WITH MIN-CGA. PT COMPLETED FACE HYGIENE WITH SET UP. PT REQUIRED TOTAL A FOR TANVIR SOCKS. [phone] SHELTON FERNANDO COTA
--- NOTE | 2020-05-01 19:24 | NUR ---
RECIEVED UP IN BED WITH EYES OPEN AND TV ON. ALERT AND ORIENTED X4. REMAINS BEDFAST. PICC LINE TO RT UPPER ARM AND IV TO RT HAND SL. F/C INTACT WITH CLOUDY YELLOW URINE DRAINING TO BEDSIDE DRAINAGE BAG. TELEMETRY IN PLACE. DSG TO RT CHEST AND SLING TO RT ARM. DSG TO RT GROIN CDI. DENIES ANY PAIN OR NEEDS AT THIS TIME.
[2020-05-02 01:46] VITALS: BP 114/60
[2020-05-02 01:53] VITALS: BP 114/60
[2020-05-02 05:40] VITALS: BP 115/70
[2020-05-02 07:13] LABS: ALBUMIN 2.2 g/dL (3.4-5.0); ALKALINE PHOSPHATASE 95 U/L (30-120); ALT (SGPT) 64 U/L (10-68); BILIRUBIN - TOTAL 0.32 mg/dL (0.2-1.3); CALC OSMOLALITY 279 mosm/kg (275-300); CALCIUM 8.1 mg/dL (8.5-10.1); CHLORIDE - SERUM 99 mmol/L (98-107); CREATININE - SERUM 0.6 mg/dL (0.6-1.3); GLUCOSE 116 mg/dL (74-106); POTASSIUM - SERUM 3.9 mmol/L (3.5-5.1); PROTEIN - SERUM 5.4 g/dL (6.4-8.2); SODIUM 138 mmol/L (136-145); UREA NITROGEN 22 mg/dL (7-18); eGFR NON AFRICAN AMERICAN > 90 mL/min (90-120)
[2020-05-02 07:37] LABS: CARBON DIOXIDE 40.2 mmol/L (21.0-32.0)
[2020-05-02 07:54] VITALS: BP 101/61
--- NOTE | 2020-05-02 10:01 | TEE ---
PATIENT:KAYLEE MORRISSEY MEDICAL RECORD: [id number] LOCATION:D. D.211 AGE OF PATIENT: 64 ADMISSION DATE: 04/21/20 SEX: F REFERRING PHYSICIAN: INTERPRETING PHYSICIAN: FRANCK BAI MD TRANSESOPHAGEAL ECHOCARDIOGRAM Date: 04/26/20 MICHEL CHARGE Y INDICATIONS: ASSESS FOR PERICARDIAL EFFUSION AFTER PACEMAKER PLACEMENT PREMEDICATIONS: PATIENT'S RESPONSE PROCEDURE DOPPLER MEASUREMENTS: LVIT LA PA 119 RA LVOT 127 RVOT 81 Asc. Ao 270 AV Gradient Peak 29.1 AV Mean 15.0 AV Area 0.8 MV Gradient Peak 9.4 MV Mean 4.5 MV Area INTERPRETATION: Doppler: 2-D: COLOR FLOW DOPPLER NORMAL SALINE STUDY: MISCELLANOUS: DIAGNOSIS: PLAN: Network Engineer Administrator:Hailey [employer] Installer: Chet MORAN COMMENTS: DATE OF SERVICE: 04/27/2020 PROCEDURE: Intraoperative MICHEL for possible pericardial effusion after pacemaker placement. FINDINGS: LVH present. LV internal dimensions normal. Wall motion is normal. EF is greater than or equal to 55%. Aortic valve was tricuspid. Good valve excursion. Left atrium appears normal. Mitral valve appears normal. Mild MR. TRANSESOPHAGEAL ECHOCARDIOGRAM REPORT [id number] KAYLEE MORRISSEY Right-sided chambers are grossly normal. No pericardial effusion is noted. TRANSINT:[id number] Voice Confirmation ID: [id number] DOCUMENT ID: [id number] at 1001 CC: [id number] DICTATION DATE: 04/27/20 0835 BEARING INSPECTOR: 04/28/20 0136 ADM IN [place] [id number] [place] [address]
[2020-05-02 11:32] VITALS: BP 118/67
--- NOTE | 2020-05-02 14:52 | NUR ---
UP SOB WITH PT ASSIST.
--- NOTE | 2020-05-02 15:27 | NUR ---
DRSG CHANGED TO RIGHT GROIN. SUTURES INTACT.
[2020-05-02 15:59] VITALS: BP 110/64
--- NOTE | 2020-05-02 17:45 | MORECARE ---
CASE MANAGEMENT DISCHARGE SUMMARY PATIENT: KAYLEE MORRISSEY UNIT: [id number] ADM DATE: 04/21/20 AGE: 64 : 53 SEX: F ROOM/BED: D.2148 AUTHOR: SALTY,DOC PHYSICIAN: REFERRING PHYSICIAN: MARTIR MAURO MD DATE OF SERVICE: 05/02/20 Case Management Discharge Planning Summary COMMENTS ENTERED DATE: 05/02/20 17:10 CT COMMENT TYPE: Discharge Planning REVIEWER: Mitali Ron states [facility] does not take her insurance. He spoke with her and she is agreeable to [facility]. Shaneka states they have auth and will accept in am. ENTERED DATE: 05/02/20 16:22 CT COMMENT TYPE: Discharge Planning REVIEWER: Mitali Reinier Patient has called her insurance and they have told her they are in Network with [facility]. I called and spoke with Emilee Alonzo at insurance.... Reference# for call [phone] and Emilee tells me if they are not in network, she would have to pay 40% after deductible. I attempted to call Caren back, but she has gone for the day and they tell me Caren will call in am. I would ask her to try and run the insurance again, patient is wanting [facility]. Emilee with insurance returned my call and states [facility] is in network with patient's insurance. CM will continue to follow and assist with discharge planning/needs. ENTERED DATE: 05/02/20 12:00 CT COMMENT TYPE: Discharge Planning REVIEWER: Mitali Reinier [facility] and states patient's insurance is out of network and they cannot accept. I spoke with patient and she states to send referral to [facility]. Referral faxed and Shaenka informed. CM will continue to follow and assist with discharge planning/needs. ENTERED DATE: 05/01/20 14:09 CT COMMENT TYPE: Discharge Planning REVIEWER: Mitali Hills CM FAXED A REFERRAL TO [facility] AND I HAVE CALLED AND SPOKE WITH CAREN. DCP REVIEW SUMMARY ANTICIPATED D/C DATE: EXPECTED LOS : CASE STATUS: DCP Initiated INITIAL REVIEW: 04/24/2020 INITIAL REVIEWER: Frances Aguila FINAL DISCHARGE DISPOSITION: : FINAL REVIEWER: FINAL REVIEW DATE: DCP Focus Questions & Answers - Added on: QUESTION: ANSWER : PATIENT: KAYLEE MORRISSEY ENCOUNTER: [id number] MEDICAL RECORD#: [id number] ADMISSION DATE: 04/21/2020 DISCHARGE DATE: ATTENDING MD: MARTIR BERGMAN : AGE: 64 MARITAL STATUS: W DC PLAN ID: [id number] FACILITY: [facility] PRINTED ON: 05/02/20 17:45 CT All edits/amendments must be made on the electronic document DICTATION DATE: 05/02/201744 WASHHOUSE WORKER: WILLIAM 05/02/201744 [facility]#: [id number] DC DATE: STATUS: ADM IN [facility] [address] [place] [address] END OF REPORT
--- NOTE | 2020-05-02 17:57 | MORECARE ---
CASE MANAGEMENT DISCHARGE SUMMARY PATIENT: KAYLEE MORRISSEY UNIT: [id number] ADM DATE: 04/21/20 AGE: 64 : 53 SEX: F ROOM/BED: D.8338 AUTHOR: SALTY,DOC PHYSICIAN: REFERRING PHYSICIAN: MARTIR MAURO MD DATE OF SERVICE: 05/02/20 Case Management Discharge Planning Summary COMMENTS ENTERED DATE: 05/02/20 17:10 CT COMMENT TYPE: Discharge Planning REVIEWER: Mitali Ron states [facility] does not take her insurance. He spoke with her and she is agreeable to [facility]. Shaneka states they have auth and will accept in am. ENTERED DATE: 05/02/20 16:22 CT COMMENT TYPE: Discharge Planning REVIEWER: Mitali Reinier Patient has called her insurance and they have told her they are in Network with [facility]. I called and spoke with Emilee Alonzo at insurance.... Reference# for call [phone] and Emilee tells me if they are not in network, she would have to pay 40% after deductible. I attempted to call Caren back, but she has gone for the day and they tell me Caren will call in am. I would ask her to try and run the insurance again, patient is wanting [facility]. Emilee with insurance returned my call and states [facility] is in network with patient's insurance. CM will continue to follow and assist with discharge planning/needs. ENTERED DATE: 05/02/20 12:00 CT COMMENT TYPE: Discharge Planning REVIEWER: Mitali Reinier [facility] and states patient's insurance is out of network and they cannot accept. I spoke with patient and she states to send referral to [facility]. Referral faxed and Shaneka informed. CM will continue to follow and assist with discharge planning/needs. ENTERED DATE: 05/01/20 14:09 CT COMMENT TYPE: Discharge Planning REVIEWER: Mitali Hills CM FAXED A REFERRAL TO [facility] AND I HAVE CALLED AND SPOKE WITH CAREN. DCP REVIEW SUMMARY ANTICIPATED D/C DATE: EXPECTED LOS : CASE STATUS: DCP Initiated INITIAL REVIEW: 04/24/2020 INITIAL REVIEWER: Frances Aguila FINAL DISCHARGE DISPOSITION: : FINAL REVIEWER: FINAL REVIEW DATE: DCP Focus Questions & Answers DCP REV -DCP Review Added on: 05/02/20 5:48 pm QUESTION: ANSWER DCP Screen High Risk Factors: : None Walking limitation: Patient stated self rated walking limitation present? : Yes Age: : 63 - 77 Prior living environment: : Lives Alone Disability ranking: : Grade 2: Slight disability DCP Evaluation Patient's ability to cope with chronic illness : d. No chronic illness Mental health screen: : No mental health history Would patient like to participate in any Care Coordination programs (if applicable): : Not applicable DCP Re-evaluation Would patient like to participate in any Care Coordination programs (if applicable): : Not applicable PATIENT: KAYLEE MORRISSEY ENCOUNTER: [id number] MEDICAL RECORD#: [id number] ADMISSION DATE: 04/21/2020 DISCHARGE DATE: ATTENDING MD: MARTIR BERGMAN : AGE: 64 MARITAL STATUS: W DC PLAN ID: [id number] FACILITY: [facility] PRINTED ON: 05/02/20 17:57 CT All edits/amendments must be made on the electronic document DICTATION DATE: 05/02/201756 WET CLEANER MACHINE: WILLIAM 05/02/201756 RPT#: [id number] DC DATE: STATUS: ADM IN [facility] [address] [place] [address] END OF REPORT
--- NOTE | 2020-05-02 18:08 | MORECARE ---
CASE MANAGEMENT DISCHARGE SUMMARY PATIENT: KAYLEE MORRISSEY UNIT: [id number] ADM DATE: 04/21/20 AGE: 64 : 53 SEX: F ROOM/BED: D.8480 AUTHOR: SALTY,DOC PHYSICIAN: REFERRING PHYSICIAN: MARTIR MAURO MD DATE OF SERVICE: 05/02/20 Case Management Discharge Planning Summary COMMENTS ENTERED DATE: 05/02/20 17:58 CT COMMENT TYPE: Discharge Planning REVIEWER: Frances Aguila LATE ENTRY 04/30/20 CM completed discharge planning assessment. CM spoke with patient at bedside she states that she was living at home independently for the last 3 weeks after being discharged from [facility]. She states that her brother checks on her frequently. She states that she has [facility]. She states that she hopes to return to her home but she hasn't gotten out of bed yet. DIONICIO signed for [facility], [facility] and to resume [facility]. Patient states that she will have transportation home. Patient denies any current discharge needs. CM will continue to follow and assist as needed with d/c plans / needs. ENTERED DATE: 05/02/20 17:10 CT COMMENT TYPE: Discharge Planning REVIEWER: Mitali Ron states [facility] does not take her insurance. He spoke with her and she is agreeable to [facility]. Shaneka states they have auth and will accept in am. ENTERED DATE: 05/02/20 16:22 CT COMMENT TYPE: Discharge Planning REVIEWER: Mitali Hills Patient has called her insurance and they have told her they are in Network with [facility]. I called and spoke with Emilee Alonzo at insurance.... Reference# for call [phone] and Emilee tells me if they are not in network, she would have to pay 40% after deductible. I attempted to call Caren back, but she has gone for the day and they tell me Caren will call in am. I would ask her to try and run the insurance again, patient is wanting [facility]. Emilee with insurance returned my call and states [facility] is in network with patient's insurance. CM will continue to follow and assist with discharge planning/needs. ENTERED DATE: 05/02/20 12:00 CT COMMENT TYPE: Discharge Planning REVIEWER: Mitali Méndezie [facility] called and states patient's insurance is out of network and they cannot accept. I spoke with patient and she states to send referral to [facility]. Referral faxed and [place] informed. CM will continue to follow and assist with discharge planning/needs. ENTERED DATE: 05/01/20 14:09 CT COMMENT TYPE: Discharge Planning REVIEWER: Mitali Hills CM FAXED A REFERRAL TO [facility] AND I HAVE CALLED AND SPOKE WITH CAREN. DCP REVIEW SUMMARY ANTICIPATED D/C DATE: EXPECTED LOS : CASE STATUS: DCP Initiated INITIAL REVIEW: 04/24/2020 INITIAL REVIEWER: Frances Aguila FINAL DISCHARGE DISPOSITION: : FINAL REVIEWER: FINAL REVIEW DATE: DCP Focus Questions & Answers DCP REV -DCP Review Added on: 05/02/20 5:48 pm QUESTION: ANSWER DCP Screen High Risk Factors: : None Walking limitation: Patient stated self rated walking limitation present? : Yes Age: : 63 - 77 Prior living environment: : Lives Alone Disability ranking: : Grade 2: Slight disability DCP Evaluation Patient's ability to cope with chronic illness : b. Minimal (2 - 3 ED visits in 6 mos., limited financial resources, occasionally misses appts.) Mental health screen: : No mental health history Would patient like to participate in any Care Coordination programs (if applicable): : Not applicable Physical Status: : Compromised skin integrity Partial Dependence, assistance required for: : Ambulation / Mobility Baseline cognitive status: : *Oriented to person, place, situation, time and present Family / Caregiver's ability to cope with chronic illness: : a. Adequate (ability to meet patient's medical needs, ensures patient attends medical appts.) Living Arrangements: : Home Alone with Support Living arrangements comments: : lives alone but her brother checks on her frequently and patient has [facility]ganger Facility / Agency name and contact information from Question 3 (if applicable): : [facility] Pharmacy name(s): : [facility] Does Patient have transportation to get home and to follow-up medical appointments when discharged from the hospital? : Yes Does the patient have electricity at home? : Yes Does the patient have running water in their house? : Yes Equipment in use: : Bedside Commode Equipment in use: : CPAP Equipment in use: : Home Oxygen with Nasal Cannula Equipment in use: : Nebulizer Equipment in use: : Shower Chair Equipment in use: : Walker - Rolling Psychosocial status: : Adult with physical limitations Patient's current cognitive status: : *Oriented to person, place, situation, time and present Functional screen assessment: : Unable to manage ADLs without immediate ongoing assistance Patient with capacity for self-care or can be cared for in same environment as prior to hospitalization? : Yes Does the patient have the ability to pay for or attain post discharge needs / services? : Yes Is there a likelihood that the patient will require additional services to return to the preadmission environment? : Yes Results of this evaluation have been discussed with: : Patient Comments: : plan for snf Patient and/or caregiver agree upon recommended discharge plan? : Yes Physical environment modification needed / anticipated for discharge: : Yes Physical environment referral comments (if applicable): : will need SNF Planned post hospital services available for patient? : Yes Planned post hospital services covered by insurance plan? : Yes DCP Re-evaluation Would patient like to participate in any Care Coordination programs (if applicable): : Not applicable PATIENT: KAYLEE MORRISSEY ENCOUNTER: [id number] MEDICAL RECORD#: [id number] ADMISSION DATE: 04/21/2020 DISCHARGE DATE: ATTENDING MD: MARTIR BERGMAN : AGE: 64 MARITAL STATUS: W DC PLAN ID: [id number] FACILITY: [facility] PRINTED ON: 05/02/20 18:08 CT All edits/amendments must be made on the electronic document DICTATION DATE: 05/02/201807 CUSTOMER EXPERT: WILLIAM 05/02/201807 RPT#: [id number] DC DATE: STATUS: ADM IN [facility] [address] [place] [address] END OF REPORT
--- NOTE | 2020-05-02 19:00 | NUR ---
OT NOTE: (AM) PT COMPLETED BED MOB TASKS WITH MOD A. PT COMPLETED UB HYGIENE WITH SETUP. (PM) PT COMPLETED BRIDGING WITH SBA. PT COMPLETED SIDE ROLLING WITH MIN A. PT COMPLETED LUE AROM EXS FOR INCREASED ENDURANCE. [id number];[id number] THANK YOU,CORNELIO ORELLANA
--- NOTE | 2020-05-02 19:24 | MORECARE ---
CASE MANAGEMENT DISCHARGE SUMMARY PATIENT: KAYLEE MORRISSEY UNIT: [id number] ADM DATE: 04/21/20 AGE: 64 : 51 SEX: F ROOM/BED: D.2802 AUTHOR: SALTY,DOC PHYSICIAN: REFERRING PHYSICIAN: MARTIR MAURO MD DATE OF SERVICE: 05/02/20 Case Management Discharge Planning Summary COMMENTS ENTERED DATE: 05/02/20 17:58 CT COMMENT TYPE: Discharge Planning REVIEWER: Frances Aguila LATE ENTRY 04/30/20 CM completed discharge planning assessment. CM spoke with patient at bedside she states that she was living at home independently for the last 3 weeks after being discharged from [facility]. She states that her brother checks on her frequently. She states that she has [facility]. She states that she hopes to return to her home but she hasn't gotten out of bed yet. DIONICIO signed for [facility], [facility] and to resume [facility]. Patient states that she will have transportation home. Patient denies any current discharge needs. CM will continue to follow and assist as needed with d/c plans / needs. ENTERED DATE: 05/02/20 17:10 CT COMMENT TYPE: Discharge Planning REVIEWER: Mitali Ron states [facility] does not take her insurance. He spoke with her and she is agreeable to [facility]. Shaneka states they have auth and will accept in am. ENTERED DATE: 05/02/20 16:22 CT COMMENT TYPE: Discharge Planning REVIEWER: Mitali Hills Patient has called her insurance and they have told her they are in Network with [facility]. I called and spoke with Emilee Alonzo at insurance.... Reference# for call [phone] and Emilee tells me if they are not in network, she would have to pay 40% after deductible. I attempted to call Caren back, but she has gone for the day and they tell me Caren will call in am. I would ask her to try and run the insurance again, patient is wanting [facility]. Emilee with insurance returned my call and states [facility] is in network with patient's insurance. CM will continue to follow and assist with discharge planning/needs. ENTERED DATE: 05/02/20 12:00 CT COMMENT TYPE: Discharge Planning REVIEWER: Mitali M[facility]dezie with [facility] called and states patient's insurance is out of network and they cannot accept. I spoke with patient and she states to send referral to [facility]. Referral faxed and [place] informed. CM will continue to follow and assist with discharge planning/needs. ENTERED DATE: 05/01/20 14:09 CT COMMENT TYPE: Discharge Planning REVIEWER: Mitali Hills CM FAXED A REFERRAL TO [facility] AND [facility] AND I HAVE CALLED AND SPOKE WITH CAREN. DCP REVIEW SUMMARY ANTICIPATED D/C DATE: EXPECTED LOS : CASE STATUS: DCP Initiated INITIAL REVIEW: 04/24/2020 INITIAL REVIEWER: Frances Aguila FINAL DISCHARGE DISPOSITION: : FINAL REVIEWER: FINAL REVIEW DATE: DCP Focus Questions & Answers DCP REV -DCP Review Added on: 05/02/20 5:48 pm QUESTION: ANSWER DCP Screen High Risk Factors: : None Walking limitation: Patient stated self rated walking limitation present? : Yes Age: : 63 - 77 Prior living environment: : Lives Alone Disability ranking: : Grade 2: Slight disability DCP Evaluation Patient's ability to cope with chronic illness : b. Minimal (2 - 3 ED visits in 6 mos., limited financial resources, occasionally misses appts.) Mental health screen: : No mental health history Would patient like to participate in any Care Coordination programs (if applicable): : Not applicable Physical Status: : Compromised skin integrity Partial Dependence, assistance required for: : Ambulation / Mobility Baseline cognitive status: : *Oriented to person, place, situation, time and present Family / Caregiver's ability to cope with chronic illness: : a. Adequate (ability to meet patient's medical needs, ensures patient attends medical appts.) Living Arrangements: : Home Alone with Support Living arrangements comments: : lives alone but her brother checks on her frequently and patient has [facility] Facility / Agency name and contact information from Question [facility] (if applicable): : [facility] Pharmacy name(s): : [facility] Does Patient have transportation to get home and to follow-up medical appointments when discharged from the hospital? : Yes Does the patient have electricity at home? : Yes Does the patient have running water in their house? : Yes Equipment in use: : Bedside Commode Equipment in use: : CPAP Equipment in use: : Home Oxygen with Nasal Cannula Equipment in use: : Nebulizer Equipment in use: : Shower Chair Equipment in use: : Walker - Rolling Psychosocial status: : Adult with physical limitations Patient's current cognitive status: : *Oriented to person, place, situation, time and present Functional screen assessment: : Unable to manage ADLs without immediate ongoing assistance Patient with capacity for self-care or can be cared for in same environment as prior to hospitalization? : Yes Does the patient have the ability to pay for or attain post discharge needs / services? : Yes Is there a likelihood that the patient will require additional services to return to the preadmission environment? : Yes Results of this evaluation have been discussed with: : Patient Comments: : plan for snf Patient and/or caregiver agree upon recommended discharge plan? : Yes Physical environment modification needed / anticipated for discharge: : Yes Physical environment referral comments (if applicable): : will need SNF Planned post hospital services available for patient? : Yes Planned post hospital services covered by insurance plan? : Yes DCP Re-evaluation Would patient like to participate in any Care Coordination programs (if applicable): : Not applicable PATIENT: KAYLEE MORRISSEY ENCOUNTER: [id number] MEDICAL RECORD#: [id number] ADMISSION DATE: 04/21/2020 DISCHARGE DATE: ATTENDING MD: MARTIR BERGMAN : AGE: 64 MARITAL STATUS: W DC PLAN ID: [id number] FACILITY: [facility] PRINTED ON: 05/02/20 19:24 CT All edits/amendments must be made on the electronic document DICTATION DATE: 05/02/201923 RESILIENT TILE INSTALLER: WILLIAM 05/02/201923 RPT#: [id number] DC DATE: STATUS: ADM IN [facility] [address] [place] [address] END OF REPORT
--- NOTE | 2020-05-02 19:26 | NUR ---
RECIEVED BEDSIDE SHIFT REPORT. ALERT AND ORIETNED X4. IV TO RT HAND AND PICC TO RT UPPER ARM. BOTH SL. RT ARM REMAINS IN SLING. TELEMETRY IN PLACE. DENIES ANY NEEDS AT THIS TIME.
[2020-05-03 01:08] VITALS: BP 109/67
[2020-05-03 05:33] VITALS: BP 107/69
[2020-05-03 06:47] LABS: ALBUMIN 2.2 g/dL (3.4-5.0); ALKALINE PHOSPHATASE 107 U/L (30-120); ALT (SGPT) 73 U/L (10-68); BILIRUBIN - TOTAL 0.29 mg/dL (0.2-1.3); CALC OSMOLALITY 277 mosm/kg (275-300); CALCIUM 8.2 mg/dL (8.5-10.1); CARBON DIOXIDE 39.4 mmol/L (21.0-32.0); CHLORIDE - SERUM 99 mmol/L (98-107); CREATININE - SERUM 0.7 mg/dL (0.6-1.3); GLUCOSE 126 mg/dL (74-106); MAGNESIUM - SERUM 1.9 mg/dL (1.8-2.4); POTASSIUM - SERUM 4.2 mmol/L (3.5-5.1); PROTEIN - SERUM 5.3 g/dL (6.4-8.2); SODIUM 136 mmol/L (136-145); UREA NITROGEN 23 mg/dL (7-18); eGFR NON AFRICAN AMERICAN 89 mL/min (90-120)
[2020-05-03 08:18] VITALS: BP 112/62
[2020-05-03 08:51] LABS: BASOPHILS 0.1 % (0-2); EOSINOPHILS 2.1 % (0-7); HEMATOCRIT 36.8 % (36.0-48.0); HEMOGLOBIN 11.4 g/dL (12-16); IMMATURE GRANULOCYTES 1.4 % (0-5); LYMPHOCYTE ABS# 1.44 10x3/uL (1.18-3.74); LYMPHOCYTES 13.1 % (15-50); MCV 96.8 fL (80.0-100.0); MEAN PLATELET VOLUME 9.7 fL (7.4-10.4); MONOCYTES 10.6 % (2-11); NEUTROPHILS 72.7 % (40-80); PLATELET COUNT 267 10x3/uL (130-400); RDW 17.3 % (11.5-14.5)
[2020-05-03] MEDS ORDERED: COZAAR50 MG PO (10:14)
[2020-05-03] MEDS ORDERED: PREDNISONE10 MG PO (10:17)
--- NOTE | 2020-05-03 10:30 | NUR ---
OT NOTE: PT COMPLETED FACE AND HAND HYGIENE WITH SETUP. PT COMPLETED BED MOB TASKS WITH MIN A. PT COMPLETED LUE AROM EXS TOLERATED. [id number] THANK YOU,CORNELIO ORELLANA
--- NOTE | 2020-05-03 14:52 | NUR ---
REPORT CALLED TO [facility] FOR PT TO TRANSFER BACK. WILL CALL AMBULANCE ONCE PICC LINE REMOVED.
--- NOTE | 2020-05-03 15:10 | NUR ---
USING STERILE TECHNIQUE PROCEDURE IS EXPLAINED TO PATIENT OF REMOVING LEFT UPPER ARM PICC LINE. PRESSURE HELD PAST REMOVAL OF 52 CM LENGHT. TO LAY FLAT X 15 MIN. CALL LIGHT ON CHEST.
--- NOTE | 2020-05-03 16:03 | NUR ---
[facility] CALLED FOR TRANSPORT TO [facility].
--- NOTE | 2020-05-03 17:06 | NUR ---
PT PICKED UP BY [facility] FOR TRANSPORT TO [facility].
--- NOTE | 2020-05-03 17:08 | MORECARE ---
CASE MANAGEMENT DISCHARGE SUMMARY PATIENT: KAYLEE MORRISSEY UNIT: [id number] ADM DATE: 04/21/20 AGE: 64 : 51 SEX: F ROOM/BED: D.8023 AUTHOR: SALTY,DOC PHYSICIAN: REFERRING PHYSICIAN: MARTIR MAURO MD DATE OF SERVICE: 05/03/20 Case Management Discharge Planning Summary COMMENTS ENTERED DATE: 05/02/20 17:58 CT COMMENT TYPE: Discharge Planning REVIEWER: Frances Aguila LATE ENTRY 04/30/20 CM completed discharge planning assessment. CM spoke with patient at bedside she states that she was living at home independently for the last 3 weeks after being discharged from [facility]. She states that her brother checks on her frequently. She states that she has [facility]. She states that she hopes to return to her home but she hasn't gotten out of bed yet. DIONICIO signed for [facility], [facility] and to resume [facility]. Patient states that she will have transportation home. Patient denies any current discharge needs. CM will continue to follow and assist as needed with d/c plans / needs. ENTERED DATE: 05/02/20 17:10 CT COMMENT TYPE: Discharge Planning REVIEWER: Mitali Ron states [facility] does not take her insurance. He spoke with her and she is agreeable to [facility]. Shaneka states they have auth and will accept in am. ENTERED DATE: 05/02/20 16:22 CT COMMENT TYPE: Discharge Planning REVIEWER: Mitali Hills Patient has called her insurance and they have told her they are in Network with [facility]. I called and spoke with Emilee Alonzo at insurance.... Reference# for call [id number] and Emilee tells me if they are not in network, she would have to pay 40% after deductible. I attempted to call Caren back, but she has gone for the day and they tell me Caren will call in am. I would ask her to try and run the insurance again, patient is wanting [facility]. Emilee with insurance returned my call and states [facility] is in network with patient's insurance. CM will continue to follow and assist with discharge planning/needs. ENTERED DATE: 05/02/20 12:00 CT COMMENT TYPE: Discharge Planning REVIEWER: Mitali M[facility]dezie with [facility] called and states patient's insurance is out of network and they cannot accept. I spoke with patient and she states to send referral to [facility]. Referral faxed and [place] informed. CM will continue to follow and assist with discharge planning/needs. ENTERED DATE: 05/01/20 14:09 CT COMMENT TYPE: Discharge Planning REVIEWER: Mitali Hills CM FAXED A REFERRAL TO [facility] AND I HAVE CALLED AND SPOKE WITH CAREN. DCP REVIEW SUMMARY ANTICIPATED D/C DATE: EXPECTED LOS : CASE STATUS: DCP Initiated INITIAL REVIEW: 04/24/2020 INITIAL REVIEWER: Frances Aguila FINAL DISCHARGE DISPOSITION: : FINAL REVIEWER: FINAL REVIEW DATE: DCP Focus Questions & Answers DCP REV -DCP Review Added on: 05/02/20 5:48 pm QUESTION: ANSWER DCP Screen High Risk Factors: : None Walking limitation: Patient stated self rated walking limitation present? : Yes Age: : 63 - 77 Prior living environment: : Lives Alone Disability ranking: : Grade 2: Slight disability DCP Evaluation Patient's ability to cope with chronic illness : b. Minimal (2 - 3 ED visits in 6 mos., limited financial resources, occasionally misses appts.) Mental health screen: : No mental health history Would patient like to participate in any Care Coordination programs (if applicable): : Not applicable Physical Status: : Compromised skin integrity Partial Dependence, assistance required for: : Ambulation / Mobility Baseline cognitive status: : *Oriented to person, place, situation, time and present Family / Caregiver's ability to cope with chronic illness: : a. Adequate (ability to meet patient's medical needs, ensures patient attends medical appts.) Living Arrangements: : Home Alone with Support Living arrangements comments: : lives alone but her brother checks on her frequently and patient has [facility] Facility / Agency name and contact information from Question 3 (if applicable): : [facility] Pharmacy name(s): : [facility] Does Patient have transportation to get home and to follow-up medical appointments when discharged from the hospital? : Yes Does the patient have electricity at home? : Yes Does the patient have running water in their house? : Yes Equipment in use: : Bedside Commode Equipment in use: : CPAP Equipment in use: : Home Oxygen with Nasal Cannula Equipment in use: : Nebulizer Equipment in use: : Shower Chair Equipment in use: : Walker - Rolling Psychosocial status: : Adult with physical limitations Patient's current cognitive status: : *Oriented to person, place, situation, time and present Functional screen assessment: : Unable to manage ADLs without immediate ongoing assistance Patient with capacity for self-care or can be cared for in same environment as prior to hospitalization? : Yes Does the patient have the ability to pay for or attain post discharge needs / services? : Yes Is there a likelihood that the patient will require additional services to return to the preadmission environment? : Yes Results of this evaluation have been discussed with: : Patient Comments: : plan for snf Patient and/or caregiver agree upon recommended discharge plan? : Yes Physical environment modification needed / anticipated for discharge: : Yes Physical environment referral comments (if applicable): : will need SNF Planned post hospital services available for patient? : Yes Planned post hospital services covered by insurance plan? : Yes DCP Re-evaluation Would patient like to participate in any Care Coordination programs (if applicable): : Not applicable PATIENT: KAYLEE MORRISSEY ENCOUNTER: [id number] MEDICAL RECORD#: [id number] ADMISSION DATE: 04/21/2020 DISCHARGE DATE: 05/03/2020 ATTENDING MD: MARTIR BERGMAN : AGE: 64 MARITAL STATUS: W DC PLAN ID: [id number] FACILITY: [facility] PRINTED ON: 05/03/20 17:08 CT All edits/amendments must be made on the electronic document DICTATION DATE: 05/03/201707 MULTIFOLD OPERATOR: WILLIAM 05/03/201707 RPT#: [id number] DC DATE:05/03/20 STATUS: DIS IN [facility] [address] [place] [address] END OF REPORT
== END 2020-05-03 17:07 | DRG 243 ==
LOC: D.ER 13:33 → D.CVICU 14:23 → D.M2 14:23 → D.SDCHOLD 04-23 15:26 → D.M2 04-23 15:31 → D.CVICU 04-26 09:32 → D.M2 04-28 17:48
PROVIDERS: Emergency Medicine; Family Medicine; Internal Medicine Pulmonary Disease; Thoracic Surgery (Cardiothoracic Vascular Surgery); ADMIT Family Medicine; ATTEND Family Medicine
PROC: 0HBAXZZ Excision of Inguinal Skin, External Approach (ICD-10-PCS; 2020-04-26)
PROC: 05H633Z Insertion of Infusion Device into Left Subclavian Vein, Percutaneous Approach (ICD-10-PCS; 2020-04-26)
PROC: 0JH604Z Insertion of Pacemaker, Single Chamber into Chest Subcutaneous Tissue and Fascia, Open Approach (ICD-10-PCS; principal; 2020-04-26 07:30)
PROC: 02HK3JZ Insertion of Pacemaker Lead into Right Ventricle, Percutaneous Approach (ICD-10-PCS; 2020-04-26 07:30)
PROC: 05HY33Z Insertion of Infusion Device into Upper Vein, Percutaneous Approach (ICD-10-PCS; 2020-04-27)
DX: I44.1 Atrioventricular block, second degree (principal); J96.11 Chronic respiratory failure with hypoxia; J44.1 Chronic obstructive pulmonary disease with (acute) exacerbation; Z68.43 Body mass index [BMI] 50.0-59.9, adult; J96.12 Chronic respiratory failure with hypercapnia; J98.11 Atelectasis; T81.89XD Other complications of procedures, not elsewhere classified, subsequent encounter; I48.91 Unspecified atrial fibrillation; I25.10 Atherosclerotic heart disease of native coronary artery without angina pectoris; I10 Essential (primary) hypertension; K21.9 Gastro-esophageal reflux disease without esophagitis; E66.01 Morbid (severe) obesity due to excess calories; E11.9 Type 2 diabetes mellitus without complications; I08.1 Rheumatic disorders of both mitral and tricuspid valves; I95.89 Other hypotension

== ENCOUNTER 2020-07-15 11:42 | Emergency (ER) | payer MEDICARE ==
[~2020-07-15] VITALS: Ht 157.5 cm; Wt 136.4 kg
[~2020-07-15 11:42] MED LIST changes: +COZAAR50 MG PO; +PREDNISONE10 MG PO
[2020-07-15 11:44] VITALS: Ht 157.5 cm; Wt 136.4 kg
[2020-07-15] MEDS ORDERED: HYDROCODON-ACE1 EAC7 PO (13:45)
[2020-07-15 14:02] VITALS: BP 116/55
== END 2020-07-15 14:34 | disposition home or self-care (01) ==
LOC: D.ER 11:42
DX: M54.5 Low back pain (principal); G89.29 Other chronic pain; I10 Essential (primary) hypertension; E78.5 Hyperlipidemia, unspecified; J44.9 Chronic obstructive pulmonary disease, unspecified; Z99.81 Dependence on supplemental oxygen; K21.9 Gastro-esophageal reflux disease without esophagitis; E03.9 Hypothyroidism, unspecified